=== PATIENT | female | born 1950 | race Caucasian/White ===

== ENCOUNTER 2016-03-18 17:49 | Emergency (ER) | payer OTHER ==
[~2016-03-18] VITALS: Ht 157.5 cm; Wt 67.5 kg
[~2016-03-18 17:49] MED LIST: BACL10TA PO; FERR1TAB23 PO; PRD20 PO; PRED-301 PO
[2016-03-18 17:59] VITALS: TEMP 37; Ht 157.5 cm; Wt 67.5 kg
[2016-03-18] MEDS ORDERED: OXYMETAZOLINE HCL 0.05% NA SPR 15 ML BTL ONE ×2 (18:46→19:00)
--- NOTE | 2016-03-18 19:27 | EMERGENCY ROOM VISIT NOTE ---
History First contact with patient: 18:19 Chief Complaint: NOSE BLEED (MINOR) Stated Complaint: NOSE BLEED History of Present Illness The patient is a 66 year old female who presents to the Emergency Room with complaints of nosebleed. She was at home doing laundry when her nose suddenly started bleeding. She denies any trauma to the nose. The blood was continuous and soaks through multiple paper towels so patient and they decided to come to the ED. She does not have history of any nosebleeds. She does not have any bleeding disorders. She has not had a blood in the stools or urine. She denies rash. She is on home O2 for the past 2 months after an episode of PNA where she was hospitalized at [facility]. She takes 2 L at rest by nasal cannula, 4L when talking and 6 L when up and about. She mostly does work around the house and is trying to remain independent. notes she seems to have been more short of breath for the past 2 days. She has an intermittent productive cough. She has not had wheezing. She notes a momentary sharp chest pain, no associated with exertion or rest but no exertional chest tightness. She has not had fevers. Her appetite and intake have been good. She has been having normal BMs and has been urinating well. Review of Systems A 10 point review of systems was negative unless stated above. Past Medical/Surgical History Medical Problems: (1) Chronic Obstructive Pulmonary Disease, Unspecified (2) Hx of supraventricular tachycardia (3) Hyperlipidemia (4) Hypertension (5) Iron deficiency anemia (6) Malignant neoplasm of lower lobe of right lung (7) Metabolic syndrome (8) Myalgia and myositis (9) Osteoporosis (10) Peripheral neuropathy due to chemotherapy (11) Pneumonia (12) Rheumatoid Arthritis (13) Rheumatoid arthritis (14) Tobacco Use Disorder Surgical Problems: (1) History of cholecystectomy (2) History of hysterectomy (3) History of salpingo-oophorectomy (4) S/p A-port insertion (5) S/P bronchoscopy (6) S/P lobectomy of lung Family History Cancer Diabetes mellitus Gallbladder disease Heart disease MOTHER ([place] in 70s) Hypertension Kidney disease Kidney stones Lung disease Seizures Social History Smoking Status: Former Smoker Alcohol Use: none Drug Use: none Marital Status: Housing Status: lives with significant other Occupation Status: unemployed Current/Historical Medications Scheduled Abatacept (Orencia), 125 MG INJ MONTHLY Aspirin (Aspirin 81), 81 MG PO QAM Atorvastatin (Atorvastatin Calcium), 10 MG PO HS Calcium Carbonate-Vitamin D (Calcium + D), 2 TABS PO DAILY Cholecalciferol (Vitamin D3), 5,000 UNITS PO DAILY Ferrous Sulfate (Iron), 325 MG PO DAILY Furosemide (Lasix), 40 MG PO DAILY Metoprolol Succinate (Toprol Xl), 50 MG PO QAM Prednisone (Prednisone Tab), 40 MG PO DAILY Zolpidem Tartrate (Ambien), 5 MG PO HS Scheduled PRN Hydrocodone/Acetaminophen 5MG/325MG ([place] 5MG/325MG), 1 TABLET PO TID PRN for Pain Ipratropium-Albuterol (Combivent Respimat), 2 PUFFS INH QID PRN for SOB/Wheezing Allergies Coded Allergies: Azithromycin (Verified Allergy, Mild, RASH, 01/21/16) Iodine (Verified Allergy, Mild, IVP DYE N/V HIVES, 01/21/16) Tramadol (Verified Allergy, Mild, RASH, 01/21/16) Codeine (Unverified Adverse Reaction, Unknown, Hallucinations, 01/21/16) Simvastatin (Unverified Adverse Reaction, Unknown, rash, 01/21/16) Physical Exam Vital Signs Date Time Temp Pulse Resp B/P Pulse Ox O2 Delivery O2 Flow Rate FiO2 03/18/16 20:24 98 20 134/92 97 Non-Rebreather 03/18/16 19:34 104 18 125/91 95 Non-Rebreather 4.0 03/18/16 17:59 37.0 113 22 133/91 96 Mask 2.0 Pain Rating (0-10): 0 Physical Exam Constitutional: Vital signs as above were reviewed. Eyes: Pupils equal, round, and reactive to light. Extraocular muscles are intact. No proptosis. No photophobia. ENT: Mucous membranes are moist. No sinus tenderness. TMs are clear bilaterally. Nasal mucosa: left nare clear right nare obstructed by blood. Could not visualize source for bleeding Fresh blood running down pharynx Cardiovascular: Heart with a regular rate and rhythm. Pulses are palpable and symmetric in all 4 extremities. No pedal edema appreciated. Respiratory: Non-rebreather mask. No wheezes, appreciated. No accessory muscle use. No retractions. No increased work of breathing. Crackles at left base GI: Abdomen soft, nontender, nondistended. Normal active bowel sounds. No abdominal hernias appreciated. No rebound. No guarding. : No CVA tenderness appreciated. Musculoskeletal: No midline cervical or vertebral tenderness. No gross deformities. No bony tenderness. No calf swelling or tenderness. Integumentary: Warm, dry, no rashes appreciated. No petechiae Neurological: Patient awake, alert, and oriented x 3. Cranial nerves two through 12 grossly intact. Motor 5 out of 5 strength bilateral upper and lower extremities. Lymph: No cervical lymphadenopathy appreciated. Medical Decision & Procedures ER Provider Diagnostic Interpretation: [~ rep ct add3]] CHEST ONE VIEW PORTABLE CLINICAL HISTORY: Shortness of breath. History of right lung surgery. COMPARISON STUDY: 01/21/2016 FINDINGS: The cardiac and mediastinal contours remain stable. There is mild soft tissue prominence the right paratracheal region unchanged the prior study. There is a right-sided A-Port catheter present. There are diffuse bilateral interstitial pulmonary opacities left greater than right, similar to the preceding study.[ IMPRESSION: Extensive bilateral interstitial pulmonary opacities, similar to the preceding examination. Diagnostic considerations include interstitial edema, interstitial lung disease, or an interstitial pneumonitis. Electronically signed by: Gage Farley M.D. 03/18/2016 7:26 PM Dictated Date/Time: 03/18/2016 7:23 PM Laboratory Results 03/18/16 19:30 Red Blood Count 4.16, Mean Corpuscular Volume 86.5, Mean Corpuscular Hemoglobin 27.9, Mean Corpuscular Hemoglobin Concent 32.2, Mean Platelet Volume 10.1 03/18/16 19:30 Test 03/18/16 19:30 White Blood Count 17.82 K/uL (4.8-10.8) Red Blood Count 4.16 M/uL (4.2-5.4) Hemoglobin 11.6 g/dL (12.0-16.0) Hematocrit 36.0 % (37-47) Mean Corpuscular Volume 86.5 fL (80-100) Mean Corpuscular Hemoglobin 27.9 pg (25-34) Mean Corpuscular Hemoglobin Concent 32.2 g/dl (32-36) Platelet Count 278 K/uL (130-400) Mean Platelet Volume 10.1 fL (7.4-10.4) RDW Standard Deviation 51.3 fL (36.4-46.3) RDW Coefficient of Variation 16.1 % (11.5-14.5) Prothrombin Time 9.7 SECONDS (9.0-12.0) Prothromb Time International Ratio 0.9 (0.9-1.1) Activated Partial Thromboplast Time 27.6 SECONDS (21.0-31.0) Partial Thromboplastin Ratio 1.1 Anion Gap 8.0 mmol/L (3-11) Est Creatinine Clear Calc Drug Dose 63.2 ml/min Estimated GFR () 89.7 Estimated GFR (Non- 77.4 BUN/Creatinine Ratio 32.1 (10-20) Calcium Level 8.4 mg/dl (8.5-10.1) Total Bilirubin 0.2 mg/dl (0.2-1) Aspartate Amino Transf (AST/SGOT) 20 U/L (15-37) Alanine Aminotransferase (ALT/SGPT) 28 U/L (12-78) Alkaline Phosphatase 71 U/L (45-117) Total Protein 6.4 gm/dl (6.4-8.2) Albumin 2.9 gm/dl (3.4-5.0) Globulin 3.5 gm/dl (2.5-4.0) Albumin/Globulin Ratio 0.8 (0.9-2) ED Course 18:20 - Patient seen in room 18:55 - Precepted case with Dr. Patterson Orders: CBC, CMP, PTINR, PTT, CXR 17:45 - CBC reviewed; noted to have WBC 17 CXR reviewed; no acute change 20:30 - CMP reviewed; no evidence of electrolyte, renal or hepatic dysfunction 20:40 - Results of work-up discussed with patient Recommend discharge home. Can take Afrin up to 48 hours Will give mask at discharge to prevent nasal irritation from nasal cannula 21:00 - Patient discharged home in stable condition. Medical Decision A thorough history was obtained, physical examination performed and the EMR was reviewed. The case was reviewed multiple times over with Dr. Ankur Patterson during the patient's ED visit. Patient presents with nosebleed. No other evidence of acute pathological bleeding. Her nosebleed improved with Afrin. I have recommended she can take this for 48 hours, then should stop for rebound. Labs were reviewed. Platelets were normal. Hb normal. No evidence of renal dysfunction causing platelet dysfunction. Coagulation panel was normal. WBCs was noted to be 17. However, she is on chronic steroids and this finding may be due to reactive leukocytosis and not infection. I auscultated the lungs and heard crackles at the left base, prompting CXR evaluation. Fortunately, CXR did not show any acute process. Furthermore, patient reports marked improvement of respiratory status after cessation her nosebleed. My suspicion is that, given her history of chronic rheumatoid arthritis and lung ca, the auscultated crackles are consistent with fibrotic change and not an evolving infective process. As such, I did not feel the need to discharge her on antibiotics. Patient remained hemodynamically stable throughout her ED stay. She was agreeable and close follow-up with her PCP. She was given nosebleed instruction handout and discharged in stable condition. Impression Primary Impression: Nosebleed Additional Impression: Pulmonary fibrosis Departure Information Dispostion Home / Self-Care Condition GOOD Referrals Vera Pickard M.D. (PCP) Patient Instructions My [facility] Additional Instructions You came to the hospital for shortness of breath. We treated you with a nose spray called Afrin. This makes the vessels in the nose close down. This seemed to have improved your symptoms. You can continue to take this for the next 2 days but then stop, because if used for longer it can have rebound effects. Your breathing seemed to improve after your nose bleed stopped. We did a chest x-ray to rule out infection but this was normal. We did check labwork to make sure you did not have an infection but it was fortunately normal. Your white blood cell count is high but this is most likely because you are on steroids We will send you home with facemask to use with your oxygen for the next day. Please use it with a humidifier. As you go home, you can return to your usual activities. If your nosebleed suddenly returns and is not controlled, please seek medical attention immediately by either calling your primary care provider or going to your nearest emergency department. Otherwise, please see your primary care provider in 3-5 days to ensure that your symptoms continue to improve. It was a pleasure to be involved in your care and we wish you all the best. Problem Qualifiers
[2016-03-18 19:41] LABS: MEAN CELL VOLUME 86.5 fL (80-100); MEAN CORPUSCULAR HEMOGLOBIN 27.9 pg (25-34); MEAN CORPUSCULAR HGB CONC 32.2 g/dl (32-36); MEAN PLATELET VOLUME 10.1 fL (7.4-10.4); PLATELET COUNT 278 K/uL (130-400); RED BLOOD COUNT 4.16 M/uL (4.2-5.4); WHITE BLOOD COUNT 17.82 K/uL (4.8-10.8)
[2016-03-18 19:52] LABS: INR 0.9 (0.9-1.1); PARTIAL THROMBOPLASTIN RATIO 1.1; PROTHROMBIN TIME (PATIENT) 9.7 SECONDS (9.0-12.0)
[2016-03-18 20:16] LABS: BUN/CREATININE RATIO 32.1 (10-20); CALCIUM 8.4 mg/dl (8.5-10.1); CREATININE 0.8 mg/dl (0.60-1.20); POTASSIUM 3.9 mmol/L (3.5-5.1)
[2016-03-18 20:19] LABS: ALB/GLOB RATIO 0.8 (0.9-2)
[2016-03-18] MEDS ORDERED: PRED20TA2 PO (20:21)
[2016-03-18] MEDS ORDERED: ZOLP5TAB PO (20:24)
--- NOTE | 2016-03-18 20:26 | EMERGENCY ROOM VISIT NOTE ---
ED Visit Note First contact with patient: 18:19 Resident Physician Supervision Note: I was present with Dr. Steel during the history and exam. I discussed the case with the resident and agree with the findings and plan as documented in the note. Documented By: Raza Patterson
[2016-03-18] MEDS ORDERED: ORNI125 INJ (20:28)
[2016-03-18 20:58] VITALS: BP 132/90; PULSE 84; O2SAT 97
[2016-03-18 21:58] LABS: BASO % 0.3 %; BASO ABS # 0.06 K/uL (0-0.2); COMPLETE YES; EOS % 0.1 %; IG% 5.3 %; LYMPH % 10.1 %; MONO % 7.1 %; NEUT % 77.1 %
[2016-09-14] MEDS ORDERED: HYDR-5688 PO (10:19)
[2016-09-14] MEDS ORDERED: CHOL1000 PO (11:14)
[2016-09-14] MEDS ORDERED: IPRA1AER2 INH (11:14)
[2016-09-14] MEDS ORDERED: CALC600T9 PO (11:14)
[2016-09-14] MEDS ORDERED: METO-217 PO (12:35)
[2016-09-14] MEDS ORDERED: ASPI-435 PO (12:35)
[2016-09-14] MEDS ORDERED: LPT10 PO (13:55)
[2016-10-05] MEDS ORDERED: DXY100 PO (13:36)
[2016-10-05] MEDS ORDERED: PRED10TA PO (13:36)
[2016-10-05] MEDS ORDERED: IPRA1AER2 INH (13:36)
== END 2016-03-18 21:04 | disposition home or self-care (01) ==
LOC: EDBD 17:49 → C.EDA 17:50
DX: R04.0 Epistaxis (principal); J84.10 Pulmonary fibrosis, unspecified; C34.31 Malignant neoplasm of lower lobe, right bronchus or lung; M06.9 Rheumatoid arthritis, unspecified; Z79.82 Long term (current) use of aspirin; J44.9 Chronic obstructive pulmonary disease, unspecified; E78.5 Hyperlipidemia, unspecified; M81.0 Age-related osteoporosis without current pathological fracture; I10 Essential (primary) hypertension; Z87.891 Personal history of nicotine dependence

== ENCOUNTER 2016-09-14 18:01 | Emergency (ER) | payer OTHER ==
[~2016-09-14] VITALS: Ht 157.5 cm; Wt 74.8 kg
[~2016-09-14 18:01] MED LIST changes: +ASPI-435 PO; -BACL10TA PO; +CALC600T9 PO; +CHOL1000 PO; +HYDR-5688 PO; +IPRA1AER2 INH; +LPT10 PO; +METO-217 PO; +ORNI125 INJ; -PRD20 PO; -PRED-301 PO; +PRED20TA2 PO; +ZOLP5TAB PO
[2016-09-14 18:06] VITALS: Ht 157.5 cm; Wt 74.8 kg
[2016-09-14] MEDS ORDERED: FSMD/70 PO (18:26)
[2016-09-14] MEDS ORDERED: PRED10TA PO (18:26)
[2016-09-14] MEDS ORDERED: AMOX875T PO (18:26)
[2016-09-14] MEDS ORDERED: ABAT250I INJ (18:26)
[2016-09-14] MEDS ORDERED: PROAIR INH (18:26)
--- NOTE | 2016-09-14 18:30 | DIAGNOSTIC IMAGING REPORT ---
CT SCAN OF THE BRAIN WITHOUT IV CONTRAST CLINICAL HISTORY: Fall with head injury. COMPARISON STUDY: No priors. TECHNIQUE: Unenhanced axial CT scan of the brain is performed from the vertex to the skull base. Automated dose control exposure was utilized. A dose lowering technique was utilized adhering to the principles of ALARA. CT DOSE: 537.48 mGy.cm FINDINGS: Brain parenchyma: There is minimal periventricular microangiopathic change. The brain parenchyma is otherwise normal in appearance. There is no hemorrhage, mass effect, or evidence of acute territorial ischemia by CT criteria. Angulo-white matter is preserved. No extra-axial fluid collection is seen. Ventricles, sulci, cisterns: Normal in configuration. Intracranial vasculature: There is atherosclerotic calcification of the cavernous carotid arteries. Calvarium: There is no depressed calvarial fracture. Soft tissues: There is a left occipital scalp contusion. Sinuses and mastoids: The visualized paranasal sinuses are clear. The mastoid air cells are well pneumatized. Orbits: The bony orbits are grossly intact. There are bilateral ocular lens implants. IMPRESSION: No acute intracranial abnormality. Electronically signed by: Luis Corley M.D. 09/14/2016 6:29 PM Dictated Date/Time: 09/14/2016 6:26 PM
[2016-09-14] MEDS ORDERED: ACETAMINOPHEN 500 MG TAB PO ONE (18:33)
--- NOTE | 2016-09-14 19:13 | DIAGNOSTIC IMAGING REPORT ---
SINGLE VIEW CHEST CLINICAL HISTORY: Fall. Left-sided chest wall pain. FINDINGS: An AP, portable, upright chest radiograph is compared to study dated 03/18/2016 and correlated with chest CT dated 01/22/2016. The examination is degraded by portable technique and patient rotation. A right internal jugular central venous infusion port is unchanged in position. The heart is mildly enlarged and there is atherosclerotic calcification of the thoracic aorta. The pulmonary vasculature is noncongested. There is emphysema, as well as postoperative changes from right-sided pulmonary resection. Pleural fluid is noted at the right lung base and is similar to previous. There is no airspace consolidation or large left-sided pleural effusion. No pneumothorax is seen. The skeletal structures are osteopenic. Postoperative change is suggested in the right sided ribs. IMPRESSION: 1. Cardiomegaly emphysema with no acute cardiopulmonary maladies. 2. Postoperative change and chronic parenchymal change is similar to previous. Electronically signed by: Luis Corley M.D. 09/14/2016 7:11 PM Dictated Date/Time: 09/14/2016 7:09 PM
[2016-09-14] MEDS ORDERED: HYDROCODONE/ACETAMOPHEN 5/325MG TAB PO STA (19:24)
--- NOTE | 2016-09-14 19:57 | EMERGENCY ROOM VISIT NOTE ---
History Report prepared by Adelita: Fito Gastelum Under the Supervision of: Dr. Khoa Singh M.D. First contact with patient: 18:04 Chief Complaint: FALL Stated Complaint: FALL History of Present Illness The patient is a 66 year old female who presents to the Emergency Room by EMS with complaints of constant posterior head pain s/p fall occurring just prior to arrival. She states that she slipped in the shower and fell onto the toilet. She states that she hit her head on the toilet. The patient also complains of resolved dizziness. She denies any other pain or injuries. She did not lose consciousness. The patient states that she felt normal prior to her fall. She notes that she began having some shortness of breath and coughing some blood this morning. Source of History: patient Onset: Just prior to arrival Position: head (posterior) Timing: constant Associated Symptoms: + cough (blood this morning), + SOB (this morning), No LOC, No neck pain, No chest pain, No abdominal pain, No back pain Review of Systems See HPI for pertinent positives & negatives. A total of 10 systems reviewed and were otherwise negative. Past Medical & Surgical Medical Problems: (1) Chronic Obstructive Pulmonary Disease, Unspecified (2) Hx of supraventricular tachycardia (3) Hyperlipidemia (4) Hypertension (5) Iron deficiency anemia (6) Malignant neoplasm of lower lobe of right lung (7) Metabolic syndrome (8) Myalgia and myositis (9) Osteoporosis (10) Peripheral neuropathy due to chemotherapy (11) Pneumonia (12) Rheumatoid Arthritis (13) Rheumatoid arthritis (14) Tobacco Use Disorder Surgical Problems: (1) History of cholecystectomy (2) History of hysterectomy (3) History of salpingo-oophorectomy (4) S/p A-port insertion (5) S/P bronchoscopy (6) S/P lobectomy of lung Family History Cancer Diabetes mellitus Gallbladder disease Heart disease MOTHER ([place] in 70s) Hypertension Kidney disease Kidney stones Lung disease Seizures Social History Smoking Status: Former Smoker Alcohol Use: none Drug Use: none Marital Status: Housing Status: lives with significant other Occupation Status: unemployed Current/Historical Medications Scheduled Abatacept (Orencia), 750 MG INJ Q4WK Alendronate/Cholecalciferol (Fosamax+D 70MG/2800 Iu), 1 TABLET PO WK Amoxicillin & Pot Clavulanate (Augmentin 875-125 mg), 1 TAB PO BID Aspirin (Aspirin 81), 81 MG PO QAM Atorvastatin (Atorvastatin Calcium), 10 MG PO HS Calcium Carbonate-Vitamin D (Calcium + D), 2 TABS PO DAILY Cholecalciferol (Vitamin D3), 5,000 UNITS PO DAILY Ferrous Sulfate (Iron), 325 MG PO qp Furosemide (Lasix), 40 MG PO DAILY Metoprolol Succinate (Toprol Xl), 50 MG PO QAM Prednisone (Prednisone), 40 MG PO DAILY UD Scheduled PRN Hydrocodone/Acetaminophen 5MG/325MG ([place] 5MG/325MG), 1 TABLET PO TID PRN for Pain [Proair], 2 PUFF INH Q4 PRN for SOB/Wheezing Allergies Coded Allergies: Azithromycin (Verified Allergy, Mild, RASH, 01/21/16) Iodine (Verified Allergy, Mild, IVP DYE N/V HIVES, 01/21/16) Tramadol (Verified Allergy, Mild, RASH, 01/21/16) Codeine (Unverified Adverse Reaction, Unknown, Hallucinations, 01/21/16) Simvastatin (Unverified Adverse Reaction, Unknown, rash, 01/21/16) Physical Exam Vital Signs Date Time Temp Pulse Resp B/P (MAP) Pulse Ox O2 Delivery O2 Flow Rate FiO2 09/14/16 20:17 36.7 72 18 140/78 99 09/14/16 20:03 72 18 140/78 99 Room Air 09/14/16 18:06 36.7 80 22 140/78 99 Nasal Cannula 6.0 Physical Exam GENERAL: Patient is uncomfortable appearing and in mild distress. HEENT: Normocephalic, mucous membranes moist, no nasal congestion, no scleral icterus. Moderate hematoma to the left posterior scalp. NECK: No stridor, no adenopathy, no meningismus, trachea is midline. LUNGS: No dyspnea. Faint wheezing bilateral lower lungs. HEART: Regular rate and rhythm. No murmurs, rubs, gallops appreciated. ABDOMEN: Soft, nontender, bowel sounds positive, no masses appreciated, no peritonitis. BACK: No midline tenderness, no CVA tenderness EXTREMITIES: Normal motion all extremities, no cyanosis, no edema. NEUROLOGIC: Alert and oriented, no acute motor or sensory deficits, no focal weakness, cranial nerves grossly intact. GCS 15. SKIN: No rash, no jaundice, no diaphoresis. Medical Decision & Procedures ER Provider Diagnostic Interpretation: Radiology results and stated below per my review and radiologist interpretation: CT SCAN OF THE BRAIN WITHOUT IV CONTRAST FINDINGS: Brain parenchyma: There is minimal periventricular microangiopathic change. The brain parenchyma is otherwise normal in appearance. There is no hemorrhage, mass effect, or evidence of acute territorial ischemia by CT criteria. Angulo-white matter is preserved. No extra-axial fluid collection is seen. Ventricles, sulci, cisterns: Normal in configuration. Intracranial vasculature: There is atherosclerotic calcification of the cavernous carotid arteries. Calvarium: There is no depressed calvarial fracture. Soft tissues: There is a left occipital scalp contusion. Sinuses and mastoids: The visualized paranasal sinuses are clear. The mastoid air cells are well pneumatized. Orbits: The bony orbits are grossly intact. There are bilateral ocular lens implants. IMPRESSION: No acute intracranial abnormality. Electronically signed by: Luis Corley M.D. SINGLE VIEW CHEST FINDINGS: An AP, portable, upright chest radiograph is compared to study dated 03/18/2016 and correlated with chest CT dated 01/22/2016. The examination is degraded by portable technique and patient rotation. A right internal jugular central venous infusion port is unchanged in position. The heart is mildly enlarged and there is atherosclerotic calcification of the thoracic aorta. The pulmonary vasculature is noncongested. There is emphysema, as well as postoperative changes from right-sided pulmonary resection. Pleural fluid is noted at the right lung base and is similar to previous. There is no airspace consolidation or large left-sided pleural effusion. No pneumothorax is seen. The skeletal structures are osteopenic. Postoperative change is suggested in the right sided ribs. IMPRESSION: 1. Cardiomegaly emphysema with no acute cardiopulmonary maladies. 2. Postoperative change and chronic parenchymal change is similar to previous. Electronically signed by: Luis Corley M.D. Medications Administered Medications (Trade) Dose Ordered Sig/Silvia Route Start Time Stop Time Status Last Admin Dose Admin Acetaminophen (Tylenol Tab) 1,000 mg STK-MED ONCE PO 09/14/16 18:33 09/14/16 18:34 DC 09/14/16 18:33 1,000 MG Acetaminophen/ Hydrocodone Bitart ([place] 5/325 Tab) 1 tab NOW STAT PO 7/31/17 19:24 09/14/16 19:25 DC 09/14/16 19:24 1 TAB ED Course 1804: The patient was evaluated in room B12B. A complete history and physical exam was performed. 1832: Ordered Tylenol Tab 1000 mg PO. 1921: I reassessed the patient. She would like something for the pain, and would like to go home. 1923: Ordered [place] 5/325 Tab PO. 2024: Reevaluated the patient. Discussed results and discharge instructions: she verbalized understanding and agreement. The patient is ready for discharge. Medical Decision 66 yr old female with fall striking posterior left head. Notes cough over last few days for which she was recently started on abx. CXR without any acute findings. CT head without acute ICH, etc. Tylenol mild improvement, given her [place] early here. She is GCS 15 with completely neuro intact. She makes it very clear this was a mechanical fall. She feels comfortable going home. Stable and breathing well on her normal [place] O2. Reviewed symptoms requiring RTED. Head Trauma GCS Score: 15 Medication Reconcilliation Current Medication List: was personally reviewed by me Blood Pressure Screening Patient's blood pressure: Elevated blood pressure Blood pressure disposition: Elevated BP felt to be situational Impression Primary Impression: Fall Additional Impressions: Head contusion Cough Emphysema of lung Scribe Attestation The scribe's documentation has been prepared under my direction and personally reviewed by me in its entirety. I confirm that the note above accurately reflects all work, treatment, procedures, and medical decision making performed by me. Departure Information Dispostion Home / Self-Care Referrals Vera Pickard M.D. (PCP) Patient Instructions ED Head Injury Closed, My [facility] Health Problem Qualifiers
[2016-09-14 20:17] VITALS: BP 140/78; PULSE 72; TEMP 36.7; O2SAT 99
[2016-09-14] MEDS ORDERED: FRS/40 PO (20:20)
[2016-10-05] MEDS ORDERED: PRED10TA PO (13:36)
[2016-10-05] MEDS ORDERED: DXY100 PO (13:36)
[2016-10-05] MEDS ORDERED: IPRA1AER2 INH (13:36)
== END 2016-09-14 20:19 | disposition home or self-care (01) ==
LOC: EDBD 18:01 → C.EDA 18:02
DX: S00.03XA Contusion of scalp, initial encounter (principal); W01.198A Fall on same level from slipping, tripping and stumbling with subsequent striking against other object, initial encounter; Y92.002 Bathroom of unspecified non-institutional (private) residence as the place of occurrence of the external cause; R05 Cough; J43.9 Emphysema, unspecified; J44.9 Chronic obstructive pulmonary disease, unspecified; E78.5 Hyperlipidemia, unspecified; I10 Essential (primary) hypertension; D50.9 Iron deficiency anemia, unspecified; E88.81 Metabolic syndrome and other insulin resistance; M79.1 Myalgia; G62.0 Drug-induced polyneuropathy; T45.1X5A Adverse effect of antineoplastic and immunosuppressive drugs, initial encounter; M06.9 Rheumatoid arthritis, unspecified; Z85.118 Personal history of other malignant neoplasm of bronchus and lung; Z87.891 Personal history of nicotine dependence; Z90.710 Acquired absence of both cervix and uterus; Z90.722 Acquired absence of ovaries, bilateral; Z90.2 Acquired absence of lung [part of]; Z79.82 Long term (current) use of aspirin; Z83.3 Family history of diabetes mellitus; Z82.49 Family history of ischemic heart disease and other diseases of the circulatory system; Z84.1 Family history of disorders of kidney and ureter; Z82.0 Family history of epilepsy and other diseases of the nervous system

== ENCOUNTER 2016-10-02 16:23 | Inpatient (IN) | payer OTHER ==
[~2016-10-02] VITALS: Ht 157.5 cm; Wt 74.6 kg
[~2016-10-02 16:23] MED LIST changes: +ABAT250I INJ; +AMOX875T PO; +FRS/40 PO; +FSMD/70 PO; -IPRA1AER2 INH; -ORNI125 INJ; +PRED10TA PO; -PRED20TA2 PO; +PROAIR INH; -ZOLP5TAB PO
[2016-10-02] MEDS ORDERED: SODIUM CHLORIDE 0.9% 1000ML 1,000 ML IV STA (16:50)
[2016-10-02] MEDS ORDERED: LEVAQUIN 750MG / 150ML D5W IV STA (16:50)
[2016-10-02] MEDS ORDERED: ALBUTEROL 0.083% NEBU SOLN 3 ML VIAL INH STA (16:51)
[2016-10-02] MEDS ORDERED: METHYLPREDNISOLONE 125 MG VIAL IV STA (16:52)
[2016-10-02] MEDS ORDERED: OPTIRAY 320 IV PRN (17:30)
[2016-10-02] MEDS ORDERED: MoRPHine SULFATE 4 MG/ML 1 ML CARP\\VIAL IV STA (17:38)
[2016-10-02 17:42] LABS: BASO % 0.2 %; BASO ABS # 0.02 K/uL (0-0.2); COMPLETE YES; EOS % 1.1 %; HEMATOCRIT 35.5 % (37-47); IG% 1.8 %; LYMPH % 20.8 %; LYMPH ABS # 1.92 K/uL (1.2-3.4); MEAN CELL VOLUME 87.4 fL (80-100); MEAN CORPUSCULAR HEMOGLOBIN 27.6 pg (25-34); MEAN CORPUSCULAR HGB CONC 31.5 g/dl (32-36); MEAN PLATELET VOLUME 9.7 fL (7.4-10.4); MONO % 8.9 %; NEUT % 67.2 %; PLATELET COUNT 207 K/uL (130-400); RED BLOOD COUNT 4.06 M/uL (4.2-5.4); WHITE BLOOD COUNT 9.24 K/uL (4.8-10.8)
--- NOTE | 2016-10-02 18:13 | DIAGNOSTIC IMAGING REPORT ---
CHEST ONE VIEW PORTABLE CLINICAL HISTORY: 66 years-old Female presenting with sob . TECHNIQUE: Portable upright AP view of the chest was obtained. COMPARISON: 09/14/2016. FINDINGS: Right internal jugular Mediport terminates in the superior vena cava. Surgical clips noted in the region of the right hilum. Persistent prominence of the cardiac silhouette. Diffuse reticular lung opacities most prominent on the left. No new focal infiltrate. Persistent right hemidiaphragm elevation. Right pleural thickening unchanged. No pneumothorax. Multiple right lateral rib deformities from prior fractures. Upper abdomen normal. IMPRESSION: 1. Cardiomegaly. 2. Chronic lung disease. No new focal infiltrate. Electronically signed by: Manny Lambert M.D. 10/02/2016 6:11 PM Dictated Date/Time: 10/02/2016 6:10 PM
[2016-10-02 18:14] LABS: ALT/SGPT 20 U/L (12-78); BLOOD UREA NITROGEN 15 mg/dl (7-18); BUN/CREATININE RATIO 23.9 (10-20); CALCIUM 8.2 mg/dl (8.5-10.1); CARBON DIOXIDE 32 mmol/L (21-32); CHLORIDE 98 mmol/L (98-107); CREATININE 0.62 mg/dl (0.60-1.20); GLUCOSE 89 mg/dl (70-99); POTASSIUM 3.6 mmol/L (3.5-5.1); SODIUM 135 mmol/L (136-145)
[2016-10-02] MEDS ORDERED: ONDANSETRON INJ 2 MG/ML 2 ML VIAL IV STA (18:16)
[2016-10-02 18:19] LABS: ALB/GLOB RATIO 0.8 (0.9-2); ALKALINE PHOSPHATASE 54 U/L (45-117); AST/SGOT 17 U/L (15-37)
[2016-10-02] MEDS ORDERED: PRED10TA PO (18:22)
--- NOTE | 2016-10-02 19:06 | DIAGNOSTIC IMAGING REPORT ---
(CHEST FOR PE) ANGIO WITH CLINICAL HISTORY: 66 years-old Female presenting with shortness of breath. TECHNIQUE: Multidetector CT angiography of the chest was performed after administration of intravenous contrast. 3-D volumetric and maximum intensity projection (MIP) images were subsequently reconstructed for review. IV contrast: 78 ml of Optiray 320. A dose lowering technique was used consistent with the principles of ALARA (as low as reasonably achievable). COMPARISON: 01/22/2016. CT DOSE (mGy.cm): The estimated cumulative dose is 327.41 mGy.cm. FINDINGS: Personal Protection Specialist topogram: Right internal jugular Mediport terminates in the right atrium. Surgical clips project over the right hilum. Pulmonary vasculature: The study is adequate for assessment of the pulmonary vascular tree. Postsurgical changes of the right lower lobe pulmonary artery, which has been ligated. Otherwise no evidence of pulmonary embolus in the remaining pulmonary arteries. Main pulmonary artery not enlarged. No flattening of the interventricular septum. No intracardiac filling defect. Remaining chest: On soft tissue windows, 6 mm hypodense nodule in the right thyroid lobe. Scattered subcentimeter prominent lymph nodes in the mediastinum in the prevascular and precarinal regions measuring up to 10 mm in short axis, unchanged from prior exam. Atherosclerosis of the aortic arch. Left atrial enlargement. Aortic valve and coronary artery calcification. No pericardial or pleural effusion. Distal esophageal wall thickening, slightly more prominent on the current exam. Increased central biliary ductal dilatation. The common duct measures 1.7 cm at the liver hilum, previously 1.0 cm. Although not included on the current exam, the prior exam demonstrates and ill-defined soft tissue density inferior to the gallbladder fossa, which is partly visualized and indeterminate. On lung windows, paraseptal and centrilobular emphysema. Additionally, a honeycombing pattern is observed at the left lung base. Interval evolution of prior groundglass opacity throughout the left lung, which has largely cleared although diffuse centrilobular groundglass nodularity remains. Interval evolution of prior groundglass opacity in the right lung, which now demonstrates more solid central lobular consolidation. Postsurgical changes of right lower lobectomy. Focal nodular thickening along the left major fissure persists, now measuring 6 mm in thickness, previously 6 mm (series 4 image 121). Airways patent. On bone windows, degenerative changes of the spine. Old fracture deformities of several right lateral ribs, possibly postsurgical. IMPRESSION: 1. No evidence of pulmonary embolus. 2. Interval evolution of prior diffuse groundglass opacities. More subtle centrilobular nodularity is noted throughout the left lung and more prominently in the right lung. This likely represents expected partial interval clearance of airspace consolidation. 3. Paraseptal and centrilobular emphysema with superimposed honeycombing pattern at the left lung base most suggestive of a usual interstitial pneumonia pattern. 4. Persistently enlarged mediastinal lymph nodes, possibly reactive. 5. Worsening biliary ductal dilatation. Suggestion of abnormal soft tissue density inferior to the gallbladder probably fossa on prior CT, which is not included on the current exam. The combination of these findings is worrisome and necessitates further evaluation to exclude neoplasm as a source of biliary obstruction. Contrast enhanced CT or MR of the abdomen is recommended. 6. Distal esophageal wall thickening slightly more prominent on the current exam. Correlate for possible esophagitis. The report will be called/faxed according to standard departmental protocol. Electronically signed by: Manny Lambert M.D. 10/02/2016 7:05 PM Dictated Date/Time: 10/02/2016 6:50 PM
[2016-10-02] MEDS ORDERED: GI COCKTAIL PO STA (19:15)
[2016-10-02] MEDS ORDERED: LIDOCAINE HCL 2% VISC SOLN 20 ML UDC ONE (19:30)
[2016-10-02] MEDS ORDERED: ALUMINUM/MAGNESIUM SUSP 30 ML UDC ONE (19:30)
[2016-10-02 20:45] LABS: MAGNESIUM 2.3 mg/dl (1.8-2.4)
[2016-10-02 20:46] LABS: ARTERIAL BLD GAS O2 SATURATION 96.7 % (90-95); ARTERIAL BLOOD GAS HCO3 28 mmol/L (19-24); ARTERIAL BLOOD GAS PO2 90 mm/Hg (80-95); ARTERIAL BLOOD GAS pH 7.39 (7.35-7.45)
[2016-10-02 20:47] LABS: ALLEN TEST POS (POS); O2 ADMINISTRATION 4 L
[2016-10-02] MEDS ORDERED: DOXYCYCLINE HYCLATE 100 MG CAP PO ONE (22:14)
[2016-10-02] MEDS ORDERED: POTASSIUM CHLORIDE 10 MEQ TABCR PO STA (22:14)
[2016-10-02] MEDS ORDERED: ALBUT/IPRATROP 3MG/0.5MG NEB 3 ML VIAL INH PRN (22:15)
[2016-10-02] MEDS ORDERED: ACETAMINOPHEN 325 MG TAB PO PRN (22:15)
[2016-10-02] MEDS ORDERED: ONDANSETRON INJ 2 MG/ML 2 ML VIAL IV PRN (22:15)
[2016-10-02] MEDS ORDERED: LORAZEPAM 2 MG/ML 1 ML VIAL IV PRN (22:15)
--- NOTE | 2016-10-02 23:28 | EMERGENCY ROOM VISIT NOTE ---
History Report prepared by Adelita: Kodak Vasquez Under the Supervision of: Dr. Masoud Del Rio D.O. First contact with patient: 16:38 Chief Complaint: RESPIRATORY PROBLEMS Stated Complaint: CHILLS - FEVER - SINUS PRESSURE History of Present Illness The patient is a 66 year old female who presents to the Emergency Room with complaints of respiratory problems that began 3 days ago. At that time, her symptoms began with a non-productive cough. It worsened to a productive cough, sinus infection, sore throat, and shortness of breath. Pt denies headache, change in vision, fevers, chest pain, nausea, vomiting, diarrhea, pain with urination, and melena. She has a past medical history of small cell lung cancer and a partial lung resection. She usually wears 2L of oxygen at rest and 6L while moving, but she has been wearing 6L recently secondary to her symptoms. She has not received recent antibiotics or chemotherapy. She denies any history of blood clots. She currently takes an Aspirin daily. Source of History: patient Onset: 3 days ago Position: other (Respiratory System) Symptom Intensity: moderate Quality: other (Shortness of breath) Timing: constant Associated Symptoms: + sorethroat, + cough, No fevers, No chest pain, No nausea, No vomiting, No melena, No diarrhea, No urinary symptoms Review of Systems See HPI for pertinent positives & negatives. A total of 10 systems reviewed and were otherwise negative. Past Medical & Surgical Medical Problems: (1) Chronic Obstructive Pulmonary Disease, Unspecified (2) Hx of supraventricular tachycardia (3) Hyperlipidemia (4) Hypertension (5) Iron deficiency anemia (6) Malignant neoplasm of lower lobe of right lung (7) Metabolic syndrome (8) Myalgia and myositis (9) Osteoporosis (10) Peripheral neuropathy due to chemotherapy (11) Pneumonia (12) Respiratory failure, [id number] (13) Rheumatoid Arthritis (14) Rheumatoid arthritis (15) Tobacco Use Disorder Surgical Problems: (1) History of cholecystectomy (2) History of hysterectomy (3) History of salpingo-oophorectomy (4) S/p A-port insertion (5) S/P bronchoscopy (6) S/P lobectomy of lung Family History Cancer Diabetes mellitus Gallbladder disease Heart disease MOTHER ([place] in 70s) Hypertension Kidney disease Kidney stones Lung disease Seizures Social History Smoking Status: Former Smoker Alcohol Use: none Drug Use: none Marital Status: Housing Status: lives with significant other Occupation Status: unemployed Current/Historical Medications Scheduled Abatacept (Orencia), 750 MG INJ Q4WK Alendronate/Cholecalciferol (Fosamax+D 70MG/2800 Iu), 1 TABLET PO WK Aspirin (Aspirin 81), 81 MG PO QAM Atorvastatin (Atorvastatin Calcium), 10 MG PO HS Calcium Carbonate-Vitamin D (Calcium + D), 2 TABS PO DAILY Cholecalciferol (Vitamin D3), 5,000 UNITS PO DAILY Furosemide (Lasix), 40 MG PO DAILY Metoprolol Succinate (Toprol Xl), 50 MG PO QAM Prednisone (Prednisone), 10 MG PO DAILY Scheduled PRN Hydrocodone/Acetaminophen 5MG/325MG ([place] 5MG/325MG), 1 TABLET PO TID PRN for Pain [Proair], 2 PUFF INH Q4 PRN for SOB/Wheezing Allergies Coded Allergies: Azithromycin (Verified Allergy, Mild, RASH, 10/02/16) Iodine (Verified Allergy, Mild, IVP DYE N/V HIVES, 10/02/16) Tramadol (Verified Allergy, Mild, RASH, 10/02/16) Codeine (Unverified Adverse Reaction, Unknown, Hallucinations, 10/02/16) Simvastatin (Unverified Adverse Reaction, Unknown, rash, 10/02/16) Physical Exam Vital Signs Date Time Temp Pulse Resp B/P (MAP) Pulse Ox O2 Delivery O2 Flow Rate FiO2 10/02/16 23:22 82 18 105/88 98 10/02/16 22:25 78 18 108/60 98 Nasal Cannula 4.0 10/02/16 20:25 86 18 100/50 95 Nasal Cannula 4.0 10/02/16 19:23 90 18 109/61 100 Nasal Cannula 4.0 10/02/16 18:34 85 16 129/84 100 Nasal Cannula 5.0 10/02/16 17:53 Nasal Cannula 10/02/16 17:52 87 23 125/74 100 Room Air 10/02/16 17:11 Nasal Cannula 5.0 10/02/16 17:10 Nasal Cannula 10/02/16 16:57 85 10/02/16 16:33 37.1 90 24 108/76 98 Nasal Cannula 5.0 Physical Exam GENERAL: alert, disheveled appearing, sitting up in bed, on nasal canula, dyspneic with conversation. EYE EXAM: normal conjunctiva OROPHARYNX: no exudate, no erythema, lips, buccal mucosa, and tongue normal and mucous membranes are dry NECK: supple, no nuchal rigidity, no adenopathy, non-tender, no JVD LUNGS: Rhonchi at bilateral bases. Normal chest wall mechanics CHEST: Old scar to the right flank. HEART: no murmurs, S1 normal and S2 normal ABDOMEN: abdomen soft, non-tender, normo-active bowel sounds, no masses, no rebound or guarding. BACK: Back is symmetrical on inspection and there is no deformity, no midline tenderness, no CVA tenderness. SKIN: no rashes and no bruising UPPER EXTREMITIES: upper extremities are grossly normal. LOWER EXTREMITIES: No pitting edema. Calves equal bilaterally. NEURO EXAM: Normal sensorium, cranial nerves II-XII grossly intact, normal speech, no gross weakness of arms, no gross weakness of legs. Medical Decision & Procedures ER Provider Diagnostic Interpretation: Radiology results as stated below per my review and the radiologist's interpretation: (CHEST FOR PE) ANGIO WITH CLINICAL HISTORY: 66 years-old Female presenting with shortness of breath. TECHNIQUE: Multidetector CT angiography of the chest was performed after administration of intravenous contrast. 3-D volumetric and maximum intensity projection (MIP) images were subsequently reconstructed for review. IV contrast: 78 ml of Optiray 320. A dose lowering technique was used consistent with the principles of ALARA (as low as reasonably achievable). COMPARISON: 01/22/2016. CT DOSE (mGy.cm): The estimated cumulative dose is 327.41 mGy.cm. FINDINGS: Crate Opener topogram: Right internal jugular Mediport terminates in the right atrium. Surgical clips project over the right hilum. Pulmonary vasculature: The study is adequate for assessment of the pulmonary vascular tree. Postsurgical changes of the right lower lobe pulmonary artery, which has been ligated. Otherwise no evidence of pulmonary embolus in the remaining pulmonary arteries. Main pulmonary artery not enlarged. No flattening of the interventricular septum. No intracardiac filling defect. Remaining chest: On soft tissue windows, 6 mm hypodense nodule in the right thyroid lobe. Scattered subcentimeter prominent lymph nodes in the mediastinum in the prevascular and precarinal regions measuring up to 10 mm in short axis, unchanged from prior exam. Atherosclerosis of the aortic arch. Left atrial enlargement. Aortic valve and coronary artery calcification. No pericardial or pleural effusion. Distal esophageal wall thickening, slightly more prominent on the current exam. Increased central biliary ductal dilatation. The common duct measures 1.7 cm at the liver hilum, previously 1.0 cm. Although not included on the current exam, the prior exam demonstrates and ill-defined soft tissue density inferior to the gallbladder fossa, which is partly visualized and indeterminate. On lung windows, paraseptal and centrilobular emphysema. Additionally, a honeycombing pattern is observed at the left lung base. Interval evolution of prior groundglass opacity throughout the left lung, which has largely cleared although diffuse centrilobular groundglass nodularity remains. Interval evolution of prior groundglass opacity in the right lung, which now demonstrates more solid central lobular consolidation. Postsurgical changes of right lower lobectomy. Focal nodular thickening along the left major fissure persists, now measuring 6 mm in thickness, previously 6 mm (series 4 image 121). Airways patent. On bone windows, degenerative changes of the spine. Old fracture deformities of several right lateral ribs, possibly postsurgical. IMPRESSION: 1. No evidence of pulmonary embolus. 2. Interval evolution of prior diffuse groundglass opacities. More subtle centrilobular nodularity is noted throughout the left lung and more prominently in the right lung. This likely represents expected partial interval clearance of airspace consolidation. 3. Paraseptal and centrilobular emphysema with superimposed honeycombing pattern at the left lung base most suggestive of a usual interstitial pneumonia pattern. 4. Persistently enlarged mediastinal lymph nodes, possibly reactive. 5. Worsening biliary ductal dilatation. Suggestion of abnormal soft tissue density inferior to the gallbladder probably fossa on prior CT, which is not included on the current exam. The combination of these findings is worrisome and necessitates further evaluation to exclude neoplasm as a source of biliary obstruction. Contrast enhanced CT or MR of the abdomen is recommended. 6. Distal esophageal wall thickening slightly more prominent on the current exam. Correlate for possible esophagitis. The report will be called/faxed according to standard departmental protocol. Electronically signed by: Manny Lambert M.D. 10/02/2016 7:05 PM Dictated Date/Time: 10/02/2016 6:50 PM CHEST ONE VIEW PORTABLE CLINICAL HISTORY: 66 years-old Female presenting with sob . TECHNIQUE: Portable upright AP view of the chest was obtained. COMPARISON: 09/14/2016. FINDINGS: Right internal jugular Mediport terminates in the superior vena cava. Surgical clips noted in the region of the right hilum. Persistent prominence of the cardiac silhouette. Diffuse reticular lung opacities most prominent on the left. No new focal infiltrate. Persistent right hemidiaphragm elevation. Right pleural thickening unchanged. No pneumothorax. Multiple right lateral rib deformities from prior fractures. Upper abdomen normal. IMPRESSION: 1. Cardiomegaly. 2. Chronic lung disease. No new focal infiltrate. Electronically signed by: Manny Lambert M.D. 10/02/2016 6:11 PM Dictated Date/Time: 10/02/2016 6:10 PM Laboratory Results 10/02/16 17:30 Red Blood Count 4.06, Mean Corpuscular Volume 87.4, Mean Corpuscular Hemoglobin 27.6, Mean Corpuscular Hemoglobin Concent 31.5, Mean Platelet Volume 9.7, Neutrophils (%) (Auto) 67.2, Lymphocytes (%) (Auto) 20.8, Monocytes (%) (Auto) 8.9, Eosinophils (%) (Auto) 1.1, Basophils (%) (Auto) 0.2, Neutrophils # (Auto) 6.21, Lymphocytes # (Auto) 1.92, Monocytes # (Auto) 0.82, Eosinophils # (Auto) 0.10, Basophils # (Auto) 0.02 10/02/16 17:30 Test 10/02/16 17:30 10/02/16 20:34 White Blood Count 9.24 K/uL (4.8-10.8) Red Blood Count 4.06 M/uL (4.2-5.4) Hemoglobin 11.2 g/dL (12.0-16.0) Hematocrit 35.5 % (37-47) Mean Corpuscular Volume 87.4 fL (80-100) Mean Corpuscular Hemoglobin 27.6 pg (25-34) Mean Corpuscular Hemoglobin Concent 31.5 g/dl (32-36) Platelet Count 207 K/uL (130-400) Mean Platelet Volume 9.7 fL (7.4-10.4) Neutrophils (%) (Auto) 67.2 % Lymphocytes (%) (Auto) 20.8 % Monocytes (%) (Auto) 8.9 % Eosinophils (%) (Auto) 1.1 % Basophils (%) (Auto) 0.2 % Neutrophils # (Auto) 6.21 K/uL (1.4-6.5) Lymphocytes # (Auto) 1.92 K/uL (1.2-3.4) Monocytes # (Auto) 0.82 K/uL (0.11-0.59) Eosinophils # (Auto) 0.10 K/uL (0-0.5) Basophils # (Auto) 0.02 K/uL (0-0.2) RDW Standard Deviation 51.0 fL (36.4-46.3) RDW Coefficient of Variation 16.0 % (11.5-14.5) Immature Granulocyte % (Auto) 1.8 % Immature Granulocyte # (Auto) 0.17 K/uL (0.00-0.02) D-Dimer 1400 ug/L FEU (0-500) Anion Gap 5.0 mmol/L (3-11) Est Creatinine Clear Calc Drug Dose 86.1 ml/min Estimated GFR () 109.7 Estimated GFR (Non- 94.6 BUN/Creatinine Ratio 23.9 (10-20) Calcium Level 8.2 mg/dl (8.5-10.1) Magnesium Level 2.3 mg/dl (1.8-2.4) Total Bilirubin 0.4 mg/dl (0.2-1) Aspartate Amino Transf (AST/SGOT) 17 U/L (15-37) Alanine Aminotransferase (ALT/SGPT) 20 U/L (12-78) Alkaline Phosphatase 54 U/L (45-117) Troponin I < 0.015 ng/ml (0-0.045) Total Protein 6.8 gm/dl (6.4-8.2) Albumin 3.1 gm/dl (3.4-5.0) Globulin 3.7 gm/dl (2.5-4.0) Albumin/Globulin Ratio 0.8 (0.9-2) Lipase 93 U/L (73-393) Arterial Blood pH 7.39 (7.35-7.45) Arterial Blood Partial Pressure CO2 48 mmHg (35-46) Arterial Blood Partial Pressure O2 90 mm/Hg (80-95) Arterial Blood HCO3 28 mmol/L (19-24) Arterial Blood Oxygen Saturation 96.7 % (90-95) Arterial Blood Base Excess 3.0 mEq/L (-9-1.8) Arterial Blood Gas Delivery 4 L Vicente Test POS (POS) Laboratory results per my review. Medications Administered Medications (Trade) Dose Ordered Sig/Silvia Route Start Time Stop Time Status Last Admin Dose Admin Sodium Chloride 1,000 ml @ 999 mls/hr Q1H1M STAT IV 10/02/16 16:50 10/02/16 17:50 DC 10/02/16 17:45 999 MLS/HR Levofloxacin (Levaquin / D5W) 750 mg NOW STAT IV 10/02/16 16:50 10/02/16 16:51 DC 10/02/16 17:45 750 MG Albuterol Sulfate (Ventolin 0.083% 2.5MG/3ML Neb) 2.5 mg NOW STAT INH 10/02/16 16:51 10/02/16 16:52 DC 10/02/16 17:01 2.5 MG Methylprednisolone Sodium Succinate (Solu-Medrol IV) 125 mg NOW STAT IV 10/02/16 16:52 10/02/16 16:54 DC 10/02/16 17:45 125 MG Morphine Sulfate (MoRPHine SULFATE INJ) 4 mg NOW STAT IV 10/02/16 17:38 10/02/16 17:39 DC 10/02/16 17:50 4 MG Ondansetron HCl (Zofran Inj) 4 mg NOW STAT IV 10/02/16 18:16 10/02/16 18:17 DC 10/02/16 18:34 4 MG Al Hydroxide/Mg Hydroxide (Maalox Susp) 30 ml STK-MED ONCE .ROUTE 10/02/16 19:30 10/02/16 19:31 DC 10/02/16 19:33 30 ML Lidocaine HCl (Viscous Lidocaine 2% Soln) 20 ml STK-MED ONCE .ROUTE 10/02/16 19:30 10/02/16 19:31 DC 10/02/16 19:33 20 ML Doxycycline Hyclate (Vibramycin Cap) 100 mg 2214 ONCE PO 10/02/16 22:14 10/02/16 22:39 DC 10/02/16 23:17 100 MG Potassium Chloride (Klor-Con M10) 40 meq NOW STAT PO 10/02/16 22:14 10/02/16 22:39 DC 10/02/16 23:17 40 MEQ ECG Indication: SOB/dyspnea Rate (beats per minute): 86 Rhythm: sinus rhythm Findings: nonspecific-ST abn (Inferior), ST depression (slight in high lateral) , T-wave inversion (Septal and anterior), other (t-wave flattening in lateral leads) Comparison ECG Date: 21 Jan 2016 Change: T inversion anterior is new, t-flattening in lateral is new, and st-depression in high lateral new. No change with repeat ECG. ED Course ED COURSE: Vital signs were reviewed and showed normal vitals. The patients medical record was reviewed The above diagnostic studies were performed and reviewed. ED treatments and interventions as stated above. 1638: The patient was evaluated in room B7. A complete history and physical examination was performed. 1655: The patient informed me that she has had a contrast allergy since she was young. However, she received IV contrast with a CT scan last month with no issues. 1700: I attempted to call the patient's PCP at this time and was unsuccessful. 1738: The patient is now experiencing some low back pain from sitting in her bed. 1826: The patient is slightly better and is going to CT. 1925: Upon reevaluation, the patient is resting. I discussed my findings with the patient and she understands and agrees with the treatment plan. Based on the patients age, coexisting illnesses, exam and lab findings the decision to treat as an inpatient was made. The patient remained stable while under my care. The patient will be evaluated by Dr. Lisa Perry Hospitalist, for further management. Medical Decision Differential diagnoses includes but is not limited to pneumonia, bronchitis, COPD/Asthma exacerbation, pneumothorax, pulmonary embolism, congestive heart failure, acute coronary syndrome Patient is a 66-year-old female with a past mental history of lung cancer who presents the ER for coughing and shortness of breath. She normally wears 2-6L via nasal cannula. 2 L when at rest. 6 L with exertion. She is currently wearing 6 L all the time now as she associated breath. She missed her green productive cough. Afebrile. She also admits to sore throat and runny nose. CBC along with BMP, LFTs, bilirubin was unremarkable. D-dimer was elevated. CT PE was performed shows pneumonia. Patient was given Levaquin and fluids. She was admitted to internal medicine with hypoxia secondary to pneumonia. Medication Reconcilliation Current Medication List: was personally reviewed by me Blood Pressure Screening Patient's blood pressure: Normal blood pressure Blood pressure disposition: Did not require urgent referral Consults Time Called: 1919 Consulting Physician: Dr. Lisa Perry Hospitalist Returned Call: 1924 I reviewed the patient's case with him. He will evaluate the patient for further management. Impression Primary Impression: PNA (pneumonia) Additional Impression: Acute electrocardiogram changes Scribe Attestation The scribe's documentation has been prepared under my direction and personally reviewed by me in its entirety. I confirm that the note above accurately reflects all work, treatment, procedures, and medical decision making performed by me. Departure Information Dispostion Being Evaluated By Hospitalist Referrals Vera Pickard M.D. (PCP) Patient Instructions My [facility] Problem Qualifiers Primary Impression: PNA (pneumonia) Pneumonia type: due to unspecified organism Laterality: left Lung location : lower lobe of lung Qualified Codes: J18.1 - Lobar pneumonia, unspecified organism
[2016-10-02] MEDS ORDERED: LORAZEPAM INJ 0.5 MG in SYRINGE 0.75 ML IV PRN (23:45)
[2016-10-03] VITALS (9 sets, daily range): BP systolic 109–121; BP diastolic 71–77; PULSE 66–86; TEMP 36.6–37; O2SAT 93–98; Ht 157.5 cm; Wt 74.6 kg
[2016-10-03] MEDS ORDERED: NSS + 20MEQ KCL 1000ML 1,000 ML IV ONE (00:15)
[2016-10-03] MEDS: IPRATROPIUM BROMIDE NEB SOLN 0.02% 2.5 ML VIAL INH SCH ×4 (01:30→18:54)
[2016-10-03] MEDS: LEVALBUTEROL 1.25MG/0.5ML NEB INH SCH ×4 (01:30→18:54)
[2016-10-03] MEDS ORDERED: LEVALBUTEROL/IPRATROPIUM NEB INH SCH (03:00)
[2016-10-03] MEDS ORDERED: PNEUMOCOCCAL POLYSACCHARIDES 25 MCG/0.5 ML VIAL/SYR IM. ONE (05:00)
[2016-10-03] MEDS ORDERED: PNEUMOCOCCAL ADMINISTRATION CHARGE ONE (05:00)
[2016-10-03 05:58] LABS: HEMATOCRIT 31.4 % (37-47); MEAN CELL VOLUME 87.7 fL (80-100); MEAN CORPUSCULAR HEMOGLOBIN 27.4 pg (25-34); MEAN CORPUSCULAR HGB CONC 31.2 g/dl (32-36); MEAN PLATELET VOLUME 9.3 fL (7.4-10.4); PLATELET COUNT 186 K/uL (130-400); RED BLOOD COUNT 3.58 M/uL (4.2-5.4); WHITE BLOOD COUNT 4.75 K/uL (4.8-10.8)
[2016-10-03 06:09] LABS: PROTHROMBIN TIME (PATIENT) 10.7 SECONDS (9.0-12.0)
[2016-10-03 06:24] LABS: COMPLETE YES; IG% 1.5 %; LYMPH % 11.2 %; LYMPH ABS # 0.53 K/uL (1.2-3.4); MONO % 5.7 %; NEUT % 81.6 %
[2016-10-03 06:32] LABS: BUN/CREATININE RATIO 26.2 (10-20); CALCIUM 8.6 mg/dl (8.5-10.1); CREATININE 0.52 mg/dl (0.60-1.20); POTASSIUM 4.8 mmol/L (3.5-5.1)
[2016-10-03] MEDS: DOXYCYCLINE HYCLATE 100 MG CAP PO SCH ×2 (10:21→20:50)
[2016-10-03] MEDS: ENOXAPARIN 40 MG/0.4 ML SYR SQ SCH (10:22)
[2016-10-03] MEDS ORDERED: OPTIRAY 320 IV PRN (10:30)
[2016-10-03] MEDS: ASPIRIN 81 MG ECTAB PO SCH (10:34)
[2016-10-03] MEDS: METOPROLOL SUCC 50MG EXT REL TAB PO SCH (10:35)
[2016-10-03] MEDS ORDERED: METHYLPREDNISOLONE 60 MG in SYRINGE 0 ML IV SCH ×2 (11:30→17:30)
--- NOTE | 2016-10-03 12:04 | HISTORY & PHYSICAL EXAMINATION ---
DATE OF ADMISSION: 10/02/2016 PRIMARY CARE DOCTOR: Dr. Doan. CHIEF COMPLAINT: Cough, shortness of breath. HISTORY OF PRESENT ILLNESS: History obtained from patient records. Medical history significant for chronic respiratory failure secondary to COPD/ RA-ILD on chronic steroid Rx and home O2, past tobacco abuse, hypertension, hyperlipidemia, history squamous cell carcinoma of the lung, stage 2b status post right middle and right lower bilateral lobectomy and node dissection April 2015, status post chemotherapy, chronic anemia (baseline hemoglobin 10-11), history of PSVT. Recent confinement last January 2016 for respiratory failure (multifocal pneumonia versus Taxol toxicity). Patient transferred to [facility]. Respiratory failure attributed to progression or flare up of rheumatoid lung disease with possible superimposed chemotherapy induced lung injury. Bronchoscopy was considered, but was not pursued due to uncertain benefit as per discharge note. Three weeks ago the patient treated with Augmentin for bronchitis sx. Breathing improved. She also had gastroenteritis symptoms attributed to food poisoning. A few days ago, the patient developed sinus congestion, later cough productive of green sputum. Denies aspiration. Low grade fever at home. Some epigastric discomfort, nausea. Denies reflux symptoms Seen at PCP's office. Noted to be in respiratory distress. Sent to the Emergency Room, given Levaquin and Solu-Medrol for COPD exacerbation. Currently feeling better. . Patient used to see local [facility] engineer second assistant (Dr. Lopez) who has left practice. Currently seeing [facility] engineer second assistant at [facility] Thoracic medicine via video conference encounters. Patient interested in seeing a new [facility] pulmonology provider. MEDICAL HISTORY: As above. SURGERIES: She has had lung surgery, mediastinoscopy, lymph node biopsy, cholecystectomy, total abdominal hysterectomy, left salpingo-oophorectomy, A-port surgery. HOME MEDICATIONS: Include aspirin, Fosamax, atorvastatin, calcium plus D, Lasix, Vicodin, metoprolol, ProAir, prednisone 10 mg daily. ALLERGIES: CODEINE, IODINE, SIMVASTATIN, AZITHROMYCIN, AND TRAMADOL. FAMILY HISTORY: Heart disease, diabetes, seizures. PERSONAL AND SOCIAL HISTORY: Past tobacco abuse, no intake of alcoholic beverages. 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 REVIEW OF SYSTEMS: As per HPI, all other ROS negative. PHYSICAL EXAMINATION: VITAL SIGNS: Blood pressure was noted to be 108/76, pulse rate 90, RR 26, sats 98 on 2 liters. GENERAL: minimal respiratory distress. Slightly anxious SKIN: Pallor. HEAD, EYES, EARS, NOSE, AND THROAT: Pale palpebral conjunctivae. Dry mucosa. Nasal cannula in place. NECK: Short neck. LUNGS: Decreased breath sounds. Expiratory wheezes. HEART: Regular rate and rhythm. ABDOMEN: Soft. no epigastric tenderness. EXTREMITIES: No edema. No tenderness NEUROLOGIC: No gross focality. LABORATORY DATA: Hemoglobin 11.2, hematocrit 35.5, white cell count 9, platelets 207. Sodium noted to be 140, K 3.5 chloride 98, CO2 32, BUN 15, creatinine 0.6. Glucose was noted to be 89. ABG pH showed 7.39, pCO2 48, pO2 90, O2 sats [address] of the chest showed no PE, interval evolution of prior diffuse ground glass opacities, more subtle centrilobular nodularity noted to the left lung and more prominent right lung, likely representing expectorate partial interval clearance of airspace consolidation, paracentral centrilobular emphysema with superimposed honeycombing pattern at the left lung base, most suggestive of UIP, persistently enlarged mediastinal lymph nodes, possibly reactive, worsening ductal dilatation, suggestion of abnormal soft tissue density inferior to gallbladder. Further evaluation to exclude biliary neoplasm as source of biliary obstruction. Contrast CT or MR abdomen recommended. Distal esophageal wall thickening, slightly more prominent. ASSESSMENT AND PLAN: 1. Acute on chronic hypoxemic respiratory failure secondary to chronic obstructive pulmonary disease/RA-ILD exacerbation secondary to complicated bronchitis. Steroid dependent chronic lung disease No sepsis. 2. History of lung cancer status post surgery status post chemotherapy. 3. Hypertension, stable. 4. Past tobacco abuse. 5. Chronic anemia, Hg at baseline. 6. Incidental finding of biliary tract obstruction on CT chest rule out intraabdominal tumor. PLAN: GMF supplemental O2. Doxycycline, nebs, steroids for complicated bronchitis Pulmonary consult RE complicated bronchitis. CT abdomen and pelvis contrast study tomorrow after IV dye clearance. RE poss biliary tract obstruction Further management pending workup results. DVT prophylaxis Lovenox subQ. FULL CODE. MTDD
--- NOTE | 2016-10-03 14:58 | Pulmonary Consultation ---
History General Date of Service: Oct 03, 2016. Stated Complaint: Respiratory Failure, Acute On Chronic HPI The patient is a 66 year old female who presents to [facility] with complaints of Respiratory M 66-year-old female with past medical history of squamous carcinoma (stage IIB [id number] squamous cell carcinoma), rheumatoid arthritis, pulmonary fibrosis who presents on 10/02/2016 with 3 day history of shortness of breath associated with fevers, chills, shortness of breath, productive cough of green sputum, sore throat, nasal congestion, rhinorrhea associated with generalized malaise and fatigue. She usually wears 4 L nasal cannula at rest and 6 L nasal cannula with exercise however has increased oxygen requirement and wearing 6 L nasal cannula at rest. She denies any chest pain, night sweats, hemoptysis or weight loss. She denies any abdominal pain, nausea/vomiting diarrhea or constipation. She denies any genitourinary symptoms. Denies any recent travel. She states that her grandson was recently visiting and had a "cold." She is on chronic steroid of 10 mg by mouth daily and ProAir 2 puffs inhalation every 4 when necessary for shortness of breath. She follows up with Pulmonary at [facility]. On admission her vital signs were temperature 37.1, pulse 90, respiratory rate 24 , blood pressure 108/76, pulse oximetry on 5 L nasal cannula was 98%. Laboratory data was significant for white blood cell count of 9.24, hemoglobin of 11.2 platelet count of 207. Chemistry significant for sodium 135, potassium 3.6, chloride 98, carbon dioxide 32, BUN of 15 and creatinine of 0.62. Calcium level was 8.2 and mag of 2.3, albumin was 2.1 total protein 6.8, liver enzymes were all within normal limits. Troponin was less than 0.015. Coags showed a PT of 10.7, PTT 25.9, INR of 1 and a d-dimer of 1400. ABG was 7.39/48/90/28/ 96.7% on 4 L nasal cannula. EKG showed normal sinus rhythm at 86 bpm with T- wave abnormality in anterior leads. Chest x-ray was done and showed diffuse reticular lung capacity is most prominent on the left. No new focal infiltrate. Persistent right hemidiaphragm elevation with right pleural thickening which is unchanged. A CT chest was done to rule out pulmonary embolism which was negative for PE however , showed interval evolution of the LS opacities, more subtle centrilobular nodularity throughout left lung and more prominently on the right. It also showed paraseptal and centrilobular emphysema with superimposed honeycombing on the left lung base suggestive of usual interstitial pneumonia pattern. There are also enlarged mediastinal lymph nodes possibly reactive. There was also noted to be worsening biliary ductal dilatation with abnormal soft tissue density inferior to the gallbladder. Distal esophageal wall thickening slightly more prominent. In the ER she received Solu-Medrol 125 mg IV 1 dose, albuterol nebulizer, Levaquin 750 mg IV 1 dose, morphine 4 mg 1 dose a dentist on 4 mg 1 dose GI cocktail when necessary, viscous lidocaine, Maalox, potassium chloride 40 mEq by mouth and doxycycline 100 mg by mouth. She was admitted for acute on chronic hypoxic respiratory failure secondary to pneumonia. She has extensive pulmonary past medical history. she is status post right middle lobe and right lower lobe resection for stage IIB squamous cell carcinoma. She was treated with cisplatin and gemcitabine. She was unable to tolerate gemcitabine due to peripheral nephropathy and refused any further treatment. She did receive Taxol and carboplatin. 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 Of note, she was last seen by pulmonary in January of she was admitted for worsening shortness of breath And hypoxic respiratory failure. At that time she had a CT scan done that showed extensive interstitial changes and emphysematous changes, subpleural reticulation as well as honeycombing. There was no traction bronchiectasis.however there was extensive bilateral patchy groundglass opacification seen throughout both lung martinez, with sparing of the right upper lobe. She was transferred to [facility] in [place] for bronchoscopy. Sputum cultures from 01/21/2016 showed normal kelli. Historian: patient Onset: last week Severity: moderate Complaint Status: improved, persistent Modifying Factors: rest Review of Systems Constitutional: reports: as stated in HPI, fever, malaise, weakness Eyes: reports: as stated in HPI ENT: reports: as stated in HPI Cardiovascular: reports: as stated in HPI Respiratory: reports: as stated in HPI Gastrointestinal: reports: as stated in HPI Genitourinary - Female: reports: as stated in HPI Musculoskeletal: reports: as stated in HPI Integumentary: reports: as stated in HPI Neurologic: reports: as stated in HPI Psychiatric: reports: as stated in HPI Endocrine: as stated in HPI Hematologic / Lymphatic: as stated in HPI Allergic / Immunologic: as stated in HPI All Other Symptoms All Other Systems: Reviewed and Negative Past Medical History Past Medical History: Squamous cell carcinoma stage IIB (status post chemotherapy) of right lower lobe Pulmonary fibrosis secondary to rheumatoid arthritis Hypoxemic respiratory failure on long-term oxygen therapy Pneumonia Rheumatoid arthritis Hyperlipidemia Hypertension Iron deficiency anemia Myalgia and myositis Osteoporosis Past Surgical History: Her past surgical history is significant for right middle and right lower lobe resection, a bronchoscopy, Port-A-Cath insertion, cholecystectomy total abdominal hysterectomy and salpingo-oophorectomy. Family History Cancer Diabetes mellitus Gallbladder disease Heart disease MOTHER (MT in 70s) Hypertension Kidney disease Kidney stones Lung disease Seizures Family history: Cancer, diabetes, gallbladder disease, hypertension, kidney disease, lung disease, seizure disorder. Mother had myocardial infarction in 70s. 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 Previous history of smoking tobacco. Denies alcohol or illicit drug use. Hx Tobacco Use In Past Year?: Yes (QUIT 2015) Smoking Status: Former Smoker Marital status: Housing status: lives with significant other Occupational Status: unemployed Allergies Coded Allergies: Azithromycin (Verified Allergy, Mild, RASH, 10/02/16) Iodine (Verified Allergy, Mild, IVP DYE N/V HIVES, 10/02/16) Tramadol (Verified Allergy, Mild, RASH, 10/02/16) Codeine (Unverified Adverse Reaction, Unknown, Hallucinations, 10/02/16) Simvastatin (Unverified Adverse Reaction, Unknown, rash, 10/02/16) Current Medications Reported Home Medications Medications Dose Route/Sig Max Daily Dose Days Date Category Dose Instructions Prednisone 10 Mg Tab 10 Mg PO DAILY 10/02/16 Reported Fosamax+D 70MG/2800 Iu (Alendronate Sodium/Vitamin D3) 70 Mg Tab 1 Tablet PO WK 09/14/16 Reported Orencia (Abatacept) 250 Mg Inj 750 Mg INJ Q4WK 09/14/16 Reported [Proair] 2 Puff INH Q4 PRN 09/14/16 Reported Lasix (Furosemide) 40 Mg Tab 40 Mg PO DAILY 03/18/16 Reported Vitamin D3 (Cholecalciferol) 1,000 Unit Tab 5,000 Units PO DAILY 30 01/21/16 Reported Calcium + D (Calcium Carbonate-Vitamin D) 1 Tab Tab 2 Tabs PO DAILY 01/21/16 Reported [place] 5MG/325MG (Acetaminophen/Hydrocodone Bitart) Tab 1 Tablet PO TID PRN 01/21/16 Reported PRN PAIN Atorvastatin Calcium (Atorvastatin) 10 Mg Tab 10 Mg PO HS 06/20/15 Reported Aspirin 81 (Aspirin) 81 Mg Tab 81 Mg PO QAM 11/06/13 Reported Toprol Xl (Metoprolol Succinate) 50 Mg Tabcr 50 Mg PO QAM 11/06/13 Reported Physical Physical Exam Vital Signs: Date Time Temp Pulse Resp B/P (MAP) Pulse Ox O2 Delivery O2 Flow Rate FiO2 10/03/16 07:37 37.0 80 18 111/71 (84) 96 4.0 10/03/16 07:03 86 16 98 Nasal Cannula 4.0 10/03/16 01:31 84 16 93 Nasal Cannula 4.0 10/03/16 00:23 36.6 84 20 119/72 93 Nasal Cannula 4.0 10/02/16 23:22 82 18 105/88 98 10/02/16 22:25 78 18 108/60 98 Nasal Cannula 4.0 10/02/16 20:25 86 18 100/50 95 Nasal Cannula 4.0 10/02/16 19:23 90 18 109/61 100 Nasal Cannula 4.0 10/02/16 18:34 85 16 129/84 100 Nasal Cannula 5.0 10/02/16 17:53 Nasal Cannula 10/02/16 17:52 87 23 125/74 100 Room Air 10/02/16 17:11 Nasal Cannula 5.0 10/02/16 17:10 Nasal Cannula 10/02/16 16:57 85 10/02/16 16:33 37.1 90 24 108/76 98 Nasal Cannula 5.0 General Appearance: WD/WN, NO APPARENT DISTRESS, other (Chronically ill female) Head: NORMOCEPHALIC, ATRAUMATIC Eyes: PERRLA, NO DISCHARGE, EOMI, SCLERAE NORMAL, CONJUNCTIVAE NORMAL ENT: NORMAL NASAL EXAM, NORMAL MOUTH EXAM, sinus tenderness Neck: NORMAL RANGE OF MOTION, NO TENDERNESS, TRACHEA MIDLINE, NO STRIDOR, SUPPLE Respiratory: NO RESPIRATORY DISTRESS, NO TENDERNESS, wheezing, other (Velcro crackles b/l. Sporadic expiratory wheezing.) Cardiovasular: REGULAR RATE/RHYTHM, NORMAL S1S2 Abdomen: NON TENDER, NORMAL BOWEL SOUNDS, NO REBOUND Genitourinary - Female: EXTERNAL GENITALIA NORMAL Back: NORMAL INSPECTION, NO MIDLINE TENDERNESS, NO CVA TENDERNESS Upper Extremities: NO EDEMA Lower Extremities: NO EDEMA Pulses: dorsalis pedis (R) (2+), dorsalis pedis (L) (2+) Neuro: ALERT, ORIENTED x 3, NORMAL MOTOR EXAM, NORMAL SENSATION, NORMAL SPEECH Psychiatric: NORMAL AFFECT, NO SUICIDAL IDEATION, CONTRACTS FOR SAFETY Diagnostics Labs Results Past 24 Hours Test 10/02/16 17:30 10/02/16 20:34 10/03/16 05:37 Range/Units White Blood Count 9.24 4.75 4.8-10.8 K/uL Red Blood Count 4.06 3.58 4.2-5.4 M/uL Hemoglobin 11.2 9.8 12.0-16.0 g/dL Hematocrit 35.5 31.4 37-47 % Mean Corpuscular Volume 87.4 87.7 80-100 fL Mean Corpuscular Hemoglobin 27.6 27.4 25-34 pg Mean Corpuscular Hemoglobin Concent 31.5 31.2 32-36 g/dl Platelet Count 207 186 130-400 K/uL Mean Platelet Volume 9.7 9.3 7.4-10.4 fL Neutrophils (%) (Auto) 67.2 81.6 % Lymphocytes (%) (Auto) 20.8 11.2 % Monocytes (%) (Auto) 8.9 5.7 % Eosinophils (%) (Auto) 1.1 0.0 % Basophils (%) (Auto) 0.2 0.0 % Neutrophils # (Auto) 6.21 3.88 1.4-6.5 K/uL Lymphocytes # (Auto) 1.92 0.53 1.2-3.4 K/uL Monocytes # (Auto) 0.82 0.27 0.11-0.59 K/uL Eosinophils # (Auto) 0.10 0.00 0-0.5 K/uL Basophils # (Auto) 0.02 0.00 0-0.2 K/uL RDW Standard Deviation 51.0 50.4 36.4-46.3 fL RDW Coefficient of Variation 16.0 15.6 11.5-14.5 % Immature Granulocyte % (Auto) 1.8 1.5 % Immature Granulocyte # (Auto) 0.17 0.07 0.00-0.02 K/uL D-Dimer 1400 0-500 ug/L FEU Sodium Level 135 139 136-145 mmol/L Potassium Level 3.6 4.8 3.5-5.1 mmol/L Chloride Level 98 105 98-107 mmol/L Carbon Dioxide Level 32 31 21-32 mmol/L Anion Gap 5.0 3.0 3-11 mmol/L Blood Urea Nitrogen 15 14 7-18 mg/dl Creatinine 0.62 0.52 0.60-1.20 mg/dl Est Creatinine Clear Calc Drug Dose 86.1 102.0 ml/min Estimated GFR () 109.7 116.2 Estimated GFR (Non- 94.6 100.3 BUN/Creatinine Ratio 23.9 26.2 10-20 Random Glucose 89 155 70-99 mg/dl Calcium Level 8.2 8.6 8.5-10.1 mg/dl Magnesium Level 2.3 1.8-2.4 mg/dl Total Bilirubin 0.4 0.2-1 mg/dl Aspartate Amino Transf (AST/SGOT) 17 15-37 U/L Alanine Aminotransferase (ALT/SGPT) 20 12-78 U/L Alkaline Phosphatase 54 45-117 U/L Troponin I < 0.015 0-0.045 ng/ml Total Protein 6.8 6.4-8.2 gm/dl Albumin 3.1 3.4-5.0 gm/dl Globulin 3.7 2.5-4.0 gm/dl Albumin/Globulin Ratio 0.8 0.9-2 Lipase 93 73-393 U/L Arterial Blood pH 7.39 7.35-7.45 Arterial Blood Partial Pressure CO2 48 35-46 mmHg Arterial Blood Partial Pressure O2 90 80-95 mm/Hg Arterial Blood HCO3 28 19-24 mmol/L Arterial Blood Oxygen Saturation 96.7 90-95 % Arterial Blood Base Excess 3.0 -9-1.8 mEq/L Arterial Blood Gas Delivery 4 L Vicente Test POS POS Prothrombin Time 10.7 9.0-12.0 SECONDS Prothromb Time International Ratio 1.0 0.9-1.1 Activated Partial Thromboplast Time 25.9 21.0-31.0 SECONDS Partial Thromboplastin Ratio 1.[address] chest 10/02/2016 IMPRESSION: 1. No evidence of pulmonary embolus. 2. Interval evolution of prior diffuse groundglass opacities. More subtle centrilobular nodularity is noted throughout the left lung and more prominently in the right lung. This likely represents expected partial interval clearance of airspace consolidation. 3. Paraseptal and centrilobular emphysema with superimposed honeycombing pattern at the left lung base most suggestive of a usual interstitial pneumonia pattern. 4. Persistently enlarged mediastinal lymph nodes, possibly reactive. 5. Worsening biliary ductal dilatation. Suggestion of abnormal soft tissue density inferior to the gallbladder probably fossa on prior CT, which is not included on the current exam. The combination of these findings is worrisome and necessitates further evaluation to exclude neoplasm as a source of biliary obstruction. Contrast enhanced CT or MR of the abdomen is recommended. 6. Distal esophageal wall thickening slightly more prominent on the current exam. Correlate for possible esophagitis Chest x-ray 10/02/2016 FINDINGS: Right internal jugular Mediport terminates in the superior vena cava. Surgical clips noted in the region of the right hilum. Persistent prominence of the cardiac silhouette. Diffuse reticular lung opacities most prominent on the left. No new focal infiltrate. Persistent right hemidiaphragm elevation. Right pleural thickening unchanged. No pneumothorax. Multiple right lateral rib deformities from prior fractures. Upper abdomen normal. IMPRESSION: 1. Cardiomegaly. 2. Chronic lung disease. No new focal infiltrate. CT chest 01/22/2016 IMPRESSION: 1. There is no evidence of pulmonary embolus in the main, lobar, or segmental pulmonary arteries. 2. There is evidence of emphysema and superimposed interstitial lung disease, as well as postoperative change from right lower lobe resection. These findings are similar in appearance to the 09/03/2015 examination. 3. There is diffuse bilateral groundglass consolidation, with relative sparing in the right upper lobe. The appearance is nonspecific and this could represent a component of interstitial edema, multifocal pneumonia, pulmonary hemorrhage, and/or ARDS. Clinical correlation will be required and radiographic follow-up to resolution is recommended. 4. Cardiomegaly with evidence of pulmonary artery hypertension. 5. There is been a slight decrease in size of the 0.6 x 1.4 cm nodular density along the left major fissure as compared to 09/03/2015. 6. Mildly enlarged mediastinal and hilar lymph nodes are nonspecific and may be reactive or related to chronic lung disease. 7. Additional changes as above. CT of chest 09/03/2015 IMPRESSION: 1. Basilar and peripheral predominant subpleural lucencies and ground glass opacities with reticulation, In part, these findings represent paraseptal emphysema although there is suspected superimposed interstitial lung disease such as UIP or fibrotic NSIP pattern. 2. Status post right lower lobectomy. A right pleural effusion is likely post surgical but a short-term follow-up CT is recommended to ensure complete resolution. 3. Indeterminate 1.7 x 0.7 cm perifissural nodule along the left major fissure. This is likely benign but should be assessed on subsequent chest CTs to ensure stability. Impression Assessment and Plan Pneumonia Acute on chronic hypoxic respiratory failure Pulmonary fibrosis History of Stage 2b Squamous cell carcinoma of RLL Biliary duct dilatation Patient extensive pulmonary history. I reviewed her imaging and EMR in detail. It appears that she has underlying lung disease for some time. She does have components of ground glass opacifications that were seen previously on imaging that are not a prominent on most recent images. However, there is significant fibrotic changes with honeycoming present at bases and peripherally. This could represent an mixed emphysematous and fibrotic lung disease consistent with emphyema. Fibrotic changes are consistent with NSIP/ UIP pattern, most likely secondary to Rheumatoid arthritis. She states that she is seen by pulmonary physicians at [facility]. She states that there has been some discussion of lung biopsy for diagnosis of fibrotic lung disease, but was felt to be to frail. She currently has mucous production associated with subjective fever and chills as well as a known sick contact making an infection, such pneumonia most likely. The differential also includes pulmonary embolism which could present with increasing oxygen requirements, but this has been ruled out. BNP should be sent to rule evaluate for CHF as well as TTE I will also request pulmonary records from [facility]. In the meantime, I would continue with current management. Continue with supplemental oxygen to maintain SaO2 > 92%. Continue with Solumedrol IV [id number] Continue with empiric broad spectrum Abx Follow up sputum cultures Obtain BNP and TTE Flutter valve For all other medical problems, continue with current management per the primary team. I appreciate the consult and will continue to follow with you.
--- NOTE | 2016-10-03 18:58 | DIAGNOSTIC IMAGING REPORT ---
CT OF THE ABDOMEN AND PELVIS WITH CONTRAST CLINICAL HISTORY: Biliary ductal dilatation on chest CT. COMPARISON STUDY: Chest CT October 02, 2016 and PET/CT April 03, 2015. TECHNIQUE: The patient was premedicated for an IV dye allergy. Following IV administration of 93 mL of Optiray-320, axial images of the abdomen and pelvis were obtained from the lung bases to the proximal femurs. Images were reviewed in the axial, sagittal, and coronal planes. IV contrast was administered without complication. A dose lowering technique was utilized adhering to the principles of ALARA. CT DOSE: 976.01 mGycm FINDINGS: Visualized portions of the lower chest demonstrate small right and trace left pleural effusions. There are postoperative findings consistent with a right lower lobectomy which are partially imaged on this exam. Subpleural honeycombing is noted. No pneumatosis, free air or portal venous gas is present. Moderate biliary ductal dilatation is noted. This is likely related to prior cholecystectomy. This has not significantly changed since previous exams. The common bile duct measures 1.3 cm in caliber. There is no pancreatic ductal dilatation. A 1.5 cm right renal cyst is present. A few subcentimeter renal lesions are too small to characterize. There is no evidence for a bowel obstruction. There is no lymphadenopathy. There is sigmoid diverticulosis without evidence for acute diverticulitis. There are no suspicious osseous lesions. There is extensive atherosclerotic plaque of the abdominal aorta which is normal in caliber. IMPRESSION: 1. Moderate biliary ductal dilatation likely related to prior cholecystectomy. No pancreatic ductal dilatation. No soft tissue mass identified. In the absence of elevated liver function tests, this biliary ductal dilatation is of doubtful clinical significance. 2. Postoperative findings consistent with a right lower lobectomy. Small right pleural effusion which is nonspecific. This may be postsurgical but should be assessed on subsequent studies to ensure resolution. 3. Findings consistent with a UIP pattern of pulmonary fibrosis within visualized portions of the lungs. Electronically signed by: Nicolas Garcia M.D. 10/03/2016 6:57 PM Dictated Date/Time: 10/03/2016 6:41 PM
--- NOTE | 2016-10-03 19:19 | Progress Note ---
Internal Med Progress Note Date of Service: Oct 03, 2016. Provider Documentation: SUBJECTIVE: resting comfortably sob and cough is better no chest pain no nausea afebrile denies any other complaints OBJECTIVE: Vital Signs-as noted below Exam: General-alert and awake. Not in distress. ENT-normal hearing Neck-no neck masses Lungs-cta b/l no wheezing or crackles Heart-s1 and s2 heard regular rhythm no murmurs Abdomen-soft bowel sounds present non tender no distension Extremities- no erythema no edema Neuro-alert and awake moves extremities Lab data as noted below. ASSESSMENT & PLAN: 1. Acute on chronic hypoxemic respiratory failure secondary to chronic obstructive pulmonary disease/RA-ILD exacerbation secondary to complicated bronchitis. Steroid dependent chronic lung disease No sepsis. on iv steroids and nebs and doxy improving appreciate pulmonary inputs 2. History of lung cancer status post surgery status post chemotherapy. 3. Hypertension, stable. on Lopressor. 4. Past tobacco abuse. 5. Chronic anemia, Hg at baseline. 6. Incidental finding of biliary tract obstruction on CT chest ct abd/pelvis unremarkable. DVT PROPHYLAXIS Lovenox DISPOSITION to be determined Vital Signs: Date Time Temp Pulse Resp B/P (MAP) Pulse Ox O2 Delivery O2 Flow Rate FiO2 10/03/16 18:56 68 16 98 Nasal Cannula 4.0 10/03/16 17:02 Nasal Cannula 4.0 10/03/16 14:53 36.8 66 18 121/77 (92) 94 4.0 10/03/16 14:29 76 16 95 Nasal Cannula 4.0 10/03/16 10:36 80 109/72 (84) 10/03/16 09:00 96 Nasal Cannula 4.0 10/03/16 07:37 37.0 80 18 111/71 (84) 96 4.0 10/03/16 07:03 86 16 98 Nasal Cannula 4.0 10/03/16 01:31 84 16 93 Nasal Cannula 4.0 10/03/16 00:23 36.6 84 20 119/72 93 Nasal Cannula 4.0 10/02/16 23:22 82 18 105/88 98 10/02/16 22:25 78 18 108/60 98 Nasal Cannula 4.0 10/02/16 20:25 86 18 100/50 95 Nasal Cannula 4.0 10/02/16 19:23 90 18 109/61 100 Nasal Cannula 4.0 Lab Results: Results Past 24 Hours Test 10/02/16 20:34 10/03/16 05:37 10/03/16 16:02 Range/Units Arterial Blood pH 7.39 7.35-7.45 Arterial Blood Partial Pressure CO2 48 35-46 mmHg Arterial Blood Partial Pressure O2 90 80-95 mm/Hg Arterial Blood HCO3 28 19-24 mmol/L Arterial Blood Oxygen Saturation 96.7 90-95 % Arterial Blood Base Excess 3.0 -9-1.8 mEq/L Arterial Blood Gas Delivery 4 L Vicente Test POS POS White Blood Count 4.75 4.8-10.8 K/uL Red Blood Count 3.58 4.2-5.4 M/uL Hemoglobin 9.8 12.0-16.0 g/dL Hematocrit 31.4 37-47 % Mean Corpuscular Volume 87.7 80-100 fL Mean Corpuscular Hemoglobin 27.4 25-34 pg Mean Corpuscular Hemoglobin Concent 31.2 32-36 g/dl Platelet Count 186 130-400 K/uL Mean Platelet Volume 9.3 7.4-10.4 fL Neutrophils (%) (Auto) 81.6 % Lymphocytes (%) (Auto) 11.2 % Monocytes (%) (Auto) 5.7 % Eosinophils (%) (Auto) 0.0 % Basophils (%) (Auto) 0.0 % Neutrophils # (Auto) 3.88 1.4-6.5 K/uL Lymphocytes # (Auto) 0.53 1.2-3.4 K/uL Monocytes # (Auto) 0.27 0.11-0.59 K/uL Eosinophils # (Auto) 0.00 0-0.5 K/uL Basophils # (Auto) 0.00 0-0.2 K/uL RDW Standard Deviation 50.4 36.4-46.3 fL RDW Coefficient of Variation 15.6 11.5-14.5 % Immature Granulocyte % (Auto) 1.5 % Immature Granulocyte # (Auto) 0.07 0.00-0.02 K/uL Prothrombin Time 10.7 9.0-12.0 SECONDS Prothromb Time International Ratio 1.0 0.9-1.1 Activated Partial Thromboplast Time 25.9 21.0-31.0 SECONDS Partial Thromboplastin Ratio 1.0 Sodium Level 139 136-145 mmol/L Potassium Level 4.8 3.5-5.1 mmol/L Chloride Level 105 98-107 mmol/L Carbon Dioxide Level 31 21-32 mmol/L Anion Gap 3.0 3-11 mmol/L Blood Urea Nitrogen 14 7-18 mg/dl Creatinine 0.52 0.60-1.20 mg/dl Est Creatinine Clear Calc Drug Dose 102.0 ml/min Estimated GFR () 116.2 Estimated GFR (Non- 100.3 BUN/Creatinine Ratio 26.2 10-20 Random Glucose 155 70-99 mg/dl Calcium Level 8.6 8.5-10.1 mg/dl Pro-B-Type Natriuretic Peptide 772 0-900 pg/ml
[2016-10-03] MEDS: ATORVASTATIN 10 MG TAB PO SCH ×2 (20:52→20:53)
[2016-10-03] MEDS: METHYLPREDNISOLONE IV 60 MG in SYRINGE 0 ML IV SCH (20:57)
[2016-10-03] MEDS: HYDROCODONE/ACETAMOPHEN 5/325MG TAB PO PRN (20:57)
[2016-10-04] VITALS (7 sets, daily range): BP systolic 109–131; BP diastolic 69–80; PULSE 63–80; TEMP 36.6–36.8; O2SAT 96–99
[2016-10-04] MEDS: IPRATROPIUM BROMIDE NEB SOLN 0.02% 2.5 ML VIAL INH SCH ×4 (02:11→18:48)
[2016-10-04] MEDS: LEVALBUTEROL 1.25MG/0.5ML NEB INH SCH ×4 (02:11→18:48)
[2016-10-04] MEDS: METHYLPREDNISOLONE IV 60 MG in SYRINGE 0 ML IV SCH ×2 (06:03→14:06)
[2016-10-04] MEDS: ASPIRIN 81 MG ECTAB PO SCH (08:35)
[2016-10-04] MEDS: DOXYCYCLINE HYCLATE 100 MG CAP PO SCH ×2 (08:36→21:28)
[2016-10-04] MEDS: METOPROLOL SUCC 50MG EXT REL TAB PO SCH (08:36)
[2016-10-04] MEDS: ENOXAPARIN 40 MG/0.4 ML SYR SQ SCH (08:37)
--- NOTE | 2016-10-04 11:26 | Pulmonology Progress Note ---
Pulmonary Progress Note Date of Service Oct 04, 2016. Attending Dr. Loving Subjective Patient seen and examined She states that she feels back her baseline. Improved from admission. She still has chronic dyspnea on exertion, but able to ambulate around the halls x2 this morning. She still has some productive cough with yellowish greenish sputum. Objective O/E: VS: Tm 36.7, P 109/72, P 63-76, RR 16-20, 96-99 on 4L. Gen: AAOx3, dyspnea as patient just came back from walking. Labored speech that improved through examination. CVS: S1, S2, tachycardic Lungs: Velcro crackles b/l. Portacath in place on right chest wall with dressing in place Abd: soft, NT/ND/BS+ Ext: no edema bilaterally, no clubbing, no cyanosis. Labs, Imaging and Medications reviewed. BNP 770, Sputum cultures pending. CT abdomen 10/03/2016 IMPRESSION: 1. Moderate biliary ductal dilatation likely related to prior cholecystectomy. No pancreatic ductal dilatation. No soft tissue mass identified. In the absence of elevated liver function tests, this biliary ductal dilatation is of doubtful clinical significance. 2. Postoperative findings consistent with a right lower lobectomy. Small right pleural effusion which is nonspecific. This may be postsurgical but should be assessed on subsequent studies to ensure resolution. 3. Findings consistent with a UIP pattern of pulmonary fibrosis within visualized portions of the lungs. 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 Back at her baseline respiratory status. She would to switch over [place] [facility] pulmonary records from [facility]. In the meantime, I would continue with current management. Continue with supplemental oxygen to maintain SaO2 > 92%. Continue with prednisone 40 mg, taper slowly over 2 weeks. Continue with empiric broad spectrum Abx Follow up sputum cultures Dr. Finn will be on service tomorrow and continue to follow. Flutter valve For all other medical problems, continue with current management per the primary team. I appreciate the consult and will continue to follow with you. Data Medications: Current Inpatient Medications Medications (Trade) Dose Ordered Sig/Silvia Route Start Time Stop Time Status Last Admin Dose Admin Ioversol (Optiray 320) 111 ml UD PRN IV 10/02/16 17:30 10/06/16 17:29 Enoxaparin Sodium (Lovenox Inj) 40 mg Q24H SQ 10/03/16 09:00 11/02/16 08:59 10/04/16 08:37 40 MG Acetaminophen (Tylenol Tab) 650 mg Q4H PRN PO 10/02/16 22:15 11/01/16 22:14 Doxycycline Hyclate (Vibramycin Cap) 100 mg BID PO 10/03/16 09:00 10/10/16 08:59 10/04/16 08:36 100 MG Prednisone (PredniSONE TAB) 40 mg DAILY PO 10/03/16 09:00 10/08/16 08:59 10/04/16 08:35 40 MG Albuterol/ Ipratropium (Duoneb) 3 ml Q2H PRN INH 10/02/16 22:15 11/01/16 22:14 Ondansetron HCl (Zofran Inj) 4 mg Q6H PRN IV 10/02/16 22:15 11/01/16 22:14 Aspirin (Ecotrin Tab) 81 mg QAM PO 10/03/16 09:00 11/02/16 08:59 10/04/16 08:35 81 MG Atorvastatin Calcium (Lipitor Tab) 10 mg HS PO 10/03/16 21:00 11/02/16 20:59 10/03/16 20:53 10 MG Acetaminophen/ Hydrocodone Bitart ([place] 5/325 Tab) 1 tab TID PRN PO 10/02/16 22:15 10/16/16 22:14 10/03/16 20:57 1 TAB Metoprolol Succinate (Toprol Xl Tab) 50 mg QAM PO 10/03/16 09:00 11/02/16 08:59 10/04/16 08:36 50 MG Ipratropium [place] (Atrovent 0.02% 0.5MG/2.5ML Neb) 0.5 mg Q6R INH 10/03/16 03:00 11/02/16 02:59 10/04/16 07:34 0.5 MG Levalbuterol (Xopenex 1.25MG/ 0.5ML Neb) 1.25 mg Q6R INH 10/03/16 03:00 11/02/16 02:59 10/04/16 07:34 1.25 MG Lorazepam 0.5 mg/ Syringe 1 ml @ 1 mls/min Q4H PRN IV 10/02/16 23:45 11/01/16 23:44 Heparin Sodium (Porcine) (Heparin 100 Unit/ml 5ml Flush) 5 ml PRN PRN IV 10/03/16 02:00 11/02/16 01:59 10/04/16 10:45 5 ML Ioversol (Optiray 320) 125 ml UD PRN IV 10/03/16 10:30 10/07/16 10:29 Methylprednisolone Sodium Succinate 60 mg/Syringe 0.96 ml @ 1.5 mls/min Q8 IV 10/03/16 22:00 11/02/16 21:59 10/04/16 06:03 1.5 MLS/MIN Vital Signs: Date Time Temp Pulse Resp B/P (MAP) Pulse Ox O2 Delivery O2 Flow Rate FiO2 10/04/16 08:00 Nasal Cannula 4.0 10/04/16 07:39 36.7 73 20 109/72 (84) 99 10/04/16 07:35 76 16 96 Nasal Cannula 4.0 10/04/16 02:11 67 16 99 Nasal Cannula 4.0 10/04/16 00:00 98 Nasal Cannula 4.0 10/04/16 00:00 36.8 63 20 121/69 (86) 96 4.0 10/03/16 18:56 68 16 98 Nasal Cannula 4.0 10/03/16 17:02 Nasal Cannula 4.0 10/03/16 14:53 36.8 66 18 121/77 (92) 94 4.0 10/03/16 14:29 76 16 95 Nasal Cannula 4.0 Laboratory Results: Last 24 Hours Test 10/03/16 16:02 Pro-B-Type Natriuretic Peptide 772 pg/ml
--- NOTE | 2016-10-04 18:44 | Progress Note ---
Internal Med Progress Note Date of Service: Oct 04, 2016. Provider Documentation: SUBJECTIVE: resting comfortably sob improved resp status a baseline ambulating ok cough improved OBJECTIVE: Vital Signs-as noted below Exam: General-alert and awake. Not in distress. ENT-normal hearing Neck-no neck masses Lungs-cta b/l no wheezing or crackles Heart-s1 and s2 heard regular rhythm no murmurs Abdomen-soft bowel sounds present non tender no distension Extremities- no erythema no edema Neuro-alert and awake moves extremities Lab data as noted below. ASSESSMENT & PLAN: 1. Acute on chronic hypoxemic respiratory failure secondary to chronic obstructive pulmonary disease/RA-ILD exacerbation secondary to complicated bronchitis. Steroid dependent chronic lung disease No sepsis. on iv steroids and nebs and doxy improving tapering to po steroids appreciate pulmonary inputs 2. History of lung cancer status post surgery status post chemotherapy. f/u with heme/onco 3. Hypertension, stable. on Lopressor. 4. Past tobacco abuse. 5. Chronic anemia, Hg at baseline. 6. Incidental finding of biliary tract obstruction on CT chest ct abd/pelvis unremarkable. DVT PROPHYLAXIS Lovenox DISPOSITION pt/ot possible d/c in am if stable Vital Signs: Date Time Temp Pulse Resp B/P (MAP) Pulse Ox O2 Delivery O2 Flow Rate FiO2 10/04/16 16:00 Nasal Cannula 4.0 10/04/16 15:10 36.6 80 20 131/80 (97) 97 10/04/16 14:14 71 16 99 Nasal Cannula 5.0 10/04/16 08:00 Nasal Cannula 4.0 10/04/16 07:39 36.7 73 20 109/72 (84) 99 10/04/16 07:35 76 16 96 Nasal Cannula 4.0 10/04/16 02:11 67 16 99 Nasal Cannula 4.0 10/04/16 00:00 98 Nasal Cannula 4.0 10/04/16 00:00 36.8 63 20 121/69 (86) 96 4.0 10/03/16 18:56 68 16 98 Nasal Cannula 4.0 Lab Results: Microbiology Results 10/03/16 Gram Stain - Final, Complete 10/03/16 Sputum Culture - Final, Complete
[2016-10-04] MEDS: ATORVASTATIN 10 MG TAB PO SCH (21:28)
[2016-10-04] MEDS: HYDROCODONE/ACETAMOPHEN 5/325MG TAB PO PRN (21:30)
[2016-10-05] VITALS: BP 126/79; PULSE 57; TEMP 36.8; O2SAT 97; O2SAT 98
[2016-10-05 02:07] VITALS: PULSE 70; O2SAT 99
[2016-10-05] MEDS: LEVALBUTEROL 1.25MG/0.5ML NEB INH SCH ×3 (02:07→14:13)
[2016-10-05] MEDS: IPRATROPIUM BROMIDE NEB SOLN 0.02% 2.5 ML VIAL INH SCH ×3 (02:07→14:13)
[2016-10-05 05:44] LABS: HEMATOCRIT 29.4 % (37-47); MEAN CELL VOLUME 86.7 fL (80-100); MEAN CORPUSCULAR HEMOGLOBIN 27.7 pg (25-34); MEAN PLATELET VOLUME 9.6 fL (7.4-10.4); PLATELET COUNT 204 K/uL (130-400); RED BLOOD COUNT 3.39 M/uL (4.2-5.4); WHITE BLOOD COUNT 9.12 K/uL (4.8-10.8)
[2016-10-05 06:15] LABS: CREATININE 0.65 mg/dl (0.60-1.20)
[2016-10-05 07:07] VITALS: PULSE 72; O2SAT 96
[2016-10-05 07:35] VITALS: BP 114/77; PULSE 75; TEMP 36.8; O2SAT 96
[2016-10-05] MEDS: ASPIRIN 81 MG ECTAB PO SCH (08:08)
[2016-10-05] MEDS: METOPROLOL SUCC 50MG EXT REL TAB PO SCH (08:09)
[2016-10-05] MEDS: DOXYCYCLINE HYCLATE 100 MG CAP PO SCH (08:09)
[2016-10-05] MEDS: ENOXAPARIN 40 MG/0.4 ML SYR SQ SCH (08:10)
--- NOTE | 2016-10-05 09:33 | Pulmonology Progress Note ---
Pulmonary Progress Note Date of Service Oct 05, 2016. Attending Dr. Finn Subjective Feeling 50% improved from admission. Using flutter Q1-hour with some success. No significant improvement with bronchodilators. Ambulating throughout the halls with relative comfort. Cough persisted throughout the night - now less productive. No hemoptysis. Denies CP. Appetite in-tact. Objective 65-yo female with h/o RA (chronic prednisone: 10mg since 01/2016 & home O2: 4LPMr/6LPMa), pulmonary fibrosis, and squamous cell carcinoma (IIB, s/p RML&RLL excision 04/2015 and chemotherapy) admitted through [facility] ER 10/02/16 with hypoxia , productive cough, pharyngitis and dyspnea. She reported h/o sick contact. Recent h/o notable for admission and transfer to [place], [place] for hypoxic respiratory failure. ABG 10/02/16: 7.39/48/90-4LPM/28. CTA 10/02/16: emphysema with peripheral honeycombing and fibrotic changes - no PE She was treated for CAP responding well to doxycycline, steroids, pulmonary toilet and bronchodilators. Today: - SaO2: 96-99% 3-4LPM - WBC: 9.12/9.4/29.4/204 - Afebrile, HD stable - Transitioned to prednisone: 40mg Physical Exam: Constitutional: WDWN elderly female resting in hospital bed. Responds easily. No acute distress Head: + facial symmetry, O2 via NC Eyes: Pale conjunctiva. PERRLA. Mouth: Moist mucous membranes. Dentures in place. Petechia just posterior to upper plate. No exudate or visible post nasal gtt Chest: Right port - dressed and clean Respiratory: non-labored respirations. Intermittent dry cough. Diffuse moderate crackles bilaterally Left >> Right. NO wheeze CV: RRR, no MRG. Warm and perfused peripherally. No clubbing or cyanosis. +2 DP MSK/Extremities: moving and developed symmetrically. No peripheral edema. Neurologic: A&O. Good data recall. Appropriate affect. Assessment & Plan Community Acquired Pneumonia - Responding well to doxycycline: complete 10-day course - Continue scheduled bronchodilators and taper steroid on discharge back to 10mg KILN REMOVER dose - Anticipate readiness for discharge today or tomorrow Pulmonary fibrosis in setting of RA and h/o SCC s/p excision - Wean steroid to 10mg baseline as above - Records request from OP pulmonary F/U with outpatient pulm 1-2 weeks post discharge Patient is reviewed and agree with plan. Data Medications: Current Inpatient Medications Medications (Trade) Dose Ordered Sig/Silvia Route Start Time Stop Time Status Last Admin Dose Admin Ioversol (Optiray 320) 111 ml UD PRN IV 10/02/16 17:30 10/06/16 17:29 Enoxaparin Sodium (Lovenox Inj) 40 mg Q24H SQ 10/03/16 09:00 11/02/16 08:59 10/05/16 08:10 40 MG Acetaminophen (Tylenol Tab) 650 mg Q4H PRN PO 10/02/16 22:15 11/01/16 22:14 Doxycycline Hyclate (Vibramycin Cap) 100 mg BID PO 10/03/16 09:00 10/10/16 08:59 10/05/16 08:09 100 MG Albuterol/ Ipratropium (Duoneb) 3 ml Q2H PRN INH 10/02/16 22:15 11/01/16 22:14 Ondansetron HCl (Zofran Inj) 4 mg Q6H PRN IV 10/02/16 22:15 11/01/16 22:14 Aspirin (Ecotrin Tab) 81 mg QAM PO 10/03/16 09:00 11/02/16 08:59 10/05/16 08:08 81 MG Atorvastatin Calcium (Lipitor Tab) 10 mg HS PO 10/03/16 21:00 11/02/16 20:59 10/04/16 21:28 10 MG Acetaminophen/ Hydrocodone Bitart ([place] 5/325 Tab) 1 tab TID PRN PO 10/02/16 22:15 10/16/16 22:14 10/04/16 21:30 1 TAB Metoprolol Succinate (Toprol Xl Tab) 50 mg QAM PO 10/03/16 09:00 11/02/16 08:59 10/05/16 08:09 50 MG Ipratropium [place] (Atrovent 0.02% 0.5MG/2.5ML Neb) 0.5 mg Q6R INH 10/03/16 03:00 11/02/16 02:59 10/05/16 07:04 0.5 MG Levalbuterol (Xopenex 1.25MG/ 0.5ML Neb) 1.25 mg Q6R INH 10/03/16 03:00 11/02/16 02:59 10/05/16 07:04 1.25 MG Lorazepam 0.5 mg/ Syringe 1 ml @ 1 mls/min Q4H PRN IV 10/02/16 23:45 11/01/16 23:44 Heparin Sodium (Porcine) (Heparin 100 Unit/ml 5ml Flush) 5 ml PRN PRN IV 10/03/16 02:00 11/02/16 01:59 10/05/16 05:26 5 ML Ioversol (Optiray 320) 125 ml UD PRN IV 10/03/16 10:30 10/07/16 10:29 Prednisone (PredniSONE TAB) 40 mg DAILY PO 10/05/16 09:00 11/04/16 08:59 10/05/16 08:08 40 MG Vital Signs: Date Time Temp Pulse Resp B/P (MAP) Pulse Ox O2 Delivery O2 Flow Rate FiO2 10/05/16 07:35 36.8 75 18 114/77 (89) 96 3.0 10/05/16 07:07 72 16 96 Nasal Cannula 3.0 10/05/16 02:07 70 16 99 Nasal Cannula 4.0 10/05/16 00:00 36.8 57 20 126/79 (95) 98 4.0 10/05/16 00:00 97 Nasal Cannula 4.0 10/04/16 18:48 74 16 97 Nasal Cannula 3.0 10/04/16 16:00 Nasal Cannula 4.0 10/04/16 15:10 36.6 80 20 131/80 (97) 97 10/04/16 14:14 71 16 99 Nasal Cannula 5.0 Laboratory Results: Last 24 Hours Test 10/05/16 05:25 White Blood Count 9.12 K/uL Red Blood Count 3.39 M/uL Hemoglobin 9.4 g/dL Hematocrit 29.4 % Mean Corpuscular Volume 86.7 fL Mean Corpuscular Hemoglobin 27.7 pg Mean Corpuscular Hemoglobin Concent 32.0 g/dl RDW Standard Deviation 50.1 fL RDW Coefficient of Variation 15.5 % Platelet Count 204 K/uL Mean Platelet Volume 9.6 fL Creatinine 0.65 mg/dl Est Creatinine Clear Calc Drug Dose 81.6 ml/min Estimated GFR () 108.0 Estimated GFR (Non- 93.2
[2016-10-05] MEDS ORDERED: FUROSEMIDE INJ 20 MG in SYRINGE 0 ML IV ONE (11:15)
[2016-10-05] MEDS ORDERED: PRED10TA PO (13:36)
[2016-10-05] MEDS ORDERED: IPRA1AER2 INH (13:36)
[2016-10-05] MEDS ORDERED: DXY100 PO (13:36)
--- NOTE | 2016-10-05 13:38 | Discharge Instructions ---
Discharge Instructions Date of Service Oct 05, 2016. Admission Reason for Admission: Respiratory Failure, Acute On Chronic Discharge Discharge Diagnosis / Problem: copd /ild flare, acute on chronic resp failure Discharge Goals Goal(s): Improve function Activity Recommendations Activity Limitations: resume your previous activity . Instructions / Follow-Up Instructions / Follow-Up FOLLOWUP WITH FAMILY DOCTOR ON September AT 2:45PM FOLLOWUP WITH PULMONARY SCHEDULED. Current Hospital Diet Patient's current hospital diet: AHA Diet (Heart Healthy) Discharge Diet Recommended Diet: AHA Diet (Heart Healthy) Pending Studies Studies pending at discharge: no Medical Emergencies . Who to Call and When: Medical Emergencies: If at any time you feel your situation is an emergency, please call 911 immediately. . Non-Emergent Contact Non-Emergency issues call your: Primary Care Provider . . "Provider Documentation" section prepared by Shaq Engel. . VTE Core Measure Inpt VTE Proph given/why not?: Enoxaparin (Lovenox)SQ
[2016-10-05 13:56] VITALS: BP 114/77; PULSE 75; TEMP 36.8; O2SAT 96
[2016-10-05 14:16] VITALS: PULSE 75; O2SAT 98
--- NOTE | 2016-10-05 14:53 | Progress Note ---
Internal Med Progress Note Date of Service: Oct 05, 2016. Provider Documentation: SUBJECTIVE: resting comfortably sob improving resp status at baseline afebrile ok for discharge OBJECTIVE: Vital Signs-as noted below Exam: General-alert and awake. Not in distress. ENT-normal hearing Neck-no neck masses Lungs-cta b/l no wheezing or crackles Heart-s1 and s2 heard regular rhythm no murmurs Abdomen-soft bowel sounds present non tender no distension Extremities- no erythema no edema Neuro-alert and awake moves extremities Lab data as noted below. ASSESSMENT & PLAN: 1. Acute on chronic hypoxemic respiratory failure secondary to chronic obstructive pulmonary disease/RA-ILD exacerbation secondary to complicated bronchitis. Steroid dependent chronic lung disease No sepsis. on iv steroids and nebs and doxy improving tapering to po steroids appreciate pulmonary inputs- pulmonary to followup as out patient discharged on po odxy o complete 10day course, tapering steroids to home dose 10mg daily, Combivent qid and albuterol prn f/u with pcp and pulmonary 2. History of lung cancer status post surgery status post chemotherapy. f/u with heme/onco 3. Hypertension, stable. on Lopressor. 4. Past tobacco abuse. 5. Chronic anemia, Hg at baseline. 6. Incidental finding of biliary tract obstruction on CT chest ct abd/pelvis unremarkable. Discharged home with home health Vital Signs: Date Time Temp Pulse Resp B/P (MAP) Pulse Ox O2 Delivery O2 Flow Rate FiO2 10/05/16 14:16 75 16 98 Nasal Cannula 3.0 10/05/16 13:56 36.8 75 18 96 Nasal Cannula 10/05/16 08:00 Nasal Cannula 4.0 10/05/16 07:35 36.8 75 18 114/77 (89) 96 3.0 10/05/16 07:07 72 16 96 Nasal Cannula 3.0 10/05/16 02:07 70 16 99 Nasal Cannula 4.0 10/05/16 00:00 36.8 57 20 126/79 (95) 98 4.0 10/05/16 00:00 97 Nasal Cannula 4.0 10/04/16 18:48 74 16 97 Nasal Cannula 3.0 10/04/16 16:00 Nasal Cannula 4.0 10/04/16 15:10 36.6 80 20 131/80 (97) 97 Lab Results: Results Past 24 Hours Test 10/05/16 05:25 Range/Units White Blood Count 9.12 4.8-10.8 K/uL Red Blood Count 3.39 4.2-5.4 M/uL Hemoglobin 9.4 12.0-16.0 g/dL Hematocrit 29.4 37-47 % Mean Corpuscular Volume 86.7 80-100 fL Mean Corpuscular Hemoglobin 27.7 25-34 pg Mean Corpuscular Hemoglobin Concent 32.0 32-36 g/dl RDW Standard Deviation 50.1 36.4-46.3 fL RDW Coefficient of Variation 15.5 11.5-14.5 % Platelet Count 204 130-400 K/uL Mean Platelet Volume 9.6 7.4-10.4 fL Creatinine 0.65 0.60-1.20 mg/dl Est Creatinine Clear Calc Drug Dose 81.6 ml/min Estimated GFR () 108.0 Estimated GFR (Non- 93.2
--- NOTE | 2016-10-05 15:11 | Discharge Summary ---
Discharge Summary Date of Service Oct 05, 2016. Discharge Summary Admission Date: Oct 02, 2016 at 21:48 Discharge Date: Oct 05, 2016 Discharge Disposition: Home with services Principal Diagnosis: ACUTE ON CHRONIC RESP FAILURE COPD/ILD FLARE Secondary Diagnoses/Problems: chronic respiratory failure secondary to COPD/RA-ILD on chronic steroid Rx and home O2, past tobacco abuse, hypertension, hyperlipidemia, history squamous cell carcinoma of the lung, stage 2b status post right middle and right lower bilateral lobectomy and node dissection April 2015, status post chemotherapy, chronic anemia (baseline hemoglobin 10-11), history of PSVT. Procedures: CTA CHEST: 1. No evidence of pulmonary embolus. 2. Interval evolution of prior diffuse groundglass opacities. More subtle centrilobular nodularity is noted throughout the left lung and more prominently in the right lung. This likely represents expected partial interval clearance of airspace consolidation. 3. Paraseptal and centrilobular emphysema with superimposed honeycombing pattern at the left lung base most suggestive of a usual interstitial pneumonia pattern. 4. Persistently enlarged mediastinal lymph nodes, possibly reactive. 5. Worsening biliary ductal dilatation. Suggestion of abnormal soft tissue density inferior to the gallbladder probably fossa on prior CT, which is not included on the current exam. The combination of these findings is worrisome and necessitates further evaluation to exclude neoplasm as a source of biliary obstruction. Contrast enhanced CT or MR of the abdomen is recommended. 6. Distal esophageal wall thickening slightly more prominent on the current exam. Correlate for possible esophagitis. CT ABD/PLEVIS: 1. Moderate biliary ductal dilatation likely related to prior cholecystectomy. No pancreatic ductal dilatation. No soft tissue mass identified. In the absence of elevated liver function tests, this biliary ductal dilatation is of doubtful clinical significance. 2. Postoperative findings consistent with a right lower lobectomy. Small right pleural effusion which is nonspecific. This may be postsurgical but should be assessed on subsequent studies to ensure resolution. 3. Findings consistent with a UIP pattern of pulmonary fibrosis within visualized portions of the lungs. Consultations: PULMONARY Medication Reconciliation New Medications: Ipratropium-Albuterol (Combivent Respimat) 1 Aer Aer 1 PUFFS INH QID, #1 INH 2 Refills Prednisone Tab (Prednisone) 10 Mg Tab 40 MG PO UD, #30 TAB 1 Refill PREDNISONE 40MG PO DAILY 3 DAYS THEN PREDNISONE 30MG PO DAILY 3 DAYS THEN PREDNISONE 20MG PO DAILY 3 DAYS THEN PREDNISONE 10MG PO DAILY CONTINUE BEFORE Doxycycline Hyclate (Doxycycline Hyclate) 100 Mg Cap 100 MG PO BID for 8 Days, #16 CAP Continued Medications: Abatacept (Orencia) 250 Mg Inj 750 MG INJ Q4WK Alendronate/Cholecalciferol (Fosamax+D 70MG/2800 Iu) 70 Mg Tab 1 TABLET PO WK, TAB Aspirin (Aspirin 81) 81 Mg Tab 81 MG PO QAM Atorvastatin (Atorvastatin Calcium) 10 Mg Tab 10 MG PO HS Calcium Carbonate-Vitamin D (Calcium + D) 1 Tab Tab 2 TABS PO DAILY Cholecalciferol (Vitamin D3) 1,000 Unit Tab 5000 UNITS PO DAILY for 30 Days, TAB 5 Refills Furosemide (Lasix) 40 Mg Tab 40 MG PO DAILY, TAB Hydrocodone/Acetaminophen 5MG/325MG (Kingfisher 5MG/325MG) Tab 1 TABLET PO TID PRN for Pain, TAB PRN PAIN Metoprolol Succinate (Toprol Xl) 50 Mg Tabcr 50 MG PO QAM, #30 TAB Prednisone (Prednisone) 10 Mg Tab 10 MG PO DAILY, TAB [Proair] () 2 PUFF INH Q4 PRN for SOB/Wheezing Admission Information HPI (per Admitting provider): History obtained from patient records. Medical history significant for chronic respiratory failure secondary to COPD/ RA-ILD on chronic steroid Rx and home O2, past tobacco abuse, hypertension, hyperlipidemia, history squamous cell carcinoma of the lung, stage 2b status post right middle and right lower bilateral lobectomy and node dissection April 2015, status post chemotherapy, chronic anemia (baseline hemoglobin 10-11), history of PSVT. Recent confinement last January 2016 for respiratory failure (multifocal pneumonia versus Taxol toxicity). Patient transferred to [facility]. Respiratory failure attributed to progression or flare up of rheumatoid lung disease with possible superimposed chemotherapy induced lung injury. Bronchoscopy was considered, but was not pursued due to uncertain benefit as per discharge note. Three weeks ago the patient treated with Augmentin for bronchitis sx. Breathing improved. She also had gastroenteritis symptoms attributed to food poisoning. A few days ago, the patient developed sinus congestion, later cough productive of green sputum. Denies aspiration. Low grade fever at home. Some epigastric discomfort, nausea. Denies reflux symptoms Seen at PCP's office. Noted to be in respiratory distress. Sent to the Emergency Room, given Levaquin and Solu-Medrol for COPD exacerbation. Currently feeling better. . Patient used to see local [facility] rn digestive (Dr. Lopez) who has left practice. Currently seeing [facility] rn digestive at [facility] Thoracic medicine via video conference encounters. Patient interested in seeing a new [facility] pulmonology provider. Physical Exam (per Admitting): VITAL SIGNS: Blood pressure was noted to be 108/76, pulse rate 90, RR 26, sats 98 on 2 liters. GENERAL: minimal respiratory distress. Slightly anxious SKIN: Pallor. HEAD, EYES, EARS, NOSE, AND THROAT: Pale palpebral conjunctivae. Dry mucosa. Nasal cannula in place. NECK: Short neck. LUNGS: Decreased breath sounds. Expiratory wheezes. HEART: Regular rate and rhythm. ABDOMEN: Soft. no epigastric tenderness. EXTREMITIES: No edema. No tenderness NEUROLOGIC: No gross focality. Hospital Course 1. Acute on chronic hypoxemic respiratory failure secondary to chronic obstructive pulmonary disease/RA-ILD exacerbation secondary to complicated bronchitis. Steroid dependent chronic lung disease No sepsis. on iv steroids and nebs and doxy improving tapering to po steroids appreciate pulmonary inputs- pulmonary to followup as out patient discharged on po odxy o complete 10day course, tapering steroids to home dose 10mg daily, Combivent qid and albuterol prn f/u with pcp and pulmonary 2. History of lung cancer status post surgery status post chemotherapy. f/u with heme/onco 3. Hypertension, stable. on Lopressor. 4. Past tobacco abuse. 5. Chronic anemia, Hg at baseline. 6. Incidental finding of biliary tract obstruction on CT chest ct abd/pelvis unremarkable. Discharged home with home health Total time spent on discharge = 35MINUTES This includes examination of the patient, discharge planning, medication reconciliation, and communication with other providers. Discharge Instructions Discharge Instructions Date of Service Oct 05, 2016. Admission Reason for Admission: Respiratory Failure, Acute On Chronic Discharge Discharge Diagnosis / Problem: copd /ild flare, acute on chronic resp failure Discharge Goals Goal(s): Improve function Activity Recommendations Activity Limitations: resume your previous activity . Instructions / Follow-Up Instructions / Follow-Up FOLLOWUP WITH FAMILY DOCTOR ON September AT 2:45PM FOLLOWUP WITH PULMONARY SCHEDULED. Current Hospital Diet Patient's current hospital diet: AHA Diet (Heart Healthy) Discharge Diet Recommended Diet: AHA Diet (Heart Healthy) Pending Studies Studies pending at discharge: no Medical Emergencies . Who to Call and When: Medical Emergencies: If at any time you feel your situation is an emergency, please call 911 immediately. . Non-Emergent Contact Non-Emergency issues call your: Primary Care Provider . . "Provider Documentation" section prepared by Shaq Engel. . VTE Core Measure Inpt VTE Proph given/why not?: Enoxaparin (Lovenox)SQ
[2016-10-06] MEDS ORDERED: FUROSEMIDE 40 MG TAB PO SCH (09:00)
== END 2016-10-05 15:00 | disposition home or self-care (01) | DRG 189 ==
LOC: C.EDB 16:23 → C.MS2W 21:48 → ENRESERV 22:37 → UNDOADMIN 22:38 → C.MS2W 22:38
PROVIDERS: ADMIT Internal Medicine; ATTEND Internal Medicine
DX: J96.20 Acute and chronic respiratory failure, unspecified whether with hypoxia or hypercapnia (principal); J18.9 Pneumonia, unspecified organism; J44.1 Chronic obstructive pulmonary disease with (acute) exacerbation; C34.90 Malignant neoplasm of unspecified part of unspecified bronchus or lung; F17.200 Nicotine dependence, unspecified, uncomplicated; M06.9 Rheumatoid arthritis, unspecified; E78.5 Hyperlipidemia, unspecified; I10 Essential (primary) hypertension; M81.0 Age-related osteoporosis without current pathological fracture; Z90.49 Acquired absence of other specified parts of digestive tract; Z80.9 Family history of malignant neoplasm, unspecified; Z83.3 Family history of diabetes mellitus; Z82.0 Family history of epilepsy and other diseases of the nervous system; Z79.82 Long term (current) use of aspirin; Z99.81 Dependence on supplemental oxygen

== ENCOUNTER 2017-02-09 11:47 | Inpatient (IN) | payer OTHER ==
[~2017-02-09] VITALS: Ht 157.5 cm; Wt 76.3 kg
[~2017-02-09 11:47] MED LIST changes: -AMOX875T PO; -ASPI-435 PO; -CHOL1000 PO; +DXY100 PO; -FERR1TAB23 PO; -FRS/40 PO; -HYDR-5688 PO; +IPRA1AER2 INH; -LPT10 PO; -METO-217 PO
[2017-02-09] MEDS ORDERED: ALBUT/IPRATROP 3MG/0.5MG NEB 3 ML VIAL INH STA ×2 (13:39→15:33)
--- NOTE | 2017-02-09 13:40 | EMERGENCY ROOM VISIT NOTE ---
History Report prepared by Adelita: Gail Gardner Under the Supervision of: Hailee PottsO. First contact with patient: 13:15 Chief Complaint: SHORTNESS OF BREATH Stated Complaint: HARD TO BREATHE; ON OXYGEN History of Present Illness The patient is a 66 year old female who presents to the Emergency Room with complaints of constant shortness of breath beginning three days ago. The patient notes a sinus congestion, chest pain, central back and shoulder pain, chills, sweats and a worsening cough. The patient wears 6 liters of oxygen at home. The patient has a history of pneumonia and COPD. She last has pneumonia about a month ago. She was on Levaquin and prednisone last time she had pneumonia. Per , the patient is having all the symptoms she was having when she has pneumonia. The patient had a chest X-ray this morning and was told by her PCP she didn't have pneumonia. The patient has a history of lung cancer and had 2/3 of right lung removed. The patient takes steroids daily. She uses an albuterol inhaler and last used a nebulizer this morning. Pt denies headache , change in vision, fevers, nausea, vomiting, diarrhea, pain with urination, and melena. Source of History: patient Onset: three days ago Position: other (generalized) Quality: other (h) Timing: constant Associated Symptoms: + chills, + cough, + chest pain, + SOB, + back pain, No fevers, No nausea, No vomiting, No diarrhea Review of Systems See HPI for pertinent positives & negatives. A total of 10 systems reviewed and were otherwise negative. 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 (9) Rheumatoid Arthritis (10) Rheumatoid arthritis (11) Tobacco Use Disorder Surgical Problems: (1) History of cholecystectomy (2) History of hysterectomy (3) History of salpingo-oophorectomy (4) S/p A-port insertion (5) S/P bronchoscopy (6) S/P lobectomy of lung Social History Problems: (1) Metabolic syndrome (2) Respiratory failure, kxjim-so-gocknec Family History Cancer Diabetes mellitus Gallbladder disease Heart disease MOTHER (DE in 70s) Hypertension Kidney disease Kidney stones Lung disease Seizures Social History Smoking Status: Former Smoker Alcohol Use: none Drug Use: none Marital Status: Housing Status: lives with significant other Occupation Status: unemployed Current/Historical Medications Scheduled Alendronate/Cholecalciferol (Fosamax+D 70MG/2800 Iu), 1 TABLET PO WK Aspirin (Aspirin 81), 81 MG PO QAM Atorvastatin (Atorvastatin Calcium), 10 MG PO HS Calcium Carbonate-Vitamin D (Calcium + D), 2 TABS PO DAILY Cholecalciferol (Vitamin D3), 5,000 UNITS PO DAILY Folic Acid (Folvite), 1 MG PO DAILY Furosemide (Lasix), 40 MG PO DAILY Methotrexate Sodium (Methotrexate), 10 MG PO WK Metoprolol Succinate (Toprol Xl), 50 MG PO QAM Prednisone (Prednisone), 10 MG PO DAILY Scheduled PRN Albuterol Hfa (Ventolin Hfa), 2 PUFFS INH Q4 PRN for SOB/Wheezing Albuterol Sulfate (Proair Respiclick), 2 PUFFS INH Q4 PRN for SOB/Wheezing Benzonatate (Tessalon Perles), 1 CAP PO TID PRN for Cough Hydrocodone/Acetaminophen 5MG/325MG (Balaton 5MG/325MG), 1 TABLET PO TID PRN for Pain Ipratropium Deville (Ipratropium Deville), 0.5 MG INH Q6R PRN for Wheezing Levalbuterol (Levalbuterol), 1.25 MG INH Q6R PRN for Wheezing Allergies Coded Allergies: Azithromycin (Verified Allergy, Intermediate, RASH, 02/10/17) Iodinated Diagnostic Agents (Verified Allergy, Intermediate, Chills/Hives/ Vomiting, 02/10/17) Tramadol (Verified Allergy, Intermediate, RASH, 02/10/17) Codeine (Verified Adverse Reaction, Intermediate, Hallucinations, 02/10/17 ) Simvastatin (Verified Adverse Reaction, Intermediate, rash, 02/10/17) Physical Exam Vital Signs Date Time Temp Pulse Resp B/P (MAP) Pulse Ox O2 Delivery O2 Flow Rate FiO2 02/09/17 18:13 90 18 138/78 99 Nasal Cannula 6.0 02/09/17 16:02 86 24 134/79 100 Nasal Cannula 6.0 02/09/17 14:08 100 Room Air 6.0 Nasal Cannula 02/09/17 13:54 72 24 149/103 99 Room Air 02/09/17 13:54 73 02/09/17 11:51 36.5 79 24 124/79 100 Nasal Cannula 6.0 Physical Exam GENERAL: uncomfortable with frequent coughing, alert, well appearing, well nourished, no distress, non-toxic EYE EXAM: normal conjunctiva, PERRL and EOM's grossly intact OROPHARYNX: no exudate, no erythema, lips, buccal mucosa, and tongue normal and mucous membranes are moist NECK: supple, no nuchal rigidity, no adenopathy, non-tender LUNGS: diminished breath sounds on right, left side has coarse sounds at base, no wheezing, no rhonchi increased work of breathing. HEART: no murmurs, S1 normal and S2 normal ABDOMEN: abdomen soft, non-tender, normo-active bowel sounds, no masses, no rebound or guarding. BACK: Back is symmetrical on inspection and there is no deformity, no midline tenderness, no CVA tenderness. SKIN: no rashes and no bruising UPPER EXTREMITIES: upper extremities are grossly normal. LOWER EXTREMITIES: No pitting edema. NEURO EXAM: Normal sensorium, cranial nerves II-XII grossly intact, normal speech, no gross weakness of arms, no gross weakness of legs. Medical Decision & Procedures ER Provider Diagnostic Interpretation: Radiology results have been interpreted by the radiologist and reviewed by me. CHEST 2 VIEWS ROUTINE FINDINGS: Findings of diffuse chronic parenchymal fibrotic change. Postoperative changes overlying the right hilum as well as lateral right hemithorax. Mild chronic pleural thickening right lateral hemithoracic region. Mild chronic elevation right hemidiaphragm. No acute or interval infiltrate. IMPRESSION: Chronic and postoperative change. Diffuse chronic interstitial fibrotic change. No acute or interval process. The above report was generated using voice recognition software. It may contain grammatical, syntax or spelling errors. Electronically signed by: Anton Glynn M.D. CT ANGIOGRAPHY OF THE CHEST, PULMONARY EMBOLUS PROTOCOL FINDINGS: No pulmonary emboli are identified. The heart is moderately enlarged. There is no pericardial effusion. A small hiatal hernia is noted. There is no pneumothorax. A trace right pleural effusion is unchanged. Upper lobe predominant emphysema as well as basilar and peripheral prominent honeycombing is noted. There is diffuse increased attenuation of the lungs with centrilobular nodules throughout the lungs, most evident within the left upper lobe. There is suspected left apical scarring. There are stable postoperative findings consistent with a right lower lobectomy. A few mildly enlarged mediastinal and right hilar lymph nodes are unchanged since CTs dating back to January 22, 2016. Mild multifocal right lung airspace opacities have slightly increased since exam of October 02, 2009. There is no lobar consolidation. Central airways are patent. Biliary ductal dilatation is unchanged from earlier studies and likely related to cholecystectomy. IMPRESSION: 1. No pulmonary emboli identified. 2. Status post right lower lobectomy. Stable trace right pleural effusion. No change in mildly enlarged mediastinal and right hilar lymph nodes since CT of January 22, 2016. These nodes remain indeterminate but stability favors a benign etiology. 3. Emphysema and superimposed pulmonary fibrosis with a UIP pattern. 4. Mild multifocal right lung airspace opacities which have increased since exam of October 02, 2016. The appearance favors an infectious etiology although persistence is atypical for an infection. Post radiation change could have this appearance. Recurrent neoplasm is considered less likely but cannot be excluded and a follow-up chest CT in 3 months is recommended. 5. Diffuse groundglass opacities throughout the lungs which could reflect an infectious etiology, pulmonary edema or active alveolitis. Electronically signed by: Nicolas Garcia M.D. Laboratory Results Test 02/09/17 13:55 02/09/17 14:03 Influenza Type A Antigen Neg for Influ A (NEG) Influenza Type B Antigen Neg for Influ B (NEG) Immature Granulocyte % (Auto) 0.9 % White Blood Count 6.87 K/uL (4.8-10.8) Red Blood Count 4.20 M/uL (4.2-5.4) Hemoglobin 11.2 g/dL (12.0-16.0) Hematocrit 36.0 % (37-47) Mean Corpuscular Volume 85.7 fL (80-100) Mean Corpuscular Hemoglobin 26.7 pg (25-34) Mean Corpuscular Hemoglobin Concent 31.1 g/dl (32-36) Platelet Count 257 K/uL (130-400) Mean Platelet Volume 9.9 fL (7.4-10.4) Neutrophils (%) (Auto) 73.8 % Lymphocytes (%) (Auto) 15.6 % Monocytes (%) (Auto) 9.0 % Eosinophils (%) (Auto) 0.7 % Basophils (%) (Auto) 0.0 % Neutrophils # (Auto) 5.07 K/uL (1.4-6.5) Lymphocytes # (Auto) 1.07 K/uL (1.2-3.4) Monocytes # (Auto) 0.62 K/uL (0.11-0.59) Eosinophils # (Auto) 0.05 K/uL (0-0.5) Basophils # (Auto) 0.00 K/uL (0-0.2) Immature Granulocyte # (Auto) 0.06 K/uL (0.00-0.02) Prothrombin Time 10.0 SECONDS (9.0-12.0) Prothromb Time International Ratio 1.0 (0.9-1.1) D-Dimer 680 ug/L FEU (0-500) Total Bilirubin 0.2 mg/dl (0.2-1) Aspartate Amino Transf (AST/SGOT) 25 U/L (15-37) Alanine Aminotransferase (ALT/SGPT) 26 U/L (12-78) Alkaline Phosphatase 51 U/L (45-117) Troponin I < 0.015 ng/ml (0-0.045) Pro-B-Type Natriuretic Peptide 122 pg/ml (0-900) Total Protein 7.5 gm/dl (6.4-8.2) Albumin 3.4 gm/dl (3.4-5.0) Globulin 4.1 gm/dl (2.5-4.0) Albumin/Globulin Ratio 0.8 (0.9-2) Laboratory results per my review. Medications Administered Medications (Trade) Dose Ordered Sig/Silvia Route Start Time Stop Time Status Last Admin Dose Admin Albuterol/ Ipratropium (Duoneb) 3 ml NOW STAT INH 02/09/17 13:39 02/09/17 13:42 DC 02/09/17 14:12 3 ML Methylprednisolone Sodium Succinate (Solu-Medrol IV) 125 mg NOW STAT IV 02/09/17 15:11 02/09/17 15:12 DC 02/09/17 15:59 125 MG Albuterol/ Ipratropium (Duoneb) 3 ml NOW STAT INH 02/09/17 15:33 02/09/17 15:34 DC 02/09/17 15:59 3 ML Diphenhydramine HCl (Benadryl Inj) 25 mg NOW STAT IV 02/09/17 16:11 02/09/17 16:14 DC 02/09/17 16:56 25 MG Ondansetron HCl (Zofran Inj) 4 mg NOW STAT IV 02/09/17 16:11 02/09/17 16:14 DC 02/09/17 16:56 4 MG Sodium Chloride 1,000 ml @ 125 mls/hr Q8H STAT IV 02/09/17 16:13 02/09/17 20:08 DC 02/09/17 16:59 125 MLS/HR Levofloxacin (Levaquin / D5W) 750 mg NOW STAT IV 02/09/17 18:04 02/09/17 18:07 DC 02/09/17 19:05 750 MG ECG Indication: SOB/dyspnea Rate (beats per minute): 73 Rhythm: sinus rhythm Findings: T-wave inversion (v2 v3 and lead three), other (normal axis, normal intervals) Comparison ECG Date: 10/02/16 Change: no significant change ED Course 1326: The patient was evaluated in room C10. A complete history and physical exam was performed. 1339: Ordered Duoneb 3 ml INH. 1508: Ordered Magnesium Sulfate 1 gm IV. 1511: Ordered Solu-Medrol IV 125 mg IV. 1533: Ordered Duoneb 3 ml INH. 1556: On reassessment, the patient is still uncomfortable appearing. She is agreeable to treatment plan. 1611: Ordered Zofran Inj 4 mg IV, Benadryl Inj 25 mg IV. 1613: Ordered Sodium Chloride 1000 ml @ 125 mls/hr IV. 1759: The patient is resting more comfortably and is agreeable to come into the hospital. 1804: Ordered Levofloxacin 750 mg IV. 1811: I reviewed the patient's case with Mireya Perry. She will evaluate the patient for further management. Medical Decision Differential diagnosis: Etiologies such as infections, reactive airway disease, pneumonia, pneumothorax , COPD, CHF, cardiac ischemia, pulmonary embolism, musculoskeletal, gastrointestinal, as well as others were entertained. Pt initially with increased WOB and distress. Hx of lung cancer and partial lobectomy, COPD. Pt with risk factors for cardiac etiology also. No evidence of PE, new mess or lymphadenopathy, vascular etiology, tamponade, effusion on CTA chest. Pt treated as likely COPD exacerbation. Pt on 24/7 oxygen and holding sats in mid 90's on her usual 6 lpm. Pt more SOB with any exertion compared to normal per pt. DIscussed with medicine for evaluation, pt aware of all results and agreeable with plan. Medication Reconcilliation Current Medication List: was personally reviewed by me Blood Pressure Screening Patient's blood pressure: Elevated blood pressure Blood pressure disposition: Referred to PCP Consults Time Called: 1810 Consulting Physician: Mireya Perry Returned Call: 1810 I reviewed the patient's case with Mireya Perry. She will evaluate the patient for further management. Impression Primary Impression: COPD exacerbation Scribe Attestation The scribe's documentation has been prepared under my direction and personally reviewed by me in its entirety. I confirm that the note above accurately reflects all work, treatment, procedures, and medical decision making performed by me. Departure Information Dispostion Being Evaluated By Hospitalist Prescriptions Levalbuterol (Levalbuterol) 1.25 Mg/0.5 Ml Nebu 1.25 MG INH Q6R Y for Wheezing for 30 Days, #120 PKT 4 Refills Prov: Megan Gonzalez M.D. 02/10/17 Ipratropium Deville (Ipratropium Deville) 0.5 Mg/2.5 Ml Nebu 0.5 MG INH Q6R Y for Wheezing for 30 Days, #120 PKT 4 Refills Prov: Megan Gonzalez M.D. 02/10/17 Albuterol Hfa (VENTOLIN HFA) 200 Puffs/40745 Mcg Aers 2 PUFFS INH Q4 Y for SOB/Wheezing for 30 Days, #1 EA 3 Refills Prov: Megan Gonzalez M.D. 02/10/17 Referrals Sharonda Sheikh D.O. (PCP) Patient Instructions My [facility]
[2017-02-09 14:28] LABS: EOS % 0.7 %; EOS ABS # 0.05 K/uL (0-0.5); HEMOGLOBIN 11.2 g/dL (12.0-16.0); IG# 0.06 K/uL (0.00-0.02); LYMPH % 15.6 %; LYMPH ABS # 1.07 K/uL (1.2-3.4); MEAN CELL VOLUME 85.7 fL (80-100); MEAN CORPUSCULAR HEMOGLOBIN 26.7 pg (25-34); MEAN CORPUSCULAR HGB CONC 31.1 g/dl (32-36); MEAN PLATELET VOLUME 9.9 fL (7.4-10.4); MONO ABS # 0.62 K/uL (0.11-0.59); NEUT % 73.8 %; NEUT ABS # 5.07 K/uL (1.4-6.5); PLATELET COUNT 257 K/uL (130-400); RED CELL DISTRIBUTION WIDTH CV 14.6 % (11.5-14.5); RED CELL DISTRIBUTION WIDTH SD 45.7 fL (36.4-46.3); WHITE BLOOD COUNT 6.87 K/uL (4.8-10.8)
[2017-02-09 14:38] LABS: INFLUENZA B ANTIGEN Neg for Influ B (NEG)
[2017-02-09 14:46] LABS: ALBUMIN 3.4 gm/dl (3.4-5.0); ALT/SGPT 26 U/L (12-78); AST/SGOT 25 U/L (15-37); BLOOD UREA NITROGEN 13 mg/dl (7-18); CALCIUM 8.8 mg/dl (8.5-10.1); CARBON DIOXIDE 32 mmol/L (21-32); CREATININE 0.68 mg/dl (0.60-1.20); GLUCOSE 108 mg/dl (70-99); POTASSIUM 3.3 mmol/L (3.5-5.1); SODIUM 136 mmol/L (136-145)
[2017-02-09 14:51] LABS: ALKALINE PHOSPHATASE 51 U/L (45-117); TOTAL PROTEIN 7.5 gm/dl (6.4-8.2)
[2017-02-09] MEDS ORDERED: MAGNESIUM SULFATE 1GM / D5W 1 GM BAG IV STA (15:08)
[2017-02-09] MEDS ORDERED: METHYLPREDNISOLONE 125 MG VIAL IV STA (15:11)
[2017-02-09] MEDS ORDERED: ALBU18002 INH (15:24)
[2017-02-09] MEDS ORDERED: METH2.5T PO (15:24)
--- NOTE | 2017-02-09 15:48 | DIAGNOSTIC IMAGING REPORT ---
CHEST 2 VIEWS ROUTINE CLINICAL HISTORY: sob, cough dyspnea COMPARISON STUDY: 10/02/2016 FINDINGS: Findings of diffuse chronic parenchymal fibrotic change. Postoperative changes overlying the right hilum as well as lateral right hemithorax. Mild chronic pleural thickening right lateral hemithoracic region. Mild chronic elevation right hemidiaphragm. No acute or interval infiltrate. IMPRESSION: Chronic and postoperative change. Diffuse chronic interstitial fibrotic change. No acute or interval process. The above report was generated using voice recognition software. It may contain grammatical, syntax or spelling errors. Electronically signed by: Anton Glynn M.D. 02/09/2017 3:46 PM Dictated Date/Time: 02/09/2017 3:44 PM
[2017-02-09] MEDS ORDERED: ONDANSETRON INJ 2 MG/ML 2 ML VIAL IV STA (16:11)
[2017-02-09] MEDS ORDERED: DiphenhydrAMINE HCL 50 MG/ML VIAL IV STA (16:11)
[2017-02-09] MEDS ORDERED: SODIUM CHLORIDE 0.9% 1000ML 1,000 ML IV STA (16:13)
[2017-02-09] MEDS ORDERED: OPTIRAY 320 IV PRN (17:15)
--- NOTE | 2017-02-09 17:34 | DIAGNOSTIC IMAGING REPORT ---
CT ANGIOGRAPHY OF THE CHEST, PULMONARY EMBOLUS PROTOCOL CLINICAL HISTORY: Shortness of breath and elevated d-dimer. History of lung cancer status post resection. COMPARISON STUDY: Chest CT October 02, 2016 and chest radiograph performed earlier today. TECHNIQUE: Following IV administration of 101 mL of Optiray-320, helical axial images of the chest were obtained utilizing the pulmonary embolus protocol. Maximal intensity projections and sagittal and coronal reformats were viewed on an independent 3D workstation. IV contrast was administered without complication. A dose lowering technique was utilized adhering to the principles of ALARA. CT DOSE: 335.78 mGy.cm FINDINGS: No pulmonary emboli are identified. The heart is moderately enlarged. There is no pericardial effusion. A small hiatal hernia is noted. There is no pneumothorax. A trace right pleural effusion is unchanged. Upper lobe predominant emphysema as well as basilar and peripheral prominent honeycombing is noted. There is diffuse increased attenuation of the lungs with centrilobular nodules throughout the lungs, most evident within the left upper lobe. There is suspected left apical scarring. There are stable postoperative findings consistent with a right lower lobectomy. A few mildly enlarged mediastinal and right hilar lymph nodes are unchanged since CTs dating back to January 22, 2016. Mild multifocal right lung airspace opacities have slightly increased since exam of October 02, 2009. There is no lobar consolidation. Central airways are patent. Biliary ductal dilatation is unchanged from earlier studies and likely related to cholecystectomy. IMPRESSION: 1. No pulmonary emboli identified. 2. Status post right lower lobectomy. Stable trace right pleural effusion. No change in mildly enlarged mediastinal and right hilar lymph nodes since CT of January 22, 2016. These nodes remain indeterminate but stability favors a benign etiology. 3. Emphysema and superimposed pulmonary fibrosis with a UIP pattern. 4. Mild multifocal right lung airspace opacities which have increased since exam of October 02, 2016. The appearance favors an infectious etiology although persistence is atypical for an infection. Post radiation change could have this appearance. Recurrent neoplasm is considered less likely but cannot be excluded and a follow-up chest CT in 3 months is recommended. 5. Diffuse groundglass opacities throughout the lungs which could reflect an infectious etiology, pulmonary edema or active alveolitis. Electronically signed by: Nicolas Garcia M.D. 02/09/2017 5:32 PM Dictated Date/Time: 02/09/2017 5:14 PM
[2017-02-09] MEDS ORDERED: LEVAQUIN 750MG / 150ML D5W IV STA (18:04)
[2017-02-09] MEDS ORDERED: ONDANSETRON INJ 2 MG/ML 2 ML VIAL IV PRN (19:30)
[2017-02-09] MEDS ORDERED: ACETAMINOPHEN 325 MG TAB PO PRN (19:30)
[2017-02-09] MEDS ORDERED: ALBUTEROL HFA INHALER 18 GM INH PRN (19:45)
[2017-02-09 19:50] VITALS: BP 121/77; PULSE 98; TEMP 36.6; O2SAT 98; Ht 157.5 cm; Wt 76.3 kg
--- NOTE | 2017-02-09 19:50 | NUR ---
A: ARRIVED FROM ED TO ROOM 263 AT THIS TIME. AMBULATED TO BED W/ SUPERVISION. VERY SOB. PLACED ON HOME AMOUNT OF 02 6LPM 02 NC. LS COURSE/WHEEZY. REPORTS COUGHING UP WHITE SPUTUM (NOT OBSERVED). VSS. ORIENTED TO ROOM/CALL SILVA. SIGNED CODE WORD AND FALL AGREEMENT FORMS. CALL SILVA IN REACH. SEE EMR FOR COMPLETE ADM ASSESSMENT. PRIMARY RN TO CONTINUE PT CARE.
--- NOTE | 2017-02-09 20:00 | History and Physical ---
History & Physical Date & Time of Service: Feb 09, 2017 at 19:42 Chief Complaint: Hard To Breathe; On Oxygen Primary Care Physician: Sharonda Sheikh D.O. History of Present Illness Source: patient, family (daughter and at bedside) This is a 66yo F with a PMH of COPD, h/o lung cancer s/p RLL resection with chronic hypoxic respiratory failure (on 6L home O2, chronic steroids), RA, osteoporosis and other problems listed below who presents with worsening SOB x 3 days. Patient was seen by PCP at the end of December and was diagnosed with PNA. Was started on a course of PO levaquin for 10 days as well as a steroid taper. Patient felt that symptoms had improved until 3 days ago, when she started to experience SOB at rest. Also endorses a productive cough with white/ yellow sputum and chills. Went to see PCP today and due to complicated lung history, as well as a failed course of out-pt treatment, felt that patient needed to come to ED for further evaluation. Currently endorses chills, SOB and productive cough. Denies fever, headache, lightheadedness, chest pain, abdominal pain, nausea, vomiting, LE swelling. O2 saturation is 95% on home 6L NC O2. Patient has been taking all home medications. 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 [place], [facility] [place] Status: Chronic Social History Problems: (1) Metabolic syndrome Status: Chronic Family History Cancer Diabetes mellitus Gallbladder disease Heart disease MOTHER ([place] in 70s) Hypertension Kidney disease Kidney stones Lung disease Seizures Social History Smoking Status: Former Smoker Alcohol Use: none Drug Use: none Marital Status: Housing status: lives with significant other Occupational Status: unemployed Allergies Coded Allergies: Azithromycin (Verified Allergy, Mild, RASH, 02/09/17) Iodine (Verified Allergy, Mild, IVP DYE N/V HIVES, 02/09/17) Tramadol (Verified Allergy, Mild, RASH, 02/09/17) Codeine (Unverified Adverse Reaction, Unknown, Hallucinations, 02/09/17) Simvastatin (Unverified Adverse Reaction, Unknown, rash, 02/09/17) Home Medications Scheduled Alendronate/Cholecalciferol (Fosamax+D 70MG/2800 Iu), 1 TABLET PO WK Aspirin (Aspirin 81), 81 MG PO QAM Atorvastatin (Atorvastatin Calcium), 10 MG PO HS Calcium Carbonate-Vitamin D (Calcium + D), 2 TABS PO DAILY Cholecalciferol (Vitamin D3), 5,000 UNITS PO DAILY Folic Acid (Folvite), 1 MG PO DAILY Furosemide (Lasix), 40 MG PO DAILY Methotrexate Sodium (Methotrexate), 10 MG PO WK Metoprolol Succinate (Toprol Xl), 50 MG PO QAM Prednisone (Prednisone), 10 MG PO DAILY Scheduled PRN Albuterol Sulfate (Proair Respiclick), 2 PUFFS INH Q4 PRN for SOB/Wheezing Benzonatate (Tessalon Perles), 1 CAP PO TID PRN for Cough Hydrocodone/Acetaminophen 5MG/325MG ([place] 5MG/325MG), 1 TABLET PO TID PRN for Pain Review of Systems Ten systems reviewed and negative except as noted in the HPI. Physical Exam Vital Signs Date Time Temp Pulse Resp B/P (MAP) Pulse Ox O2 Delivery O2 Flow Rate FiO2 02/09/17 19:05 89 22 138/78 100 Nasal Cannula 6.0 02/09/17 19:05 87 02/09/17 18:13 90 18 138/78 99 Nasal Cannula 6.0 02/09/17 16:02 86 24 134/79 100 Nasal Cannula 6.0 02/09/17 14:08 100 Room Air 6.0 Nasal Cannula 02/09/17 13:54 72 24 149/103 99 Room Air 02/09/17 13:54 73 02/09/17 11:51 36.5 79 24 124/79 100 Nasal Cannula 6.0 General Appearance: WD/WN, no apparent distress (breathing comfortably on NC O2 ) Head: normocephalic, atraumatic Eyes: normal inspection, PERRL, sclerae normal ENT: normal ENT inspection, hearing grossly normal, pharynx normal (moist mucous membranes ) Neck: supple, no adenopathy, no JVD, trachea midline Respiratory/Chest: chest non-tender, no respiratory distress, no accessory muscle use, + rhonchi (throughout lung martinez ), + wheezing (expiratory wheezing ) Cardiovascular: regular rate, rhythm, no murmur, normal peripheral pulses Abdomen/GI: non tender, soft, no organomegaly Back: normal inspection Extremities/Musculoskelatal: normal inspection, no calf tenderness, no pedal edema Neurologic/Psych: no motor/sensory deficits, alert, normal mood/affect, oriented x 3 Skin: normal color, warm/dry, no rash Diagnostics Laboratory Results Results Past 24 Hours Test 02/09/17 13:55 02/09/17 14:03 Range/Units Influenza Type A Antigen Neg for Influ A NEG Influenza Type B Antigen Neg for Influ B NEG White Blood Count 6.87 4.8-10.8 K/uL Red Blood Count 4.20 4.2-5.4 M/uL Hemoglobin 11.2 12.0-16.0 g/dL Hematocrit 36.0 37-47 % Mean Corpuscular Volume 85.7 80-100 fL Mean Corpuscular Hemoglobin 26.7 25-34 pg Mean Corpuscular Hemoglobin Concent 31.1 32-36 g/dl Platelet Count 257 130-400 K/uL Mean Platelet Volume 9.9 7.4-10.4 fL Neutrophils (%) (Auto) 73.8 % Lymphocytes (%) (Auto) 15.6 % Monocytes (%) (Auto) 9.0 % Eosinophils (%) (Auto) 0.7 % Basophils (%) (Auto) 0.0 % Neutrophils # (Auto) 5.07 1.4-6.5 K/uL Lymphocytes # (Auto) 1.07 1.2-3.4 K/uL Monocytes # (Auto) 0.62 0.11-0.59 K/uL Eosinophils # (Auto) 0.05 0-0.5 K/uL Basophils # (Auto) 0.00 0-0.2 K/uL RDW Standard Deviation 45.7 36.4-46.3 fL RDW Coefficient of Variation 14.6 11.5-14.5 % Immature Granulocyte % (Auto) 0.9 % Immature Granulocyte # (Auto) 0.06 0.00-0.02 K/uL Prothrombin Time 10.0 9.0-12.0 SECONDS Prothromb Time International Ratio 1.0 0.9-1.1 D-Dimer 680 0-500 ug/L FEU Sodium Level 136 136-145 mmol/L Potassium Level 3.3 3.5-5.1 mmol/L Chloride Level 99 98-107 mmol/L Carbon Dioxide Level 32 21-32 mmol/L Anion Gap 5.0 3-11 mmol/L Blood Urea Nitrogen 13 7-18 mg/dl Creatinine 0.68 0.60-1.20 mg/dl Est Creatinine Clear Calc Drug Dose 79.0 ml/min Estimated GFR () 106.4 Estimated GFR (Non- 91.8 BUN/Creatinine Ratio 19.7 10-20 Random Glucose 108 70-99 mg/dl Calcium Level 8.8 8.5-10.1 mg/dl Total Bilirubin 0.2 0.2-1 mg/dl Aspartate Amino Transf (AST/SGOT) 25 15-37 U/L Alanine Aminotransferase (ALT/SGPT) 26 12-78 U/L Alkaline Phosphatase 51 45-117 U/L Troponin I < 0.015 0-0.045 ng/ml Pro-B-Type Natriuretic Peptide 122 0-900 pg/ml Total Protein 7.5 6.4-8.2 gm/dl Albumin 3.4 3.4-5.0 gm/dl Globulin 4.1 2.5-4.0 gm/dl Albumin/Globulin Ratio 0.8 0.9-2 Diagnostic Radiology CXR: IMPRESSION: Chronic and postoperative change. Diffuse chronic interstitial fibrotic change. No acute or interval process. Chest/thorax CTA: IMPRESSION: 1. No pulmonary emboli identified. 2. Status post right lower lobectomy. Stable trace right pleural effusion. No change in mildly enlarged mediastinal and right hilar lymph nodes since CT of January 22, 2016. These nodes remain indeterminate but stability favors a benign etiology. 3. Emphysema and superimposed pulmonary fibrosis with a UIP pattern. 4. Mild multifocal right lung airspace opacities which have increased since exam of October 02, 2016. The appearance favors an infectious etiology although persistence is atypical for an infection. Post radiation change could have this appearance. Recurrent neoplasm is considered less likely but cannot be excluded and a follow-up chest CT in 3 months is recommended. 5. Diffuse groundglass opacities throughout the lungs which could reflect an infectious etiology, pulmonary edema or active alveolitis. EKG Normal sinus rhythm Non-specific ST interval and T wave abnormalities No significant changes from previous EKGs No change from prior EKG Impression Assessment and Plan This is a 66yo F with a PMH of COPD, h/o lung cancer s/p RLL resection with chronic hypoxic respiratory failure (on 6L home O2, chronic steroids), RA, osteoporosis and other problems listed below who presents with worsening SOB x 3 days. Chronic respiratory failure: -S/p ILD, COPD, h/o lung cancer s/p resection of RLL in April 2015 -Home O2 is 6L NC -Currently O2 saturation in high 90s on home regimen -Continue O2 supplementation -Continuous pulse ox COPD exacerbation: -2/2 Recent PNA -Currently afebrile, no leukocytosis -Flu PCR pending -Failed out-pt course of PO Levaquin -Continue with Solu-medrol 40mg Q8, IV abx with Zosyn , Xopenex nebs -Pulm consult RA: -Stable -On Solu-medrol (hold home dose prednisone) -Cont home dose methotrexate, norco PRN Osteoporosis: -Continue home dose Vit D, calcium HLD: -Cont statin DVT Ppx: Lovenox SQ Code status: FULL PCP: Kori Dispo: Admitted to [facility]. Plan to return home once medically stable. Patient seen in collaboration with Dr. Palm. Please see addendum. Attending Addendum: The patient was sen and examined Admitted with increased SOB for the last day or two Failed OP treatment for an exacerbation O/E Moderate SOB at rest Hemodynamically stable Chest-decreased breath sound at the bases,left >right Occasional crackles Heart-regular Abdomen-benign Labs and Imaging studies were reviewed Agree with the assessment and plan. Dr Bhavya Palm Level of Care Med/Surg Resuscitation Status FULL RESUSCITATION VTE Prophylaxis VTE Risk Assessment Done? Y/N: Yes Risk Level: Moderate Given or contraindicated: Enoxaparin (Lovenox)SQ Social Service Consult None Apply
[2017-02-09] MEDS ORDERED: LEVALBUTEROL/IPRATROPIUM NEB INH SCH (21:00)
[2017-02-09] MEDS ORDERED: PIPERACILL/TAZOBAC IV 4.5 GM in DEXTROSE 5% 100ML 100 ML IV SCH (21:00)
[2017-02-09] MEDS: METHYLPREDNISOLONE IV 40 MG in SYRINGE 0 ML IV SCH (21:05)
[2017-02-09] MEDS: ATORVASTATIN 10 MG TAB PO SCH (21:06)
[2017-02-09] MEDS: ENOXAPARIN 40 MG/0.4 ML SYR SC SCH (21:15)
[2017-02-09] MEDS ORDERED: PIPERACILL/TAZOBAC CONSULT ACTIVE PRN (21:15)
[2017-02-09] MEDS ORDERED: PNEUMOCOCCAL ADMINISTRATION CHARGE ONE (21:30)
[2017-02-09] MEDS ORDERED: INFLUENZA ADMINISTRATION CHARGE ONE ×2 (21:30→21:45)
[2017-02-09] MEDS ORDERED: PIPERACILL/TAZOBAC IV 3.375 GM in DEXTROSE 5% 100ML IV ONE (21:30)
[2017-02-09] MEDS ORDERED: INFLUENZA VACCINE HIGH DOSE 65+ 0.5 ML SYR IM. ONE (21:30)
[2017-02-09] MEDS ORDERED: PNEUMOCOCCAL POLYSACCHARIDES 25 MCG/0.5 ML VIAL/SYR IM. ONE (21:30)
[2017-02-09] MEDS ORDERED: INFLUENZA VIRUS QUAD VACCINE 0.5 ML SYR IM. ONE (21:45)
[2017-02-09] MEDS: IPRATROPIUM BROMIDE NEB SOLN 0.02% 2.5 ML VIAL INH SCH (21:50)
[2017-02-09] MEDS: LEVALBUTEROL 1.25MG/0.5ML NEB INH SCH (21:50)
[2017-02-09] MEDS: HYDROCODONE/ACETAMIN 5/325MG TAB PO PRN (22:24)
[2017-02-09 23:26] VITALS: BP 101/54; PULSE 80; TEMP 36.7; O2SAT 99
[2017-02-10 01:44] VITALS: PULSE 80; O2SAT 99
[2017-02-10] MEDS: LEVALBUTEROL 1.25MG/0.5ML NEB INH SCH ×4 (01:44→19:39)
[2017-02-10] MEDS: IPRATROPIUM BROMIDE NEB SOLN 0.02% 2.5 ML VIAL INH SCH ×4 (01:44→19:39)
[2017-02-10] MEDS: PIPERACILL/TAZOBAC IV 3.375 GM in DEXTROSE 5% 100ML IV SCH ×3 (01:45→18:15)
[2017-02-10] MEDS: BENZONATATE 100MG CAP PO PRN (05:06)
[2017-02-10] MEDS: METHYLPREDNISOLONE IV 40 MG in SYRINGE 0 ML IV SCH ×2 (06:07→15:22)
[2017-02-10 07:02] LABS: HEMATOCRIT 31.6 % (37-47); HEMOGLOBIN 9.9 g/dL (12.0-16.0); MEAN CELL VOLUME 86.1 fL (80-100); MEAN CORPUSCULAR HGB CONC 31.3 g/dl (32-36); MEAN PLATELET VOLUME 9.7 fL (7.4-10.4); PLATELET COUNT 221 K/uL (130-400); RED CELL DISTRIBUTION WIDTH CV 14.7 % (11.5-14.5); RED CELL DISTRIBUTION WIDTH SD 46.1 fL (36.4-46.3); WHITE BLOOD COUNT 7.99 K/uL (4.8-10.8)
[2017-02-10 07:09] VITALS: PULSE 82; O2SAT 99
[2017-02-10 07:34] VITALS: BP 122/78; PULSE 88; TEMP 36.6; O2SAT 98
[2017-02-10 07:37] LABS: CALCIUM 8.3 mg/dl (8.5-10.1); CREATININE 0.79 mg/dl (0.60-1.20); POTASSIUM 3.4 mmol/L (3.5-5.1)
[2017-02-10] MEDS: CHOLECALCIFEROL 1000 INTER.UNIT TAB PO SCH (08:40)
[2017-02-10] MEDS: ASPIRIN 81 MG ECTAB PO SCH (08:41)
[2017-02-10] MEDS: CALCIUM 600MG + VIT D 400 IU TAB PO SCH (08:42)
[2017-02-10] MEDS: FUROSEMIDE 40 MG TAB PO SCH (08:42)
[2017-02-10] MEDS: METOPROLOL SUCC 50MG EXT REL TAB PO SCH (08:43)
--- NOTE | 2017-02-10 12:15 | PULMONARY CONSULTATION ---
DATE OF CONSULTATION: 02/10/2017 TIME: 11:10 a.m. REPORT OF CONSULTATION: The patient was seen in room 263, bed 2. She is a 66-year-old female who has a chief complaint of shortness of breath. She has had chronic shortness of breath, but it became worse approximately on February 06. This became progressive. She was trying to avoid coming to the hospital with the holiday season. She has a very complex pulmonary history. She was generally healthy until near the end of 2014 when she began to have some hemoptysis. 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 In April of 2015, she had a right middle lobectomy and right lower lobectomy done at [facility]. 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 She was treated with chemotherapy in the form of cisplatin and gemcitabine. She had significant side effects including neuropathy. Subsequently, she had Taxol and carboplatin. She has not had any radiation therapy. As far as the patient knows, she has not had any recurrence of a lung tumor. She follows regularly with her [facility] doctors. She does, however, have pulmonary fibrosis. It is not clear if it is idiopathic, although it was suspected to be. She does have a history of rheumatoid arthritis and the possibility of RA associated fibrosis, apparently has been considered. She has had some intermittent courses of steroids when she would have exacerbations of one type or another. The patient has some chronic nasal congestion. For the past 2 or 3 days, she did have some chills and sweats, but no fever or elevation. She had a cough, which was increased from normal. Her mucous is sometimes white, but sometimes has some green, especially early in the day. She has had some chest pains with coughing. Today, she feels moderately better. She is less short of breath. She is not active however at present. The patient chronically wears oxygen at 6-liter nasal cannula. PAST SURGICAL HISTORY: 1. Cholecystectomy. 2. Hysterectomy and salpingo-oophorectomy. 3. Right middle and right lower lobectomy as noted. PAST MEDICAL HISTORY: 1. SVT 2. Hypertension. 3. Hyperlipidemia. 4. Osteoporosis. 5. Rheumatoid arthritis. 6. Neuropathy. 7. 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 SOCIAL HISTORY: Tobacco, 2 packs per day for 42 years or so. She has not smoked for 2 years. ETOH -- none. 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 ALLERGIES: 1. AZITHROMYCIN, WHICH CAUSED A RASH. 2. IODINE DYE, WHICH GIVES SEVERE CHILLS AND VOMITING. 3. TRAMADOL GIVES A RASH. 4. CODEINE CAUSED HALLUCINATION 5. SIMVASTATIN. FAMILY HISTORY: Mother from an [place] and had alcohol abuse. She does not know the medical history of her father. MEDICATIONS: At home: 1. ProAir inhaler. 2. Alendronate D. 3. Aspirin 81 mg. 4. Atorvastatin 10 mg. 5. Benzonatate 100 mg t.i.d. p.r.n. cough. 6. Vitamin D3. 7. Folic acid 1 mg daily. 8. Furosemide 40 mg daily. 9. Methotrexate 10 mg weekly. 10. Metoprolol 50 mg daily. REVIEW OF SYSTEMS: Negative except for the above-mentioned complaints. Ten systems were reviewed. PHYSICAL EXAMINATION: GENERAL: The patient is a pleasant 66-year-old female who was cooperative, alert and oriented. She was in no distress at rest. She was just slightly short of breath while talking. HEENT: Eye exam showed evidence of what appeared to be prior cataract surgery bilaterally. Nares were congested with mucous. The membranes were dry. Mouth exam showed dentures, but otherwise showed no erythema or exudate. NECK: Palpation of the neck reveals no lymph nodes. CHEST: Inspection of the chest reveals a scar on the right lateral and posterior chest. There were somewhat diminished excursions. VITAL SIGNS: Temperature is 36.6. Heart rate was 88 per minute. The rhythm is regular. Blood pressure 122/78. LUNGS: The respiratory rate was 20 breaths per minute. Auscultation revealed prominent dry rales throughout the left lung. There were rales, but lesser amounts on the right chest. Oxygen saturation was 98% on 6 liters. ABDOMEN: Inspection of the abdomen reveals a scar in the right upper quadrant. Bowel sounds were present. There was no tenderness to palpation or masses. EXTREMITIES: Showed no cyanosis, clubbing or edema. LABORATORY DATA: The patient's chest x-ray showed diffuse chronic interstitial fibrotic changes with evidence of a prior surgery. CAT scan of the chest showed no pulmonary emboli seen. She is status post right middle and lower lobectomy. There is a trace right pleural effusion. There is mildly enlarged mediastinal and right hilar lymph nodes, which are unchanged compared with 01/22/2016. Emphysema was seen. Diffuse pulmonary fibrosis was noted. In the right mid lung field, there is an increased interstitial and alveolar process, which has increased since 10/02/2016, raising the possibility of an infection. White count is 7.99. Hemoglobin 9.9. Platelets 221,000. INR was 1. Electrolytes show sodium 137, potassium 3.4, chloride 100, bicarbonate 32. BUN 15 with a creatinine of 0.79. Blood sugar was 151. Calcium was 8.3. ProBNP was 122, which would be normal. Liver functions were normal. Flu test was negative. Sputum reported light normal kelli. EKG showed a normal sinus rhythm with a rate of 84 per minute. There are nonspecific ST and T-wave changes seen, most prominently in leads V1, V2 and V3 as well as III and aVF. IMPRESSION: 1. Right lung pneumonia. 2. Lung carcinoma -- status post right middle lobectomy and right lower lobectomy. 3. Diffuse pulmonary fibrosis. 4. Chronic obstructive pulmonary disease. COMMENTS AND RECOMMENDATIONS: The patient feels somewhat better. She is currently on Zosyn. She is also on methylprednisolone 40 mg IV q. 8 hours. I agree with these. She is receiving levalbuterol and ipratropium. These are every 6 hours. I agree with that. She believes the nebulizer treatments are helping. Perhaps getting a nebulizer for home treatment might be of value to her. She has been on 6 liters of oxygen with a high oxygen saturation of 98%. I believe it would be reasonable to try and keep her saturations perhaps between 90% and 95%, such that she might be able to have a slightly lower dose of oxygen. The patient made it clear that she wishes to be a complete DNR. She is currently listed as full resuscitation. We would suggest that our hospitalist discuss this with her and write the order as per her request. Thank you for asking me to assist in her care.
--- NOTE | 2017-02-10 14:20 | NUR ---
Case Management: Met with pt for discharge planning. Pt lives with her spouse and is independent with her care. Pt uses 6L of oxygen at home thru [facility]. Pt did request a nebulizer so I have sent a [facility] message to Dr Gonzalez. Pt also wanted to have Living Will done and I spoke with Mis Manuel who was already aware and gave pt an admission packet so she could review the Advanced Directives information.
[2017-02-10 14:27] VITALS: PULSE 84; O2SAT 97
[2017-02-10 16:11] VITALS: BP 101/62; PULSE 88; TEMP 36.6; O2SAT 100
--- NOTE | 2017-02-10 17:05 | Progress Note ---
Internal Med Progress Note Date of Service: Feb 10, 2017. Provider Documentation: SUBJECTIVE: mentions still have productive cough but SOB better since admission on 6 L via nasal canula -baseline no fever or chills feels weak and tired OBJECTIVE: Vital Signs-as noted below Exam: General-no apparent distress Eyes-sclera non icteric , PERRLA/EOMI ENT-NAD Neck-trachea midline, no thyromegaly Lungs-+ crackles in all lung martinez , no wheeze noted Heart-regular S1/S2 , no JVD , no lower ext edema Abdomen-soft, non tender Extremities-no rash or deformity Neuro-AAO x3, no focal neurological deficit Lab data as noted below. ASSESSMENT & PLAN: This is a 66yo F with a PMH of COPD, h/o lung cancer s/p RLL resection with chronic hypoxic respiratory failure (on 6L home O2, chronic steroids), RA, osteoporosis presented with worsening SOB x 3 days. ACUTE ON Chronic respiratory failure: -HX OF advanced interstitial lung disease , COPD, h/o lung cancer s/p resection of RLL in April 2015 -on chronic Home O2 is 6L NC worsening of hypoxia , respiratory failure due to COPD exacerbation , bronchitis failed out pt course with PO Levaquin empiric abx with Zosyn added Solu-medrol 40mg Q8, IV abx with Zosyn , Xopenex nebs -Pulmonology consult RA: -Stable -On Solu-medrol (hold home dose prednisone) -hold home dose methotrexate for acute illness Osteoporosis: -Continue home dose Vit D, calcium HLD: -Cont statin DVT Ppx: Lovenox SQ Code status: FULL PCP: Kori Dispo: Admitted to [facility]. Plan to return home once medically stable. Vital Signs: Date Time Temp Pulse Resp B/P (MAP) Pulse Ox O2 Delivery O2 Flow Rate FiO2 02/11/17 19:14 72 20 96 Nasal Cannula 5.0 02/11/17 18:53 36.7 95 18 93 Nasal Cannula 02/11/17 16:40 Nasal Cannula 4.0 02/11/17 15:20 36.7 95 18 112/64 (80) 93 Nasal Cannula 4.0 02/11/17 14:21 86 20 99 Nasal Cannula 4.0 02/11/17 07:55 36.5 77 18 126/80 (95) 99 Nasal Cannula 6.0 02/11/17 07:20 Nebulizer 02/11/17 07:15 79 20 93 Nasal Cannula 6.0 02/11/17 02:09 79 16 99 Nasal Cannula 6.0 02/11/17 00:05 36.6 75 18 126/75 (92) 99 Nasal Cannula 6.0 02/11/17 00:00 Nasal Cannula 6.0 Lab Results:
[2017-02-10] MEDS ORDERED: ATRINS INH (17:55)
[2017-02-10] MEDS ORDERED: XPNINS1255 INH (17:55)
[2017-02-10] MEDS ORDERED: VNTHFA/IN INH (17:55)
[2017-02-10] MEDS ORDERED: LEVOFLOXACIN / D5W 750 MG in PREMIXED IN D5W 150 ML IV SCH (18:00)
[2017-02-10 19:48] VITALS: PULSE 73; O2SAT 95
[2017-02-10] MEDS ORDERED: METHYLPREDNISOLONE IV 40 MG in SYRINGE 0 ML IV SCH (20:00)
[2017-02-10] MEDS: DOXYCYCLINE HYCLATE 100 MG CAP PO SCH (21:04)
[2017-02-10] MEDS: ATORVASTATIN 10 MG TAB PO SCH (21:04)
[2017-02-10] MEDS: ENOXAPARIN 40 MG/0.4 ML SYR SC SCH (21:05)
[2017-02-10] MEDS: HYDROCODONE/ACETAMIN 5/325MG TAB PO PRN (21:42)
[2017-02-11] VITALS (8 sets, daily range): BP systolic 112–126; BP diastolic 64–80; PULSE 72–95; TEMP 36.5–36.7; O2SAT 93–99
--- NOTE | 2017-02-11 | NUR ---
ID: Pt admitted with COPD exacerbation. AAO x 4, VSS. Pt is on 6L chronically, WELLS. Denies pain. Independent in the room. Pt is from home, anticipate to return home when medically stable. See EMR for full assessment. Will monitor.
[2017-02-11] MEDS: LEVALBUTEROL 1.25MG/0.5ML NEB INH SCH ×4 (02:09→19:14)
[2017-02-11] MEDS: IPRATROPIUM BROMIDE NEB SOLN 0.02% 2.5 ML VIAL INH SCH ×4 (02:09→19:14)
[2017-02-11] MEDS: METHYLPREDNISOLONE IV 40 MG in SYRINGE 0 ML IV SCH ×2 (04:58→17:08)
[2017-02-11] MEDS: DOXYCYCLINE HYCLATE 100 MG CAP PO SCH ×2 (08:45→19:07)
[2017-02-11] MEDS: FUROSEMIDE 40 MG TAB PO SCH (08:45)
[2017-02-11] MEDS: METOPROLOL SUCC 50MG EXT REL TAB PO SCH (08:45)
[2017-02-11] MEDS: CALCIUM 600MG + VIT D 400 IU TAB PO SCH (08:45)
[2017-02-11] MEDS: ASPIRIN 81 MG ECTAB PO SCH (08:45)
[2017-02-11] MEDS: CHOLECALCIFEROL 1000 INTER.UNIT TAB PO SCH (08:46)
--- NOTE | 2017-02-11 10:10 | Pulmonology Progress Note ---
Pulmonary Progress Note Date of Service Feb 11, 2017. Attending Dr. Guillen Subjective Patient states that she is feeling improved this morning. She is having no real problems with her breathing compared to her baseline this morning. She continues to have some mild cough on an off. She did not have any repeat lab work completed today. CTA of the chest/thorax was viewed by me today. It is noted that the patient emphysema with superimposed pulmonary fibrosis, mild multifocal right lung airspace opacity, diffuse ground-glass opacities throughout the lungs, and status post right lower lobectomy. Vital signs were reviewed. The patient has been afebrile. Heart rate this morning was 77, respiratory rate 18, blood pressure 126/75. She has been saturating well into the upper 90s on 6 liters. Baseline at home is 6 liters via nasal cannula. Objective General: Patient is awake, alert, cooperative, and in no acute distress. Obese. Head: Normocephalic, Atraumatic. ENT: PERRLA, No discharge, EOMI, Sclera normal Neck: Normal ROM. Trachea midline. No stridor Respiratory: Coarse crackles at the left lung base, mild crackles right lung base. Very slight end expiratory wheeze throughout. Currently on 6L via nasal cannula. No respiratory distress. No accessory muscle use. Cardiovascular: Regular rate and rhythm. Abdomen: Normal bowel sounds hear throughout. Extremities: Normal ROM Neuro: Alert, Oriented x 3. CN II-XII grossly intact. Sensation and motor function grossly intact. Psych: Mood and affect are normal. Assessment & Plan Right lung pneumonia Squamous Cell CA of the lung- s/p RML and RLL lobectomy Diffuse Pulmonary fibrosis COPD Patient is feeling much improved today. She is typically on 6 L via nasal cannula of O2 at home. She is currently on 6L and saturating well. Continue O2 supplementation. May be able to try a lower setting of O2 to maintain her O2 between 90-95%. If she desaturates at a lower dose, continue current setting. IV SoluMedrol currently at 40 mg BID. Consider transition to PO prednisone taper tomorrow morning. She likely will need a slow tapering course. Recommend completing 7 days of antibiotic therapy. Discontinued from IV Zosyn and transitioned to PO Doxycycline. This is a good choice for CAP. If there is any concern for anaerobic infection, consider Augmentin instead- may be more appropriate. Continues PO Lasix 40 mg daily. Continues Nebulizer treatments- she is feeling better with the nebulizer. Recommend sending this patient home with nebulizer treatments as well as they do improve her SOB. Patient requesting change to DNR status. Paper work was filled out his morning. Overall she has improved. She does have a follow up scheduled with her Neuro Urologist on February 19. This is appropriate. No other changes from a Pulmonary standpoint today. Feel that if she continues to improve, she likely will be ready for discharge soon. Data Medications: Current Inpatient Medications Medications (Trade) Dose Ordered Sig/Silvia Route Start Time Stop Time Status Last Admin Dose Admin Enoxaparin Sodium (Lovenox Inj) 40 mg Q24H SC 02/09/17 22:00 03/11/17 21:59 02/10/17 21:05 40 MG Acetaminophen (Tylenol Tab) 650 mg Q4H PRN PO 02/09/17 19:30 03/11/17 19:29 Ondansetron HCl (Zofran Inj) 4 mg Q6H PRN IV 02/09/17 19:30 03/11/17 19:29 Aspirin (Ecotrin Tab) 81 mg QAM PO 02/10/17 09:00 03/12/17 08:59 02/11/17 08:45 81 MG Atorvastatin Calcium (Lipitor Tab) 10 mg HS PO 02/09/17 21:00 03/11/17 20:59 02/10/17 21:04 10 MG Benzonatate (Tessalon Perles Cap) 100 mg TID PRN PO 02/09/17 19:45 03/11/17 19:44 02/10/17 05:06 100 MG Cholecalciferol (Vitamin D Tab) 5,000 inter.unit DAILY PO 02/10/17 09:00 03/12/17 08:59 02/11/17 08:46 5,000 INTER.UNIT Folic Acid (Folvite Tab) 1 mg DAILY PO 02/10/17 09:00 03/12/17 08:59 02/11/17 08:45 1 MG Furosemide (Lasix Tab) 40 mg DAILY PO 02/10/17 09:00 03/12/17 08:59 02/11/17 08:45 40 MG Acetaminophen/ Hydrocodone Bitart ([place] 5/325 Tab) 1 tab TID PRN PO 02/09/17 19:45 02/23/17 19:44 02/10/17 21:42 1 TAB Metoprolol Succinate (Toprol Xl Tab) 50 mg QAM PO 02/10/17 09:00 03/12/17 08:59 02/11/17 08:45 50 MG Albuterol (Ventolin Hfa) 2 puffs Q4 PRN INH 02/09/17 19:45 03/11/17 19:44 Calcium/Vitamin D (Caltrate Plus Tab) 2 tab DAILY PO 02/10/17 09:00 03/12/17 08:59 02/11/17 08:45 2 TAB Ipratropium Bomoseen (Atrovent 0.02% 0.5MG/2.5ML Neb) 0.5 mg Q6R INH 02/09/17 21:00 03/11/17 20:59 02/11/17 07:14 0.5 MG Levalbuterol (Xopenex 1.25MG/ 0.5ML Neb) 1.25 mg Q6R INH 02/09/17 21:00 03/11/17 20:59 02/11/17 07:14 1.25 MG Doxycycline Hyclate (Vibramycin Cap) 100 mg BID PO 02/10/17 21:00 02/17/17 20:59 02/11/17 08:45 100 MG Methylprednisolone Sodium Succinate 40 mg/Syringe 0.64 ml @ 1.5 mls/min Q12H IV 02/11/17 04:00 03/13/17 03:59 02/11/17 04:58 1.5 MLS/MIN Vital Signs: Date Time Temp Pulse Resp B/P (MAP) Pulse Ox O2 Delivery O2 Flow Rate FiO2 02/11/17 07:55 36.5 77 18 126/80 (95) 99 Nasal Cannula 6.0 02/11/17 07:20 Nebulizer 02/11/17 07:15 79 20 93 Nasal Cannula 6.0 02/11/17 02:09 79 16 99 Nasal Cannula 6.0 02/11/17 00:05 36.6 75 18 126/75 (92) 99 Nasal Cannula 6.0 02/11/17 00:00 Nasal Cannula 6.0 02/10/17 19:48 73 16 95 Nasal Cannula 6.0 02/10/17 16:11 36.6 88 18 101/62 (75) 100 Nasal Cannula 6.0 02/10/17 15:20 Nasal Cannula 6.0 02/10/17 14:27 84 16 97 Nasal Cannula 6.0
--- NOTE | 2017-02-11 11:20 | NUR ---
Advance Directive note: Advance Directive for Healthcare completed by patient and copy placed on her chart. Patient's Healthcare Agent is her , Ankur Muniz. Her Alternative Health Care Agents are her son, Noam Childs and her daughter, Marika Hill. In the event patient has an end-stage medical condition or is permanently unconscious and there is no realistic hope of significant recovery, the patient does not wish aggressive medical care nor tube feedings. She chose to have her agents follow the instructions placed on her paperwork. She does consent to organ donation-no limitations noted. Copies of paperwork given to patient. No further questions or follow up needed at this time.
[2017-02-11] MEDS: BENZONATATE 100MG CAP PO PRN (13:23)
--- NOTE | 2017-02-11 13:36 | NUR ---
Case Management- Updated patient that I received her prescription for home nebulizer machine. Let her know that prescription was faxed to [facility]. [facility] will be coordinating with her to either deliver to home or to the hospital. CM following
[2017-02-11] MEDS ORDERED: PRED20TA2 PO (18:26)
--- NOTE | 2017-02-11 18:28 | Discharge Summary ---
Discharge Summary Date of Service Feb 11, 2017. Discharge Summary Admission Date: Feb 09, 2017 at 18:56 Discharge Date: Feb 11, 2017 Discharge Disposition: Home Principal Diagnosis: COPD EXACERBATION /CHRONIC RESPIRATORY FAILURE /ILD Consultations: PULMONOLOGY Medication Reconciliation New Medications: Prednisone (Prednisone) 20 Mg Tab 20 MG PO UD for 28 Days, #54 TABS prednisone 60 mg daily x 7days 40 mg dailyx7 days 30 mg daily x7 days 20 mg daily x7 days Albuterol Hfa (Ventolin Hfa) 200 Puffs/54417 Mcg Aers 2 PUFFS INH Q4 PRN for SOB/Wheezing for 30 Days, #1 EA 3 Refills Doxycycline Hyclate (Doxycycline Hyclate) 100 Mg Cap 100 MG PO BID for 5 Days, #10 CAP Ipratropium Reading (Ipratropium Reading) 0.5 Mg/2.5 Ml Nebu 0.5 MG INH Q6R PRN for Wheezing for 30 Days, #120 PKT 4 Refills Levalbuterol (Levalbuterol) 1.25 Mg/0.5 Ml Nebu 1.25 MG INH Q6R PRN for Wheezing for 30 Days, #120 PKT 4 Refills Continued Medications: Alendronate/Cholecalciferol (Fosamax+D 70MG/2800 Iu) 70 Mg Tab 1 TABLET PO WK WEDNESDAY Aspirin (Aspirin 81) 81 Mg Tab 81 MG PO QAM Atorvastatin (Atorvastatin Calcium) 10 Mg Tab 10 MG PO HS Benzonatate (Tessalon Perles) 100 Mg Cap 1 CAP PO TID PRN for Cough, CAP Calcium Carbonate-Vitamin D (Calcium + D) 1 Tab Tab 2 TABS PO DAILY Cholecalciferol (Vitamin D3) 1,000 Unit Tab 5000 UNITS PO DAILY for 30 Days, TAB 5 Refills Folic Acid (Folvite) 1 Mg Tab 1 MG PO DAILY Furosemide (Lasix) 40 Mg Tab 40 MG PO DAILY, TAB Hydrocodone/Acetaminophen 5MG/325MG ([place] 5MG/325MG) Tab 1 TABLET PO TID PRN for Pain, TAB PRN PAIN Methotrexate Sodium (Methotrexate) 2.5 Mg Tab 10 MG PO WK SUNDAYS Metoprolol Succinate (Toprol Xl) 50 Mg Tabcr 50 MG PO QAM, #30 TAB Prednisone (Prednisone) 10 Mg Tab 10 MG PO DAILY, TAB Discontinued Medications: Albuterol Sulfate (Proair Respiclick) 108 Mcg/Act Aer 2 PUFFS INH Q4 PRN for SOB/Wheezing Admission Information HPI (per Admitting provider): This is a 66yo F with a PMH of COPD, h/o lung cancer s/p RLL resection with chronic hypoxic respiratory failure (on 6L home O2, chronic steroids), RA, osteoporosis and other problems listed below who presents with worsening SOB x 3 days. Patient was seen by PCP at the end of December and was diagnosed with PNA. Was started on a course of PO levaquin for 10 days as well as a steroid taper. Patient felt that symptoms had improved until 3 days ago, when she started to experience SOB at rest. Also endorses a productive cough with white/ yellow sputum and chills. Went to see PCP today and due to complicated lung history, as well as a failed course of out-pt treatment, felt that patient needed to come to ED for further evaluation. Currently endorses chills, SOB and productive cough. Denies fever, headache, lightheadedness, chest pain, abdominal pain, nausea, vomiting, LE swelling. O2 saturation is 95% on home 6L NC O2. Patient has been taking all home medications. Physical Exam (per Admitting): General Appearance: WD/WN, no apparent distress (breathing comfortably on NC O2) Head: normocephalic, atraumatic Eyes: normal inspection, PERRL, sclerae normal ENT: normal ENT inspection, hearing grossly normal, pharynx normal (moist mucous membranes ) Neck: supple, no adenopathy, no JVD, trachea midline Respiratory/Chest: chest non-tender, no respiratory distress, no accessory muscle use, + rhonchi (throughout lung martinez ), + wheezing (expiratory wheezing ) Cardiovascular: regular rate, rhythm, no murmur, normal peripheral pulses Abdomen/GI: non tender, soft, no organomegaly Back: normal inspection Extremities/Musculoskelatal: normal inspection, no calf tenderness, no pedal edema Neurologic/Psych: no motor/sensory deficits, alert, normal mood/affect, oriented x 3 Skin: normal color, warm/dry, no rash Hospital Course feels much better , minimum cough on 6 L 02 -her baseline , has chronic SOB /WELLS wants to go home today -as thinks she will do better at home , her symptoms are chronic and at baseline no fever or chills Exam: General-no apparent distress Eyes-sclera non icteric , PERRLA/EOMI ENT-NAD Neck-trachea midline, no thyromegaly Lungs-+ crackles in all lung martinez , no wheeze noted Heart-regular S1/S2 , no JVD , no lower ext edema Abdomen-soft, non tender Extremities-no rash or deformity Neuro-AAO x3, no focal neurological deficit Date Time Temp Pulse Resp B/P (MAP) Pulse Ox O2 Delivery O2 Flow Rate FiO2 02/11/17 19:14 72 20 96 Nasal Cannula 5.0 02/11/17 18:53 36.7 95 18 93 Nasal Cannula ACUTE ON Chronic HYPOXEMIC respiratory failure: -HX OF advanced interstitial lung disease , COPD, h/o lung cancer s/p resection of RLL in April 2015 -on chronic Home O2 is 6L NC presented with worsening of hypoxia , respiratory failure due to COPD exacerbation , bronchitis failed out pt course with PO Levaquin tx with empiric abx with Zosyn changed to PO Doxycycline no wheeze , steroid change to Oral Prednisone Xopenex nebs PRN -script given for home Nebulizer machine -Pulmonology consulted , appreciate input recommend slow Prednisone taper pt follows with Pulmonology in [place] have appointment scheduled for next week RA: -Stable -discharged with 4 weeks of Prednisone taper then will continue with chronic Prednisone 10 mg daily follows with Rheumatology Dr Mohan -resumed methotrexate Osteoporosis: -Continue home dose Vit D, calcium HLD: -Cont statin DVT Ppx: Lovenox SQ Code status: DNR DISPOSITION : Medically stable to be discharged home . Total time spent on discharge = 40 MINS This includes examination of the patient, discharge planning, medication reconciliation, and communication with other providers. Discharge Instructions Discharge Instructions Date of Service Feb 11, 2017. Admission Reason for Admission: Chronic Respiratory Failure With Hypoxia,Copd Discharge Discharge Diagnosis / Problem: COPD EXACERBATION /CHRONIC RESPIRATORY FAILURE / ILD Discharge Goals Goal(s): Improve function, Increase independence, Improve disease control, Diagnostic testing, Therapeutic intervention Activity Recommendations Activity Limitations: as noted below ( TOLERATED ) . Instructions / Follow-Up Instructions / Follow-Up HOSPITAL FOLLOW UP : 02/25/2017 12:45 PM Yissel Swan MD Internal Medicine [facility] PULMONOLOGY FOLLOW UP : 02/18/2017 12:00 PM Shaun Cuenca MD Pulmonary Medicine, [place] RHEUMATOLOGY FOLLOW UP : 02/19/2017 8:00 AM Justice Snyder MD Rheumatology [facility] PULMONOLOGY FOLLOW UP 02/23/2017 10:30 AM SEAN Carpenter Pulmonary Medicine, [facility] CARDIOLOGY FOLLOW UP 03/16/2017 10:45 AM Anton Waters PA-C Cardiology [facility] Current Hospital Diet Patient's current hospital diet: Regular Diet Discharge Diet Recommended Diet: Regular Diet Pending Studies Studies pending at discharge: no Medical Emergencies . Who to Call and When: Medical Emergencies: If at any time you feel your situation is an emergency, please call 911 immediately. . Non-Emergent Contact Non-Emergency issues call your: Primary Care Provider . . "Provider Documentation" section prepared by Megan Gonzalez. . VTE Core Measure Inpt VTE Proph given/why not?: Enoxaparin (Lovenox)SQ Additional Copies To Sharonda Sheikh D.O. Lavery, Doriann M.D.
[2017-02-11] MEDS ORDERED: PRD20 PO (18:45)
[2017-02-11] MEDS ORDERED: DXY100 PO (18:57)
[2017-03-14] MEDS ORDERED: PRD20 PO (10:17)
[2017-04-08] MEDS ORDERED: TMF75 PO (10:24)
[2017-04-08] MEDS ORDERED: PRED10TA PO (10:24)
[2017-04-08] MEDS ORDERED: LEVO-18 PO (10:24)
[2017-04-27] MEDS ORDERED: VNTHFA/IN INH (06:42)
[2017-04-27] MEDS ORDERED: FLUT0.15 NAE (06:47)
[2017-04-27] MEDS ORDERED: HYDR200T5 PO (06:54)
[2017-04-27] MEDS ORDERED: LEVA1.258 NEB (06:57)
[2017-04-27] MEDS ORDERED: HYDR-5688 PO (10:19)
[2017-04-27] MEDS ORDERED: CHOL1000 PO (11:14)
[2017-04-27] MEDS ORDERED: ASPI-435 PO (12:35)
[2017-04-27] MEDS ORDERED: METO-217 PO (12:35)
[2017-04-27] MEDS ORDERED: LPT10 PO (13:55)
[2017-04-27] MEDS ORDERED: FOLI1TAB8 PO (15:24)
[2017-05-03] MEDS ORDERED: PRED-301 PO ×2 (12:49→13:05)
== END 2017-02-11 19:15 | disposition home or self-care (01) | DRG 189 ==
LOC: C.EDB 11:49 → C.MS2W 18:56 → ENRESERV 19:11
PROVIDERS: ADMIT Internal Medicine; ATTEND Hospitalist
DX: J96.21 Acute and chronic respiratory failure with hypoxia (principal); J44.1 Chronic obstructive pulmonary disease with (acute) exacerbation; J40 Bronchitis, not specified as acute or chronic; J84.112 Idiopathic pulmonary fibrosis; M06.9 Rheumatoid arthritis, unspecified; M81.0 Age-related osteoporosis without current pathological fracture; E78.5 Hyperlipidemia, unspecified; Z66 Do not resuscitate; Z99.81 Dependence on supplemental oxygen; Z87.01 Personal history of pneumonia (recurrent); Z85.118 Personal history of other malignant neoplasm of bronchus and lung; Z90.2 Acquired absence of lung [part of]; Z87.891 Personal history of nicotine dependence; Z79.52 Long term (current) use of systemic steroids; Z79.82 Long term (current) use of aspirin; Z79.83 Long term (current) use of bisphosphonates; Z79.899 Other long term (current) drug therapy; Z92.21 Personal history of antineoplastic chemotherapy; Z91.041 Radiographic dye allergy status; Z88.1 Allergy status to other antibiotic agents; Z83.6 Family history of other diseases of the respiratory system; Z82.49 Family history of ischemic heart disease and other diseases of the circulatory system; Z83.3 Family history of diabetes mellitus; Z84.1 Family history of disorders of kidney and ureter; Z83.79 Family history of other diseases of the digestive system; Z82.0 Family history of epilepsy and other diseases of the nervous system; Z81.1 Family history of alcohol abuse and dependence

== ENCOUNTER 2017-03-11 12:24 | Inpatient (IN) | payer OTHER ==
[~2017-03-11] VITALS: Ht 157.5 cm; Wt 76.0 kg
[~2017-03-11 12:24] MED LIST changes: -ABAT250I INJ; +ASPI-435 PO; +ATRINS INH; +BENZ100C84 PO; +CHOL1000 PO; +FOLI1TAB8 PO; +FRS/40 PO; +HYDR-5688 PO; -IPRA1AER2 INH; +LPT10 PO; +METH2.5T PO; +METO-217 PO; +PRD20 PO; -PROAIR INH; +VNTHFA/IN INH; +XPNINS1255 INH
[2017-03-11] MEDS ORDERED: METHYLPREDNISOLONE 125 MG VIAL IV STA (13:01)
[2017-03-11] MEDS ORDERED: ALBUT/IPRATROP 3MG/0.5MG NEB 3 ML VIAL INH STA ×2 (13:01→14:28)
--- NOTE | 2017-03-11 13:05 | EMERGENCY ROOM VISIT NOTE ---
History Report prepared by Adelita: Gail Gardner Under the Supervision of: Dr. Raza Patterson D.O. First contact with patient: 12:58 Chief Complaint: SHORTNESS OF BREATH Stated Complaint: SOB, SENT BY History of Present Illness The patient is a 67 year old female who presents to the Emergency Room with complaints of constant shortness of breath beginning four days ago. The patient' s symptoms worsen with exertion and laying flat. She notes a productive cough and chills but denies any fever or abdominal pain. The patient saw her PCP today who referred her to the ED for further work up. At her PCPs officer, her oxygen saturation was 84 percent. She last saw her proposal review analyst a month ago. The patient wears 4 liters of oxygen at baseline. She states she had to increase her oxygen to to 6 liters over the past four days. The patient has a history of intrastitial lung disease and COPD. She has 2/3 of right lung removed from cancer. The patient is on a prednisone taper which she was put on about a month ago. Source of History: patient Onset: four days ago Position: other (generalized) Quality: other (shortness of breath) Timing: constant Associated Symptoms: + chills, + cough, + SOB, No fevers, No abdominal pain Review of Systems See HPI for pertinent positives & negatives. A total of 10 systems reviewed and were otherwise negative. 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 (9) Rheumatoid Arthritis (10) Rheumatoid arthritis (11) SOB (shortness of breath) (12) Tobacco Use Disorder Surgical Problems: (1) History of cholecystectomy (2) History of hysterectomy (3) History of salpingo-oophorectomy (4) S/p A-port insertion (5) S/P bronchoscopy (6) S/P lobectomy of lung Social History Problems: (1) Metabolic syndrome (2) Respiratory failure, [id number] Family History Cancer Diabetes mellitus Gallbladder disease Heart disease MOTHER ([place] in 70s) Hypertension Kidney disease Kidney stones Lung disease Seizures Social History Smoking Status: Former Smoker Alcohol Use: none Drug Use: none Marital Status: Housing Status: lives with significant other Occupation Status: unemployed Current/Historical Medications Scheduled Alendronate/Cholecalciferol (Fosamax+D 70MG/2800 Iu), 1 TABLET PO WK Aspirin (Aspirin 81), 81 MG PO QAM Atorvastatin (Lipitor), 10 MG PO HS Calcium Carbonate-Vitamin D (Calcium + D), 2 TABS PO DAILY Cholecalciferol (Vitamin D3), 5,000 UNITS PO DAILY Doxycycline Hyclate (Doxycycline Hyclate), 100 MG PO BID Folic Acid (Folvite), 1 MG PO DAILY Furosemide (Lasix), 40 MG PO DAILY Methotrexate Sodium (Methotrexate), 10 MG PO WK Metoprolol Succinate (Toprol Xl), 50 MG PO QAM Prednisone (Prednisone), 10 MG PO DAILY Prednisone (Prednisone), 20 MG PO UD Scheduled PRN Albuterol Hfa (Ventolin Hfa), 2 PUFFS INH Q4 PRN for SOB/Wheezing Benzonatate (Tessalon Perles), 1 CAP PO TID PRN for Cough Hydrocodone/Acetaminophen 5MG/325MG ([place] 5MG/325MG), 1 TABLET PO TID PRN for Pain Ipratropium [place] (Ipratropium [place]), 0.5 MG INH Q6R PRN for Wheezing Levalbuterol (Levalbuterol), 1.25 MG INH Q6R PRN for Wheezing Allergies Coded Allergies: Azithromycin (Verified Allergy, Intermediate, RASH, 02/10/17) Iodinated Diagnostic Agents (Verified Allergy, Intermediate, Chills/Hives/ Vomiting, 02/10/17) Tramadol (Verified Allergy, Intermediate, RASH, 02/10/17) Codeine (Verified Adverse Reaction, Intermediate, Hallucinations, 02/10/17 ) Simvastatin (Verified Adverse Reaction, Intermediate, rash, 02/10/17) Physical Exam Vital Signs Date Time Temp Pulse Resp B/P (MAP) Pulse Ox O2 Delivery O2 Flow Rate FiO2 03/11/17 14:34 88 28 114/69 96 Nasal Cannula 6.0 03/11/17 14:29 88 Nasal Cannula 6.0 03/11/17 13:13 94 Nasal Cannula 6.0 03/11/17 13:12 94 Nasal Cannula 6.0 03/11/17 12:50 97 Nasal Cannula 03/11/17 12:48 89 03/11/17 12:36 93 Nasal Cannula 6.0 03/11/17 12:29 36.4 96 36 107/74 91 Nasal Cannula 5.0 Physical Exam GENERAL: Patient is awake, alert, and in no acute distress. Patient is anxious appearing. EYES: The conjunctivae are clear. The pupils are round and reactive. EARS, NOSE, MOUTH AND THROAT: The nose is without any evidence of any deformity. Mucous membranes are moist tongue is midline NECK: The neck is nontender and supple. RESPIRATORY: Diminished breath sounds bilaterally, right great than left, rales in entire left lung field, tachypnea and conversational dyspnea noted. CARDIOVASCULAR: Regular rate and rhythm noted there no murmurs rubs or gallops normal S1 normal S2 GASTROINTESTINAL: The abdomen is soft. Bowel sounds are present in all quadrants. Abdomen is nontender MUSCULOSKELETAL/EXTREMITIES: There is no evidence of gross deformity full range of motion is noted in the hips and shoulders SKIN: There is no obvious evidence of any rash. There are no petechiae, pallor or cyanosis noted. NEUROLOGIC: Patient is awake alert and oriented x3 Medical Decision & Procedures ER Provider Diagnostic Interpretation: Radiology results as stated below per my review and radiologist interpretation: SINGLE VIEW CHEST FINDINGS: An AP, portable, upright chest radiograph is compared to chest x-ray and chest CT dated 02/09/2017. The examination is degraded by portable technique and patient rotation. The heart is mildly enlarged and there is atherosclerotic calcification of the thoracic aorta. Mild pulmonary vascular congestion is suggested. Changes of emphysema and chronic interstitial lung disease are similar to previous. There are postoperative changes from right-sided pulmonary resection. Pleural fluid is noted at the right lung base and similar to previous. Coarsening of the interstitium suggests superimposed pulmonary edema. No pneumothorax is seen. The skeletal structures are osteopenic. Postoperative change is suggested in the right sided ribs. IMPRESSION: 1. Cardiomegaly. Findings suggest congestive failure. 2. There is coarsening of the interstitium with mild airspace opacities suggesting superimposed pulmonary edema. Correlate clinically for evidence of pneumonia. 3. Emphysema, chronic interstitial lung disease, and postoperative change are similar to previous. Electronically signed by: Luis Corley M.D. (CHEST FOR PE) ANGIO WITH COMPARISON STUDY: 02/09/2017 FINDINGS: No evidence for filling defect within the pulmonary arterial structures. Mild atherosclerotic change thoracic aorta. Calcification of the coronary arterial vasculature. Diffuse emphysematous and interstitial change bilaterally, the bulk of which is chronic. Subtle progressive interstitial changes involving the right mid and upper lung region suggestive of superimposed inflammatory process. Blebs and emphysematous change throughout both hemithoraces considered stable. IMPRESSION: 1. No evidence for pulmonary embolus. 2. Diffuse emphysematous and chronic fibrotic change bilaterally. 3. Superimposed interstitial infiltrate right mid and upper lung. The above report was generated using voice recognition software. It may contain grammatical, syntax or spelling errors. Electronically signed by: Anton Glynn M.D. Laboratory Results 03/11/17 12:45 Red Blood Count 4.06, Mean Corpuscular Volume 85.2, Mean Corpuscular Hemoglobin 27.3, Mean Corpuscular Hemoglobin Concent 32.1, Mean Platelet Volume 10.4, Neutrophils (%) (Auto) 76.3, Lymphocytes (%) (Auto) 12.1, Monocytes (%) (Auto) 7.6, Eosinophils (%) (Auto) 0.4, Basophils (%) (Auto) 0.2, Neutrophils # (Auto) 10.58, Lymphocytes # (Auto) 1.68, Monocytes # (Auto) 1.05, Eosinophils # (Auto) 0.06, Basophils # (Auto) 0.03 03/11/17 12:45 Test 03/11/17 12:45 03/11/17 13:15 03/11/17 13:46 White Blood Count 13.87 K/uL (4.8-10.8) Red Blood Count 4.06 M/uL (4.2-5.4) Hemoglobin 11.1 g/dL (12.0-16.0) Hematocrit 34.6 % (37-47) Mean Corpuscular Volume 85.2 fL (80-100) Mean Corpuscular Hemoglobin 27.3 pg (25-34) Mean Corpuscular Hemoglobin Concent 32.1 g/dl (32-36) Platelet Count 335 K/uL (130-400) Mean Platelet Volume 10.4 fL (7.4-10.4) Neutrophils (%) (Auto) 76.3 % Lymphocytes (%) (Auto) 12.1 % Monocytes (%) (Auto) 7.6 % Eosinophils (%) (Auto) 0.4 % Basophils (%) (Auto) 0.2 % Neutrophils # (Auto) 10.58 K/uL (1.4-6.5) Lymphocytes # (Auto) 1.68 K/uL (1.2-3.4) Monocytes # (Auto) 1.05 K/uL (0.11-0.59) Eosinophils # (Auto) 0.06 K/uL (0-0.5) Basophils # (Auto) 0.03 K/uL (0-0.2) RDW Standard Deviation 47.8 fL (36.4-46.3) RDW Coefficient of Variation 15.5 % (11.5-14.5) Immature Granulocyte % (Auto) 3.4 % Immature Granulocyte # (Auto) 0.47 K/uL (0.00-0.02) Prothrombin Time 10.2 SECONDS (9.0-12.0) Prothromb Time International Ratio 1.0 (0.9-1.1) Activated Partial Thromboplast Time 25.6 SECONDS (21.0-31.0) Partial Thromboplastin Ratio 1.0 D-Dimer 990 ug/L FEU (0-500) Anion Gap 5.0 mmol/L (3-11) Est Creatinine Clear Calc Drug Dose 71.6 ml/min Estimated GFR () 97.8 Estimated GFR (Non- 84.4 BUN/Creatinine Ratio 12.7 (10-20) Calcium Level 9.2 mg/dl (8.5-10.1) Magnesium Level 2.3 mg/dl (1.8-2.4) Total Bilirubin 0.5 mg/dl (0.2-1) Aspartate Amino Transf (AST/SGOT) 15 U/L (15-37) Alanine Aminotransferase (ALT/SGPT) 17 U/L (12-78) Alkaline Phosphatase 65 U/L (45-117) Troponin I < 0.015 ng/ml (0-0.045) Pro-B-Type Natriuretic Peptide 223 pg/ml (0-900) Total Protein 8.1 gm/dl (6.4-8.2) Albumin 3.1 gm/dl (3.4-5.0) Globulin 5.0 gm/dl (2.5-4.0) Albumin/Globulin Ratio 0.6 (0.9-2) Influenza Type A Antigen Neg for Influ A (NEG) Influenza Type B Antigen Neg for Influ B (NEG) Venous Blood pH 7.44 (7.36-7.41) Venous Blood Partial Pressure CO2 52 mmHg (38.0-50.0) Venous Blood Partial Pressure O2 29 mmHg Venous Blood HCO3 35 mmol/L Venous Blood Oxygen Saturation < 60.0 % Venous Blood Base Excess 9.0 mEq/L Laboratory results per my review. Medications Administered Medications (Trade) Dose Ordered Sig/Silvia Route Start Time Stop Time Status Last Admin Dose Admin Methylprednisolone Sodium Succinate (Solu-Medrol IV) 125 mg NOW STAT IV 03/11/17 13:01 03/11/17 13:02 DC 03/11/17 13:10 125 MG Albuterol/ Ipratropium (Duoneb) 3 ml NOW STAT INH 03/11/17 13:01 03/11/17 13:02 DC 03/11/17 13:10 3 ML Levofloxacin (Levaquin / D5W) 750 mg NOW STAT IV 03/11/17 14:28 03/11/17 14:29 DC 03/11/17 15:18 750 MG Albuterol/ Ipratropium (Duoneb) 3 ml NOW STAT INH 03/11/17 14:28 03/11/17 14:29 DC 03/11/17 14:50 3 ML Diphenhydramine HCl (Benadryl Inj) 25 mg NOW STAT IV 03/11/17 14:37 03/11/17 14:38 DC 03/11/17 14:51 25 MG ECG Indication: SOB/dyspnea Rate (beats per minute): 93 Rhythm: normal sinus Findings: no ectopy, other (ST segment abnormality inferior and laterally.) Comparison ECG Date: Change: no significant change Change: EKG interpreted by me. ED Course 1259: The patient was evaluated in room C7. A complete history and physical examination were performed. 1301: Ordered Duoneb 3 ml INH, Solu-Medrol IV 125 mg IV. 1420: The patient walked to bathroom on 6 liters and desaturated to 88 percent. 1428: Ordered Duoneb 3 ml INH, Levofloxacin 750 mg IV. 1435: I discussed the patient's case with Dr. Lunsford. The patient will be evaluated for further management. She recommend ordering a CT of the chest on the patient. 1437: Ordered Benadryl Inj 25 m IV. Medical Decision Differential diagnosis: Etiologies such as infections, reactive airway disease, pneumonia, pneumothorax , COPD, CHF, cardiac ischemia, pulmonary embolism, musculoskeletal, gastrointestinal, as well as others were entertained. Nursing notes reviewed. The patient is a 67-year-old female who has a history of chronic interstitial lung disease who presented to the emergency department for evaluation of shortness of breath. The patient was seen by her primary care physician and was found have hypoxia. The patient was sent to the emergency department for further evaluation. She admits to having a cough as well as significant dyspnea on exertion. She's been increasing her supple and oxygen with only minimal relief. I discussed patient's laboratory and radiographic studies with her. She appears to have some signs of pneumonia. She was treated with bronchodilator therapy IV steroids and IV antibiotic. I discussed the patient's laboratory and radiographic studies with the on-call Shikha hospitalist. They recommended a CT the chest and the agreed to see the patient in the emergency department for further management and disposition. Medication Reconcilliation Current Medication List: was personally reviewed by me Blood Pressure Screening Patient's blood pressure: Normal blood pressure Consults Time Called: 1430 Consulting Physician: Dr. Lunsford Returned Call: [phone] I discussed the patient's case with Dr. Lunsford. The patient will be evaluated for further management. She recommend ordering a CT of the chest on the patient. Impression Primary Impression: Pneumonia Additional Impressions: Respiratory distress Hypoxia Scribe Attestation The scribe's documentation has been prepared under my direction and personally reviewed by me in its entirety. I confirm that the note above accurately reflects all work, treatment, procedures, and medical decision making performed by me. Departure Information Referrals Sharonda Sheikh D.O. (PCP) Patient Instructions My [facility] Problem Qualifiers Primary Impression: Pneumonia Pneumonia type: due to unspecified organism Laterality: unspecified laterality Lung location: unspecified part of lung Qualified Codes: J18.9 - Pneumonia, unspecified organism
[2017-03-11 13:31] LABS: BASO % 0.2 %; BASO ABS # 0.03 K/uL (0-0.2); EOS % 0.4 %; EOS ABS # 0.06 K/uL (0-0.5); HEMATOCRIT 34.6 % (37-47); HEMOGLOBIN 11.1 g/dL (12.0-16.0); IG# 0.47 K/uL (0.00-0.02); LYMPH % 12.1 %; LYMPH ABS # 1.68 K/uL (1.2-3.4); MEAN CELL VOLUME 85.2 fL (80-100); MEAN CORPUSCULAR HEMOGLOBIN 27.3 pg (25-34); MEAN CORPUSCULAR HGB CONC 32.1 g/dl (32-36); MEAN PLATELET VOLUME 10.4 fL (7.4-10.4); MONO % 7.6 %; MONO ABS # 1.05 K/uL (0.11-0.59); NEUT % 76.3 %; NEUT ABS # 10.58 K/uL (1.4-6.5); PLATELET COUNT 335 K/uL (130-400); RED CELL DISTRIBUTION WIDTH CV 15.5 % (11.5-14.5); RED CELL DISTRIBUTION WIDTH SD 47.8 fL (36.4-46.3); WHITE BLOOD COUNT 13.87 K/uL (4.8-10.8)
--- NOTE | 2017-03-11 13:32 | DIAGNOSTIC IMAGING REPORT ---
SINGLE VIEW CHEST CLINICAL HISTORY: Dyspnea. FINDINGS: An AP, portable, upright chest radiograph is compared to chest x-ray and chest CT dated 02/09/2017. The examination is degraded by portable technique and patient rotation. The heart is mildly enlarged and there is atherosclerotic calcification of the thoracic aorta. Mild pulmonary vascular congestion is suggested. Changes of emphysema and chronic interstitial lung disease are similar to previous. There are postoperative changes from right-sided pulmonary resection. Pleural fluid is noted at the right lung base and similar to previous. Coarsening of the interstitium suggests superimposed pulmonary edema. No pneumothorax is seen. The skeletal structures are osteopenic. Postoperative change is suggested in the right sided ribs. IMPRESSION: 1. Cardiomegaly. Findings suggest congestive failure. 2. There is coarsening of the interstitium with mild airspace opacities suggesting superimposed pulmonary edema. Correlate clinically for evidence of pneumonia. 3. Emphysema, chronic interstitial lung disease, and postoperative change are similar to previous. Electronically signed by: Luis Corley M.D. 03/11/2017 1:31 PM Dictated Date/Time: 03/11/2017 1:28 PM
[2017-03-11 13:39] LABS: PTT PATIENT 25.6 SECONDS (21.0-31.0)
[2017-03-11 13:51] LABS: ALBUMIN 3.1 gm/dl (3.4-5.0); ALT/SGPT 17 U/L (12-78); AST/SGOT 15 U/L (15-37); BLOOD UREA NITROGEN 9 mg/dl (7-18); CALCIUM 9.2 mg/dl (8.5-10.1); CARBON DIOXIDE 34 mmol/L (21-32); CREATININE 0.74 mg/dl (0.60-1.20); GLUCOSE 129 mg/dl (70-99); POTASSIUM 3.1 mmol/L (3.5-5.1); SODIUM 131 mmol/L (136-145)
[2017-03-11 13:56] LABS: ALKALINE PHOSPHATASE 65 U/L (45-117); TOTAL PROTEIN 8.1 gm/dl (6.4-8.2)
[2017-03-11] MEDS ORDERED: LEVAQUIN 750MG / 150ML D5W IV STA (14:28)
[2017-03-11] MEDS ORDERED: DiphenhydrAMINE HCL 50 MG/ML VIAL IV STA (14:37)
[2017-03-11 14:43] LABS: INFLUENZA B ANTIGEN Neg for Influ B (NEG)
[2017-03-11] MEDS ORDERED: ALUMINUM/MAGNESIUM/SIMETH (MAALOX MAX) 30 ML UDC PO PRN (15:00)
[2017-03-11] MEDS ORDERED: ONDANSETRON INJ 2 MG/ML 2 ML VIAL IV PRN (15:00)
[2017-03-11] MEDS ORDERED: ACETAMINOPHEN 325 MG TAB PO PRN (15:00)
[2017-03-11] MEDS ORDERED: OPTIRAY 320 IV PRN ×2 (15:00)
[2017-03-11] MEDS ORDERED: LEVALBUTEROL/IPRATROPIUM NEB INH SCH (15:00)
[2017-03-11] MEDS ORDERED: POLYETHYLENE (MIRALAX) 17 GM PACK PO PRN (15:00)
[2017-03-11] MEDS ORDERED: NITROGLYCERIN 0.4 MG SL PER TAB CHARGE SL PRN (15:00)
[2017-03-11] MEDS ORDERED: MAGNESIUM HYDROXIDE SUSP 30 ML UDC PO PRN (15:00)
[2017-03-11] MEDS ORDERED: PIPERACILL/TAZOBAC CONSULT ACTIVE PRN (15:00)
--- NOTE | 2017-03-11 15:46 | DIAGNOSTIC IMAGING REPORT ---
(CHEST FOR PE) ANGIO WITH CT DOSE: 525.84 mGycm HISTORY: Chest pain dyspnea TECHNIQUE: Multiaxial CT images of the chest were performed following the intravenous administration of contrast to evaluate the pulmonary arteries. Maximal intensity projection images were also obtained. A dose lowering technique was utilized adhering to the principles of ALARA. COMPARISON STUDY: 02/09/2017 FINDINGS: No evidence for filling defect within the pulmonary arterial structures. Mild atherosclerotic change thoracic aorta. Calcification of the coronary arterial vasculature. Diffuse emphysematous and interstitial change bilaterally, the bulk of which is chronic. Subtle progressive interstitial changes involving the right mid and upper lung region suggestive of superimposed inflammatory process. Blebs and emphysematous change throughout both hemithoraces considered stable. IMPRESSION: 1. No evidence for pulmonary embolus. 2. Diffuse emphysematous and chronic fibrotic change bilaterally. 3. Superimposed interstitial infiltrate right mid and upper lung. The above report was generated using voice recognition software. It may contain grammatical, syntax or spelling errors. Electronically signed by: Anton Glynn M.D. 03/11/2017 3:45 PM Dictated Date/Time: 03/11/2017 3:41 PM
[2017-03-11] MEDS ORDERED: PIPERACILL/TAZOBAC IV 3.375 GM in DEXTROSE 5% 100ML IV ONE (16:15)
[2017-03-11] MEDS ORDERED: IPRATROPIUM BROMIDE NEB SOLN 0.02% 2.5 ML VIAL INH PRN (16:15)
[2017-03-11 16:23] VITALS: BP 104/70; PULSE 99; TEMP 36.2; O2SAT 94; Ht 157.5 cm; Wt 76.0 kg
[2017-03-11] MEDS ORDERED: ALBUTEROL HFA 8 GM INHALER INH PRN (16:30)
[2017-03-11] MEDS ORDERED: LEVALBUTEROL 1.25MG/0.5ML NEB INH PRN (16:30)
[2017-03-11] MEDS ORDERED: BENZONATATE 100MG CAP PO PRN (16:30)
--- NOTE | 2017-03-11 16:38 | History and Physical ---
History & Physical Date & Time of Service: Mar 11, 2017 at 15:00 Chief Complaint: Chronic Respiratory Failure With Hypoxia, Sob Primary Care Physician: Sharonda Sheikh D.O. History of Present Illness Source: patient, spouse, clinic records, hospital records This is a 67yoF with a PMH of COPD, h/o lung cancer (s/p RLL resection) with chronic hypoxic respiratory failure (on 3-6L NC o2, chronic steroids), RA, osteoporosis and other problems listed below who presents with worsening SOB x 4 days. Was hospitalized recently at [facility] from Feb 09- for right lobe PNA after failing out-patient treatment with PO Levaquin. Was treated with zosyn, IV steroids and nebulizer treatments while in-patient and was discharged home on a steroid taper and doxycycline. Follows with a manager exchange in [place] who , per chart review, feels that deconditioning from lung resection and scarring are the main contributors to patient's current SOB. Tapered PO steroid, reduced daily nebs to BID and encouraged the patient to be seen for a sleep evaluation as well as work on conditioning. Patient states that she currently cannot walk more than 10 ft before feeling SOB and has been requiring 6L NC O2 at rest over the past 4 days when she usually only requires 3L. Also endorses a productive cough and chills. Denies fever, lightheadedness, palpitations, CP, abd pain, nausea, vomiting, dysuria, constipation, diarrhea, LE swelling. 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 [facility] [place] Status: Chronic Social History Problems: (1) Metabolic syndrome Status: Chronic Family History Cancer Diabetes mellitus Gallbladder disease Heart disease MOTHER ([place] in 70s) Hypertension Kidney disease Kidney stones Lung disease Seizures Social History Smoking Status: Former Smoker Drug Use: none Marital Status: Housing status: lives with significant other Occupational Status: unemployed Allergies Coded Allergies: Azithromycin (Verified Allergy, Intermediate, RASH, 02/10/17) Iodinated Diagnostic Agents (Verified Allergy, Intermediate, Chills/Hives/ Vomiting, 02/10/17) Tramadol (Verified Allergy, Intermediate, RASH, 02/10/17) Codeine (Verified Adverse Reaction, Intermediate, Hallucinations, 02/10/17 ) Simvastatin (Verified Adverse Reaction, Intermediate, rash, 02/10/17) Home Medications Scheduled Alendronate/Cholecalciferol (Fosamax+D 70MG/2800 Iu), 1 TABLET PO WK Aspirin (Aspirin 81), 81 MG PO QAM Atorvastatin (Lipitor), 10 MG PO HS Calcium Carbonate-Vitamin D (Calcium + D), 2 TABS PO DAILY Cholecalciferol (Vitamin D3), 5,000 UNITS PO DAILY Doxycycline Hyclate (Doxycycline Hyclate), 100 MG PO BID Folic Acid (Folvite), 1 MG PO DAILY Furosemide (Lasix), 40 MG PO DAILY Methotrexate Sodium (Methotrexate), 10 MG PO WK Metoprolol Succinate (Toprol Xl), 50 MG PO QAM Prednisone (Prednisone), 10 MG PO DAILY Prednisone (Prednisone), 20 MG PO UD Scheduled PRN Albuterol Hfa (Ventolin Hfa), 2 PUFFS INH Q4 PRN for SOB/Wheezing Benzonatate (Tessalon Perles), 1 CAP PO TID PRN for Cough Hydrocodone/Acetaminophen 5MG/325MG ([place] 5MG/325MG), 1 TABLET PO TID PRN for Pain Ipratropium [place] (Ipratropium [place]), 0.5 MG INH Q6R PRN for Wheezing Levalbuterol (Levalbuterol), 1.25 MG INH Q6R PRN for Wheezing Review of Systems Ten systems reviewed and negative except as noted in the HPI. Physical Exam Vital Signs Date Time Temp Pulse Resp B/P (MAP) Pulse Ox O2 Delivery O2 Flow Rate FiO2 03/11/17 15:23 88 28 114/69 96 03/11/17 14:34 88 28 114/69 96 Nasal Cannula 6.0 03/11/17 14:29 88 Nasal Cannula 6.0 03/11/17 13:13 94 Nasal Cannula 6.0 03/11/17 13:12 94 Nasal Cannula 6.0 03/11/17 12:50 97 Nasal Cannula 03/11/17 12:48 89 03/11/17 12:36 93 Nasal Cannula 6.0 03/11/17 12:29 36.4 96 36 107/74 91 Nasal Cannula 5.0 General Appearance: + mild distress, + pertinent finding (Anxious appearing, tachypneic ) Head: normocephalic, atraumatic Eyes: normal inspection, PERRL, sclerae normal ENT: normal ENT inspection, hearing grossly normal, pharynx normal (dry mucous membranes ) Neck: supple, thyroid normal, trachea midline Respiratory/Chest: chest non-tender, no accessory muscle use, + respiratory distress, + crackles (observed diffusely in R lung ) Cardiovascular: regular rate, rhythm, no murmur, normal peripheral pulses Abdomen/GI: non tender, soft, no organomegaly Back: normal inspection Extremities/Musculoskelatal: normal inspection, no calf tenderness, no pedal edema Neurologic/Psych: alert, normal mood/affect, oriented x 3 Skin: normal color, warm/dry, no rash Diagnostics Laboratory Results Results Past 24 Hours Test 03/11/17 12:45 03/11/17 13:15 03/11/17 13:46 Range/Units White Blood Count 13.87 4.8-10.8 K/uL Red Blood Count 4.06 4.2-5.4 M/uL Hemoglobin 11.1 12.0-16.0 g/dL Hematocrit 34.6 37-47 % Mean Corpuscular Volume 85.2 80-100 fL Mean Corpuscular Hemoglobin 27.3 25-34 pg Mean Corpuscular Hemoglobin Concent 32.1 32-36 g/dl Platelet Count 335 130-400 K/uL Mean Platelet Volume 10.4 7.4-10.4 fL Neutrophils (%) (Auto) 76.3 % Lymphocytes (%) (Auto) 12.1 % Monocytes (%) (Auto) 7.6 % Eosinophils (%) (Auto) 0.4 % Basophils (%) (Auto) 0.2 % Neutrophils # (Auto) 10.58 1.4-6.5 K/uL Lymphocytes # (Auto) 1.68 1.2-3.4 K/uL Monocytes # (Auto) 1.05 0.11-0.59 K/uL Eosinophils # (Auto) 0.06 0-0.5 K/uL Basophils # (Auto) 0.03 0-0.2 K/uL RDW Standard Deviation 47.8 36.4-46.3 fL RDW Coefficient of Variation 15.5 11.5-14.5 % Immature Granulocyte % (Auto) 3.4 % Immature Granulocyte # (Auto) 0.47 0.00-0.02 K/uL Prothrombin Time 10.2 9.0-12.0 SECONDS Prothromb Time International Ratio 1.0 0.9-1.1 Activated Partial Thromboplast Time 25.6 21.0-31.0 SECONDS Partial Thromboplastin Ratio 1.0 D-Dimer 990 0-500 ug/L FEU Sodium Level 131 136-145 mmol/L Potassium Level 3.1 3.5-5.1 mmol/L Chloride Level 92 98-107 mmol/L Carbon Dioxide Level 34 21-32 mmol/L Anion Gap 5.0 3-11 mmol/L Blood Urea Nitrogen 9 7-18 mg/dl Creatinine 0.74 0.60-1.20 mg/dl Est Creatinine Clear Calc Drug Dose 71.6 ml/min Estimated GFR () 97.8 Estimated GFR (Non- 84.4 BUN/Creatinine Ratio 12.7 10-20 Random Glucose 129 70-99 mg/dl Calcium Level 9.2 8.5-10.1 mg/dl Magnesium Level 2.3 1.8-2.4 mg/dl Total Bilirubin 0.5 0.2-1 mg/dl Aspartate Amino Transf (AST/SGOT) 15 15-37 U/L Alanine Aminotransferase (ALT/SGPT) 17 12-78 U/L Alkaline Phosphatase 65 45-117 U/L Troponin I < 0.015 0-0.045 ng/ml Pro-B-Type Natriuretic Peptide 223 0-900 pg/ml Total Protein 8.1 6.4-8.2 gm/dl Albumin 3.1 3.4-5.0 gm/dl Globulin 5.0 2.5-4.0 gm/dl Albumin/Globulin Ratio 0.6 0.9-2 Influenza Type A Antigen Neg for Influ A NEG Influenza Type B Antigen Neg for Influ B NEG Venous Blood pH 7.44 7.36-7.41 Venous Blood Partial Pressure CO2 52 38.0-50.0 mmHg Venous Blood Partial Pressure O2 29 mmHg Venous Blood HCO3 35 mmol/L Venous Blood Oxygen Saturation < 60.0 % Venous Blood Base Excess 9.0 mEq/L Microbiology Results 03/11/17 Blood Culture, Received Pending 03/11/17 Blood Culture, Received Pending Diagnostic Radiology CTA chest/thorax: IMPRESSION: 1. No evidence for pulmonary embolus. 2. Diffuse emphysematous and chronic fibrotic change bilaterally. 3. Superimposed interstitial infiltrate right mid and upper lung. CXR: IMPRESSION: 1. Cardiomegaly. Findings suggest congestive failure. 2. There is coarsening of the interstitium with mild airspace opacities suggesting superimposed pulmonary edema. Correlate clinically for evidence of pneumonia. 3. Emphysema, chronic interstitial lung disease, and postoperative change are similar to previous. EKG NSR. Non-specific ST and T-wave abnormalities. No change from prior EKG Impression Assessment and Plan This is a 67yoF with a PMH of COPD, h/o lung cancer (s/p RLL resection) with chronic hypoxic respiratory failure (on 3-6L NC o2, chronic steroids), RA, osteoporosis and other problems listed below who presents with worsening SOB x 4 days. Acute on chronic hypoxic respiratory failure: -In setting of ILD, COPD, h/o lung cancer s/p resection of RLL in April 2015 -Decompensation likely 2/2 PNA -Requires 3L home NC O2 at rest but has recently been requiring 6L -O2 saturation of 96% on 6L NC -Continue supplemental O2 and monitoring R lobar PNA: -Recurrent R lobar PNA over the past few months -CT chest/thorax with evidence of superimposed interstitial infiltrate of R mid and upper lung -No evidence of PE. Negative flu Ag. -Zosyn initiated for empiric coverage -Blood and sputum cultures pending -IV steroids, neb treatments, cont home inhalers -Pulm consult Tachypnea: -No evidence of respiratory acidosis. -No PE on CTA chest thorax. -Currently O2 saturation is at 96% on 6L -Admits to feeling anxious and unable to "get air in" -Average respiratory rate ~ 28 -Continue to monitor with treatment -Consider anxiolytic Deconditioning: -As a result of chronic lung disease, recent bouts of PNA -PT/OT for evaluation and conditioning Electrolyte abnormalities: -2/2 poor PO intake -Replaced, gentle IVF resuscitation -Repeat lab work in AM RA: -Stable -Hold home dose prednisone while on IV steroids -Cont home dose methotrexate, norco PRN Osteoporosis: -Cont weekly Vit D, calcium HLD: -Cont statin DVT Ppx: SQ Heparin Code status: DNR PCP: Kori Dispo: Admitted to telemetry. Discharge planning ordered. Patient seen in collaboration with Dr. Gonzalez. Please see addendum. ATTENDING ADDENDUM : pt seen and examined, care co ordinated with Mireya Andrade PA-C labs and images reviewed briefly 67yo F with past medical hx of Lung Ca s/p resection of RLL in April 2015 , chronic respiratory failure on 3-6 L of O2 via nasal canula , presents with worsening SOB , tachypnea , Images shows possible Rt lower lobe infiltrate P/E: Gen ; in mild distress due to SOB , feels better than this morning , still getting very tachypneic /tachycardic with minimum activity HEENT ; sclera non icteric, PERRLA/EOMI Ht; tachycardic , no lower ext edema , no JVD Lungs: + fine crackles at base ( chronic ) , no audible wheeze, very poor air entry abdomen : soft , non tender Ext , no rash or deformity Last 8 Hrs Date Time Temp Pulse Resp B/P (MAP) Pulse Ox O2 Delivery O2 Flow Rate FiO2 03/11/17 16:23 36.2 99 20 104/70 94 Nasal Cannula 6.0 03/11/17 15:23 88 28 114/69 96 03/11/17 14:34 88 28 114/69 96 Nasal Cannula 6.0 03/11/17 14:29 88 Nasal Cannula 6.0 03/11/17 13:13 94 Nasal Cannula 6.0 03/11/17 13:12 94 Nasal Cannula 6.0 03/11/17 12:50 97 Nasal Cannula 03/11/17 12:48 89 03/11/17 12:36 93 Nasal Cannula 6.0 03/11/17 12:29 36.4 96 36 107/74 91 Nasal Cannula 5.0 A/P : Acute on chronic Hypoxemic Respiratory Failure : possible due to RLL pneumonia baseline very compromised respiratory status , low lung vol on rt due to resection /fibrosis , on home 02 Ct chest -no evidence of PE ; Superimposed interstitial infiltrate right mid and upper lung. empiric Abx with Zosyn Iv Solu Medrol , Scheduled Neb tx Pulmonology eval , Low Na/lowK -possibly due to poor PO intake for acute illness replaced , follow PRP DNR/DNI please refer to documentation of Mireya Andrade PA-C for further discussion of other issues Megan Gonzalez MD Level of Care Telemetry Resuscitation Status DO NOT RESUSCITATE VTE Prophylaxis VTE Risk Assessment Done? Y/N: Yes Risk Level: High Given or contraindicated: Unfractionated heparin SQ Additional Copies To Sharonda Sheikh D.O.
[2017-03-11] MEDS ORDERED: POTASSIUM CHLORIDE INJ 40 MEQ in SODIUM CHLORIDE 0.9% 1000ML 1,000 ML IV SCH (17:30)
[2017-03-11] MEDS ORDERED: PIPERACILL/TAZOBAC IV 3.375 GM in DEXTROSE 5% 100ML 100 ML IV SCH (18:00)
[2017-03-11 19:19] VITALS: PULSE 88; O2SAT 98
[2017-03-11] MEDS: IPRATROPIUM BROMIDE NEB SOLN 0.02% 2.5 ML VIAL INH SCH (19:19)
[2017-03-11] MEDS: LEVALBUTEROL 1.25MG/0.5ML NEB INH SCH (19:19)
[2017-03-11 19:54] VITALS: BP 118/80; PULSE 93; TEMP 36.4; O2SAT 96
[2017-03-11 20:00] VITALS: O2SAT 96
[2017-03-11] MEDS: METHYLPREDNISOLONE IV 40 MG in SYRINGE 0 ML IV SCH (20:37)
[2017-03-11] MEDS: ATORVASTATIN 10 MG TAB PO SCH (20:37)
[2017-03-11] MEDS: HEPARIN SOD 5000 UNIT/0.5 ML CARP SQ SCH (20:42)
[2017-03-11] MEDS: PIPERACILL/TAZOBAC IV 3.375 GM in DEXTROSE 5% 100ML IV SCH (20:44)
[2017-03-11 23:37] VITALS: BP 109/73; PULSE 85; TEMP 36.4; O2SAT 98
[2017-03-11] MEDS: HYDROCODONE/ACETAMOPHEN 5/325MG TAB PO PRN (23:44)
[2017-03-12] VITALS (12 sets, daily range): BP systolic 111–118; BP diastolic 72–79; PULSE 79–98; TEMP 36.4–36.6; O2SAT 93–99
[2017-03-12] MEDS: LEVALBUTEROL 1.25MG/0.5ML NEB INH SCH ×3 (02:06→14:42)
[2017-03-12] MEDS: IPRATROPIUM BROMIDE NEB SOLN 0.02% 2.5 ML VIAL INH SCH ×4 (02:06→19:21)
[2017-03-12] MEDS: METHYLPREDNISOLONE IV 40 MG in SYRINGE 0 ML IV SCH ×3 (05:24→21:50)
[2017-03-12] MEDS: HEPARIN SOD 5000 UNIT/0.5 ML CARP SQ SCH ×3 (05:26→21:51)
[2017-03-12] MEDS: PIPERACILL/TAZOBAC IV 3.375 GM in DEXTROSE 5% 100ML IV SCH ×3 (05:26→21:50)
[2017-03-12 06:01] LABS: HEMATOCRIT 32.7 % (37-47); HEMOGLOBIN 10.3 g/dL (12.0-16.0); MEAN CELL VOLUME 85.6 fL (80-100); MEAN CORPUSCULAR HGB CONC 31.5 g/dl (32-36); MEAN PLATELET VOLUME 9.9 fL (7.4-10.4); PLATELET COUNT 338 K/uL (130-400); RED CELL DISTRIBUTION WIDTH CV 15.4 % (11.5-14.5); RED CELL DISTRIBUTION WIDTH SD 48.2 fL (36.4-46.3); WHITE BLOOD COUNT 12.01 K/uL (4.8-10.8)
[2017-03-12 06:40] LABS: CALCIUM 9.3 mg/dl (8.5-10.1); CREATININE 0.95 mg/dl (0.60-1.20); POTASSIUM 3.2 mmol/L (3.5-5.1)
[2017-03-12] MEDS: ASPIRIN 81 MG ECTAB PO SCH (08:10)
[2017-03-12] MEDS: CALCIUM 600MG + VIT D 400 IU TAB PO SCH (08:10)
[2017-03-12] MEDS: CHOLECALCIFEROL 1000 INTER.UNIT TAB PO SCH (08:10)
[2017-03-12] MEDS: FUROSEMIDE 40 MG TAB PO SCH (08:10)
[2017-03-12] MEDS: METOPROLOL SUCC 50MG EXT REL TAB PO SCH (08:10)
[2017-03-12] MEDS: POTASSIUM CHLORIDE 20 MEQ TABCR PO SCH ×2 (09:41→17:24)
--- NOTE | 2017-03-12 17:42 | Progress Note ---
Medicine Progress Note Date & Time of Visit: Mar 12, 2017 at 12:05. Subjective +conversational dyspnea feels SOB is improved tolerating PO denies pain Objective Last 8 Hrs Date Time Temp Pulse Resp B/P (MAP) Pulse Ox O2 Delivery O2 Flow Rate FiO2 03/12/17 11:25 36.4 90 20 111/78 (89) 95 Nasal Cannula 6.0 03/12/17 08:00 Nasal Cannula 4.0 03/12/17 07:33 36.6 91 18 118/79 (92) 94 Nasal Cannula 5.0 03/12/17 07:04 96 20 98 Nasal Cannula 5.0 Physical Exam: GEN: WNWD, mild distress, +conversational dyspnea, alert and appropriate HEENT: NC/AT, normal sclerae, MMM CARDIO: reg rate, S1/2 heard without m/g/r LUNGS: minimal coarse rhonchi heard throughout R lung. Good air movement. ABD: soft, non-tender, non-distended, no rebound or guarding, +BS EXTREMITY: RP and DP palpable 2+ bilat, no LE swelling or edema, extremities are warm and well-perfused NEURO: CN 2-12 grossly intact MUSC: can move independently, moves all extremities easily. SKIN: warm and dry Laboratory Results: 03/12/17 05:19 03/12/17 05:19 Test 03/11/17 12:45 03/11/17 13:15 03/11/17 13:46 03/11/17 19:45 Immature Granulocyte % (Auto) 3.4 % White Blood Count 13.87 K/uL (4.8-10.8) Red Blood Count 4.06 M/uL (4.2-5.4) Hemoglobin 11.1 g/dL (12.0-16.0) Hematocrit 34.6 % (37-47) Mean Corpuscular Volume 85.2 fL (80-100) Mean Corpuscular Hemoglobin 27.3 pg (25-34) Mean Corpuscular Hemoglobin Concent 32.1 g/dl (32-36) Platelet Count 335 K/uL (130-400) Mean Platelet Volume 10.4 fL (7.4-10.4) Neutrophils (%) (Auto) 76.3 % Lymphocytes (%) (Auto) 12.1 % Monocytes (%) (Auto) 7.6 % Eosinophils (%) (Auto) 0.4 % Basophils (%) (Auto) 0.2 % Neutrophils # (Auto) 10.58 K/uL (1.4-6.5) Lymphocytes # (Auto) 1.68 K/uL (1.2-3.4) Monocytes # (Auto) 1.05 K/uL (0.11-0.59) Eosinophils # (Auto) 0.06 K/uL (0-0.5) Basophils # (Auto) 0.03 K/uL (0-0.2) Immature Granulocyte # (Auto) 0.47 K/uL (0.00-0.02) Prothrombin Time 10.2 SECONDS (9.0-12.0) Prothromb Time International Ratio 1.0 (0.9-1.1) Activated Partial Thromboplast Time 25.6 SECONDS (21.0-31.0) Partial Thromboplastin Ratio 1.0 D-Dimer 990 ug/L FEU (0-500) Magnesium Level 2.3 mg/dl (1.8-2.4) Total Bilirubin 0.5 mg/dl (0.2-1) Aspartate Amino Transf (AST/SGOT) 15 U/L (15-37) Alanine Aminotransferase (ALT/SGPT) 17 U/L (12-78) Alkaline Phosphatase 65 U/L (45-117) Troponin I < 0.015 ng/ml (0-0.045) Pro-B-Type Natriuretic Peptide 223 pg/ml (0-900) Total Protein 8.1 gm/dl (6.4-8.2) Albumin 3.1 gm/dl (3.4-5.0) Globulin 5.0 gm/dl (2.5-4.0) Albumin/Globulin Ratio 0.6 (0.9-2) Influenza Type A Antigen Neg for Influ A (NEG) Influenza Type B Antigen Neg for Influ B (NEG) Venous Blood pH 7.44 (7.36-7.41) Venous Blood Partial Pressure CO2 52 mmHg (38.0-50.0) Venous Blood Partial Pressure O2 29 mmHg Venous Blood HCO3 35 mmol/L Venous Blood Oxygen Saturation < 60.0 % Venous Blood Base Excess 9.0 mEq/L Urine Color YELLOW Urine Appearance CLEAR (CLEAR) Urine pH 6.5 (4.5-7.5) Urine Specific [place] 1.022 (1.000-1.030) Urine Protein NEG (NEG) Urine Glucose (UA) NEG (NEG) Urine Ketones NEG (NEG) Urine Occult Blood TRACE (NEG) Urine Nitrite NEG (NEG) Urine Bilirubin NEG (NEG) Urine Urobilinogen NEG (NEG) Urine Leukocyte Esterase NEG (NEG) Urine WBC (Auto) 1-5 /hpf (0-5) Urine RBC (Auto) 0-4 /hpf (0-4) Urine Hyaline Casts (Auto) 0 /lpf (0-5) Urine Epithelial Cells (Auto) 10-20 /lpf (0-5) Urine Bacteria (Auto) NEG (NEG) Test 03/12/17 05:19 Red Blood Count 3.82 M/uL (4.2-5.4) Mean Corpuscular Volume 85.6 fL (80-100) Mean Corpuscular Hemoglobin 27.0 pg (25-34) Mean Corpuscular Hemoglobin Concent 31.5 g/dl (32-36) RDW Standard Deviation 48.2 fL (36.4-46.3) RDW Coefficient of Variation 15.4 % (11.5-14.5) Mean Platelet Volume 9.9 fL (7.4-10.4) Anion Gap 8.0 mmol/L (3-11) Est Creatinine Clear Calc Drug Dose 55.4 ml/min Estimated GFR () 72.3 Estimated GFR (Non- 62.4 BUN/Creatinine Ratio 14.0 (10-20) Calcium Level 9.3 mg/dl (8.5-10.1) Date/Time Source Procedure Growth Status 03/11/17 14:53 Blood Blood Culture Pending Received Last 24 Hours Test 03/11/17 12:45 03/11/17 13:15 03/11/17 13:46 03/11/17 19:45 White Blood Count 13.87 K/uL Red Blood Count 4.06 M/uL Hemoglobin 11.1 g/dL Hematocrit 34.6 % Mean Corpuscular Volume 85.2 fL Mean Corpuscular Hemoglobin 27.3 pg Mean Corpuscular Hemoglobin Concent 32.1 g/dl Platelet Count 335 K/uL Mean Platelet Volume 10.4 fL Neutrophils (%) (Auto) 76.3 % Lymphocytes (%) (Auto) 12.1 % Monocytes (%) (Auto) 7.6 % Eosinophils (%) (Auto) 0.4 % Basophils (%) (Auto) 0.2 % Neutrophils # (Auto) 10.58 K/uL Lymphocytes # (Auto) 1.68 K/uL Monocytes # (Auto) 1.05 K/uL Eosinophils # (Auto) 0.06 K/uL Basophils # (Auto) 0.03 K/uL RDW Standard Deviation 47.8 fL RDW Coefficient of Variation 15.5 % Immature Granulocyte % (Auto) 3.4 % Immature Granulocyte # (Auto) 0.47 K/uL Prothrombin Time 10.2 SECONDS Prothromb Time International Ratio 1.0 Activated Partial Thromboplast Time 25.6 SECONDS Partial Thromboplastin Ratio 1.0 D-Dimer 990 ug/L FEU Sodium Level 131 mmol/L Potassium Level 3.1 mmol/L Chloride Level 92 mmol/L Carbon Dioxide Level 34 mmol/L Anion Gap 5.0 mmol/L Blood Urea Nitrogen 9 mg/dl Creatinine 0.74 mg/dl Est Creatinine Clear Calc Drug Dose 71.6 ml/min Estimated GFR () 97.8 Estimated GFR (Non- 84.4 BUN/Creatinine Ratio 12.7 Random Glucose 129 mg/dl Calcium Level 9.2 mg/dl Magnesium Level 2.3 mg/dl Total Bilirubin 0.5 mg/dl Aspartate Amino Transf (AST/SGOT) 15 U/L Alanine Aminotransferase (ALT/SGPT) 17 U/L Alkaline Phosphatase 65 U/L Troponin I < 0.015 ng/ml Pro-B-Type Natriuretic Peptide 223 pg/ml Total Protein 8.1 gm/dl Albumin 3.1 gm/dl Globulin 5.0 gm/dl Albumin/Globulin Ratio 0.6 Influenza Type A Antigen Neg for Influ A Influenza Type B Antigen Neg for Influ B Venous Blood pH 7.44 Venous Blood Partial Pressure CO2 52 mmHg Venous Blood Partial Pressure O2 29 mmHg Venous Blood HCO3 35 mmol/L Venous Blood Oxygen Saturation < 60.0 % Venous Blood Base Excess 9.0 mEq/L Urine Color YELLOW Urine Appearance CLEAR Urine pH 6.5 Urine Specific [place] 1.022 Urine Protein NEG Urine Glucose (UA) NEG Urine Ketones NEG Urine Occult Blood TRACE Urine Nitrite NEG Urine Bilirubin NEG Urine Urobilinogen NEG Urine Leukocyte Esterase NEG Urine WBC (Auto) 1-5 /hpf Urine RBC (Auto) 0-4 /hpf Urine Hyaline Casts (Auto) 0 /lpf Urine Epithelial Cells (Auto) 10-20 /lpf Urine Bacteria (Auto) NEG Test 03/12/17 05:19 White Blood Count 12.01 K/uL Red Blood Count 3.82 M/uL Hemoglobin 10.3 g/dL Hematocrit 32.7 % Mean Corpuscular Volume 85.6 fL Mean Corpuscular Hemoglobin 27.0 pg Mean Corpuscular Hemoglobin Concent 31.5 g/dl RDW Standard Deviation 48.2 fL RDW Coefficient of Variation 15.4 % Platelet Count 338 K/uL Mean Platelet Volume 9.9 fL Sodium Level 136 mmol/L Potassium Level 3.2 mmol/L Chloride Level 98 mmol/L Carbon Dioxide Level 30 mmol/L Anion Gap 8.0 mmol/L Blood Urea Nitrogen 13 mg/dl Creatinine 0.95 mg/dl Est Creatinine Clear Calc Drug Dose 55.4 ml/min Estimated GFR () 72.3 Estimated GFR (Non- 62.4 BUN/Creatinine Ratio 14.0 Random Glucose 165 mg/dl Calcium Level 9.3 mg/dl Date/Time Source Procedure Growth Status 03/11/17 14:53 Blood Blood Culture Pending Received 03/11/17 14:51 Blood Blood Culture Pending Received Assessment & Plan This is a 67yoF with a PMH of COPD, h/o lung cancer (s/p RLL resection) with chronic hypoxic respiratory failure (on 3-6L NC o2, chronic steroids), RA, osteoporosis and other problems listed below who presents with worsening SOB x 4 days. 1. Acute on chronic hypoxic respiratory failure-chronic hypoxia 2/2 ILD, COPD and h/o lung cancer sp resection of RLL in April 2015. Pt states that she has been requiring more oxygen than her baseline at home over the last few days. She has clear conversational dyspnea. CT chest revealed evidence of a R lung pneumonia. She was started on Zosyn for empiric coverage with some improvement per her report today. She was admitted to the hospital just one month ago for a COPD exacerbation 2/2 bronchitis so her risk of MRSA is elevated. However, she appears somewhat improved today. Sputum culture is pending. If decompensates or is not improving will consider adding Vancomycin. Cont Zosyn for now. Although Flu Ag negative, will check flu PCR. Pulm consulted, Appreciate recs. Of note, although she appears to have an infectious process, MTX-induced lung toxicity is also another possibility in her. Holding MTX. Cont bronchodilators and IV steroids. 2. Hypokalemia-pt on diuretics and ill. Will replace and recheck in am. 3. Rheumatoid arthritis-pt is on MTX for immunosuppression, however, with pulmonary toxicity as a listed side effect, this may not be the best choice for her. Will hold this medication now and have her follow-up with her Food Safety Technician as outpatient to discuss further. She is also on chronic steroids. 4. Osteoporosis-Fosamax weekly, Cont Ca/D supplementation. DVT Ppx: SQ Heparin Code status: DNR PCP: Kori Dispo: Admitted to telemetry. Discharge planning ordered. Paulette Centeno DO [facility] Hospitalist Consultants: [facility] Current Inpatient Medications: Current Inpatient Medications Medications (Trade) Dose Ordered Sig/Silvia Route Start Time Stop Time Status Last Admin Dose Admin Ioversol (Optiray 320) 100 ml UD PRN IV 03/11/17 15:00 03/15/17 14:59 Heparin Sodium (Porcine) (Heparin Sq 5000 Unit/0.5ml) 5,000 unit Q8 SQ 03/11/17 22:00 04/10/17 21:59 03/12/17 05:26 5,000 UNIT Acetaminophen (Tylenol Tab) 650 mg Q4H PRN PO 03/11/17 15:00 04/10/17 14:59 Al Hydrox/Mg Hydrox/Simethicone (Maalox Max Susp) 15 ml Q4H PRN PO 03/11/17 15:00 04/10/17 14:59 Magnesium Hydroxide (Milk Of Magnesia Susp) 30 ml Q12H PRN PO 03/11/17 15:00 04/10/17 14:59 Ondansetron HCl (Zofran Inj) 4 mg Q6H PRN IV 03/11/17 15:00 04/10/17 14:59 Nitroglycerin (Nitrostat Tab) 0.4 mg UD PRN SL 03/11/17 15:00 04/10/17 14:59 Polyethylene (Miralax Powder Packet) 17 gm DAILY PRN PO 03/11/17 15:00 04/10/17 14:59 Miscellaneous Information (Consult) 1 ea UD PRN N/A 03/11/17 15:00 04/10/17 14:59 Methylprednisolone Sodium Succinate 40 mg/Syringe 0.64 ml @ 1.5 mls/min Q8 IV 03/11/17 22:00 04/10/17 21:59 03/12/17 05:24 1.5 MLS/MIN Piperacillin Sod/ Tazobactam Sod 3.375 gm/Dextrose 115 ml @ 28.75 mls/ hr Q8H IV 03/11/17 22:00 03/18/17 21:59 03/12/17 05:26 28.75 MLS/HR Ipratropium [place] (Atrovent 0.02% 0.5MG/2.5ML Neb) 0.5 mg Q6R INH 03/11/17 21:00 04/10/17 20:59 03/12/17 07:03 0.5 MG Levalbuterol (Xopenex 1.25MG/ 0.5ML Neb) 1.25 mg Q6R INH 03/11/17 21:00 04/10/17 20:59 03/12/17 07:03 1.25 MG Ipratropium [place] (Atrovent 0.02% 0.5MG/2.5ML Neb) 0.5 mg Q2H PRN INH 03/11/17 16:15 04/10/17 16:14 Levalbuterol (Xopenex 1.25MG/ 0.5ML Neb) 1.25 mg Q2H PRN INH 03/11/17 16:30 04/10/17 16:29 Albuterol (Ventolin Hfa Inhaler) 2 puffs Q4 PRN INH 03/11/17 16:30 04/10/17 16:29 Aspirin (Ecotrin Tab) 81 mg QAM PO 03/12/17 09:00 04/11/17 08:59 03/12/17 08:10 81 MG Atorvastatin Calcium (Lipitor Tab) 10 mg HS PO 03/11/17 21:00 04/10/17 20:59 03/11/17 20:37 10 MG Benzonatate (Tessalon Perles Cap) 100 mg TID PRN PO 03/11/17 16:30 04/10/17 16:29 03/12/17 08:12 100 MG Cholecalciferol (Vitamin D Tab) 5,000 inter.unit DAILY PO 03/12/17 09:00 04/11/17 08:59 03/12/17 08:10 5,000 INTER.UNIT Folic Acid (Folvite Tab) 1 mg DAILY PO 03/12/17 09:00 04/11/17 08:59 03/12/17 08:10 1 MG Furosemide (Lasix Tab) 40 mg DAILY PO 03/12/17 09:00 04/11/17 08:59 03/12/17 08:10 40 MG Acetaminophen/ Hydrocodone Bitart (Singer 5/325 Tab) 1 tab TID PRN PO 03/11/17 16:30 03/25/17 16:29 03/11/17 23:44 1 TAB Metoprolol Succinate (Toprol Xl Tab) 50 mg QAM PO 03/12/17 09:00 04/11/17 08:59 03/12/17 08:10 50 MG Calcium/Vitamin D (Caltrate Plus Tab) 2 tab DAILY PO 03/12/17 09:00 04/11/17 08:59 03/12/17 08:10 2 TAB Potassium Chloride (Klor-Con Tab) 40 meq Q6H PO 03/12/17 09:30 03/12/17 15:31 03/12/17 09:41 40 MEQ
--- NOTE | 2017-03-12 18:31 | Pulmonary Consultation ---
History General Date of Service: Mar 12, 2017. Stated Complaint: Chronic Respiratory Failure With Hypoxia, Sob HPI The patient is a 67 year old female who presents to [facility] with complaints of Chronic Respiratory Failure With Hypoxia, Sob. The patient's primary care provider is Sharonda Sheikh D.O.. Historian: patient Onset: other (her symptoms persist for years.) Severity: moderate Complaint Status: persistent Review of Systems Constitutional: denies: no symptoms, as stated in HPI, chills, diaphoresis, fever, malaise, weakness, weight gain, weight loss, other Eyes: denies: no symptoms, as stated in HPI, eye pain, tearing, itching, redness, discharge, double vision, visual changes, blurred vision, photophobia, other ENT: denies: no symptoms, as stated in HPI, ear pain, ear discharge, loss of hearing, tinnitus, nasal pain, nasal congestion, rhinorrhea, epistaxis, sore throat, stridor, throat swelling, mouth pain, mouth swelling, dental pain, gum swelling, other Cardiovascular: reports: no symptoms Respiratory: reports: cough, shortness of breath Gastrointestinal: denies: no symptoms, as stated in HPI, abdominal pain, constipation, diarrhea, nausea, vomiting, hematemesis, hematochezia, hemorrhoids , anorexia, appetite changes, stool changes, flatulence, belching, food intolerance, jaundice, other Neurologic: denies: no symptoms, as stated in HPI, headache, dizziness, general weakness, focal weakness, numbness, tingling, paresthesia, pre-existing deficit, tremors, tics, vertigo, seizure, lethargy, memory loss, other Endocrine: denies: no symptoms, as stated in HPI, cold intolerance, heat intolerance, hair changes, goiter, polydipsia, polyuria, skin changes, other Hematologic / Lymphatic: denies: no symptoms, as stated in HPI, abnormal clotting, adenopathy, anemia, easy bleeding, easy bruising, gums bleeding, petechiae, other Past Medical History Past Medical History: COPD, goal level III. UIP. 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 Non-small cell lung CA status post right lower lobe and right middle lobe lobectomy. Pulmonary hypertension. Rheumatoid arthritis treated with methotrexate. No evidence of rheumatoid lung. Past Surgical History: Right lower lobe and right middle lobe lobectomy for non-small cell lung CA. Family History Cancer Diabetes mellitus Gallbladder disease Heart disease MOTHER ([place] in 70s) Hypertension Kidney disease Kidney stones Lung disease Seizures Social History Smoking Status: Former Smoker Marital status: Housing status: lives with significant other Occupational Status: unemployed Allergies Coded Allergies: Azithromycin (Verified Allergy, Intermediate, RASH, 02/10/17) Iodinated Diagnostic Agents (Verified Allergy, Intermediate, Chills/Hives/ Vomiting, 02/10/17) Tramadol (Verified Allergy, Intermediate, RASH, 02/10/17) Codeine (Verified Adverse Reaction, Intermediate, Hallucinations, 02/10/17 ) Simvastatin (Verified Adverse Reaction, Intermediate, rash, 02/10/17) Current Medications Reported Home Medications Medications Dose Route/Sig Max Daily Dose Days Date Category Dose Instructions Doxycycline Hyclate 100 Mg Cap 100 Mg PO BID 5 02/11/17 Rx Prednisone 20 Mg Tab 20 Mg PO UD 28 02/11/17 Rx prednisone 60 mg daily x 7days 40 mg dailyx7 days 30 mg daily x7 days 20 mg daily x7 days Levalbuterol 1.25 Mg/0.5 Ml Nebu 1.25 Mg INH Q6R PRN 30 02/10/17 Rx Ipratropium [place] 0.5 Mg/2.5 Ml Nebu 0.5 Mg INH Q6R PRN 30 02/10/17 Rx Ventolin Hfa (Albuterol) 200 Puffs/19103 Mcg Aers 2 Puffs INH Q4 PRN 30 02/10/17 Rx Tessalon Perles (Benzonatate) 100 Mg Cap 1 Cap PO TID PRN 02/09/17 Reported Methotrexate (Methotrexate Sodium) 2.5 Mg Tab 10 Mg PO WK 02/09/17 Reported SUNDAYS Folvite (Folic Acid) 1 Mg Tab 1 Mg PO DAILY 02/09/17 Reported Prednisone 10 Mg Tab 10 Mg PO DAILY 10/02/16 Reported Fosamax+D 70MG/2800 Iu (Alendronate Sodium/Vitamin D3) 70 Mg Tab 1 Tablet PO WK 09/14/16 Reported WEDNESDAY Lasix (Furosemide) 40 Mg Tab 40 Mg PO DAILY 03/18/16 Reported Vitamin D3 (Cholecalciferol) 1,000 Unit Tab 5,000 Units PO DAILY 30 01/21/16 Reported Calcium + D (Calcium Carbonate-Vitamin D) 1 Tab Tab 2 Tabs PO DAILY 01/21/16 Reported Nitro 5MG/325MG (Acetaminophen/Hydrocodone Bitart) Tab 1 Tablet PO TID PRN 01/21/16 Reported PRN PAIN Lipitor (Atorvastatin Calcium) 10 Mg Tab 10 Mg PO HS 06/20/15 Reported Aspirin 81 (Aspirin) 81 Mg Tab 81 Mg PO QAM 11/06/13 Reported Toprol Xl (Metoprolol Succinate) 50 Mg Tabcr 50 Mg PO QAM 11/06/13 Reported Physical Physical Exam Vital Signs: Date Time Temp Pulse Resp B/P (MAP) Pulse Ox O2 Delivery O2 Flow Rate FiO2 03/12/17 16:10 Nasal Cannula 4.0 03/12/17 15:04 36.5 97 24 112/72 (85) 97 Nasal Cannula 6.0 03/12/17 14:42 89 20 97 Nasal Cannula 5.0 03/12/17 12:00 Nasal Cannula 4.0 03/12/17 11:25 36.4 90 20 111/78 (89) 95 Nasal Cannula 6.0 03/12/17 08:00 Nasal Cannula 4.0 03/12/17 07:33 36.6 91 18 118/79 (92) 94 Nasal Cannula 5.0 03/12/17 07:04 96 20 98 Nasal Cannula 5.0 03/12/17 04:00 Nasal Cannula 5.0 03/12/17 03:39 96 Nasal Cannula 5.0 03/12/17 03:21 36.6 98 22 114/77 (89) 93 Nasal Cannula 6.0 03/12/17 03:20 36.6 98 22 114/77 (89) 93 6.0 03/12/17 02:06 94 20 98 Nasal Cannula 6.0 03/11/17 23:59 Nasal Cannula 6.0 03/11/17 23:37 36.4 85 18 109/73 (85) 98 6.0 03/11/17 20:00 96 Nasal Cannula 6.0 03/11/17 19:54 36.4 93 22 118/80 (93) 96 Nasal Cannula 6.0 03/11/17 19:19 88 16 98 Nasal Cannula 6.0 General Appearance: WELL-APPEARING, mild distress Eyes: PERRLA, EOMI ENT: NORMAL MOUTH EXAM Neck: NORMAL RANGE OF MOTION, TRACHEA MIDLINE Respiratory: other (Velcro-type crackles bilaterally. Diffuse. No wheezing.) Cardiovasular: REGULAR RATE/RHYTHM, NORMAL S1S2, NO M/G/R, NO MURMUR, NO GALLOP Abdomen: NON TENDER, NO REBOUND, NO MASSES Lower Extremities: NO EDEMA Neuro: ALERT, ORIENTED x 3, NORMAL MOTOR EXAM, NORMAL SENSATION Psychiatric: NORMAL AFFECT Diagnostics Labs Results Past 24 Hours Test 03/11/17 19:45 03/12/17 05:19 Range/Units Urine Color YELLOW Urine Appearance CLEAR CLEAR Urine pH 6.5 4.5-7.5 Urine Specific [place] 1.022 1.000-1.030 Urine Protein NEG NEG Urine Glucose (UA) NEG NEG Urine Ketones NEG NEG Urine Occult Blood TRACE NEG Urine Nitrite NEG NEG Urine Bilirubin NEG NEG Urine Urobilinogen NEG NEG Urine Leukocyte Esterase NEG NEG Urine WBC (Auto) 1-5 0-5 /hpf Urine RBC (Auto) 0-4 0-4 /hpf Urine Hyaline Casts (Auto) 0 0-5 /lpf Urine Epithelial Cells (Auto) 10-20 0-5 /lpf Urine Bacteria (Auto) NEG NEG White Blood Count 12.01 4.8-10.8 K/uL Red Blood Count 3.82 4.2-5.4 M/uL Hemoglobin 10.3 12.0-16.0 g/dL Hematocrit 32.7 37-47 % Mean Corpuscular Volume 85.6 80-100 fL Mean Corpuscular Hemoglobin 27.0 25-34 pg Mean Corpuscular Hemoglobin Concent 31.5 32-36 g/dl RDW Standard Deviation 48.2 36.4-46.3 fL RDW Coefficient of Variation 15.4 11.5-14.5 % Platelet Count 338 130-400 K/uL Mean Platelet Volume 9.9 7.4-10.4 fL Sodium Level 136 136-145 mmol/L Potassium Level 3.2 3.5-5.1 mmol/L Chloride Level 98 98-107 mmol/L Carbon Dioxide Level 30 21-32 mmol/L Anion Gap 8.0 3-11 mmol/L Blood Urea Nitrogen 13 7-18 mg/dl Creatinine 0.95 0.60-1.20 mg/dl Est Creatinine Clear Calc Drug Dose 55.4 ml/min Estimated GFR () 72.3 Estimated GFR (Non- 62.4 BUN/Creatinine Ratio 14.0 10-20 Random Glucose 165 70-99 mg/dl Calcium Level 9.3 8.5-10.1 mg/dl Radiology Interpretation: other (CAT scan of the chest reviewed personally which showed honeycombing mainly in the lower lobes in addition to volume loss on the right side. Significant emphysematous changes as well. No infiltrates.) Impression Assessment and Plan #1 UIP. This is likely conversion of COPD. Although the patient has been treated with methotrexate, the patient is not showing any evidence of rheumatoid lung ( usually nodularity supersede ), methotrexate toxicity itself present variety of interstitial and airspace disease and can be comparable to UIP presentation. #2 COPD gold level III, on home O2. #3 cor pulmonale. #4 non-small cell lung CA status post right lower lobe and right middle lobe resection. #5 history of rheumatoid arthritis without rheumatoid lung. #6 history of treatment with methotrexate off and on for the past 15 years. The patient used to take Enbrel. Plan: #1 agree with your current treatment. #2 decrease oxygen to keep her O2 sat above than 88%. #3 increase oxygen to 6 L with ambulation. And sleep. #4 the patient will benefit from Oxymizer which will reduce her oxygen consumption via her condenser. #5 alternative therapy such as kinases inhibitors should be tried on this patient. #6 agree with stopping methotrexate, although it may not be the caveat for her interstitial lung disease, it can definitely worsen her symptoms. #7 she will need alternative treatment for rheumatoid arthritis. #8 the patient needs follow-up with pulmonary, she has been followed in [place] , recommended to her to ask about eligibility for OFEV as alternative therapy. Thank you for your kind referral, will follow
[2017-03-12 20:54] LABS: INFLUENZA A PCR Neg for Influ A (NEG); INFLUENZA B PCR Neg for Influ B (NEG)
[2017-03-12] MEDS: ATORVASTATIN 10 MG TAB PO SCH (21:50)
[2017-03-12] MEDS: HYDROCODONE/ACETAMOPHEN 5/325MG TAB PO PRN (23:21)
[2017-03-13] VITALS (11 sets, daily range): BP systolic 96–144; BP diastolic 61–78; PULSE 72–106; TEMP 36.3–36.8; O2SAT 92–99
[2017-03-13] MEDS: IPRATROPIUM BROMIDE NEB SOLN 0.02% 2.5 ML VIAL INH SCH ×4 (01:54→19:04)
[2017-03-13] MEDS: LEVALBUTEROL 1.25MG/0.5ML NEB INH SCH ×4 (01:54→19:04)
[2017-03-13] MEDS: METHYLPREDNISOLONE IV 40 MG in SYRINGE 0 ML IV SCH ×2 (05:49→14:21)
[2017-03-13] MEDS: PIPERACILL/TAZOBAC IV 3.375 GM in DEXTROSE 5% 100ML IV SCH ×2 (05:49→14:24)
[2017-03-13] MEDS: HEPARIN SOD 5000 UNIT/0.5 ML CARP SQ SCH ×3 (05:50→21:49)
[2017-03-13 06:25] LABS: CALCIUM 9.4 mg/dl (8.5-10.1); CREATININE 0.92 mg/dl (0.60-1.20); POTASSIUM 4.5 mmol/L (3.5-5.1)
[2017-03-13] MEDS: ASPIRIN 81 MG ECTAB PO SCH (08:36)
[2017-03-13] MEDS: METOPROLOL SUCC 50MG EXT REL TAB PO SCH (08:36)
[2017-03-13] MEDS: CALCIUM 600MG + VIT D 400 IU TAB PO SCH (08:36)
[2017-03-13] MEDS: CHOLECALCIFEROL 1000 INTER.UNIT TAB PO SCH (08:37)
[2017-03-13] MEDS: FUROSEMIDE 40 MG TAB PO SCH (08:37)
[2017-03-13] MEDS ORDERED: LORAZEPAM 0.5 MG TAB PO PRN (09:15)
--- NOTE | 2017-03-13 13:17 | Pulmonology Progress Note ---
Pulmonary Progress Note Date of Service Mar 13, 2017. Attending Dr. Royal Subjective The patient denies any events overnight, she continued to improve clinically. She feels her hospital status is slightly better. Her oxygen requirement is down to 4 L. O2 saturation remains at 94%. No events overnight. Objective 03/13/2017, physical exam revealed stable vital signs, her O2 saturation 94% on 4 L, bilateral Velcro type crackles, S1-S2 regular rate and rhythm, no edema. She has clubbing in the periphery. Assessment & Plan #1 UIP, felt to be related to exposure to alutiiq-based chemotherapy versus conversion of COPD 2 pulmonary fibrosis. #2 right lower lobe right middle lobe lobectomy secondary to non-small cell lung CA 2 years ago. #3 rheumatoid arthritis without rheumatoid lung. #4 patient has been on methotrexate off and on for the past 17 years. Possible adding on to interstitial lung disease development. #5 pulmonary hypertension. Plan: #1 continue Solu-Medrol and decreased to every 12 hours. #2 continue with bronchodilators. #3 avoid methotrexate. #4 ambulate the patient as tolerated. #5 follow-up as an outpatient with her internet sales consultant from [place]. #6 suggested to the patient to discuss with her internet sales consultant the role for kinase inhibitors. #7 continue treatment for GERD. Thank you, will follow. Data Medications: Current Inpatient Medications Medications (Trade) Dose Ordered Sig/Silvia Route Start Time Stop Time Status Last Admin Dose Admin Ioversol (Optiray 320) 100 ml UD PRN IV 03/11/17 15:00 03/15/17 14:59 Heparin Sodium (Porcine) (Heparin Sq 5000 Unit/0.5ml) 5,000 unit Q8 SQ 03/11/17 22:00 04/10/17 21:59 03/13/17 05:50 5,000 UNIT Acetaminophen (Tylenol Tab) 650 mg Q4H PRN PO 03/11/17 15:00 04/10/17 14:59 Al Hydrox/Mg Hydrox/Simethicone (Maalox Max Susp) 15 ml Q4H PRN PO 03/11/17 15:00 04/10/17 14:59 Magnesium Hydroxide (Milk Of Magnesia Susp) 30 ml Q12H PRN PO 03/11/17 15:00 04/10/17 14:59 Ondansetron HCl (Zofran Inj) 4 mg Q6H PRN IV 03/11/17 15:00 04/10/17 14:59 Nitroglycerin (Nitrostat Tab) 0.4 mg UD PRN SL 03/11/17 15:00 04/10/17 14:59 Polyethylene (Miralax Powder Packet) 17 gm DAILY PRN PO 03/11/17 15:00 04/10/17 14:59 Miscellaneous Information (Consult) 1 ea UD PRN N/A 03/11/17 15:00 04/10/17 14:59 Methylprednisolone Sodium Succinate 40 mg/Syringe 0.64 ml @ 1.5 mls/min Q8 IV 03/11/17 22:00 04/10/17 21:59 03/13/17 05:49 1.5 MLS/MIN Piperacillin Sod/ Tazobactam Sod 3.375 gm/Dextrose 115 ml @ 28.75 mls/ hr Q8H IV 03/11/17 22:00 03/18/17 21:59 03/13/17 05:49 28.75 MLS/HR Ipratropium [place] (Atrovent 0.02% 0.5MG/2.5ML Neb) 0.5 mg Q6R INH 03/11/17 21:00 04/10/17 20:59 03/13/17 06:56 0.5 MG Levalbuterol (Xopenex 1.25MG/ 0.5ML Neb) 1.25 mg Q6R INH 03/11/17 21:00 04/10/17 20:59 03/13/17 06:56 1.25 MG Ipratropium [place] (Atrovent 0.02% 0.5MG/2.5ML Neb) 0.5 mg Q2H PRN INH 03/11/17 16:15 04/10/17 16:14 Levalbuterol (Xopenex 1.25MG/ 0.5ML Neb) 1.25 mg Q2H PRN INH 03/11/17 16:30 04/10/17 16:29 Albuterol (Ventolin Hfa Inhaler) 2 puffs Q4 PRN INH 03/11/17 16:30 04/10/17 16:29 Aspirin (Ecotrin Tab) 81 mg QAM PO 03/12/17 09:00 04/11/17 08:59 03/13/17 08:36 81 MG Atorvastatin Calcium (Lipitor Tab) 10 mg HS PO 03/11/17 21:00 04/10/17 20:59 03/12/17 21:50 10 MG Benzonatate (Tessalon Perles Cap) 100 mg TID PRN PO 03/11/17 16:30 04/10/17 16:29 03/12/17 08:12 100 MG Cholecalciferol (Vitamin D Tab) 5,000 inter.unit DAILY PO 03/12/17 09:00 04/11/17 08:59 03/13/17 08:37 5,000 INTER.UNIT Folic Acid (Folvite Tab) 1 mg DAILY PO 03/12/17 09:00 04/11/17 08:59 03/13/17 08:37 1 MG Furosemide (Lasix Tab) 40 mg DAILY PO 03/12/17 09:00 04/11/17 08:59 03/13/17 08:37 40 MG Acetaminophen/ Hydrocodone Bitart ([place] 5/325 Tab) 1 tab TID PRN PO 03/11/17 16:30 03/25/17 16:29 03/12/17 23:21 1 TAB Metoprolol Succinate (Toprol Xl Tab) 50 mg QAM PO 03/12/17 09:00 04/11/17 08:59 03/13/17 08:36 50 MG Calcium/Vitamin D (Caltrate Plus Tab) 2 tab DAILY PO 03/12/17 09:00 04/11/17 08:59 03/13/17 08:36 2 TAB Alendronate Sodium (Fosamax Tab) 70 mg Mo@08 PO 03/15/17 08:00 04/14/17 07:59 Lorazepam (Ativan Tab) 0.5 mg TID PRN PO 03/13/17 09:15 04/12/17 09:14 03/13/17 09:44 0.5 MG Vital Signs: Date Time Temp Pulse Resp B/P (MAP) Pulse Ox O2 Delivery O2 Flow Rate FiO2 03/13/17 12:00 Nasal Cannula 3.0 03/13/17 11:38 36.8 93 19 110/76 (87) 94 Nasal Cannula 3.0 03/13/17 08:00 Nasal Cannula 6.0 03/13/17 07:52 36.7 106 22 123/78 (93) 96 Nasal Cannula 6.0 03/13/17 06:56 72 20 99 Nasal Cannula 6.0 03/13/17 04:00 Nasal Cannula 4.0 03/13/17 03:57 36.3 91 21 96/61 (73) 98 Nasal Cannula 6.0 03/13/17 02:00 77 18 95 Nasal Cannula 6.0 03/13/17 00:01 Nasal Cannula 4.0 03/12/17 23:30 36.6 83 19 118/76 (90) 95 Nasal Cannula 6.0 03/12/17 20:00 Nasal Cannula 4.0 03/12/17 19:39 36.5 95 24 112/73 (86) 98 Nasal Cannula 4.0 03/12/17 19:21 79 20 99 Nasal Cannula 6.0 03/12/17 16:10 Nasal Cannula 4.0 03/12/17 15:04 36.5 97 24 112/72 (85) 97 Nasal Cannula 4.0 03/12/17 14:42 89 20 97 Nasal Cannula 5.0 Laboratory Results: Last 24 Hours Test 03/12/17 19:30 03/13/17 05:36 Influenza Type A (RT-PCR) Neg for Influ A Influenza Type B (RT-PCR) Neg for Influ B Sodium Level 138 mmol/L Potassium Level 4.5 mmol/L Chloride Level 102 mmol/L Carbon Dioxide Level 33 mmol/L Anion Gap 3.0 mmol/L Blood Urea Nitrogen 23 mg/dl Creatinine 0.92 mg/dl Est Creatinine Clear Calc Drug Dose 57.4 ml/min Estimated GFR () 75.2 Estimated GFR (Non- 64.9 BUN/Creatinine Ratio 25.3 Random Glucose 186 mg/dl Calcium Level 9.4 mg/dl Magnesium Level 2.3 mg/dl
--- NOTE | 2017-03-13 17:31 | Progress Note ---
Medicine Progress Note Date & Time of Visit: Mar 13, 2017 at 16:41. Subjective -feels improved -at baseline oxygen status but is still very fatigued tolerating PO Ambulating no fevers or chills. Objective Last 8 Hrs Date Time Temp Pulse Resp B/P (MAP) Pulse Ox O2 Delivery O2 Flow Rate FiO2 03/13/17 15:30 36.7 86 19 102/70 (81) 93 Nasal Cannula 3.0 03/13/17 14:11 77 20 95 Nasal Cannula 6.0 03/13/17 12:00 Nasal Cannula 3.0 03/13/17 11:38 36.8 93 19 110/76 (87) 94 Nasal Cannula 3.0 Physical Exam: GEN: WNWD, NAD, alert and appropriate HEENT: NC/AT, normal sclerae, MMM CARDIO: reg rate, S1/2 heard without m/g/r LUNGS: minimal coarse rhonchi heard throughout. No wheezing. Velcro crackles heard in anterior field on the L side. Good air movement. ABD: soft, non-tender, non-distended, no rebound or guarding EXTREMITY: RP and DP palpable 2+ bilat, no LE swelling or edema, extremities are warm and well-perfused NEURO: CN 2-12 grossly intact MUSC: can move independently, moves all extremities easily. SKIN: warm and dry Laboratory Results: 03/12/17 05:19 03/13/17 05:36 Test 03/11/17 12:45 03/11/17 13:15 03/11/17 13:46 03/11/17 19:45 Immature Granulocyte % (Auto) 3.4 % White Blood Count 13.87 K/uL (4.8-10.8) Red Blood Count 4.06 M/uL (4.2-5.4) Hemoglobin 11.1 g/dL (12.0-16.0) Hematocrit 34.6 % (37-47) Mean Corpuscular Volume 85.2 fL (80-100) Mean Corpuscular Hemoglobin 27.3 pg (25-34) Mean Corpuscular Hemoglobin Concent 32.1 g/dl (32-36) Platelet Count 335 K/uL (130-400) Mean Platelet Volume 10.4 fL (7.4-10.4) Neutrophils (%) (Auto) 76.3 % Lymphocytes (%) (Auto) 12.1 % Monocytes (%) (Auto) 7.6 % Eosinophils (%) (Auto) 0.4 % Basophils (%) (Auto) 0.2 % Neutrophils # (Auto) 10.58 K/uL (1.4-6.5) Lymphocytes # (Auto) 1.68 K/uL (1.2-3.4) Monocytes # (Auto) 1.05 K/uL (0.11-0.59) Eosinophils # (Auto) 0.06 K/uL (0-0.5) Basophils # (Auto) 0.03 K/uL (0-0.2) Immature Granulocyte # (Auto) 0.47 K/uL (0.00-0.02) Prothrombin Time 10.2 SECONDS (9.0-12.0) Prothromb Time International Ratio 1.0 (0.9-1.1) Activated Partial Thromboplast Time 25.6 SECONDS (21.0-31.0) Partial Thromboplastin Ratio 1.0 D-Dimer 990 ug/L FEU (0-500) Total Bilirubin 0.5 mg/dl (0.2-1) Aspartate Amino Transf (AST/SGOT) 15 U/L (15-37) Alanine Aminotransferase (ALT/SGPT) 17 U/L (12-78) Alkaline Phosphatase 65 U/L (45-117) Troponin I < 0.015 ng/ml (0-0.045) Pro-B-Type Natriuretic Peptide 223 pg/ml (0-900) Total Protein 8.1 gm/dl (6.4-8.2) Albumin 3.1 gm/dl (3.4-5.0) Globulin 5.0 gm/dl (2.5-4.0) Albumin/Globulin Ratio 0.6 (0.9-2) Influenza Type A Antigen Neg for Influ A (NEG) Influenza Type B Antigen Neg for Influ B (NEG) Venous Blood pH 7.44 (7.36-7.41) Venous Blood Partial Pressure CO2 52 mmHg (38.0-50.0) Venous Blood Partial Pressure O2 29 mmHg Venous Blood HCO3 35 mmol/L Venous Blood Oxygen Saturation < 60.0 % Venous Blood Base Excess 9.0 mEq/L Urine Color YELLOW Urine Appearance CLEAR (CLEAR) Urine pH 6.5 (4.5-7.5) Urine Specific [place] 1.022 (1.000-1.030) Urine Protein NEG (NEG) Urine Glucose (UA) NEG (NEG) Urine Ketones NEG (NEG) Urine Occult Blood TRACE (NEG) Urine Nitrite NEG (NEG) Urine Bilirubin NEG (NEG) Urine Urobilinogen NEG (NEG) Urine Leukocyte Esterase NEG (NEG) Urine WBC (Auto) 1-5 /hpf (0-5) Urine RBC (Auto) 0-4 /hpf (0-4) Urine Hyaline Casts (Auto) 0 /lpf (0-5) Urine Epithelial Cells (Auto) 10-20 /lpf (0-5) Urine Bacteria (Auto) NEG (NEG) Test 03/12/17 05:19 03/12/17 19:30 03/13/17 05:36 Red Blood Count 3.82 M/uL (4.2-5.4) Mean Corpuscular Volume 85.6 fL (80-100) Mean Corpuscular Hemoglobin 27.0 pg (25-34) Mean Corpuscular Hemoglobin Concent 31.5 g/dl (32-36) RDW Standard Deviation 48.2 fL (36.4-46.3) RDW Coefficient of Variation 15.4 % (11.5-14.5) Mean Platelet Volume 9.9 fL (7.4-10.4) Influenza Type A (RT-PCR) Neg for Influ A (NEG) Influenza Type B (RT-PCR) Neg for Influ B (NEG) Anion Gap 3.0 mmol/L (3-11) Est Creatinine Clear Calc Drug Dose 57.4 ml/min Estimated GFR () 75.2 Estimated GFR (Non- 64.9 BUN/Creatinine Ratio 25.3 (10-20) Calcium Level 9.4 mg/dl (8.5-10.1) Magnesium Level 2.3 mg/dl (1.8-2.4) Date/Time Source Procedure Growth Status 03/11/17 14:53 Blood Blood Culture - Preliminary NO GROWTH TO DATE. Resulted 03/13/17 11:10 Sputum Expectorated Sputum Gram Stain Pending Received 03/13/17 11:10 Sputum Expectorated Sputum Sputum Culture Pending Received Last 24 Hours Test 03/12/17 19:30 03/13/17 05:36 Influenza Type A (RT-PCR) Neg for Influ A Influenza Type B (RT-PCR) Neg for Influ B Sodium Level 138 mmol/L Potassium Level 4.5 mmol/L Chloride Level 102 mmol/L Carbon Dioxide Level 33 mmol/L Anion Gap 3.0 mmol/L Blood Urea Nitrogen 23 mg/dl Creatinine 0.92 mg/dl Est Creatinine Clear Calc Drug Dose 57.4 ml/min Estimated GFR () 75.2 Estimated GFR (Non- 64.9 BUN/Creatinine Ratio 25.3 Random Glucose 186 mg/dl Calcium Level 9.4 mg/dl Magnesium Level 2.3 mg/dl Date/Time Source Procedure Growth Status 03/13/17 11:10 Sputum Expectorated Sputum Gram Stain Pending Received 03/13/17 11:10 Sputum Expectorated Sputum Sputum Culture Pending Received Assessment & Plan This is a 67yoF with a PMH of COPD, h/o lung cancer (s/p RLL resection) with chronic hypoxic respiratory failure (on 3-6L NC o2, chronic steroids), RA on long-term methotrexate, and osteoporosis who presents with worsening SOB x 4 days. 1. Acute on chronic hypoxic respiratory failure-chronic hypoxia 2/2 ILD, COPD and h/o lung cancer sp resection of RLL in April 2015. She has usual interstitial pneumonia either related to chemotherapy in the past versus COPD with conversion to ILD. Her breathing is at baseline but she remains very tired today. Flu PCR was negative. Apprec pulm recs who want to scale down on solumedrol to q12 and cont bronchodilators. Will stop abx at this time. DC MTX -this was discussed with the patient and an [employer] staff message was sent to her Financial Controller, Dr. Justice Mohan regarding the need for replacement therapy for her RA. 2. Hypokalemia-resolved. 3. Rheumatoid arthritis-pt is on MTX for immunosuppression, however, with pulmonary toxicity as a listed side effect, this may not be the best choice for her. DC'd as above. She is also on chronic steroids. 4. Osteoporosis-Fosamax weekly, Cont Ca/D supplementation. 5. Anemia-likely related to chronic disease (RA, etc.). No indication for blood transfusion at this time. DVT Ppx: SQ Heparin Code status: DNR PCP: Kori Dispo: transfer to med surg, suspect dc to home in next 1-2 days. Paulette Centeno DO [facility] Hospitalist Consultants: [facility] Current Inpatient Medications: Current Inpatient Medications Medications (Trade) Dose Ordered Sig/Silvia Route Start Time Stop Time Status Last Admin Dose Admin Ioversol (Optiray 320) 100 ml UD PRN IV 03/11/17 15:00 03/15/17 14:59 Heparin Sodium (Porcine) (Heparin Sq 5000 Unit/0.5ml) 5,000 unit Q8 SQ 03/11/17 22:00 04/10/17 21:59 03/13/17 14:29 5,000 UNIT Acetaminophen (Tylenol Tab) 650 mg Q4H PRN PO 03/11/17 15:00 04/10/17 14:59 Al Hydrox/Mg Hydrox/Simethicone (Maalox Max Susp) 15 ml Q4H PRN PO 03/11/17 15:00 04/10/17 14:59 Magnesium Hydroxide (Milk Of Magnesia Susp) 30 ml Q12H PRN PO 03/11/17 15:00 04/10/17 14:59 Ondansetron HCl (Zofran Inj) 4 mg Q6H PRN IV 03/11/17 15:00 04/10/17 14:59 Nitroglycerin (Nitrostat Tab) 0.4 mg UD PRN SL 03/11/17 15:00 04/10/17 14:59 Polyethylene (Miralax Powder Packet) 17 gm DAILY PRN PO 03/11/17 15:00 04/10/17 14:59 Miscellaneous Information (Consult) 1 ea UD PRN N/A 03/11/17 15:00 04/10/17 14:59 Methylprednisolone Sodium Succinate 40 mg/Syringe 0.64 ml @ 1.5 mls/min Q8 IV 03/11/17 22:00 04/10/17 21:59 03/13/17 14:21 1.5 MLS/MIN Piperacillin Sod/ Tazobactam Sod 3.375 gm/Dextrose 115 ml @ 28.75 mls/ hr Q8H IV 03/11/17 22:00 03/18/17 21:59 03/13/17 14:24 28.75 MLS/HR Ipratropium [place] (Atrovent 0.02% 0.5MG/2.5ML Neb) 0.5 mg Q6R INH 03/11/17 21:00 04/10/17 20:59 03/13/17 14:11 0.5 MG Levalbuterol (Xopenex 1.25MG/ 0.5ML Neb) 1.25 mg Q6R INH 03/11/17 21:00 04/10/17 20:59 03/13/17 14:10 1.25 MG Ipratropium [place] (Atrovent 0.02% 0.5MG/2.5ML Neb) 0.5 mg Q2H PRN INH 03/11/17 16:15 04/10/17 16:14 Levalbuterol (Xopenex 1.25MG/ 0.5ML Neb) 1.25 mg Q2H PRN INH 03/11/17 16:30 04/10/17 16:29 Albuterol (Ventolin Hfa Inhaler) 2 puffs Q4 PRN INH 03/11/17 16:30 04/10/17 16:29 Aspirin (Ecotrin Tab) 81 mg QAM PO 03/12/17 09:00 04/11/17 08:59 03/13/17 08:36 81 MG Atorvastatin Calcium (Lipitor Tab) 10 mg HS PO 03/11/17 21:00 04/10/17 20:59 03/12/17 21:50 10 MG Benzonatate (Tessalon Perles Cap) 100 mg TID PRN PO 03/11/17 16:30 04/10/17 16:29 03/12/17 08:12 100 MG Cholecalciferol (Vitamin D Tab) 5,000 inter.unit DAILY PO 03/12/17 09:00 04/11/17 08:59 03/13/17 08:37 5,000 INTER.UNIT Folic Acid (Folvite Tab) 1 mg DAILY PO 03/12/17 09:00 04/11/17 08:59 03/13/17 08:37 1 MG Furosemide (Lasix Tab) 40 mg DAILY PO 03/12/17 09:00 04/11/17 08:59 03/13/17 08:37 40 MG Acetaminophen/ Hydrocodone Bitart (Bardolph 5/325 Tab) 1 tab TID PRN PO 03/11/17 16:30 03/25/17 16:29 03/12/17 23:21 1 TAB Metoprolol Succinate (Toprol Xl Tab) 50 mg QAM PO 03/12/17 09:00 04/11/17 08:59 03/13/17 08:36 50 MG Calcium/Vitamin D (Caltrate Plus Tab) 2 tab DAILY PO 03/12/17 09:00 04/11/17 08:59 03/13/17 08:36 2 TAB Alendronate Sodium (Fosamax Tab) 70 mg Mo@08 PO 03/15/17 08:00 04/14/17 07:59 Lorazepam (Ativan Tab) 0.5 mg TID PRN PO 03/13/17 09:15 04/12/17 09:14 03/13/17 09:44 0.5 MG
[2017-03-13] MEDS: ATORVASTATIN 10 MG TAB PO SCH (21:48)
[2017-03-14] MEDS ORDERED: METHYLPREDNISOLONE IV 40 MG in SYRINGE 0 ML IV SCH (02:00)
[2017-03-14 02:01] VITALS: PULSE 70; O2SAT 94
[2017-03-14] MEDS: LEVALBUTEROL 1.25MG/0.5ML NEB INH SCH ×2 (02:01→07:57)
[2017-03-14] MEDS: IPRATROPIUM BROMIDE NEB SOLN 0.02% 2.5 ML VIAL INH SCH ×2 (02:01→07:57)
[2017-03-14] MEDS: HEPARIN SOD 5000 UNIT/0.5 ML CARP SQ SCH (05:47)
[2017-03-14 06:55] VITALS: BP 120/76; PULSE 78; TEMP 36.6; O2SAT 99
[2017-03-14 07:57] VITALS: PULSE 80; O2SAT 97
[2017-03-14 08:00] VITALS: O2SAT 99
[2017-03-14] MEDS: ASPIRIN 81 MG ECTAB PO SCH (08:08)
[2017-03-14] MEDS: CALCIUM 600MG + VIT D 400 IU TAB PO SCH (08:08)
[2017-03-14] MEDS: METOPROLOL SUCC 50MG EXT REL TAB PO SCH (08:09)
[2017-03-14] MEDS: FUROSEMIDE 40 MG TAB PO SCH (08:09)
[2017-03-14] MEDS: CHOLECALCIFEROL 1000 INTER.UNIT TAB PO SCH (08:09)
--- NOTE | 2017-03-14 09:43 | Discharge Instructions ---
Discharge Instructions Date of Service Mar 14, 2017. Admission Reason for Admission: Chronic Respiratory Failure With Hypoxia, Sob Discharge Discharge Diagnosis / Problem: Acute on chronic respiratory failure, UIP Discharge Goals Goal(s): Prevent Disease Progression Activity Recommendations Activity Limitations: per Instructions/Follow-up section . Instructions / Follow-Up Instructions / Follow-Up Please take all medications as instructed. Please follow the prednisone taper as instructed here: prednisone 60 mg daily x 2 days 40 mg daily x 2 days 30 mg daily x 2 days 20 mg daily x 2 days 10mg continuously until you see your Artificial Inseminator. You will need a follow-up with your PCP within one week of discharge. Someone will contact you on Wednesday to set that up. It is also recommended that you follow-up with your Casino Floor Walker within 2-4 weeks and discuss other options for treatments; also follow-up with Rheumatology will be important within two weeks to discuss treatment alternatives to the methotrexate which has been discontinued. It was a pleasure taking care of you! Call if you have any questions or problems. You can reach a [facility] hospitalist on duty at [facility] 24 hours a day by calling [phone]. Take care of yourself. Paulette Centeno DO [facility] Hospitalist Current Hospital Diet Patient's current hospital diet: AHA Diet (Heart Healthy) Discharge Diet Recommended Diet: AHA Diet (Heart Healthy) Procedures Procedures Performed: None. Pending Studies Studies pending at discharge: yes List of pending studies: preliminary blood cultures are negative with final cultures pending at discharge. Medical Emergencies . Who to Call and When: Medical Emergencies: If at any time you feel your situation is an emergency, please call 911 immediately. . Non-Emergent Contact Non-Emergency issues call your: Primary Care Provider . . "Provider Documentation" section prepared by Paulette Centeno. . VTE Core Measure Inpt VTE Proph given/why not?: Unfractionated heparin SQ
[2017-03-14] MEDS ORDERED: PRD20 PO (10:17)
[2017-03-14 10:28] VITALS: BP 120/76; PULSE 80; TEMP 36.6; O2SAT 99
[2017-03-15] MEDS ORDERED: ALENDRONATE SODIUM 70 MG TAB PO SCH (08:00)
== END 2017-03-14 12:02 | disposition home health service (06) | DRG 193 ==
LOC: C.EDB 12:25 → C.2T 14:41 → ENRESERV 15:00 → EDBEDREQ 03-13 18:17 → ENRESERV 03-13 18:21 → C.MS4W 03-13 19:22
PROVIDERS: ADMIT Hospitalist; ATTEND Hospitalist
DX: J18.9 Pneumonia, unspecified organism (principal); J96.21 Acute and chronic respiratory failure with hypoxia; Z82.49 Family history of ischemic heart disease and other diseases of the circulatory system; Z83.3 Family history of diabetes mellitus; Z82.0 Family history of epilepsy and other diseases of the nervous system; Z87.891 Personal history of nicotine dependence; Z85.118 Personal history of other malignant neoplasm of bronchus and lung; M06.9 Rheumatoid arthritis, unspecified; M81.0 Age-related osteoporosis without current pathological fracture; Z66 Do not resuscitate; D64.9 Anemia, unspecified

== ENCOUNTER 2017-04-04 05:53 | Inpatient (IN) | payer OTHER ==
[~2017-04-04] VITALS: Ht 157.5 cm; Wt 76.8 kg
[2017-04-04] VITALS (10 sets, daily range): BP systolic 96–115; BP diastolic 62–74; PULSE 84–99; TEMP 36.6–37.2; O2SAT 94–98; Ht 157.5 cm; Wt 76.8 kg
[~2017-04-04 05:53] MED LIST changes: -DXY100 PO; -METH2.5T PO; -PRED10TA PO
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
[2017-04-04 06:29] LABS: HEMATOCRIT 34.7 % (37-47); HEMOGLOBIN 10.9 g/dL (12.0-16.0); MEAN CELL VOLUME 87.2 fL (80-100); MEAN CORPUSCULAR HEMOGLOBIN 27.4 pg (25-34); MEAN CORPUSCULAR HGB CONC 31.4 g/dl (32-36); MEAN PLATELET VOLUME 9.7 fL (7.4-10.4); PLATELET COUNT 234 K/uL (130-400); RED CELL DISTRIBUTION WIDTH CV 16.5 % (11.5-14.5); RED CELL DISTRIBUTION WIDTH SD 52.5 fL (36.4-46.3); WHITE BLOOD COUNT 14.81 K/uL (4.8-10.8)
[2017-04-04 06:41] LABS: INR 0.9 (0.9-1.1); PTT PATIENT 22.2 SECONDS (21.0-31.0)
[2017-04-04] MEDS ORDERED: VNTHFA/IN INH (06:42)
[2017-04-04] MEDS ORDERED: FLUT0.15 NAE (06:47)
[2017-04-04 06:50] LABS: CALCIUM 9.6 mg/dl (8.5-10.1); CREATININE 0.74 mg/dl (0.60-1.20); POTASSIUM 3.2 mmol/L (3.5-5.1)
--- NOTE | 2017-04-04 06:53 | DIAGNOSTIC IMAGING REPORT ---
CHEST ONE VIEW PORTABLE CLINICAL HISTORY: Stroke COMPARISON STUDY: Chest radiograph and chest CT March 11, 2017. FINDINGS: Postoperative findings within the right hemithorax are noted. There are right-sided rib deformities. Diffuse interstitial thickening suggests interstitial lung disease. Right upper lung airspace opacity has developed. No consolidation within the left lung is noted. There is no pneumothorax or pleural effusion. Cardiomediastinal silhouette is stable. IMPRESSION: Mild right upper lung airspace opacity which may reflect pneumonia or asymmetric edema superimposed upon interstitial lung disease. Electronically signed by: Nicolas Garcia M.D. 04/04/2017 6:52 AM Dictated Date/Time: 04/04/2017 6:49 AM
[2017-04-04] MEDS ORDERED: HYDR200T5 PO (06:54)
[2017-04-04 06:55] LABS: CKMB 0.8 ng/ml (0.5-3.6)
[2017-04-04] MEDS ORDERED: LEVA1.258 INH (06:57)
[2017-04-04] MEDS ORDERED: HYDROmorphone INJ 1 MG/ML SYR IV STA (06:59)
[2017-04-04] MEDS ORDERED: ATRINS INH (07:02)
[2017-04-04] MEDS ORDERED: LEVAQUIN 750MG / 150ML D5W IV STA (07:06)
[2017-04-04] MEDS ORDERED: METHYLPREDNISOLONE 125 MG VIAL IV STA (07:07)
[2017-04-04] MEDS: SODIUM CHLORIDE 0.9% 1000ML 1,000 ML IV SCH ×2 (07:10→11:19)
[2017-04-04] MEDS ORDERED: POTASSIUM CHLORIDE 20 MEQ TABCR PO STA (07:31)
--- NOTE | 2017-04-04 08:18 | DIAGNOSTIC IMAGING REPORT ---
CT OF THE HEAD WITHOUT CONTRAST CLINICAL HISTORY: severe headache/ facial droop COMPARISON STUDY: Head CT September 14, 2016. CT DOSE: 537.48 mGy.cm TECHNIQUE: Helical axial images of the head were obtained without IV contrast. Automated exposure control was utilized for the study. A dose lowering technique was utilized adhering to the principles of ALARA. FINDINGS: No acute intracranial hemorrhage, midline shift or mass effect is present. Ventricular system is normal. Basilar cisterns are patent. There are no extra-axial collections. Angulo-white differentiation is maintained. There are no findings to suggest acute dural sinus thrombosis or acute territorial infarct. There is a suspected left maxillary sinus mucous retention cyst. There are no significant calvarial abnormalities. IMPRESSION: No acute intracranial findings. Electronically signed by: Nicolas Garcia M.D. 04/04/2017 8:17 AM Dictated Date/Time: 04/04/2017 8:15 AM
[2017-04-04] MEDS ORDERED: LEVALBUTEROL/IPRATROPIUM NEB INH SCH (09:00)
[2017-04-04] MEDS ORDERED: MAGNESIUM SULFATE 1GM / D5W 1 GM in PREMIXED IN D5W 100 ML IV STA (09:07)
[2017-04-04] MEDS ORDERED: ONDANSETRON INJ 2 MG/ML 2 ML VIAL IV PRN (09:15)
[2017-04-04] MEDS ORDERED: MoRPHine SULFATE 2 MG/ML CARP IV PRN (09:15)
[2017-04-04] MEDS ORDERED: ACETAMINOPHEN 325 MG TAB PO PRN (09:15)
[2017-04-04] MEDS ORDERED: VANCOMYCIN CONSULT ACTIVE PRN (09:15)
[2017-04-04] MEDS ORDERED: IPRATROPIUM BROMIDE NEB SOLN 0.02% 2.5 ML VIAL INH PRN (09:15)
[2017-04-04] MEDS ORDERED: VANCOMYCIN INJ 0 MG in SODIUM CHLORIDE 0.9% 500ML 500 ML IV SCH (09:15)
[2017-04-04] MEDS ORDERED: BENZONATATE 100MG CAP PO PRN (09:15)
[2017-04-04] MEDS ORDERED: LEVALBUTEROL 1.25MG/3ML NEB INH PRN (09:15)
[2017-04-04] MEDS ORDERED: IPRA1AER2 INH (09:19)
[2017-04-04] MEDS ORDERED: MAGNESIUM SULFATE 1GM / D5W 1 GM BAG ONE (09:28)
[2017-04-04] MEDS ORDERED: OXYCODONE/ACETAMINOPHEN 5-325 TAB ONE (09:32)
--- NOTE | 2017-04-04 09:53 | History and Physical ---
History & Physical Date & Time of Service: Apr 04, 2017 at 09:20 Chief Complaint: Respiratory Difficulty Primary Care Physician: Sharonda Sheikh D.O. History of Present Illness Source: patient, family, clinic records, hospital records This is a 67 year old female with an extensive pulmonary history which includes severe COPD/emphysema, interstitial lung disease/pulmonary fibrosis, hx. 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 She was recently discharged from [facility] on March 14, 2017; also with a pneumonia and worsening COPD. She was doing better at home, was seen by primary care physician at post-hospital discharge appointment and did well. Tapered prednisone back down to her usual 10mg daily dose. 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 Yesterday, she felt worse and her son tells me that she seemed worse for about 2 days prior to arrival. She became significantly short of breath and had to come to the ED. In the ED, a CXR was performed and it showed what looked like a superimposed pneumonia on the R side. She was placed on an oxymask with some improvement of her O2 saturations. She was given antibiotics and solu-medrol in the ED. As per ED staff, they noted a possible L sided facial droop. During exam, they noted possibly R sided weakness in the lower extremities. Head CT was then performed but was negative. During my exam, most of her strength had returned equally on all extremities. 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 Costello, [facility] Status: Chronic Social History Problems: (1) Metabolic syndrome Status: Chronic Family History Cancer Diabetes mellitus Gallbladder disease Heart disease MOTHER (NE in 70s) Hypertension Kidney disease Kidney stones Lung disease Seizures Social History Smoking Status: Former Smoker Drug Use: none Marital Status: Housing status: lives with significant other Occupational Status: unemployed Allergies Coded Allergies: Azithromycin (Verified Allergy, Intermediate, RASH, 02/10/17) Iodinated Diagnostic Agents (Verified Allergy, Intermediate, Chills/Hives/ Vomiting, 02/10/17) Tramadol (Verified Allergy, Intermediate, RASH, 02/10/17) Codeine (Verified Adverse Reaction, Intermediate, Hallucinations, 02/10/17 ) Simvastatin (Verified Adverse Reaction, Intermediate, rash, 02/10/17) Home Medications Scheduled Alendronate/Cholecalciferol (Fosamax+D 70MG/2800 Iu), 1 TABLET PO WK Aspirin (Aspirin 81), 81 MG PO QAM Atorvastatin (Lipitor), 10 MG PO HS Calcium Carbonate-Vitamin D (Calcium + D), 2 TABS PO DAILY Cholecalciferol (Vitamin D3), 5,000 UNITS PO DAILY Fluticasone Propionate (Nasal) (Flonase Allergy Relief), 2 SPRAYS KELVIN DAILY Folic Acid (Folvite), 1 MG PO DAILY Furosemide (Lasix), 40 MG PO DAILY Hydroxychloroquine Sulfate (Plaquenil), 200 MG PO HS Ipratropium-Albuterol (Combivent Respimat), 1 PUFFS INH DAILY Metoprolol Succinate (Toprol Xl), 50 MG PO QAM Prednisone (Prednisone), 20 MG PO UD Scheduled PRN Albuterol Hfa (Ventolin Hfa), 2 PUFFS INH Q4H PRN for SOB/Wheezing Benzonatate (Tessalon Perles), 100 MG PO TID PRN for Cough Hydrocodone/Acetaminophen 5MG/325MG ([place] 5MG/325MG), 1 TABLET PO TID PRN for Pain Ipratropium [place] (Ipratropium [place]), 0.5 MG INH QID PRN for Wheezing Levalbuterol Hcl (Levalbuterol Hcl), 1.25 MG INH Q6H PRN for Wheezing Review of Systems Constitutional: + fever, + chills, + sweats, + weakness, + fatigue, No weight loss Eyes: No worsening of vision ENT: + problem reported (c/o headache), No hearing loss Respiratory: + cough, + sputum, + wheezing, + shortness of breath, + dyspnea on exertion, + dyspnea at rest, No hemoptysis Cardiovascular: + palpitations, No chest pain, No orthopnea, No edema Abdomen: No pain, No nausea, No vomiting, No diarrhea, No constipation, No GI bleeding Musculoskeletal: No joint pain, No muscle pain, No swelling, No calf pain Genitourinary - Female: No dysuria, No urinary frequency, No urinary urgency, No urinary incontinence, No urinary retention, No hematuria Neurologic: + weakness, No numbness/tingling, No vertigo, No balance problems Psychiatric: No depression symptoms, No anxiety, No insomnia Endocrine: + fatigue, + excessive thirst, No excessive urination Hematologic / Lymphatic: No abnormal bleeding/bruising Integumentary: No rash Allergic / Immunologic: No environmental allergies, No seasonal allergies Physical Exam Vital Signs Date Time Temp Pulse Resp B/P (MAP) Pulse Ox O2 Delivery O2 Flow Rate FiO2 04/04/17 08:33 107 30 97/61 95 Oxymask 5.0 04/04/17 07:38 112 30 123/69 92 Oxymask 5.0 04/04/17 06:56 116 32 142/99 98 Oxymask 6.0 04/04/17 06:53 100 Oxymask 6.0 04/04/17 06:05 115 04/04/17 05:57 93 Nasal Cannula 4.0 04/04/17 05:57 37.2 111 30 160/88 92 Nasal Cannula 4.0 04/04/17 05:57 92 Nasal Cannula 4.0 04/04/17 05:56 86 Nasal Cannula 4.0 General Appearance: + moderate distress, + severe distress (in moderate to severe distress secondary to breathing), + pertinent finding (cannot complete full sentences without getting short of breath, cannot lay flat, turns to find comfortable respiratory position) Head: normocephalic, atraumatic Eyes: normal inspection ENT: hearing grossly normal Neck: supple Respiratory/Chest: no respiratory distress, no accessory muscle use, + decreased breath sounds, + pertinent finding (no wheezing, rhonchi, rales appreciated) Cardiovascular: no edema, no murmur, normal peripheral pulses, + tachycardia Abdomen/GI: normal bowel sounds, non tender, soft Extremities/Musculoskelatal: normal inspection, no calf tenderness, normal capillary refill, no pedal edema, normal range of motion Neurologic/Psych: rectification printer II-XII nml as tested, no motor/sensory deficits, alert, normal mood/affect, oriented x 3 Skin: normal color Lymphatic: no adenopathy Diagnostics Laboratory Results Results Past 24 Hours Test 04/04/17 06:10 04/04/17 06:31 04/04/17 07:04 04/04/17 07:41 Range/Units White Blood Count 14.81 4.8-10.8 K/uL Red Blood Count 3.98 4.2-5.4 M/uL Hemoglobin 10.9 12.0-16.0 g/dL Hematocrit 34.7 37-47 % Mean Corpuscular Volume 87.2 80-100 fL Mean Corpuscular Hemoglobin 27.4 25-34 pg Mean Corpuscular Hemoglobin Concent 31.4 32-36 g/dl Platelet Count 234 130-400 K/uL Mean Platelet Volume 9.7 7.4-10.4 fL RDW Standard Deviation 52.5 36.4-46.3 fL RDW Coefficient of Variation 16.5 11.5-14.5 % Neutrophils % (Manual) 79.8 % Lymphocytes % (Manual) 9.6 % Monocytes % (Manual) 5.3 % Eosinophils % (Manual) 4.4 % Basophils % (Manual) 0.9 % Neutrophils # (Manual) 11.82 1.4-6.5 K/uL Total Absolute Neutrophils 11.82 1.4-6.5 K/uL Lymphocytes # (Manual) 1.42 1.2-3.4 K/uL Total Absolute Lymphocytes 1.42 1.2-3.4 K/uL Monocytes # (Manual) 0.78 0.11-0.59 K/uL Eosinophils # (Manual) 0.65 0-0.5 K/uL Basophils # (Manual) 0.13 0-0.2 K/uL Stomatocytes 1+ Prothrombin Time 9.8 9.0-12.0 SECONDS Prothromb Time International Ratio 0.9 0.9-1.1 Activated Partial Thromboplast Time 22.2 21.0-31.0 SECONDS Partial Thromboplastin Ratio 0.9 Sodium Level 139 136-145 mmol/L Potassium Level 3.2 3.5-5.1 mmol/L Chloride Level 98 98-107 mmol/L Carbon Dioxide Level 34 21-32 mmol/L Anion Gap 7.0 3-11 mmol/L Blood Urea Nitrogen 8 7-18 mg/dl Creatinine 0.74 0.60-1.20 mg/dl Est Creatinine Clear Calc Drug Dose 72.9 ml/min Estimated GFR () 97.8 Estimated GFR (Non- 84.4 BUN/Creatinine Ratio 11.1 10-20 Random Glucose 113 70-99 mg/dl Calcium Level 9.6 8.5-10.1 mg/dl Magnesium Level 1.9 1.8-2.4 mg/dl Total Creatine Kinase 42 26-192 U/L Creatine Kinase MB 0.8 0.5-3.6 ng/ml Creatine Kinase MB Ratio 1.9 0-3.0 Troponin I 0.040 0-0.045 ng/ml Bedside Glucose 103 70-90 mg/dl Bedside Lactic Acid Venous 1.72 0.90-1.70 mmol/L Test 04/04/17 09:07 Range/Units Microbiology Results 04/04/17 Blood Culture, Received Pending 04/04/17 Blood Culture, Received Pending Diagnostic Radiology CT OF THE HEAD WITHOUT CONTRAST CLINICAL HISTORY: severe headache/ facial droop COMPARISON STUDY: Head CT September 14, 2016. CT DOSE: 537.48 mGy.cm TECHNIQUE: Helical axial images of the head were obtained without IV contrast. Automated exposure control was utilized for the study. A dose lowering technique was utilized adhering to the principles of ALARA. FINDINGS: No acute intracranial hemorrhage, midline shift or mass effect is present. Ventricular system is normal. Basilar cisterns are patent. There are no extra-axial collections. Angulo-white differentiation is maintained. There are no findings to suggest acute dural sinus thrombosis or acute territorial infarct. There is a suspected left maxillary sinus mucous retention cyst. There are no significant calvarial abnormalities. IMPRESSION: No acute intracranial findings. CHEST ONE VIEW PORTABLE CLINICAL HISTORY: Stroke COMPARISON STUDY: Chest radiograph and chest CT March 11, 2017. FINDINGS: Postoperative findings within the right hemithorax are noted. There are right-sided rib deformities. Diffuse interstitial thickening suggests interstitial lung disease. Right upper lung airspace opacity has developed. No consolidation within the left lung is noted. There is no pneumothorax or pleural effusion. Cardiomediastinal silhouette is stable. IMPRESSION: Mild right upper lung airspace opacity which may reflect pneumonia or asymmetric edema superimposed upon interstitial lung disease. EKG Sinus tachycardia Possible Left atrial enlargement Nonspecific ST and T wave abnormality Impression Assessment and Plan This is a 67 year old female with an extensive pulmonary history which includes severe COPD/emphysema, interstitial lung disease/pulmonary fibrosis, hx. 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 of chemo, hx. of lung cancer patient was just discharged in late February 2017 with a pneumonia, presents back with R sided pneumonia denies any choking episodes or difficulty swallowing will need broad spectrum antibiotics due to multiple recent admission will start Cefepime + Vancomycin for now blood cultures pending meets sepsis criteria - tachycardia, elevated respiratory rate, leukocytosis Combined COPD and Interstitial Lung Disease due to significant dyspnea, will start IV Solu-medrol 60mg q8 adding Protonix for GI prophylaxis she can get nebulizers (Xopenex-Ipratropium) as needed consulted pulmonology for further input to note: she states she uses Combivent, but only uses one puff in the AM; would benefit from QID dosing Rheumatoid Arthritis methotrexate stopped last month would continue prednisone 10mg daily (once tapered as above) and Plaquenil 200mg HS outpatient rheumatology follow-up HTN blood pressure is labile, due to infection monitor and adjust meds accordingly DVT ppx Lovenox DNR ADDENDUM: Patient's rapid flu came back positive for Influenza B started on Tamiflu spoke with pulmonology - changed Cefepime to Levaquin can d/c Vanco if MRSA swab negative VTE Prophylaxis VTE Risk Assessment Done? Y/N: Yes Risk Level: High
[2017-04-04] MEDS ORDERED: KETOROLAC TROMETHAMINE 15 MG/ML VIAL IV. STA (11:26)
[2017-04-04 11:57] LABS: INFLUENZA B ANTIGEN POS for Influ B (NEG)
--- NOTE | 2017-04-04 12:23 | Pharmacy Progress Note ---
Pharmacy Antibiotic Consult Date of Service: Apr 04, 2017. Pharmacy Dosing Scope Pharmacy is consulted to initiate vancomycin IV dosing therapy, order appropriate labs and adjust drug dose/frequency. Subjective The patient is a 67 year old female admitted on Apr 04, 2017 at 09:18. Objective Height (Feet): 5 Height (Inches): 2.00 Weight (Kilograms): 79.300 Lab Results (24hrs): Test 04/04/17 06:10 04/04/17 06:31 04/04/17 07:41 04/04/17 10:56 White Blood Count 14.81 K/uL (4.8-10.8) Red Blood Count 3.98 M/uL (4.2-5.4) Hemoglobin 10.9 g/dL (12.0-16.0) Hematocrit 34.7 % (37-47) Mean Corpuscular Volume 87.2 fL (80-100) Mean Corpuscular Hemoglobin 27.4 pg (25-34) Mean Corpuscular Hemoglobin Concent 31.4 g/dl (32-36) Platelet Count 234 K/uL (130-400) Mean Platelet Volume 9.7 fL (7.4-10.4) RDW Standard Deviation 52.5 fL (36.4-46.3) RDW Coefficient of Variation 16.5 % (11.5-14.5) Neutrophils % (Manual) 79.8 % Lymphocytes % (Manual) 9.6 % Monocytes % (Manual) 5.3 % Eosinophils % (Manual) 4.4 % Basophils % (Manual) 0.9 % Neutrophils # (Manual) 11.82 K/uL (1.4-6.5) Total Absolute Neutrophils 11.82 K/uL (1.4-6.5) Lymphocytes # (Manual) 1.42 K/uL (1.2-3.4) Total Absolute Lymphocytes 1.42 K/uL (1.2-3.4) Monocytes # (Manual) 0.78 K/uL (0.11-0.59) Eosinophils # (Manual) 0.65 K/uL (0-0.5) Basophils # (Manual) 0.13 K/uL (0-0.2) Stomatocytes 1+ Prothrombin Time 9.8 SECONDS (9.0-12.0) Prothromb Time International Ratio 0.9 (0.9-1.1) Activated Partial Thromboplast Time 22.2 SECONDS (21.0-31.0) Partial Thromboplastin Ratio 0.9 Sodium Level 139 mmol/L (136-145) Potassium Level 3.2 mmol/L (3.5-5.1) Chloride Level 98 mmol/L (98-107) Carbon Dioxide Level 34 mmol/L (21-32) Anion Gap 7.0 mmol/L (3-11) Blood Urea Nitrogen 8 mg/dl (7-18) Creatinine 0.74 mg/dl (0.60-1.20) Est Creatinine Clear Calc Drug Dose 72.9 ml/min Estimated GFR () 97.8 Estimated GFR (Non- 84.4 BUN/Creatinine Ratio 11.1 (10-20) Random Glucose 113 mg/dl (70-99) Calcium Level 9.6 mg/dl (8.5-10.1) Magnesium Level 1.9 mg/dl (1.8-2.4) Total Creatine Kinase 42 U/L (26-192) Creatine Kinase MB 0.8 ng/ml (0.5-3.6) Creatine Kinase MB Ratio 1.9 (0-3.0) Troponin I 0.040 ng/ml (0-0.045) Procalcitonin 0.06 ng/ml (0-0.5) Bedside Glucose 103 mg/dl (70-90) Bedside Lactic Acid Venous 1.72 mmol/L (0.90-1.70) Influenza Type A Antigen Neg for Influ A (NEG) Influenza Type B Antigen POS for Influ B (NEG) Assessment & Plan Patient with evidence of pneumonia started empirically on vancomycin and cefepime. The patient was last here in late January for a COPD exacerbation and received broad spectrum antibiotics. Loading dose: 1750 mg IV X 1 dose then: 1000 mg IV every 14 hours. Goal trough level estimate: between 15 - 20 mcg/mL. Peak and trough or random level has been ordered for: @0630. Pharmacy will continue to follow and will adjust dose/frequency as necessary. Thank you
[2017-04-04] MEDS ORDERED: VANCOMYCIN INJ 1,750 MG in SODIUM CHLORIDE 0.9% 500ML 500 ML IV ONE (12:30)
[2017-04-04] MEDS ORDERED: OSELTAMIVIR PHOSPHATE 75 MG CAP PO STA (12:32)
[2017-04-04] MEDS ORDERED: IPRATROPIUM BROMIDE NEB SOLN 0.02% 2.5 ML VIAL INH ONE (12:45)
[2017-04-04] MEDS ORDERED: LEVALBUTEROL 0.63MG/3 ML NEB INH ONE (12:45)
[2017-04-04] MEDS ORDERED: CEFEPIME IV 2,000 MG in SYRINGE 7.5 ML IV SCH (14:00)
[2017-04-04] MEDS: IPRATROPIUM BROMIDE NEB SOLN 0.02% 2.5 ML VIAL INH SCH ×2 (14:34→18:59)
[2017-04-04] MEDS: LEVALBUTEROL 0.63MG/3 ML NEB INH SCH ×2 (14:35→18:59)
--- NOTE | 2017-04-04 14:55 | Pulmonary Consultation ---
History General Date of Service: Apr 04, 2017. Stated Complaint: Chronic Respiratory Failure W/Hypoxia,Copd,Hcap HPI The patient is a 67 year old female who presents to [facility] with complaints of Chronic Respiratory Failure W/Hypoxia,Copd,Hcap. The patient's primary care provider is Sharonda Sheikh D.O.. 67-year-old female admitted with acute on chronic respiratory insufficiency with a positive influenza B antigen study. 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 Patient was discharged from the [facility] after exacerbation of her underlying interstitial lung disease with associated pneumonia and was treated from 03/11/2017 through 03/14/2017 and sent home on a steroid taper. She noted she was doing very well at that time was back to her baseline but subsequently over the last 2-3 days has experienced myalgias, [place] some chills as well as associated increasing dyspnea on exertion. In the emergency room her saturations were notably 86% on her baseline 4-5 L nasal cannula. Current workup Influenza B antigen positive Lactic acid venous: Elevated 1.72 WBC: 15K Pro calcitonin: 0.06 EKG: Sinus tachycardia, rate 112 Chest x-ray: Chronic bilateral interstitial changes with increased infiltrate in the right upper lobe MRSA nasal swab: Pending Blood culture 2: Pending Previous workup ABG (10/02/16) 7.39/48/90/28 VBG: (03/11/17) 7.44/52 corrected to 7.48/43 Current medications 1.Flonase nasal spray 2.Vancomycin 3.Cefepime 2 g every 8 hours 4.Pantoprazole 40 mg 5.Tamiflu 6.Enoxaparin 40 mg 7.Solu-Medrol 60 mg every 8 hours 8.Xopenex/Atrovent nebulizer Active Problems 1. ILD (10mg of prednisone daily) 2. Moderately differentiated squamous cell carcinoma of the lung (T2b,N1,M0) Status post resection Chemotherapy: Cisplatin and gemcitabine 3. Latent tuberculosis: At secondary hepatitis with INH treatment 4. Rheumatoid Arthritis--treated with methotrexate (previously on Enbrel), recently started on Plaquenil 5. Rhinitis 6. COPD 7. Pulmonary hypertension/Cor [place] 8. 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 Osteoporosis 10. Hyperlipidemia 11. Iron deficiency anemia Past surgical history 1. RLL & RML resection 04/19/2015 2. 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 Aspirin EC 81 MG Oral Tablet Delayed Release; TAKE 1 TABLET DAILY; 2. Atorvastatin Calcium 10 MG Oral Tablet; TAKE 1 TABLET DAILY; 3. Baclofen 10 MG Oral Tablet; TAKE 1 TABLET Twice daily PRN; 4. Calcium 600-200 MG-UNIT Oral Tablet; TAKE 2 TABLET Daily; 5. Dexamethasone 4 MG Oral Tablet; Take 5 tablets on the night prior to each 6. Hydrocodone-Acetaminophen 5-325 MG Oral Tablet; TAKE 1 TABLET 7. Iron TABS; 8. Pantoprazole Sodium 40 MG Oral Tablet Delayed Release; Take 1 tablet 9. PredniSONE 5 MG Oral Tablet; TAKE 8 TABLETS DAILY (20mg) 10. Prochlorperazine Maleate 10 MG Oral Tablet; TAKE 1 TABLET EVERY 6 11. Toprol XL 50 MG Oral Tablet Extended Release 24 Hour (Metoprolol 12. Vitamin D3 1000 UNIT Oral Capsule; TAKE 5 CAPSULES BY MOUTH DAILY; 13. Zofran 8 MG Oral Tablet (Ondansetron HCl); TAKE 1 TABLET Every 8 hours Allergies 1. Azithromycin TABS 2. Codeine Derivatives 3. iodine 4. Simvastatin TABS 5. TraMADol HCl TABS Review of Systems Constitutional: reports: malaise, weakness Eyes: reports: no symptoms ENT: reports: no symptoms Cardiovascular: reports: no symptoms Respiratory: reports: as stated in HPI Gastrointestinal: reports: no symptoms Genitourinary - Female: reports: no symptoms Musculoskeletal: reports: myalgias Integumentary: reports: no symptoms Neurologic: reports: headache Psychiatric: reports: no symptoms Endocrine: no symptoms Hematologic / Lymphatic: no symptoms Allergic / Immunologic: no symptoms Past Medical History Past Medical History: Please refer to HPI Past Surgical History: Please refer to HPI Family History Cancer Diabetes mellitus Gallbladder disease Heart disease MOTHER ([place] in 70s) Hypertension Kidney disease Kidney stones Lung disease Seizures Please refer to HPI Social History Please refer to HPI Hx Tobacco Use In Past Year?: No Smoking Status: Former Smoker Marital status: Housing status: lives with significant other Occupational Status: unemployed Allergies Coded Allergies: Azithromycin (Verified Allergy, Intermediate, RASH, 02/10/17) Iodinated Diagnostic Agents (Verified Allergy, Intermediate, Chills/Hives/ Vomiting, 02/10/17) Tramadol (Verified Allergy, Intermediate, RASH, 02/10/17) Codeine (Verified Adverse Reaction, Intermediate, Hallucinations, 02/10/17 ) Simvastatin (Verified Adverse Reaction, Intermediate, rash, 02/10/17) Current Medications Reported Home Medications Medications Dose Route/Sig Max Daily Dose Days Date Category Dose Instructions Combivent Respimat (Ipratropium-Albuterol) 1 Aer Aer 1 Puffs INH DAILY 04/04/17 Reported Ipratropium [place] 0.5 Mg/2.5 Ml Nebu 0.5 Mg INH QID PRN 04/04/17 Reported Levalbuterol Hcl 1.25 Mg/3 Ml Neb 1.25 Mg INH Q6H PRN 04/04/17 Reported Plaquenil (Hydroxychloroquine Sulfate) 200 Mg Tab 200 Mg PO HS 04/04/17 Reported Flonase Allergy Relief (Fluticasone Propionate (Nasal)) 50 Mcg/Act Spr 2 Sprays KELVIN DAILY 04/04/17 Reported Ventolin Hfa (Albuterol) 200 Puffs/57782 Mcg Aers 2 Puffs INH Q4H PRN 04/04/17 Reported Prednisone 20 Mg Tab 20 Mg PO UD 28 03/14/17 Rx prednisone 60 mg daily x 2 days 40 mg daily x 2 days 30 mg daily x 2 days 20 mg daily x 2 days 10mg continuously Tessalon Perles (Benzonatate) 100 Mg Cap 100 Mg PO TID PRN 02/09/17 Reported Folvite (Folic Acid) 1 Mg Tab 1 Mg PO DAILY 02/09/17 Reported Fosamax+D 70MG/2800 Iu (Alendronate Sodium/Vitamin D3) 70 Mg Tab 1 Tablet PO WK 09/14/16 Reported WEDNESDAY Lasix (Furosemide) 40 Mg Tab 40 Mg PO DAILY 03/18/16 Reported Vitamin D3 (Cholecalciferol) 1,000 Unit Tab 5,000 Units PO DAILY 01/21/16 Reported Calcium + D (Calcium Carbonate-Vitamin D) 1 Tab Tab 2 Tabs PO DAILY 01/21/16 Reported [place] 5MG/325MG (Acetaminophen/Hydrocodone Bitart) Tab 1 Tablet PO TID PRN 01/21/16 Reported PRN PAIN Lipitor (Atorvastatin Calcium) 10 Mg Tab 10 Mg PO HS 06/20/15 Reported Aspirin 81 (Aspirin) 81 Mg Tab 81 Mg PO QAM 11/06/13 Reported Toprol Xl (Metoprolol Succinate) 50 Mg Tabcr 50 Mg PO QAM 11/06/13 Reported Physical Physical Exam Vital Signs: Date Time Temp Pulse Resp B/P (MAP) Pulse Ox O2 Delivery O2 Flow Rate FiO2 04/04/17 13:08 85 18 97 Nasal Cannula 5.0 04/04/17 12:00 Oxymask 8.0 04/04/17 12:00 36.8 91 18 115/74 (88) 96 04/04/17 10:51 36.9 99 35 115/74 (88) 96 Oxymask 15.0 04/04/17 09:58 96 30 101/63 93 04/04/17 09:08 95 Mask 5.0 04/04/17 08:33 107 30 97/61 95 Oxymask 5.0 04/04/17 07:38 112 30 123/69 92 Oxymask 5.0 04/04/17 06:56 116 32 142/99 98 Oxymask 6.0 04/04/17 06:53 100 Oxymask 6.0 04/04/17 06:05 115 04/04/17 05:57 93 Nasal Cannula 4.0 04/04/17 05:57 37.2 111 30 160/88 92 Nasal Cannula 4.0 04/04/17 05:57 92 Nasal Cannula 4.0 04/04/17 05:56 86 Nasal Cannula 4.0 General Appearance: severe distress Head: NORMOCEPHALIC, ATRAUMATIC Eyes: PERRLA, NO DISCHARGE, EOMI, SCLERAE NORMAL ENT: NORMAL EAR EXAM, NORMAL NASAL EXAM, NORMAL MOUTH EXAM, NORMAL THROAT EXAM Neck: NORMAL RANGE OF MOTION, NO TENDERNESS, TRACHEA MIDLINE, NO STRIDOR Respiratory: other (Decreased breath sounds with some inspiratory Velcro rales and expiratory wheezing appreciated) Cardiovasular: REGULAR RATE/RHYTHM, NORMAL S1S2, NO M/G/R Abdomen: NON TENDER, NORMAL BOWEL SOUNDS, NO REBOUND, NO MASSES, NO GUARDING Genitourinary - Female: EXTERNAL GENITALIA NORMAL Back: NORMAL INSPECTION, NO MIDLINE TENDERNESS, NO CVA TENDERNESS, NO PARAVERTEBRAL TTP Upper Extremities: other (Right hand with notable fourth through fifth digit with subluxation) Lower Extremities: edema Edema: Bilateral LE (1+) Pulses: carotid (R) (1+), carotid (L) (1+), posterior tibial (R), posterior tibial (L) (2+) Neuro: ALERT, ORIENTED x 3, NORMAL MOTOR EXAM, NORMAL SENSATION Reflexes: biceps (R) (2+), bicpes (L) (2+), achilles (R) (2+), achilles (L) (2+ ) Babinski Testing: right (downgoing), left (downgoing) Psychiatric: NORMAL AFFECT, NO SUICIDAL IDEATION Diagnostics Labs Results Past 24 Hours Test 04/04/17 06:10 04/04/17 06:31 04/04/17 07:41 04/04/17 10:56 Range/Units White Blood Count 14.81 4.8-10.8 K/uL Red Blood Count 3.98 4.2-5.4 M/uL Hemoglobin 10.9 12.0-16.0 g/dL Hematocrit 34.7 37-47 % Mean Corpuscular Volume 87.2 80-100 fL Mean Corpuscular Hemoglobin 27.4 25-34 pg Mean Corpuscular Hemoglobin Concent 31.4 32-36 g/dl Platelet Count 234 130-400 K/uL Mean Platelet Volume 9.7 7.4-10.4 fL RDW Standard Deviation 52.5 36.4-46.3 fL RDW Coefficient of Variation 16.5 11.5-14.5 % Neutrophils % (Manual) 79.8 % Lymphocytes % (Manual) 9.6 % Monocytes % (Manual) 5.3 % Eosinophils % (Manual) 4.4 % Basophils % (Manual) 0.9 % Neutrophils # (Manual) 11.82 1.4-6.5 K/uL Total Absolute Neutrophils 11.82 1.4-6.5 K/uL Lymphocytes # (Manual) 1.42 1.2-3.4 K/uL Total Absolute Lymphocytes 1.42 1.2-3.4 K/uL Monocytes # (Manual) 0.78 0.11-0.59 K/uL Eosinophils # (Manual) 0.65 0-0.5 K/uL Basophils # (Manual) 0.13 0-0.2 K/uL Stomatocytes 1+ Prothrombin Time 9.8 9.0-12.0 SECONDS Prothromb Time International Ratio 0.9 0.9-1.1 Activated Partial Thromboplast Time 22.2 21.0-31.0 SECONDS Partial Thromboplastin Ratio 0.9 Sodium Level 139 136-145 mmol/L Potassium Level 3.2 3.5-5.1 mmol/L Chloride Level 98 98-107 mmol/L Carbon Dioxide Level 34 21-32 mmol/L Anion Gap 7.0 3-11 mmol/L Blood Urea Nitrogen 8 7-18 mg/dl Creatinine 0.74 0.60-1.20 mg/dl Est Creatinine Clear Calc Drug Dose 72.9 ml/min Estimated GFR () 97.8 Estimated GFR (Non- 84.4 BUN/Creatinine Ratio 11.1 10-20 Random Glucose 113 70-99 mg/dl Calcium Level 9.6 8.5-10.1 mg/dl Magnesium Level 1.9 1.8-2.4 mg/dl Total Creatine Kinase 42 26-192 U/L Creatine Kinase MB 0.8 0.5-3.6 ng/ml Creatine Kinase MB Ratio 1.9 0-3.0 Troponin I 0.040 0-0.045 ng/ml Procalcitonin 0.06 0-0.5 ng/ml Bedside Glucose 103 70-90 mg/dl Bedside Lactic Acid Venous 1.72 0.90-1.70 mmol/L Influenza Type A Antigen Neg for Influ A NEG Influenza Type B Antigen POS for Influ B NEG Microbiology Results 04/04/17 Blood Culture, Received Pending 04/04/17 Blood Culture, Received Pending 04/04/17 MRSA DNA Surveillance Screen - Final, Complete Specimen Negative for MRSA by DNA Probe Diagnostic Radiology Please refer to HPI EKG Please refer to HPI Impression Assessment and Plan 67-year-old female with acute on chronic respiratory insufficiency and positive influenza B antigen: 1. Acute hypoxemia: The patient's acute hypoxemia is most likely secondary to influenza and she is currently being treated with Tamiflu and oxygen supplementation. If the patient becomes more hypoxic I suggest we move forward to a high flow oxygen system. There is a small possibility the patient could have a secondary bacterial pneumonia as her pro-calcitonin is minimally elevated. I will switch the patient over to levofloxacin 750 mg for better atypical coverage and continue with the vancomycin does meet standards for hospital associated pneumonia. I would discontinue the vancomycin if her nasal swab for MRSA is negative. I also believe continuing her current steroid dosing is appropriate. 2. ILD: There is no definitive diagnosis for the patient's underlying ILD. There are multiple possible etiologies such as rheumatoid arthritis, augustine based therapy for lung cancer, methotrexate, and even UIP. At this time we will increase the patient's steroids and continue oxygen supplementation. It would be helpful to have the pathologic reports from the [facility] to help better define the patient's ILD status. If she does have UIP then further workup with pulmonary function studies to determine her DLCO level and if greater than 35% she would be a candidate for a tyrosine kinase inhibitor. 3. Lung cancer: Patient had a poorly differentiated adenocarcinoma stage IIb status post resection and chemotherapy. At this time the patient is too sick for any type of evaluation but as an outpatient she will need to follow either the ACCP or NCCN guidelines for chronic monitoring.
[2017-04-04] MEDS: ENOXAPARIN 40 MG/0.4 ML SYR SC SCH (16:24)
[2017-04-04] MEDS: METHYLPREDNISOLONE IV 60 MG in SYRINGE 0 ML IV SCH (16:24)
[2017-04-04] MEDS: ATORVASTATIN 10 MG TAB PO SCH (21:18)
[2017-04-04] MEDS: PANTOprazole INJ 40 MG in SYRINGE 0 ML IV SCH (21:18)
[2017-04-04] MEDS: HYDROXYCHLOROQUINE SULFATE 200 MG TAB PO SCH (21:19)
[2017-04-04] MEDS: OSELTAMIVIR PHOSPHATE 75 MG CAP PO SCH (21:19)
[2017-04-04] MEDS: HYDROCODONE/ACETAMIN 5/325MG TAB PO PRN (21:34)
[2017-04-05] VITALS (12 sets, daily range): BP systolic 109–133; BP diastolic 55–77; PULSE 82–98; TEMP 36.4–36.8; O2SAT 93–100
[2017-04-05] MEDS: METHYLPREDNISOLONE IV 60 MG in SYRINGE 0 ML IV SCH ×2 (00:30→07:52)
[2017-04-05] MEDS: LEVALBUTEROL 0.63MG/3 ML NEB INH SCH ×4 (01:49→19:11)
[2017-04-05] MEDS: IPRATROPIUM BROMIDE NEB SOLN 0.02% 2.5 ML VIAL INH SCH ×4 (01:49→19:11)
[2017-04-05] MEDS ORDERED: VANCOMYCIN INJ 1,000 MG in SODIUM CHLORIDE 0.9% 250ML 250 ML IV SCH (03:00)
[2017-04-05 05:58] LABS: CREATININE 0.79 mg/dl (0.60-1.20)
[2017-04-05] MEDS: FLUTICASONE PROPIONATE NA SPR 16 GM BTL NAE SCH (07:52)
[2017-04-05] MEDS: LEVOFLOXACIN / D5W 750 MG in PREMIXED IN D5W 150 ML IV SCH (07:52)
[2017-04-05] MEDS: OSELTAMIVIR PHOSPHATE 75 MG CAP PO SCH ×2 (07:53→21:16)
[2017-04-05] MEDS: ASPIRIN 81 MG ECTAB PO SCH (07:53)
[2017-04-05] MEDS: FUROSEMIDE 40 MG TAB PO SCH (07:53)
[2017-04-05] MEDS: METOPROLOL SUCC 50MG EXT REL TAB PO SCH (07:53)
--- NOTE | 2017-04-05 08:59 | Clinical Documentation Query ---
CLINICAL DOCUMENTATION QUERY A 67 year old female with an extensive pulmonary history which includes severe COPD/emphysema, interstitial lung disease/pulmonary fibrosis, hx. 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 In your clinical opinion is this patient being managed for: ( ) Chronic obstructive pulmonary disease with acute exacerbation (X ) Not Agree ( ) Other explanation of clinical findings (Please Explain) ( ) Unable to determine (Please Define) ( ) Need to Discuss The medical record reflects the following clinical findings, treatment, and risk factors. Clinical Indicators: As above Treatment: O2, Solu-Medrol IV, Atrovent/Albuterol HHN, Pulmonary consult Risk Factors: Influenza, pneumonia, lung cancer Please clarify and document your clinical opinion in the progress notes and discharge summary. Terms such as "probable", "suspected", "likely", "questionable", "possible", or "still to be ruled out" are acceptable. IF IN AGREEMENT, YOU MUST DOCUMENT ABOVE DIAGNOSTIC STATEMENT IN DAILY PROGRESS NOTES AND DISCHARGE SUMMARY. This document is not part of the patient's record. Thank You, Mary Liu RN [phone]
[2017-04-05] MEDS: PANTOprazole INJ 40 MG in SYRINGE 0 ML IV SCH (11:05)
--- NOTE | 2017-04-05 11:18 | Progress Note ---
Subjective Date of Service: Apr 05, 2017. Subjective Pt evaluation today including: conversation w/ patient, physical exam, lab review, review of studies, review of inpatient medication list Saw/examined the patient in room 203 Problem List Medical Problems: (1) Acute electrocardiogram changes Status: Acute (2) COPD exacerbation Status: Acute (3) Cough Status: Acute (4) Emphysema of lung Status: Acute (5) Fall Status: Acute (6) Head contusion Status: Acute (7) History of COPD Status: Acute (8) History of lung cancer Status: Acute (9) Hypoxia Status: Acute (10) Hypoxia Status: Acute (11) Nosebleed Status: Acute (12) PNA (pneumonia) Status: Acute (13) Pneumonia Status: Acute (14) Pneumonia involving right lung Status: Acute (15) Pulmonary fibrosis Status: Acute (16) Respiratory distress Status: Acute Social History Problems: (1) Metabolic syndrome Status: Chronic Review of Systems Constitutional: + weakness, No fever, No chills Respiratory: + cough, + shortness of breath, + dyspnea on exertion, + dyspnea at rest, No sputum, No wheezing, No hemoptysis Cardiac: No chest pain, No edema, No palpitations Abdomen: No pain, No nausea, No vomiting, No diarrhea Medications Current Inpatient Medications Medications (Trade) Dose Ordered Sig/Silvia Route Start Time Stop Time Status Last Admin Dose Admin Enoxaparin Sodium (Lovenox Inj) 40 mg Q24H SC 04/04/17 18:00 05/04/17 17:59 04/04/17 16:24 40 MG Acetaminophen (Tylenol Tab) 650 mg Q4H PRN PO 04/04/17 09:15 05/04/17 09:14 Ondansetron HCl (Zofran Inj) 4 mg Q6H PRN IV 04/04/17 09:15 05/04/17 09:14 Miscellaneous Information (Consult) 1 ea UD PRN N/A 04/04/17 09:15 05/04/17 09:14 Methylprednisolone Sodium Succinate 60 mg/Syringe 0.96 ml @ 1.5 mls/min Q8H IV 04/04/17 16:00 05/04/17 15:59 04/05/17 07:52 1.5 MLS/MIN Morphine Sulfate (MoRPHine SULFATE INJ) 1 mg Q4 PRN IV 04/04/17 09:15 04/18/17 09:14 Aspirin (Ecotrin Tab) 81 mg QAM PO 04/05/17 09:00 05/05/17 08:59 04/05/17 07:53 81 MG Atorvastatin Calcium (Lipitor Tab) 10 mg HS PO 04/04/17 21:00 05/04/17 20:59 04/04/17 21:18 10 MG Benzonatate (Tessalon Perles Cap) 100 mg TID PRN PO 04/04/17 09:15 05/04/17 09:14 Fluticasone Propionate (Flonase Nasal [place]) 2 sprays DAILY KELVIN 04/05/17 09:00 05/05/17 08:59 Folic Acid (Folvite Tab) 1 mg DAILY PO 04/05/17 09:00 05/05/17 08:59 04/05/17 07:53 1 MG Furosemide (Lasix Tab) 40 mg DAILY PO 04/05/17 09:00 05/05/17 08:59 04/05/17 07:53 40 MG Acetaminophen/ Hydrocodone Bitart ([place] 5/325 Tab) 1 tab TID PRN PO 04/04/17 09:15 04/18/17 09:14 04/04/17 21:34 1 TAB Hydroxychloroquine Sulfate (Plaquenil Tab) 200 mg HS PO 04/04/17 21:00 05/04/17 20:59 04/04/17 21:19 200 MG Ipratropium [place] (Atrovent 0.02% 0.5MG/2.5ML Neb) 0.5 mg QID PRN INH 04/04/17 09:15 05/04/17 09:14 Levalbuterol (Xopenex 1.25MG/ 3ML Neb) 1.25 mg Q6H PRN INH 04/04/17 09:15 05/04/17 09:14 Metoprolol Succinate (Toprol Xl Tab) 50 mg QAM PO 04/05/17 09:00 05/05/17 08:59 04/05/17 07:53 50 MG Pantoprazole Sodium 40 mg/ Syringe 10 ml @ 5 mls/min DAILY@11 IV 04/04/17 21:00 05/04/17 20:59 04/04/17 21:18 5 MLS/MIN Vancomycin HCl 1000 mg/Sodium Chloride 270 ml @ 125 mls/hr Q14H IV 04/05/17 03:00 04/12/17 02:59 04/05/17 02:52 125 MLS/HR Ipratropium [place] (Atrovent 0.02% 0.5MG/2.5ML Neb) 0.5 mg Q6R INH 04/04/17 15:00 05/04/17 14:59 04/05/17 06:56 0.5 MG Levalbuterol (Xopenex 0.63 Mg/ 3 Ml Neb) 0.63 mg Q6R INH 04/04/17 15:00 05/04/17 14:59 04/05/17 06:56 0.63 MG Oseltamivir Phosphate (Tamiflu Cap) 75 mg BID PO 04/04/17 21:00 04/08/17 21:01 04/05/17 07:53 75 MG Levofloxacin 750 mg/Prmx 150 ml @ 100 mls/hr QAM IV 04/05/17 09:00 04/11/17 08:59 04/05/17 07:52 100 MLS/HR Objective Vital Signs Date Time Temp Pulse Resp B/P (MAP) Pulse Ox O2 Delivery O2 Flow Rate FiO2 04/05/17 08:06 36.5 91 19 116/77 (90) 98 04/05/17 06:56 89 18 100 Nasal Cannula 5.0 04/05/17 04:01 94 Nasal Cannula 5.0 04/05/17 04:00 94 Nasal Cannula 5.0 04/05/17 02:51 36.4 98 26 133/76 (95) 95 Nasal Cannula 5.0 04/05/17 01:50 83 18 99 Nasal Cannula 5.0 04/04/17 23:59 94 Nasal Cannula 5.0 04/04/17 23:11 36.8 92 18 98/62 (74) 98 Nasal Cannula 5.0 04/04/17 20:00 Nasal Cannula 5.0 04/04/17 19:35 36.7 96 21 96/65 (75) 95 Nasal Cannula 5.0 04/04/17 19:01 84 18 96 Nasal Cannula 5.0 04/04/17 16:00 Nasal Cannula 6.0 Oxymask 04/04/17 14:50 36.6 92 22 103/66 (78) 96 Nasal Cannula 7.0 04/04/17 14:37 87 18 96 Nasal Cannula 5.0 04/04/17 13:08 85 18 97 Nasal Cannula 5.0 04/04/17 12:00 Oxymask 8.0 04/04/17 12:00 36.8 91 18 115/74 (88) 96 Physical Exam General Appearance: + moderate distress (moderate respiratory distress; cannot complete full sentences without getting short of breath) Respiratory/Chest: + respiratory distress, + decreased breath sounds, + accessory muscle use, + pertinent finding (no wheezing, no rhonchi) Cardiovascular: regular rate, rhythm, no edema, no murmur Extremities: normal inspection, no pedal edema Neurologic/Psychiatric: no motor/sensory deficits, alert, normal mood/affect Laboratory Results Last 24 Hours Test 04/04/17 10:56 04/05/17 04:47 Influenza Type A Antigen Neg for Influ A Influenza Type B Antigen POS for Influ B Creatinine 0.79 mg/dl Est Creatinine Clear Calc Drug Dose 67.3 ml/min Estimated GFR () 90.4 Estimated GFR (Non- 78.0 Assessment and Plan This is a 67 year old female with an extensive pulmonary history which includes severe COPD/emphysema, interstitial lung disease/pulmonary fibrosis, hx. 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 Acute on Chronic Hypoxic Respiratory Failure 04/05 Patient continues to be significantly short of breath currently on 5L O2 via NC at rest, but continues to have air hunger, using accessory muscles, cannot complete full sentences requiring oxymask with any type of exertion 04/04 patient uses 4L of O2 at rest and 6L of O2 with exertion at all times she presented with significant air hunger, dyspnea, hypoxia on 4L of O2 via NC currently switched to an oxymask which is working better to keep her O2 sats >90 % secondary to multiple factors: pneumonia, COPD, interstitial lung disease she would prefer to avoid bipap if possible she is a DNI and does not want to be intubated/mechanically ventilated Sepsis secondary to HCAP 04/05 appreciate pulmonology input changing Cefepime + Vancomcyin to just Levaquin to cover atypical organisms will do Levaquin x5 days total 04/04 patient has multiple risk factors for pneumonia immunosuppression from previous methotrexate use, which was just stopped in late February 2017 hx. of chemo, hx. of lung cancer patient was just discharged in late February 2017 with a pneumonia, presents back with R sided pneumonia denies any choking episodes or difficulty swallowing will need broad spectrum antibiotics due to multiple recent admission will start Cefepime + Vancomycin for now blood cultures pending meets sepsis criteria - tachycardia, elevated respiratory rate, leukocytosis Influenza B positive patient on Tamiflu; will require 5 days total Combined COPD and Interstitial Lung Disease 04/05 currently on high dose of IV solu-medrol 60mg q8 add Protonix continue nebulizers adding Magnesium 04/04 due to significant dyspnea, will start IV Solu-medrol 60mg q8 adding Protonix for GI prophylaxis she can get nebulizers (Xopenex-Ipratropium) as needed consulted pulmonology for further input to note: she states she uses Combivent, but only uses one puff in the AM; would benefit from QID dosing Rheumatoid Arthritis methotrexate stopped last month would continue prednisone 10mg daily (once tapered as above) and Plaquenil 200mg HS outpatient rheumatology follow-up HTN blood pressure is labile, due to infection monitor and adjust meds accordingly DVT ppx Lovenox DNR ADDENDUM: Patient's rapid flu came back positive for Influenza B started on Tamiflu spoke with pulmonology - changed Cefepime to Levaquin can d/c Vanco if MRSA swab negative
[2017-04-05] MEDS ORDERED: MAGNESIUM SULFATE 1GM / D5W 1 GM in PREMIXED IN D5W 100 ML IV ONE (11:30)
[2017-04-05] MEDS ORDERED: FUROSEMIDE INJ 20 MG in SYRINGE 0 ML IV ONE (11:30)
[2017-04-05] MEDS ORDERED: POTASSIUM CHLORIDE 20 MEQ TABCR PO ONE (11:45)
[2017-04-05 12:14] LABS: HEMATOCRIT 30.9 % (37-47); HEMOGLOBIN 9.8 g/dL (12.0-16.0); MEAN CELL VOLUME 86.8 fL (80-100); MEAN CORPUSCULAR HEMOGLOBIN 27.5 pg (25-34); MEAN CORPUSCULAR HGB CONC 31.7 g/dl (32-36); MEAN PLATELET VOLUME 9.7 fL (7.4-10.4); PLATELET COUNT 255 K/uL (130-400); RED CELL DISTRIBUTION WIDTH CV 16.3 % (11.5-14.5); RED CELL DISTRIBUTION WIDTH SD 51.9 fL (36.4-46.3); WHITE BLOOD COUNT 17.09 K/uL (4.8-10.8)
[2017-04-05 12:56] LABS: CALCIUM 9.6 mg/dl (8.5-10.1); CREATININE 0.82 mg/dl (0.60-1.20); POTASSIUM 3.8 mmol/L (3.5-5.1)
--- NOTE | 2017-04-05 13:25 | DIAGNOSTIC IMAGING REPORT ---
CHEST ONE VIEW PORTABLE CLINICAL HISTORY: Chronic respiratory failure. Evaluate for pneumonia. COMPARISON STUDY: Chest CT T the 2017 and chest radiograph April 04, 2017. FINDINGS: Postoperative findings within the right hemithorax are noted. Diffuse interstitial thickening is chronic. Right upper lung airspace opacity shown on prior exam is less conspicuous on this study. No pneumothorax or pleural effusion is noted. Cardiomegaly is unchanged. IMPRESSION: Interval decrease in conspicuity of the right upper lung airspace opacity since prior exam. Persistent interstitial thickening which suggests interstitial lung disease with pulmonary fibrosis. Electronically signed by: Nicolas Garcia M.D. 04/05/2017 1:24 PM Dictated Date/Time: 04/05/2017 1:21 PM
--- NOTE | 2017-04-05 15:27 | Pulmonology Progress Note ---
Pulmonary Progress Note Date of Service Apr 05, 2017. Attending Dr. Royal Subjective The patient continued to have shortness of breath, no chest pain was reported, cough has been occasional. The patient using oxygen at 5 L nasal cannula per minute. No events occurred overnight. Objective In review of her records, the patient had a CAT scan of the chest which revealed UIP with honeycombing in the dorsum of the lower lobe. Findings are consistent with pulmonary fibrosis rather than just COPD. Which explains the need for higher level of oxygenation. On 04/05/2017, physical exam revealed vital signs are stable with O2 sat 92% at rest. Bilateral diffuse crackles. Heart examination S1-S2 regular rate and rhythm. No edema. Assessment & Plan #1 UIP. In exacerbation. #2 chronic hypoxic respiratory failure secondary to #1. #3 history of lung CA status post right lower and right middle lobe lobectomy. #4 influenza bronchitis. 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 #6 history of latent tuberculosis treated with INH and resulted in transaminitis. Not currently treated. Plan: #1 discontinue vancomycin. #2 continue with Levaquin. #3 agree with prednisone twice a day and taper to a maintenance dose. #4 the patient would benefit from kinase inhibitors versus anti-fibroblast therapy. This can be arranged as an outpatient. #5 current bronchodilators. Discussed with the staff on rounds and details. Thank you, will follow. Data Medications: Current Inpatient Medications Medications (Trade) Dose Ordered Sig/Silvia Route Start Time Stop Time Status Last Admin Dose Admin Enoxaparin Sodium (Lovenox Inj) 40 mg Q24H SC 04/04/17 18:00 05/04/17 17:59 04/04/17 16:24 40 MG Acetaminophen (Tylenol Tab) 650 mg Q4H PRN PO 04/04/17 09:15 05/04/17 09:14 Ondansetron HCl (Zofran Inj) 4 mg Q6H PRN IV 04/04/17 09:15 05/04/17 09:14 Methylprednisolone Sodium Succinate 60 mg/Syringe 0.96 ml @ 1.5 mls/min Q8H IV 04/04/17 16:00 05/04/17 15:59 04/05/17 07:52 1.5 MLS/MIN Morphine Sulfate (MoRPHine SULFATE INJ) 1 mg Q4 PRN IV 04/04/17 09:15 3/4/18 09:14 Aspirin (Ecotrin Tab) 81 mg QAM PO 04/05/17 09:00 05/05/17 08:59 04/05/17 07:53 81 MG Atorvastatin Calcium (Lipitor Tab) 10 mg HS PO 04/04/17 21:00 05/04/17 20:59 04/04/17 21:18 10 MG Benzonatate (Tessalon Perles Cap) 100 mg TID PRN PO 04/04/17 09:15 05/04/17 09:14 Fluticasone Propionate (Flonase Nasal [place]) 2 sprays DAILY KELVIN 04/05/17 09:00 05/05/17 08:59 Folic Acid (Folvite Tab) 1 mg DAILY PO 04/05/17 09:00 05/05/17 08:59 04/05/17 07:53 1 MG Furosemide (Lasix Tab) 40 mg DAILY PO 04/05/17 09:00 05/05/17 08:59 04/05/17 07:53 40 MG Acetaminophen/ Hydrocodone Bitart ([place] 5/325 Tab) 1 tab TID PRN PO 04/04/17 09:15 04/18/17 09:14 04/04/17 21:34 1 TAB Hydroxychloroquine Sulfate (Plaquenil Tab) 200 mg HS PO 04/04/17 21:00 05/04/17 20:59 04/04/17 21:19 200 MG Ipratropium [place] (Atrovent 0.02% 0.5MG/2.5ML Neb) 0.5 mg QID PRN INH 04/04/17 09:15 05/04/17 09:14 Levalbuterol (Xopenex 1.25MG/ 3ML Neb) 1.25 mg Q6H PRN INH 04/04/17 09:15 05/04/17 09:14 Metoprolol Succinate (Toprol Xl Tab) 50 mg QAM PO 04/05/17 09:00 05/05/17 08:59 04/05/17 07:53 50 MG Pantoprazole Sodium 40 mg/ Syringe 10 ml @ 5 mls/min DAILY@11 IV 04/04/17 21:00 05/04/17 20:59 04/05/17 11:05 5 MLS/MIN Ipratropium [place] (Atrovent 0.02% 0.5MG/2.5ML Neb) 0.5 mg Q6R INH 04/04/17 15:00 05/04/17 14:59 04/05/17 14:23 0.5 MG Levalbuterol (Xopenex 0.63 Mg/ 3 Ml Neb) 0.63 mg Q6R INH 04/04/17 15:00 05/04/17 14:59 04/05/17 14:23 0.63 MG Oseltamivir Phosphate (Tamiflu Cap) 75 mg BID PO 04/04/17 21:00 04/08/17 21:01 04/05/17 07:53 75 MG Levofloxacin 750 mg/Prmx 150 ml @ 100 mls/hr QAM IV 04/05/17 09:00 04/11/17 08:59 04/05/17 07:52 100 MLS/HR I & O: 24-Hour Column 04/06/17 08:00 Intake Total 1034 ml Output Total 975 ml Balance 59 ml Vital Signs: Date Time Temp Pulse Resp B/P (MAP) Pulse Ox O2 Delivery O2 Flow Rate FiO2 04/05/17 14:23 82 18 97 Nasal Cannula 5.0 04/05/17 12:00 Nasal Cannula 5.0 04/05/17 11:38 36.6 88 20 127/66 (86) 93 Nasal Cannula 5.0 04/05/17 08:06 36.5 91 19 116/77 (90) 98 04/05/17 08:00 Nasal Cannula 5.0 04/05/17 06:56 89 18 100 Nasal Cannula 5.0 04/05/17 04:01 94 Nasal Cannula 5.0 04/05/17 04:00 94 Nasal Cannula 5.0 04/05/17 02:51 36.4 98 26 133/76 (95) 95 Nasal Cannula 5.0 04/05/17 01:50 83 18 99 Nasal Cannula 5.0 04/04/17 23:59 94 Nasal Cannula 5.0 04/04/17 23:11 36.8 92 18 98/62 (74) 98 Nasal Cannula 5.0 04/04/17 20:00 Nasal Cannula 5.0 04/04/17 19:35 36.7 96 21 96/65 (75) 95 Nasal Cannula 5.0 04/04/17 19:01 84 18 96 Nasal Cannula 5.0 04/04/17 16:00 Nasal Cannula 6.0 Oxymask Laboratory Results: Last 24 Hours Test 04/05/17 04:47 04/05/17 11:34 Creatinine 0.79 mg/dl 0.82 mg/dl Est Creatinine Clear Calc Drug Dose 67.3 ml/min 65.1 ml/min Estimated GFR () 90.4 86.4 Estimated GFR (Non- 78.0 74.6 White Blood Count 17.09 K/uL Red Blood Count 3.56 M/uL Hemoglobin 9.8 g/dL Hematocrit 30.9 % Mean Corpuscular Volume 86.8 fL Mean Corpuscular Hemoglobin 27.5 pg Mean Corpuscular Hemoglobin Concent 31.7 g/dl RDW Standard Deviation 51.9 fL RDW Coefficient of Variation 16.3 % Platelet Count 255 K/uL Mean Platelet Volume 9.7 fL Sodium Level 137 mmol/L Potassium Level 3.8 mmol/L Chloride Level 100 mmol/L Carbon Dioxide Level 30 mmol/L Anion Gap 7.0 mmol/L Blood Urea Nitrogen 13 mg/dl BUN/Creatinine Ratio 15.7 Random Glucose 99 mg/dl Calcium Level 9.6 mg/dl Magnesium Level 2.3 mg/dl
[2017-04-05] MEDS: ENOXAPARIN 40 MG/0.4 ML SYR SC SCH (17:27)
[2017-04-05] MEDS: HYDROCODONE/ACETAMIN 5/325MG TAB PO PRN (21:14)
[2017-04-05] MEDS: HYDROXYCHLOROQUINE SULFATE 200 MG TAB PO SCH (21:16)
[2017-04-05] MEDS: ATORVASTATIN 10 MG TAB PO SCH (21:16)
[2017-04-06] VITALS (10 sets, daily range): BP systolic 109–115; BP diastolic 49–76; PULSE 74–99; TEMP 36.4–37; O2SAT 95–100
[2017-04-06] MEDS: IPRATROPIUM BROMIDE NEB SOLN 0.02% 2.5 ML VIAL INH SCH ×4 (01:59→19:20)
[2017-04-06] MEDS: LEVALBUTEROL 0.63MG/3 ML NEB INH SCH ×4 (01:59→19:20)
[2017-04-06] MEDS ORDERED: LORAZEPAM 0.5 MG TAB ONE (02:16)
[2017-04-06] MEDS ORDERED: LORAZEPAM 0.5 MG TAB PO STA ×2 (02:24→20:54)
[2017-04-06] MEDS ORDERED: VANCOMYCIN TROUGH ONE (06:30)
[2017-04-06 07:16] LABS: CREATININE 0.93 mg/dl (0.60-1.20)
[2017-04-06] MEDS: FLUTICASONE PROPIONATE NA SPR 16 GM BTL NAE SCH (08:29)
[2017-04-06] MEDS: OSELTAMIVIR PHOSPHATE 75 MG CAP PO SCH ×2 (08:29→21:23)
[2017-04-06] MEDS: ASPIRIN 81 MG ECTAB PO SCH (08:29)
[2017-04-06] MEDS: FUROSEMIDE 40 MG TAB PO SCH (08:29)
[2017-04-06] MEDS: METOPROLOL SUCC 50MG EXT REL TAB PO SCH (08:29)
[2017-04-06] MEDS: LEVOFLOXACIN / D5W 750 MG in PREMIXED IN D5W 150 ML IV SCH (08:29)
[2017-04-06] MEDS ORDERED: NURSING VERBAL MED ORDER ONE (08:30)
[2017-04-06] MEDS: PANTOprazole SOD 40 MG TAB PO SCH (09:48)
--- NOTE | 2017-04-06 16:50 | Pulmonology Progress Note ---
Pulmonary Progress Note Date of Service Apr 06, 2017. Attending Dr. Royal Subjective The patient feels better, she denies any increased shortness of breath, no cough and no sputum production. She was and bleeding from the bed to the chair. She did not have any chest pain no events overnight. She tolerated bridging her to oral steroids. Objective In review of her records, the patient had a CAT scan of the chest which revealed UIP with honeycombing in the dorsum of the lower lobe. Findings are consistent with pulmonary fibrosis rather than just COPD. Which explains the need for higher level of oxygenation. On 04/05/2017, physical exam revealed vital signs are stable with O2 sat 92% at rest. Bilateral diffuse crackles. Heart examination S1-S2 regular rate and rhythm. No edema. On 04/06/2017, the patient physical exam revealed stable vital signs, her O2 saturation remains at 94% on 4 L, diffuse scattered Velcro-type crackles, heart examination S1 and S2, no edema. Her labs also were reviewed. Assessment & Plan #1 UIP. In exacerbation. #2 chronic hypoxic respiratory failure secondary to #1. #3 history of lung CA status post right lower and right middle lobe lobectomy. #4 influenza bronchitis. 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 #6 history of latent tuberculosis treated with INH and resulted in transaminitis. Not currently treated. Plan: #1 discontinue vancomycin. #2 continue with Levaquin. Continue with therapy for 7 days total. #3 agree with prednisone twice a day and taper to a maintenance dose. I will taper her steroids for a prolonged period of time until she reaches her maintenance dose and I will drop it by 10 mg every third day per dose. #4 the patient would benefit from kinase inhibitors versus anti-fibroblast therapy. 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 This can be arranged as an outpatient. #5 current bronchodilators. Thank you, will follow. Data Medications: Current Inpatient Medications Medications (Trade) Dose Ordered Sig/Silvia Route Start Time Stop Time Status Last Admin Dose Admin Enoxaparin Sodium (Lovenox Inj) 40 mg Q24H SC 04/04/17 18:00 05/04/17 17:59 04/05/17 17:27 40 MG Acetaminophen (Tylenol Tab) 650 mg Q4H PRN PO 04/04/17 09:15 3/20/18 09:14 Ondansetron HCl (Zofran Inj) 4 mg Q6H PRN IV 04/04/17 09:15 05/04/17 09:14 Morphine Sulfate (MoRPHine SULFATE INJ) 1 mg Q4 PRN IV 04/04/17 09:15 04/18/17 09:14 Aspirin (Ecotrin Tab) 81 mg QAM PO 04/05/17 09:00 05/05/17 08:59 04/06/17 08:29 81 MG Atorvastatin Calcium (Lipitor Tab) 10 mg HS PO 04/04/17 21:00 05/04/17 20:59 04/05/17 21:16 10 MG Benzonatate (Tessalon Perles Cap) 100 mg TID PRN PO 04/04/17 09:15 05/04/17 09:14 Fluticasone Propionate (Flonase Nasal [place]) 2 sprays DAILY KELVIN 04/05/17 09:00 05/05/17 08:59 Folic Acid (Folvite Tab) 1 mg DAILY PO 04/05/17 09:00 05/05/17 08:59 04/06/17 08:29 1 MG Furosemide (Lasix Tab) 40 mg DAILY PO 04/05/17 09:00 05/05/17 08:59 04/06/17 08:29 40 MG Acetaminophen/ Hydrocodone Bitart ([place] 5/325 Tab) 1 tab TID PRN PO 04/04/17 09:15 04/18/17 09:14 04/05/17 21:14 1 TAB Hydroxychloroquine Sulfate (Plaquenil Tab) 200 mg HS PO 04/04/17 21:00 05/04/17 20:59 04/05/17 21:16 200 MG Ipratropium [place] (Atrovent 0.02% 0.5MG/2.5ML Neb) 0.5 mg QID PRN INH 04/04/17 09:15 05/04/17 09:14 Levalbuterol (Xopenex 1.25MG/ 3ML Neb) 1.25 mg Q6H PRN INH 04/04/17 09:15 05/04/17 09:14 Metoprolol Succinate (Toprol Xl Tab) 50 mg QAM PO 04/05/17 09:00 05/05/17 08:59 04/06/17 08:29 50 MG Ipratropium [place] (Atrovent 0.02% 0.5MG/2.5ML Neb) 0.5 mg Q6R INH 04/04/17 15:00 05/04/17 14:59 04/06/17 14:15 0.5 MG Levalbuterol (Xopenex 0.63 Mg/ 3 Ml Neb) 0.63 mg Q6R INH 04/04/17 15:00 05/04/17 14:59 04/06/17 14:15 0.63 MG Oseltamivir Phosphate (Tamiflu Cap) 75 mg BID PO 04/04/17 21:00 04/08/17 21:01 04/06/17 08:29 75 MG Levofloxacin 750 mg/Prmx 150 ml @ 100 mls/hr QAM IV 04/05/17 09:00 04/11/17 08:59 04/06/17 08:29 100 MLS/HR Prednisone (PredniSONE TAB) 40 mg BID PO 04/05/17 21:00 05/05/17 20:59 04/06/17 08:30 40 MG Pantoprazole Sodium (Protonix Tab) 40 mg QAM PO 04/06/17 09:00 05/06/17 08:59 04/06/17 09:48 40 MG I & O: 24-Hour Column 04/07/17 07:59 Intake Total 1050 ml Balance 1050 ml Vital Signs: Date Time Temp Pulse Resp B/P (MAP) Pulse Ox O2 Delivery O2 Flow Rate FiO2 04/06/17 15:35 36.7 86 19 115/63 (80) 95 Nasal Cannula 4.0 04/06/17 14:15 74 16 98 Nasal Cannula 4.0 04/06/17 12:00 Nasal Cannula 4.0 04/06/17 11:31 36.4 89 20 109/68 (82) 95 Nasal Cannula 4.0 04/06/17 08:00 Nasal Cannula 4.0 04/06/17 07:18 36.8 88 22 110/71 (84) 97 Nasal Cannula 4.0 04/06/17 07:07 86 18 96 Nasal Cannula 4.0 04/06/17 04:00 Nasal Cannula 5.0 Oxymask 04/06/17 03:33 36.7 87 16 112/59 (76) 100 Nasal Cannula 4.0 04/06/17 02:01 99 20 98 Nasal Cannula 4.0 04/06/17 00:01 Nasal Cannula 5.0 Oxymask 04/05/17 23:31 36.6 93 18 109/58 (75) 98 Nasal Cannula 4.0 04/05/17 20:31 36.8 89 16 112/70 (84) 95 Nasal Cannula 4.0 04/05/17 20:00 Nasal Cannula 5.0 Oxymask 04/05/17 19:13 86 18 97 Nasal Cannula 4.0 Laboratory Results: Last 24 Hours Test 04/06/17 06:02 Creatinine 0.93 mg/dl Est Creatinine Clear Calc Drug Dose 57.1 ml/min Estimated GFR () 74.2 Estimated GFR (Non- 64.0
[2017-04-06] MEDS: ENOXAPARIN 40 MG/0.4 ML SYR SC SCH (18:23)
--- NOTE | 2017-04-06 18:55 | Progress Note ---
Internal Med Progress Note Date of Service: Apr 06, 2017. Provider Documentation: SUBJECTIVE: sitting on the chair comfortably says sob and cough better afebrile no nausea eating ok denies any complaints OBJECTIVE: Vital Signs-as noted below Exam: General-alert and oriented. Not in distress ENT-normal hearing Neck-no neck masses Lungs-cta b/l no wheezing or crackles Heart-s1 and s2 heard regular rate and rhythm no murmurs Abdomen-soft bowel sounds present non tender no distension Extremities-trace pedal edema no erythema Neuro-alert and awake moves extremities Lab data as noted below. ASSESSMENT & PLAN: This is a 67 year old female with an extensive pulmonary history which includes severe COPD/emphysema, interstitial lung disease/pulmonary fibrosis, hx. 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 Acute on Chronic Hypoxic Respiratory Failure patient uses 4L of O2 at rest and 6L of O2 with exertion at all times ILD flare influenza positive possible pneumonia on Tamiflu and Levaquin pulmonary on board and appreciate inputs Sepsis secondary to HCAP initially received Cefepime + Vancomcyin to just Levaquin to cover atypical organisms will do Levaquin x7 days total Influenza B positive patient on Tamiflu; will require 5 days total Combined COPD and Interstitial Lung Disease received high dose of IV solu-medrol 60mg q8 currently on prednisone 40mg bid, nebs and inhalers long taper to home dose as per pulmonary currently seems stable continue to monitor Rheumatoid Arthritis methotrexate stopped last month would continue prednisone 10mg daily (once tapered as above) and Plaquenil 200mg HS outpatient rheumatology follow-up HTN on Lopressor will monitor. DVT ppx Lovenox DNR disposition monitor in tele' to be determined Vital Signs: Date Time Temp Pulse Resp B/P (MAP) Pulse Ox O2 Delivery O2 Flow Rate FiO2 04/06/17 16:00 Nasal Cannula 4.0 04/06/17 15:35 36.7 86 19 115/63 (80) 95 Nasal Cannula 4.0 04/06/17 14:15 74 16 98 Nasal Cannula 4.0 04/06/17 12:00 Nasal Cannula 4.0 04/06/17 11:31 36.4 89 20 109/68 (82) 95 Nasal Cannula 4.0 04/06/17 08:00 Nasal Cannula 4.0 04/06/17 07:18 36.8 88 22 110/71 (84) 97 Nasal Cannula 4.0 04/06/17 07:07 86 18 96 Nasal Cannula 4.0 04/06/17 04:00 Nasal Cannula 5.0 Oxymask 04/06/17 03:33 36.7 87 16 112/59 (76) 100 Nasal Cannula 4.0 04/06/17 02:01 99 20 98 Nasal Cannula 4.0 04/06/17 00:01 Nasal Cannula 5.0 Oxymask 04/05/17 23:31 36.6 93 18 109/58 (75) 98 Nasal Cannula 4.0 04/05/17 20:31 36.8 89 16 112/70 (84) 95 Nasal Cannula 4.0 04/05/17 20:00 Nasal Cannula 5.0 Oxymask 04/05/17 19:13 86 18 97 Nasal Cannula 4.0 Lab Results: Results Past 24 Hours Test 04/06/17 06:02 Range/Units Creatinine 0.93 0.60-1.20 mg/dl Est Creatinine Clear Calc Drug Dose 57.1 ml/min Estimated GFR () 74.2 Estimated GFR (Non- 64.0
[2017-04-06] MEDS: HYDROXYCHLOROQUINE SULFATE 200 MG TAB PO SCH (21:23)
[2017-04-06] MEDS: ATORVASTATIN 10 MG TAB PO SCH (21:24)
[2017-04-07] VITALS (11 sets, daily range): BP systolic 106–138; BP diastolic 63–76; PULSE 68–98; TEMP 36.5–37; O2SAT 92–98
[2017-04-07] MEDS: LEVALBUTEROL 0.63MG/3 ML NEB INH SCH ×4 (01:40→19:45)
[2017-04-07] MEDS: IPRATROPIUM BROMIDE NEB SOLN 0.02% 2.5 ML VIAL INH SCH ×4 (01:40→19:45)
[2017-04-07 08:13] LABS: HEMATOCRIT 31.3 % (37-47); MEAN CELL VOLUME 86.2 fL (80-100); MEAN CORPUSCULAR HEMOGLOBIN 27.5 pg (25-34); MEAN CORPUSCULAR HGB CONC 31.9 g/dl (32-36); MEAN PLATELET VOLUME 9.9 fL (7.4-10.4); PLATELET COUNT 291 K/uL (130-400); RED CELL DISTRIBUTION WIDTH CV 16.4 % (11.5-14.5); RED CELL DISTRIBUTION WIDTH SD 52.1 fL (36.4-46.3); WHITE BLOOD COUNT 12.56 K/uL (4.8-10.8)
[2017-04-07] MEDS: FUROSEMIDE 40 MG TAB PO SCH (08:42)
[2017-04-07] MEDS: PANTOprazole SOD 40 MG TAB PO SCH (08:42)
[2017-04-07] MEDS: OSELTAMIVIR PHOSPHATE 75 MG CAP PO SCH ×2 (08:42→20:18)
[2017-04-07] MEDS: ASPIRIN 81 MG ECTAB PO SCH (08:42)
[2017-04-07] MEDS: FLUTICASONE PROPIONATE NA SPR 16 GM BTL NAE SCH (08:43)
[2017-04-07] MEDS: METOPROLOL SUCC 50MG EXT REL TAB PO SCH (08:43)
[2017-04-07] MEDS: LEVOFLOXACIN / D5W 750 MG in PREMIXED IN D5W 150 ML IV SCH (08:43)
[2017-04-07 08:47] LABS: CREATININE 0.89 mg/dl (0.60-1.20)
--- NOTE | 2017-04-07 13:59 | Pulmonology Progress Note ---
Pulmonary Progress Note Date of Service Apr 07, 2017. Attending Dr. Royal Subjective The patient clinically is improving, her shortness of breath is less, she is tolerating moderate exercise walking around the bed, no chest pain was reported no increased swelling in her lower extremity is. No events overnight. Objective In review of her records, the patient had a CAT scan of the chest which revealed UIP with honeycombing in the dorsum of the lower lobe. Findings are consistent with pulmonary fibrosis rather than just COPD. Which explains the need for higher level of oxygenation. On 04/05/2017, physical exam revealed vital signs are stable with O2 sat 92% at rest. Bilateral diffuse crackles. Heart examination S1-S2 regular rate and rhythm. No edema. On 04/06/2017, the patient physical exam revealed stable vital signs, her O2 saturation remains at 94% on 4 L, diffuse scattered Velcro-type crackles, heart examination S1 and S2, no edema. Her labs also were reviewed. On 04/07/2017, the patient physical exam revealed stable vital signs, O2 saturation is 95% on 4 L, at rest only, Velcro type crackles left greater than right, S1-S2 regular rate and rhythm, data has been reviewed and other notes has been reviewed personally. Assessment & Plan #1 UIP. In exacerbation. #2 chronic hypoxic respiratory failure secondary to #1. #3 history of lung CA status post right lower and right middle lobe lobectomy. #4 influenza bronchitis. 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 #6 history of latent tuberculosis treated with INH and resulted in transaminitis. Not currently treated. Plan: #1 discontinue vancomycin. #2 continue with Levaquin for 7 days. #3 agree with prednisone twice a day and taper to a maintenance dose. I will taper her steroids for a prolonged period of time until she reaches her maintenance dose and I will drop it by 10 mg every third day per dose. #4 the patient would benefit from kinase inhibitors versus anti-fibroblast therapy. 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 This can be arranged as an outpatient. #5 current bronchodilators. #6 no further recommendations from primary standpoint. #7 the patient does have physical therapy at home. She is not interested in inpatient pulmonary. #8 at this point will follow the patient on when necessary basis. Thank you for your kind referral. Thank you, will follow. Data Medications: Current Inpatient Medications Medications (Trade) Dose Ordered Sig/Silvia Route Start Time Stop Time Status Last Admin Dose Admin Enoxaparin Sodium (Lovenox Inj) 40 mg Q24H SC 04/04/17 18:00 05/04/17 17:59 04/06/17 18:23 40 MG Acetaminophen (Tylenol Tab) 650 mg Q4H PRN PO 04/04/17 09:15 05/04/17 09:14 Ondansetron HCl (Zofran Inj) 4 mg Q6H PRN IV 04/04/17 09:15 05/04/17 09:14 Morphine Sulfate (MoRPHine SULFATE INJ) 1 mg Q4 PRN IV 04/04/17 09:15 04/18/17 09:14 Aspirin (Ecotrin Tab) 81 mg QAM PO 04/05/17 09:00 05/05/17 08:59 04/07/17 08:42 81 MG Atorvastatin Calcium (Lipitor Tab) 10 mg HS PO 04/04/17 21:00 05/04/17 20:59 04/06/17 21:24 10 MG Benzonatate (Tessalon Perles Cap) 100 mg TID PRN PO 04/04/17 09:15 05/04/17 09:14 04/06/17 21:24 100 MG Fluticasone Propionate (Flonase Nasal [place]) 2 sprays DAILY KELVIN 04/05/17 09:00 05/05/17 08:59 04/07/17 08:43 2 SPRAYS Folic Acid (Folvite Tab) 1 mg DAILY PO 04/05/17 09:00 05/05/17 08:59 04/07/17 08:42 1 MG Furosemide (Lasix Tab) 40 mg DAILY PO 04/05/17 09:00 05/05/17 08:59 04/07/17 08:42 40 MG Acetaminophen/ Hydrocodone Bitart ([place] 5/325 Tab) 1 tab TID PRN PO 04/04/17 09:15 04/18/17 09:14 04/05/17 21:14 1 TAB Hydroxychloroquine Sulfate (Plaquenil Tab) 200 mg HS PO 04/04/17 21:00 05/04/17 20:59 04/06/17 21:23 200 MG Ipratropium [place] (Atrovent 0.02% 0.5MG/2.5ML Neb) 0.5 mg QID PRN INH 04/04/17 09:15 05/04/17 09:14 Levalbuterol (Xopenex 1.25MG/ 3ML Neb) 1.25 mg Q6H PRN INH 04/04/17 09:15 05/04/17 09:14 Metoprolol Succinate (Toprol Xl Tab) 50 mg QAM PO 04/05/17 09:00 05/05/17 08:59 04/07/17 08:43 50 MG Ipratropium [place] (Atrovent 0.02% 0.5MG/2.5ML Neb) 0.5 mg Q6R INH 04/04/17 15:00 05/04/17 14:59 04/07/17 06:58 0.5 MG Levalbuterol (Xopenex 0.63 Mg/ 3 Ml Neb) 0.63 mg Q6R INH 04/04/17 15:00 05/04/17 14:59 04/07/17 06:58 0.63 MG Oseltamivir Phosphate (Tamiflu Cap) 75 mg BID PO 04/04/17 21:00 04/08/17 21:01 04/07/17 08:42 75 MG Levofloxacin 750 mg/Prmx 150 ml @ 100 mls/hr QAM IV 04/05/17 09:00 04/11/17 08:59 04/07/17 08:43 100 MLS/HR Prednisone (PredniSONE TAB) 40 mg BID PO 04/05/17 21:00 05/05/17 20:59 04/07/17 08:43 40 MG Pantoprazole Sodium (Protonix Tab) 40 mg QAM PO 04/06/17 09:00 05/06/17 08:59 04/07/17 08:42 40 MG Vital Signs: Date Time Temp Pulse Resp B/P (MAP) Pulse Ox O2 Delivery O2 Flow Rate FiO2 04/07/17 12:00 93 Nasal Cannula 1.0 04/07/17 11:39 36.8 95 16 130/71 (90) 95 04/07/17 08:00 Nasal Cannula 4.0 04/07/17 07:49 37.0 68 16 138/76 (96) 95 04/07/17 07:02 84 16 95 Nasal Cannula 4.0 04/07/17 04:00 Nasal Cannula 4.0 04/07/17 03:21 36.9 84 18 122/63 (82) 98 Nasal Cannula 4.0 04/07/17 01:40 93 16 98 Nasal Cannula 4.0 04/07/17 00:00 Nasal Cannula 4.0 04/06/17 23:36 37.0 90 18 112/49 (70) 97 Nasal Cannula 4.0 04/06/17 20:18 36.7 79 20 113/76 (88) 97 Nasal Cannula 4.0 04/06/17 20:00 Nasal Cannula 4.0 04/06/17 19:20 79 16 97 Nasal Cannula 4.0 04/06/17 16:00 Nasal Cannula 4.0 04/06/17 15:35 36.7 86 19 115/63 (80) 95 Nasal Cannula 4.0 04/06/17 14:15 74 16 98 Nasal Cannula 4.0 Laboratory Results: Last 24 Hours Test 04/07/17 07:36 White Blood Count 12.56 K/uL Red Blood Count 3.63 M/uL Hemoglobin 10.0 g/dL Hematocrit 31.3 % Mean Corpuscular Volume 86.2 fL Mean Corpuscular Hemoglobin 27.5 pg Mean Corpuscular Hemoglobin Concent 31.9 g/dl RDW Standard Deviation 52.1 fL RDW Coefficient of Variation 16.4 % Platelet Count 291 K/uL Mean Platelet Volume 9.9 fL Creatinine 0.89 mg/dl Est Creatinine Clear Calc Drug Dose 59.7 ml/min Estimated GFR () 78.3 Estimated GFR (Non- 67.5
[2017-04-07] MEDS: ENOXAPARIN 40 MG/0.4 ML SYR SC SCH (17:26)
--- NOTE | 2017-04-07 19:39 | Progress Note ---
Internal Med Progress Note Date of Service: Apr 07, 2017. Provider Documentation: SUBJECTIVE: resting comfortably says sob and cough improving afebrile denies any nausea no chest pain no other complaints OBJECTIVE: Vital Signs-as noted below Exam: General-alert and oriented. Not in distress ENT-normal hearing Neck-no neck masses Lungs-cta b/l no wheezing or crackles Heart-s1 and s2 heard regular rate and rhythm no murmurs Abdomen-soft bowel sounds present non tender no distension Extremities-trace pedal edema no erythema Neuro-alert and awake moves extremities Lab data as noted below. ASSESSMENT & PLAN: This is a 67 year old female with an extensive pulmonary history which includes severe COPD/emphysema, interstitial lung disease/pulmonary fibrosis, hx. 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 Acute on Chronic Hypoxic Respiratory Failure patient uses 4L of O2 at rest and 6L of O2 with exertion at all times ILD flare influenza positive possible pneumonia on Tamiflu and Levaquin pulmonary on board and appreciate inputs improving did ok in pt/ot Sepsis secondary to HCAP initially received Cefepime + Vancomcyin to just Levaquin to cover atypical organisms will do Levaquin x7 days total Influenza B positive patient on Tamiflu; will require 5 days total Combined COPD and Interstitial Lung Disease received high dose of IV solu-medrol 60mg q8 currently on prednisone 40mg bid, nebs and inhalers long taper to home dose as per pulmonary currently seems stable continue to monitor doing ok in pt/ot Rheumatoid Arthritis methotrexate stopped last month would continue prednisone 10mg daily (once tapered as above) and Plaquenil 200mg HS outpatient rheumatology follow-up HTN on Lopressor will monitor. DVT ppx Lovenox DNR disposition monitor in tele' possible d/c in 1-2 days Vital Signs: Date Time Temp Pulse Resp B/P (MAP) Pulse Ox O2 Delivery O2 Flow Rate FiO2 04/07/17 18:56 36.6 78 20 106/71 (83) 97 Nasal Cannula 4.0 04/07/17 16:00 Nasal Cannula 1.0 04/07/17 15:04 36.5 83 20 131/73 (92) 97 Nasal Cannula 4.0 04/07/17 14:07 93 16 96 Nasal Cannula 4.0 04/07/17 13:35 98 92 04/07/17 12:00 93 Nasal Cannula 1.0 04/07/17 11:39 36.8 95 16 130/71 (90) 95 04/07/17 08:00 Nasal Cannula 4.0 04/07/17 07:49 37.0 68 16 138/76 (96) 95 04/07/17 07:02 84 16 95 Nasal Cannula 4.0 04/07/17 04:00 Nasal Cannula 4.0 04/07/17 03:21 36.9 84 18 122/63 (82) 98 Nasal Cannula 4.0 04/07/17 01:40 93 16 98 Nasal Cannula 4.0 04/07/17 00:00 Nasal Cannula 4.0 04/06/17 23:36 37.0 90 18 112/49 (70) 97 Nasal Cannula 4.0 04/06/17 20:18 36.7 79 20 113/76 (88) 97 Nasal Cannula 4.0 04/06/17 20:00 Nasal Cannula 4.0 Lab Results: Results Past 24 Hours Test 04/07/17 07:36 Range/Units White Blood Count 12.56 4.8-10.8 K/uL Red Blood Count 3.63 4.2-5.4 M/uL Hemoglobin 10.0 12.0-16.0 g/dL Hematocrit 31.3 37-47 % Mean Corpuscular Volume 86.2 80-100 fL Mean Corpuscular Hemoglobin 27.5 25-34 pg Mean Corpuscular Hemoglobin Concent 31.9 32-36 g/dl RDW Standard Deviation 52.1 36.4-46.3 fL RDW Coefficient of Variation 16.4 11.5-14.5 % Platelet Count 291 130-400 K/uL Mean Platelet Volume 9.9 7.4-10.4 fL Creatinine 0.89 0.60-1.20 mg/dl Est Creatinine Clear Calc Drug Dose 59.7 ml/min Estimated GFR () 78.3 Estimated GFR (Non- 67.5
[2017-04-07] MEDS: HYDROXYCHLOROQUINE SULFATE 200 MG TAB PO SCH (20:19)
[2017-04-07] MEDS: ATORVASTATIN 10 MG TAB PO SCH (20:19)
[2017-04-07] MEDS ORDERED: LORAZEPAM 0.5 MG TAB PO PRN (21:00)
[2017-04-07] MEDS: HYDROCODONE/ACETAMIN 5/325MG TAB PO PRN (21:19)
[2017-04-08] MEDS: LEVALBUTEROL 0.63MG/3 ML NEB INH SCH ×2 (02:00→07:07)
[2017-04-08] MEDS: IPRATROPIUM BROMIDE NEB SOLN 0.02% 2.5 ML VIAL INH SCH ×2 (02:00→07:07)
[2017-04-08 02:02] VITALS: PULSE 83; O2SAT 97
[2017-04-08 03:33] VITALS: BP 125/70; PULSE 82; TEMP 36.6; O2SAT 97
[2017-04-08 07:07] VITALS: PULSE 90; O2SAT 96
[2017-04-08 07:44] VITALS: BP 130/81; PULSE 87; TEMP 36.6; O2SAT 97
[2017-04-08] MEDS: FLUTICASONE PROPIONATE NA SPR 16 GM BTL NAE SCH (08:12)
[2017-04-08] MEDS: PANTOprazole SOD 40 MG TAB PO SCH (08:14)
[2017-04-08] MEDS: METOPROLOL SUCC 50MG EXT REL TAB PO SCH (08:14)
[2017-04-08] MEDS: LEVOFLOXACIN / D5W 750 MG in PREMIXED IN D5W 150 ML IV SCH (08:14)
[2017-04-08] MEDS: FUROSEMIDE 40 MG TAB PO SCH (08:15)
[2017-04-08] MEDS: ASPIRIN 81 MG ECTAB PO SCH (08:16)
[2017-04-08] MEDS: OSELTAMIVIR PHOSPHATE 75 MG CAP PO SCH (08:16)
[2017-04-08 10:16] VITALS: BP 130/81; PULSE 87; TEMP 36.6; O2SAT 97
[2017-04-08] MEDS ORDERED: LEVO-18 PO (10:24)
[2017-04-08] MEDS ORDERED: TMF75 PO (10:24)
[2017-04-08] MEDS ORDERED: PRED10TA PO (10:24)
--- NOTE | 2017-04-08 10:27 | Discharge Instructions ---
Discharge Instructions Date of Service Apr 08, 2017. Admission Reason for Admission: Chronic Respiratory Failure W/Hypoxia,Copd,Hcap Discharge Discharge Diagnosis / Problem: ACUTE ON CHRONIC RESP FAILURE, INFLUENZA, PNEUMONIA, UIP FLARE Discharge Goals Goal(s): Decrease discomfort, Improve function Activity Recommendations Activity Limitations: resume your previous activity . Instructions / Follow-Up Instructions / Follow-Up FOLLOWUP WITH FAMILY DOCTOR ON Mar AT 2:25PM FOLLOWUP WITH PULMONARY IN 2-3 WEEKS. MAY BENEFIT FROM kinase inhibitors versus anti-fibroblast therapy PER PULMONARY. TO DISCUSS WITH PULMONARY OUT PATIENT Current Hospital Diet Patient's current hospital diet: Regular Diet Discharge Diet Recommended Diet: Regular Diet Pending Studies Studies pending at discharge: no Medical Emergencies . Who to Call and When: Medical Emergencies: If at any time you feel your situation is an emergency, please call 911 immediately. . Non-Emergent Contact Non-Emergency issues call your: Primary Care Provider . . "Provider Documentation" section prepared by Shaq Engel. . VTE Core Measure Inpt VTE Proph given/why not?: Enoxaparin (Lovenox)SQ
--- NOTE | 2017-04-08 13:05 | Progress Note ---
Internal Med Progress Note Date of Service: Apr 08, 2017. Provider Documentation: SUBJECTIVE: AMBULATING OK AT BASELINE SOB AND COUGH AT BASELINE NO CHEST PAIN EATING OK AFEBRILE OK TO GO HOME OBJECTIVE: Vital Signs-as noted below Exam: General-alert and oriented. Not in distress ENT-normal hearing Neck-no neck masses Lungs-cta b/l no wheezing or crackles Heart-s1 and s2 heard regular rate and rhythm no murmurs Abdomen-soft bowel sounds present non tender no distension Extremities-trace pedal edema no erythema Neuro-alert and awake moves extremities Lab data as noted below. ASSESSMENT & PLAN: This is a 67 year old female with an extensive pulmonary history which includes severe COPD/emphysema, interstitial lung disease/pulmonary fibrosis, hx. 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 Acute on Chronic Hypoxic Respiratory Failure patient uses 4L of O2 at rest and 6L of O2 with exertion at all times ILD flare influenza positive possible pneumonia on Tamiflu and Levaquin pulmonary on board and appreciate inputs improving did ok in pt/ot stable to d/c on Tamiflu and Levaquin to complete the course and long prednisone course to maintenance dose Sepsis secondary to HCAP initially received Cefepime + Vancomcyin to just Levaquin to cover atypical organisms will do Levaquin x7 days total Influenza B positive patient on Tamiflu; will require 5 days total Combined COPD and UIP flare received high dose of IV solu-medrol 60mg q8 currently on prednisone 40mg bid, nebs and inhalers long taper to home dose as per pulmonary may benefit from kinase inhibitors versus anti-fibroblast therapy as per pulmonary/ f/u as out patient continue to monitor doing ok in pt/ot f/u with pulmoary Rheumatoid Arthritis methotrexate stopped last month would continue prednisone 10mg daily (once tapered as above) and Plaquenil 200mg HS outpatient rheumatology follow-up HTN on Lopressor will monitor. discharged home Vital Signs: Date Time Temp Pulse Resp B/P (MAP) Pulse Ox O2 Delivery O2 Flow Rate FiO2 04/08/17 10:16 36.6 87 18 97 Room Air 2/22/18 08:00 Nasal Cannula 4.0 04/08/17 07:44 36.6 87 18 130/81 (97) 97 Nasal Cannula 4.0 04/08/17 07:07 90 16 96 Nasal Cannula 4.0 04/08/17 04:00 Nasal Cannula 4.0 04/08/17 03:33 36.6 82 18 125/70 (88) 97 Nasal Cannula 3.0 04/08/17 02:02 83 16 97 Nasal Cannula 4.0 04/07/17 23:59 Nasal Cannula 4.0 04/07/17 20:00 Nasal Cannula 4.0 04/07/17 19:47 74 16 98 Nasal Cannula 4.0 04/07/17 18:56 36.6 78 20 106/71 (83) 97 Nasal Cannula 4.0 04/07/17 16:00 Nasal Cannula 1.0 04/07/17 15:04 36.5 83 20 131/73 (92) 97 Nasal Cannula 4.0 04/07/17 14:07 93 16 96 Nasal Cannula 4.0 04/07/17 13:35 98 92
--- NOTE | 2017-04-08 13:07 | Discharge Summary ---
Discharge Summary Date of Service Apr 08, 2017. 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 CXR: Mild right upper lung airspace opacity which may reflect pneumonia or asymmetric edema superimposed upon interstitial lung disease. Consultations: PULMONARY Medication Reconciliation New Medications: Levofloxacin (Levaquin) 750 Mg Tab 750 MG PO DAILY, #2 TAB Prednisone (Prednisone) 10 Mg Tab 60 MG PO UD, #60 TAB 1 Refill PREDNISONE 60MG PO DAILY X 3 DAYS THEN PREDNISONE 50MG PO DAILY X 3 DAYS THEN PREDNISONE 40MG PO DAILY X 3 DAYS THEN PREDNISONE 30MG PO DAILY X 3 DAYS THEN PREDNISONE 20MG PO DAILY X 3 DAYS THEN PREDNISONE 10MG PO DAILY TO CONTINUE HOME MAINTWENANCE DOSE UNTIL SEEN BY PULMONARY Oseltamivir Phosphate (Tamiflu) 75 Mg Cap 75 MG PO BID, #2 CAP Continued Medications: Albuterol Hfa (Ventolin Hfa) 200 Puffs/83262 Mcg Aers 2 PUFFS INH Q4H PRN for SOB/Wheezing Alendronate/Cholecalciferol (Fosamax+D 70MG/2800 Iu) 70 Mg Tab 1 TABLET PO WK WEDNESDAY Aspirin (Aspirin 81) 81 Mg Tab 81 MG PO QAM Atorvastatin (Lipitor) 10 Mg Tab 10 MG PO HS Benzonatate (Tessalon Perles) 100 Mg Cap 100 MG PO TID PRN for Cough Calcium Carbonate-Vitamin D (Calcium + D) 1 Tab Tab 2 TABS PO DAILY Cholecalciferol (Vitamin D3) 1,000 Unit Tab 5000 UNITS PO DAILY Fluticasone Propionate (Nasal) (Flonase Allergy Relief) 50 Mcg/Act Spr 2 SPRAYS KELVIN DAILY Folic Acid (Folvite) 1 Mg Tab 1 MG PO DAILY Furosemide (Lasix) 40 Mg Tab 40 MG PO DAILY, TAB Hydrocodone/Acetaminophen 5MG/325MG (Ethel 5MG/325MG) Tab 1 TABLET PO TID PRN for Pain, TAB PRN PAIN Hydroxychloroquine Sulfate (Plaquenil) 200 Mg Tab 200 MG PO HS, TAB Ipratropium Roscoe (Ipratropium Roscoe) 0.5 Mg/2.5 Ml Nebu 0.5 MG INH QID PRN for Wheezing Ipratropium-Albuterol (Combivent Respimat) 1 Aer Aer 1 PUFFS INH DAILY, INH Levalbuterol Hcl (Levalbuterol Hcl) 1.25 Mg/3 Ml Neb 1.25 MG INH Q6H PRN for Wheezing Metoprolol Succinate (Toprol Xl) 50 Mg Tabcr 50 MG PO QAM Discontinued Medications: Prednisone (Prednisone) 20 Mg Tab 20 MG PO UD for 28 Days, #21 TABS prednisone 60 mg daily x 2 days 40 mg daily x 2 days 30 mg daily x 2 days 20 mg daily x 2 days 10mg continuously Admission Information HPI (per Admitting provider): This is a 67 year old female with an extensive pulmonary history which includes severe COPD/emphysema, interstitial lung disease/pulmonary fibrosis, hx. 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 She was recently discharged from [facility] on March 14, 2017; also with a pneumonia and worsening COPD. She was doing better at home, was seen by primary care physician at post-hospital discharge appointment and did well. Tapered prednisone back down to her usual 10mg daily dose. Her methotrexate was stopped at previous discharge and she was started on Plaquenil by her corporate relations manager. Yesterday, she felt worse and her son tells me that she seemed worse for about 2 days prior to arrival. She became significantly short of breath and had to come to the ED. In the ED, a CXR was performed and it showed what looked like a superimposed pneumonia on the R side. She was placed on an oxymask with some improvement of her O2 saturations. She was given antibiotics and solu-medrol in the ED. As per ED staff, they noted a possible L sided facial droop. During exam, they noted possibly R sided weakness in the lower extremities. Head CT was then performed but was negative. During my exam, most of her strength had returned equally on all extremities. Physical Exam (per Admitting): General Appearance: + moderate distress, + severe distress (in moderate to severe distress secondary to breathing), + pertinent finding (cannot complete full sentences without getting short of breath, cannot lay flat, turns to find comfortable respiratory position) Head: normocephalic, atraumatic Eyes: normal inspection ENT: hearing grossly normal Neck: supple Respiratory/Chest: no respiratory distress, no accessory muscle use, + decreased breath sounds, + pertinent finding (no wheezing, rhonchi, rales appreciated) Cardiovascular: no edema, no murmur, normal peripheral pulses, + tachycardia Abdomen/GI: normal bowel sounds, non tender, soft Extremities/Musculoskelatal: normal inspection, no calf tenderness, normal capillary refill, no pedal edema, normal range of motion Neurologic/Psych: printed circuit 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 Acute on Chronic Hypoxic Respiratory Failure patient uses 4L of O2 at rest and 6L of O2 with exertion at all times ILD flare influenza positive possible pneumonia on Tamiflu and Levaquin pulmonary on board and appreciate inputs improving did ok in pt/ot stable to d/c on Tamiflu and Levaquin to complete the course and long prednisone course to maintenance dose Sepsis secondary to HCAP initially received Cefepime + Vancomcyin to just Levaquin to cover atypical organisms will do Levaquin x7 days total Influenza B positive patient on Tamiflu; will require 5 days total Combined COPD and UIP flare received high dose of IV solu-medrol 60mg q8 currently on prednisone 40mg bid, nebs and inhalers long taper to home dose as per pulmonary may benefit from kinase inhibitors versus anti-fibroblast therapy as per pulmonary/ f/u as out patient continue to monitor doing ok in pt/ot f/u with pulmoary Rheumatoid Arthritis methotrexate stopped last month would continue prednisone 10mg daily (once tapered as above) and Plaquenil 200mg HS outpatient rheumatology follow-up HTN on Lopressor will monitor. discharged home Total time spent on discharge = 35MINUTES This includes examination of the patient, discharge planning, medication reconciliation, and communication with other providers. Discharge Instructions Discharge Instructions Date of Service Apr 08, 2017. Admission Reason for Admission: Chronic Respiratory Failure W/Hypoxia,Copd,Hcap Discharge Discharge Diagnosis / Problem: ACUTE ON CHRONIC RESP FAILURE, INFLUENZA, PNEUMONIA, UIP FLARE Discharge Goals Goal(s): Decrease discomfort, Improve function Activity Recommendations Activity Limitations: resume your previous activity . Instructions / Follow-Up Instructions / Follow-Up FOLLOWUP WITH FAMILY DOCTOR ON Mar AT 2:25PM FOLLOWUP WITH PULMONARY IN 2-3 WEEKS. MAY BENEFIT FROM kinase inhibitors versus anti-fibroblast therapy PER PULMONARY. TO DISCUSS WITH PULMONARY OUT PATIENT Current Hospital Diet Patient's current hospital diet: Regular Diet Discharge Diet Recommended Diet: Regular Diet Pending Studies Studies pending at discharge: no Medical Emergencies . Who to Call and When: Medical Emergencies: If at any time you feel your situation is an emergency, please call 911 immediately. . Non-Emergent Contact Non-Emergency issues call your: Primary Care Provider . . "Provider Documentation" section prepared by Shaq Engel. . VTE Core Measure Inpt VTE Proph given/why not?: Enoxaparin (Lovenox)SQ
== END 2017-04-08 12:03 | disposition home health service (06) | DRG 871 ==
LOC: EDBD 05:53 → C.EDA 05:54 → C.2E 09:18 → ENRESERV 09:32
PROVIDERS: ADMIT Family Medicine; ATTEND Internal Medicine
DX: A41.9 Sepsis, unspecified organism (principal); J96.21 Acute and chronic respiratory failure with hypoxia; J18.9 Pneumonia, unspecified organism; J10.00 Influenza due to other identified influenza virus with unspecified type of pneumonia; J44.0 Chronic obstructive pulmonary disease with (acute) lower respiratory infection; E78.5 Hyperlipidemia, unspecified; D50.9 Iron deficiency anemia, unspecified; M06.9 Rheumatoid arthritis, unspecified; I10 Essential (primary) hypertension; Z66 Do not resuscitate; Z79.82 Long term (current) use of aspirin; Z79.899 Other long term (current) drug therapy; Z87.891 Personal history of nicotine dependence; Z88.1 Allergy status to other antibiotic agents; Z88.5 Allergy status to narcotic agent; Z91.041 Radiographic dye allergy status; Z99.81 Dependence on supplemental oxygen; Z85.118 Personal history of other malignant neoplasm of bronchus and lung

== ENCOUNTER 2017-04-27 16:04 | Inpatient (IN) | payer OTHER ==
[~2017-04-27] VITALS: Ht 157.5 cm; Wt 76.0 kg
[~2017-04-27 16:04] MED LIST changes: -BENZ100C84 PO; +FLUT0.15 NAE; -FRS/40 PO; +HYDR200T5 PO; +IPRA1AER2 INH; +LEVA1.258 NEB; -PRD20 PO; +PRED10TA PO; +TMF75 PO; -XPNINS1255 INH
[2017-04-27] MEDS ORDERED: CALC-452 PO (17:16)
[2017-04-27] MEDS ORDERED: OXGN (17:16)
[2017-04-27] MEDS ORDERED: ATRINSX NEB (17:16)
[2017-04-27] MEDS ORDERED: ALEN70TA4 PO (17:16)
[2017-04-27] MEDS ORDERED: PRED10TA PO (17:18)
--- NOTE | 2017-04-27 17:30 | DIAGNOSTIC IMAGING REPORT ---
CHEST ONE VIEW PORTABLE CLINICAL HISTORY: Dyspnea. Cough. Evaluate for pneumonia. COMPARISON STUDY: Chest CT March 11, 2017 and chest radiograph April 05, 2017. FINDINGS: There is no pneumothorax or pleural effusion. Elevation of the right hemidiaphragm is unchanged. Diffuse interstitial thickening is unchanged. Moderate cardiomegaly is noted. No superimposed consolidation is identified. IMPRESSION: No acute cardiopulmonary findings. Diffuse interstitial thickening which suggests interstitial lung disease/emphysema. No superimposed consolidation. Electronically signed by: Nicolas Garcia M.D. 04/27/2017 5:28 PM Dictated Date/Time: 04/27/2017 5:26 PM
[2017-04-27] MEDS ORDERED: ALBUT/IPRATROP 3MG/0.5MG NEB 3 ML VIAL INH STA ×2 (17:44→19:17)
[2017-04-27 17:47] LABS: BASO % 0.2 %; BASO ABS # 0.03 K/uL (0-0.2); EOS % 0.6 %; EOS ABS # 0.07 K/uL (0-0.5); HEMATOCRIT 36.6 % (37-47); HEMOGLOBIN 11.3 g/dL (12.0-16.0); IG# 0.49 K/uL (0.00-0.02); LYMPH % 12.8 %; LYMPH ABS # 1.62 K/uL (1.2-3.4); MEAN CELL VOLUME 87.8 fL (80-100); MEAN CORPUSCULAR HEMOGLOBIN 27.1 pg (25-34); MEAN CORPUSCULAR HGB CONC 30.9 g/dl (32-36); MEAN PLATELET VOLUME 10.1 fL (7.4-10.4); MONO % 5.3 %; MONO ABS # 0.67 K/uL (0.11-0.59); NEUT % 77.2 %; NEUT ABS # 9.78 K/uL (1.4-6.5); PLATELET COUNT 257 K/uL (130-400); RED CELL DISTRIBUTION WIDTH CV 17.1 % (11.5-14.5); RED CELL DISTRIBUTION WIDTH SD 55.3 fL (36.4-46.3); WHITE BLOOD COUNT 12.66 K/uL (4.8-10.8)
[2017-04-27 18:00] LABS: CALCIUM 9.3 mg/dl (8.5-10.1); CREATININE 0.93 mg/dl (0.60-1.20); POTASSIUM 3.6 mmol/L (3.5-5.1)
[2017-04-27 18:05] LABS: INR 0.9 (0.9-1.1); PTT PATIENT 22.7 SECONDS (21.0-31.0)
--- NOTE | 2017-04-27 19:08 | DIAGNOSTIC IMAGING REPORT ---
BILATERAL LOWER EXTREMITY VENOUS DOPPLER HISTORY: Lower extremity swelling. COMPARISON STUDY: None. FINDINGS: There is normal compressibility, flow, and augmentation within the bilateral lower extremity deep venous systems. IMPRESSION: No DVT within the right or left lower extremity. Electronically signed by: Timmy Li M.D. 04/27/2017 7:07 PM Dictated Date/Time: 04/27/2017 7:07 PM
[2017-04-27] MEDS ORDERED: METHYLPREDNISOLONE 125 MG VIAL IV STA (19:21)
[2017-04-27] MEDS ORDERED: BENZ100C84 PO (19:41)
[2017-04-27] MEDS ORDERED: FRS/40 PO (20:20)
[2017-04-27] MEDS ORDERED: DOXYCYCLINE IV 100 MG in DEXTROSE 5% 100ML 100 ML IV ONE (20:30)
--- NOTE | 2017-04-27 20:33 | EMERGENCY ROOM VISIT NOTE ---
History Report prepared by Adelita: Rocco Villalpando Under the Supervision of: Dr. Abrahan Lazo M.D. First contact with patient: 16:43 Chief Complaint: SHORTNESS OF BREATH Stated Complaint: HARD TIME BREATHING Nursing Triage Summary: Patient ambulatory to triage with the use of a walker, states "I am having a hard time breathing. The home health nurse came. I gained 6 pounds since the . I have some discomfort in the right side of my back. I am coughing and bringing up some clear mucous." Patient reports increasing symptoms x 2 days. History of Present Illness The patient is a 67 year old female who presents to the Emergency Room with complaints of worsening shortness of breath over the past 2 days. She states that she is coughing some stuff up but it is mostly clear. The patient notes that she is having some discomfort in her chest when she coughs, but it is not painful. She adds that she has been having some pain on the right upper part of back, but she does get pain there sometimes ever since she had 2/3rds of her right lung removed for lung cancer. She states she has a lot of scar tissue there. Per the patient's , there was some concern because the patient has gained about 6 pounds over the past few days. The patient denies any fevers or leg swelling. She thought she had some bruising to the foreman in the right leg earlier but it seems to have gone away. She denies any leg pain. She states that she is on 81 mg Aspirin but no other blood thinners. She says that she has never had a clot in her lung. Source of History: patient, spouse/significant other Onset: 2 days ago Position: other (global) Quality: other (shortness of breath) Timing: worsening Associated Symptoms: + cough, + chest pain (only discomfort when she coughs) , + back pain (right upper), No fevers Note: Associated symptoms: Gained 6 pounds last few days. Some cramping in legs. Denies leg swelling. Review of Systems See HPI for pertinent positives & negatives. A total of 10 systems reviewed and were otherwise negative. Past Medical & Surgical Medical Problems: (1) Chronic Obstructive Pulmonary Disease, Unspecified (2) COPD (chronic obstructive pulmonary disease) (3) HCAP (healthcare-associated pneumonia) (4) Hyperlipidemia (5) Hypertension (6) Iron deficiency anemia (7) Malignant neoplasm of lower lobe of right lung (8) Myalgia and myositis (9) Osteoporosis (10) Peripheral neuropathy due to chemotherapy (11) Rheumatoid Arthritis (12) Rheumatoid arthritis (13) SOB (shortness of breath) (14) Tobacco Use Disorder Surgical Problems: (1) History of cholecystectomy (2) History of hysterectomy (3) History of salpingo-oophorectomy (4) S/p A-port insertion (5) S/P bronchoscopy (6) S/P lobectomy of lung Social History Problems: (1) Metabolic syndrome (2) Respiratory failure, [id number] Family History Cancer Diabetes mellitus Gallbladder disease Heart disease MOTHER ([place] in 70s) Hypertension Kidney disease Kidney stones Lung disease Seizures Social History Smoking Status: Former Smoker Alcohol Use: none Drug Use: none Marital Status: Housing Status: lives with significant other Occupation Status: unemployed Current/Historical Medications Scheduled Alendronate Sodium (Fosamax), 70 MG PO WK Aspirin (Aspirin 81), 81 MG PO QAM Atorvastatin (Lipitor), 10 MG PO HS Calcium Carbonate-Cholecalcife (Calcium 600 + D 600-200 mg-Unit), 2 TABS PO DAILY Cholecalciferol (Vitamin D3), 5,000 INTER.UNIT PO DAILY Fluticasone Propionate (Nasal) (Flonase Allergy Relief), 2 SPRAYS KELVIN DAILY Folic Acid (Folvite), 1 MG PO DAILY Furosemide (Lasix), 40 MG PO DAILY Home O2 Therapy (Oxygen), 2-6 LITER NA UD Hydroxychloroquine Sulfate (Plaquenil), 200 MG PO HS Ipratropium-Albuterol (Combivent Respimat), 1 PUFFS INH DAILY Metoprolol Succinate (Toprol Xl), 50 MG PO QAM Prednisone (Prednisone), 60 MG PO UD Prednisone Tab (Prednisone), 10 MG PO UD Scheduled PRN Albuterol Hfa (Ventolin Hfa), 2 PUFFS INH Q4H PRN for Cough/SOB/Wheezing Benzonatate (Tessalon Perles), 100 MG PO TID PRN for Cough Hydrocodone/Acetaminophen 5MG/325MG ([place] 5MG/325MG), 1 TABLET PO Q8 PRN for Severe Pain Ipratropium [place] (Atrovent 0.02% Soln), 500 MCG NEB Q6H PRN for Wheezing Levalbuterol Hcl (Levalbuterol Hcl), 1.25 MG NEB Q6H PRN for Wheezing Allergies Coded Allergies: Azithromycin (Verified Allergy, Intermediate, RASH, 04/27/17) Iodinated Diagnostic Agents (Verified Allergy, Intermediate, Chills/Hives/ Vomiting, 04/27/17) Tramadol (Verified Allergy, Intermediate, RASH, 04/27/17) Codeine (Verified Adverse Reaction, Intermediate, Hallucinations, 04/27/17) Simvastatin (Verified Adverse Reaction, Intermediate, rash, 04/27/17) Physical Exam Vital Signs Date Time Temp Pulse Resp B/P (MAP) Pulse Ox O2 Delivery O2 Flow Rate FiO2 04/27/17 19:11 88 20 128/77 94 Nasal Cannula 4.0 04/27/17 18:00 81 18 119/69 94 Nasal Cannula 3.0 04/27/17 17:37 85 04/27/17 17:23 95 Nasal Cannula 3.0 04/27/17 17:23 95 Nasal Cannula 3.0 04/27/17 16:16 95 Nasal Cannula 6.0 04/27/17 16:12 36.5 93 24 120/76 95 Nasal Cannula 6.0 Physical Exam Constitutional: Vital signs reviewed. Eyes: Pupils are equal round reactive to light. Conjunctiva are noninjected. ENT: Pharynx is clear without erythema or exudate. Mucous membranes are moist. Neck supple without meningeal signs. Respiratory: Diffuse expiratory wheezing bilaterally. Breath sounds are equal bilaterally. Cardiovascular: Regular rate and rhythm. No rubs or gallops. GI: Soft, nondistended and nontender. Bowel sounds are present. Musculoskeletal: No peripheral edema. No lower extremity tenderness. Integumentary: No cyanosis. Neurological: The patient is awake and alert. No focal deficits. Psychiatric: Normal affect. Medical Decision & Procedures ER Provider Diagnostic Interpretation: Radiology results as stated below per my review and the radiologist's interpretation: CHEST ONE VIEW PORTABLE CLINICAL HISTORY: Dyspnea. Cough. Evaluate for pneumonia. COMPARISON STUDY: Chest CT March 11, 2017 and chest radiograph April 05, 2017. FINDINGS: There is no pneumothorax or pleural effusion. Elevation of the right hemidiaphragm is unchanged. Diffuse interstitial thickening is unchanged. Moderate cardiomegaly is noted. No superimposed consolidation is identified. IMPRESSION: No acute cardiopulmonary findings. Diffuse interstitial thickening which suggests interstitial lung disease/emphysema. No superimposed consolidation. Electronically signed by: Nicolas Garcia M.D. 04/27/2017 5:28 PM Dictated Date/Time: 04/27/2017 5:26 PM BILATERAL LOWER EXTREMITY VENOUS DOPPLER HISTORY: Lower extremity swelling. COMPARISON STUDY: None. FINDINGS: There is normal compressibility, flow, and augmentation within the bilateral lower extremity deep venous systems. IMPRESSION: No DVT within the right or left lower extremity. Electronically signed by: Timmy Li M.D. 04/27/2017 7:07 PM Dictated Date/Time: 04/27/2017 7:07 PM Laboratory Results 04/27/17 17:30 Red Blood Count 4.17, Mean Corpuscular Volume 87.8, Mean Corpuscular Hemoglobin 27.1, Mean Corpuscular Hemoglobin Concent 30.9, Mean Platelet Volume 10.1, Neutrophils (%) (Auto) 77.2, Lymphocytes (%) (Auto) 12.8, Monocytes (%) (Auto) 5.3, Eosinophils (%) (Auto) 0.6, Basophils (%) (Auto) 0.2, Neutrophils # (Auto) 9.78, Lymphocytes # (Auto) 1.62, Monocytes # (Auto) 0.67, Eosinophils # (Auto) 0.07, Basophils # (Auto) 0.03 04/27/17 17:30 Test 04/27/17 17:30 04/27/17 17:37 04/27/17 20:08 White Blood Count 12.66 K/uL (4.8-10.8) Red Blood Count 4.17 M/uL (4.2-5.4) Hemoglobin 11.3 g/dL (12.0-16.0) Hematocrit 36.6 % (37-47) Mean Corpuscular Volume 87.8 fL (80-100) Mean Corpuscular Hemoglobin 27.1 pg (25-34) Mean Corpuscular Hemoglobin Concent 30.9 g/dl (32-36) Platelet Count 257 K/uL (130-400) Mean Platelet Volume 10.1 fL (7.4-10.4) Neutrophils (%) (Auto) 77.2 % Lymphocytes (%) (Auto) 12.8 % Monocytes (%) (Auto) 5.3 % Eosinophils (%) (Auto) 0.6 % Basophils (%) (Auto) 0.2 % Neutrophils # (Auto) 9.78 K/uL (1.4-6.5) Lymphocytes # (Auto) 1.62 K/uL (1.2-3.4) Monocytes # (Auto) 0.67 K/uL (0.11-0.59) Eosinophils # (Auto) 0.07 K/uL (0-0.5) Basophils # (Auto) 0.03 K/uL (0-0.2) RDW Standard Deviation 55.3 fL (36.4-46.3) RDW Coefficient of Variation 17.1 % (11.5-14.5) Immature Granulocyte % (Auto) 3.9 % Immature Granulocyte # (Auto) 0.49 K/uL (0.00-0.02) Prothrombin Time 9.6 SECONDS (9.0-12.0) Prothromb Time International Ratio 0.9 (0.9-1.1) Activated Partial Thromboplast Time 22.7 SECONDS (21.0-31.0) Partial Thromboplastin Ratio 0.9 Anion Gap 8.0 mmol/L (3-11) Est Creatinine Clear Calc Drug Dose 56.8 ml/min Estimated GFR () 74.2 Estimated GFR (Non- 64.0 BUN/Creatinine Ratio 27.4 (10-20) Calcium Level 9.3 mg/dl (8.5-10.1) Bedside Troponin I < 0.030 ng/ml (0-0.045) Laboratory results as reviewed by me. Medications Administered Medications (Trade) Dose Ordered Sig/Silvia Route Start Time Stop Time Status Last Admin Dose Admin Albuterol/ Ipratropium (Duoneb) 3 ml NOW STAT INH 04/27/17 17:44 04/27/17 17:45 DC 04/27/17 17:56 3 ML Albuterol/ Ipratropium (Duoneb) 3 ml NOW STAT INH 04/27/17 19:17 04/27/17 19:18 DC 04/27/17 19:31 3 ML Methylprednisolone Sodium Succinate (Solu-Medrol IV) 125 mg NOW STAT IV 04/27/17 19:21 04/27/17 19:22 DC 04/27/17 19:31 125 MG ECG Per My Interpretation Indication: SOB/dyspnea Rate (beats per minute): 84 Rhythm: normal sinus Findings: T-wave inversion (Septal), other (no ST elevations) Change: no significant change (from March 11 2017) ED Course 164: The patient was evaluated in room B9. A complete history and physical exam was performed. 1743: DuoNeb 3 ml INH. 1816: I reevaluated the patient and she is feeling much better but is still wheezing on exam, but it is diminished from initial exam. The nurse was unable to get an 18-gauge IV. We will obtain Dopplers of her legs. 1914: I reevaluated the patient and she is increasingly short of breath now with increased wheezing. Her oxygen saturation is 93% on 4 liters. She expressed understanding and agreement of the treatment plan. She will evaluated for further treatment. 1920: Solu-Medrol IV 125 mg. 1921: I spoke with Dr. Gonzalez of [facility] internal medicine. We discussed the patient and her results. The patient will be further evaluated by Dr. Gonzalez. Medical Decision This is a 67-year-old female who presents with shortness of breath and cough. Differential diagnosis includes COPD exacerbation, respiratory failure, pneumonia, influenza, pulmonary edema. I did perform a limited focused review of portions of the patient's old chart on the electronic medical record. The patient was admitted April 04 for acute on chronic respiratory failure, influenza, and pneumonia. She was discharged on 7 days of Levaquin. I did evaluate the patient as noted above. IV access was established. The patient was placed on a continuous classroom monitor. She does have expiratory wheezing. She was treated with a DuoNeb. I did order and personally review the patient's 12-lead EKG and chest x-ray as described above. Chest x-ray does not demonstrate any signs of pneumonia. I did order and review the patient's blood work as noted in the electronic medical record. Troponin is negative. Her white count is elevated but she has been on prednisone. I did reassess patient. Her wheezing is diminished. She states she feels much better. She denies having any chest pain. She states that the pain in her right back feels like her scar tissue pain. I did order Doppler ultrasounds of the lower extremities. I did review the images myself as well as the radiology report as described above. There is no evidence of DVT. I did reassess the patient. Her wheezing has increased and she seems more short of breath. She states she no longer feels any better. She has trouble speaking in full sentences. She was given another DuoNeb and Solu-Medrol IV. I did recommend hospitalization. I did discuss case with the hospitalist and caseworker protective services. Medication Reconcilliation Current Medication List: was personally reviewed by me Blood Pressure Screening Patient's blood pressure: Normal blood pressure Consults Time Called: 1917 Consulting Physician: Dr. Gonzalez - [facility] movie machine operator Returned Call: [address] Gonzalez of [facility] internal medicine. We discussed the patient and her results. The patient will be further evaluated by Dr. Gonzalez. Impression Primary Impression: COPD exacerbation Additional Impressions: Acute chest pain Right-sided back pain Scribe Attestation The scribe's documentation has been prepared under my direct and personally reviewed by me in its entirety. I confirm that the note above accurately reflects all work, treatment, procedures, and medical decision making performed by me. Departure Information Dispostion Being Evaluated By Hospitalist Referrals Sharonda Sheikh D.O. (PCP) Patient Instructions My [facility] Problem Qualifiers Additional Impressions: Right-sided back pain Back pain location: back pain in unspecified location Chronicity: acute Qualified Codes: M54.9 - Dorsalgia, unspecified
[2017-04-27] MEDS ORDERED: FUROSEMIDE INJ 40 MG in SYRINGE 0 ML IV STA (21:15)
[2017-04-27] MEDS ORDERED: PROCHLORPERAZINE INJ 5 MG in SYRINGE 4 ML IV PRN (21:30)
[2017-04-27] MEDS ORDERED: MoRPHine SULFATE 4 MG/ML 1 ML CARP\\VIAL IV PRN (21:30)
[2017-04-27] MEDS ORDERED: ACETAMINOPHEN 325 MG TAB PO PRN (21:30)
[2017-04-27] MEDS ORDERED: ALBUT/IPRATROP 3MG/0.5MG NEB 3 ML VIAL INH PRN (21:30)
[2017-04-27] MEDS ORDERED: BENZONATATE 100MG CAP PO PRN (21:30)
[2017-04-27] MEDS ORDERED: FUROSEMIDE 40 MG/4 ML VIAL ONE (21:36)
[2017-04-27 22:15] VITALS: BP 160/93; PULSE 108; TEMP 36.6; O2SAT 92; Ht 157.5 cm; Wt 76.0 kg
[2017-04-27] MEDS: ENOXAPARIN 40 MG/0.4 ML SYR SC SCH (23:42)
[2017-04-27 23:50] VITALS: BP 125/80; PULSE 100; TEMP 36.8; O2SAT 98
[2017-04-28] VITALS (15 sets, daily range): BP systolic 120–142; BP diastolic 69–89; PULSE 81–101; TEMP 36.4–37; O2SAT 93–99
--- NOTE | 2017-04-28 01:00 | HISTORY & PHYSICAL EXAMINATION ---
DATE OF ADMISSION: 04/27/2017 CHIEF COMPLAINT: Shortness of breath. HISTORY OF PRESENT ILLNESS: History obtained from patient and records. Medical history significant for chronic respiratory failureCOPD/RA-ILD on chronic steroid therapy, chronic diastolic heart failure, EF of 55-59%, past tobacco abuse, lung cancer status post surgery, chemotherapy, chronic anemia (baseline hemoglobin of 9-10). Recent confinement last month for respiratory failure, UIP flare, influenza. Few days history of nasal congestion followed by cough productive of white yellow sputum. No recent shortness of breath. Denies aspiration. Patient complaining of achy back discomfort with coughing. Patient thinks she may have gained 6 pounds. Denies leg swelling. At the Emergency Room, the patient received Solu-Medrol, breathing treatment for possible COPD exacerbation. MEDICAL HISTORY: As above. A 2D echo from October 2016 showed EF of 55-59%, concentric LVH, LV diastolic dysfunction, normal right atrial pressure of 3 mmHg. SURGERIES: She has had lung lobectomy, total abdominal hysterectomy, salpingectomy-oophorectomy, cholecystectomy, A-port placement. HOME MEDICATIONS: Include Vicodin, Ativan, Combivent, levalbuterol, Topral XL, prednisone , Ventolin, Fosamax, aspirin, Lipitor, vitamin D3. ALLERGIES: CODEINE, SIMVASTATIN, AZITHROMYCIN, TRAMADOL, DYE. FAMILY HISTORY: Heart disease, diabetes. PERSONAL SOCIAL HISTORY: Positive tobacco. No chronic intake of alcoholic beverages. 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 REVIEW OF SYSTEMS: As per HPI, all 10 systems reviewed. All other ROS negative. PHYSICAL EXAMINATION: VITAL SIGNS: Blood pressure was noted to be 128/77, pulse rate 88, RR 22, temperature 36.5, sats 95 on 6 liters. GENERAL: Noted to be in minimal respiratory distress, obese, cushingoid. SKIN: Pallor, warm. HEENT: Pale palpebral conjunctiva. No ptosis. Dry mucosa. Nasal cannula in place. NECK: Supple, short. CHEST: Decreased breath, occasional wheeze. HEART: Regular rate and rhythm, no murmur. ABDOMEN: Some distention, nontender. EXTREMITIES: No edema noted. No gross deformity. no tenderness NEUROLOGIC: Coherent. No gross focality. LABORATORY DATA: Hemoglobin was noted to be 11.3, hematocrit 36.6, white blood cell count is 12.6, platelets noted to be 257. Sodium noted to be 138, potassium 3.6, chloride 99, CO2 31, BUN 26, creatinine 0.9, glucose was noted to be 122. BNP was normal. Chest x-ray: Diffuse interstitial thickening, COPD, no consolidation. EKG as per my interpretation, rate 85 NSR, LVH, some T-wave inversion on the septal leads. ASSESSMENT: 1. Acute on chronic hypoxemic respiratory failure secondary to chronic obstructive pulmonary disease/interstitial lung disease exacerbation secondary to complicated bronchitis steroid dependent disease possible sepsis. Possible element of fluid retention as per patient history. (Weight gain of 6 pounds at home not corroborated by recorded inpatient weights - documented weight from last confinement 76.8 kg, current weight 75.9 kg) 2. Chronic diastolic heart failure Equivocal volume status 3. HTN, stable 4. hx lung CA status post surgery, chemotherapy 5. past tobacco abuse. 6. Anemia of chronic anemia, hemoglobin baseline PLAN: PCU baseline ABG. CS, check lactic acid Doxycycline, nebs, steroids Pulmonary consult RE respiratory failure (Patient known to Dr. Finn.) extra IV Lasix now. Continue home diuretic therapy. DVT prophylaxis Lovenox subQ. Full code. MTDD
[2017-04-28 01:08] LABS: ALBUMIN 3.2 gm/dl (3.4-5.0); ALKALINE PHOSPHATASE 54 U/L (45-117); ALT/SGPT 36 U/L (12-78); AST/SGOT 22 U/L (15-37); TOTAL PROTEIN 7.3 gm/dl (6.4-8.2)
[2017-04-28] MEDS: LEVALBUTEROL 1.25MG/0.5ML NEB INH SCH ×4 (02:01→18:48)
[2017-04-28] MEDS: IPRATROPIUM BROMIDE NEB SOLN 0.02% 2.5 ML VIAL INH SCH ×4 (02:01→18:48)
[2017-04-28] MEDS ORDERED: LEVALBUTEROL/IPRATROPIUM NEB INH SCH (03:00)
[2017-04-28 05:46] LABS: BASO % 0.3 %; BASO ABS # 0.03 K/uL (0-0.2); EOS % 0.1 %; EOS ABS # 0.01 K/uL (0-0.5); HEMATOCRIT 35.7 % (37-47); HEMOGLOBIN 11.3 g/dL (12.0-16.0); IG# 0.39 K/uL (0.00-0.02); LYMPH % 9.4 %; MEAN CELL VOLUME 86.9 fL (80-100); MEAN CORPUSCULAR HEMOGLOBIN 27.5 pg (25-34); MEAN CORPUSCULAR HGB CONC 31.7 g/dl (32-36); MONO % 2.5 %; MONO ABS # 0.27 K/uL (0.11-0.59); NEUT % 84.1 %; NEUT ABS # 8.99 K/uL (1.4-6.5); PLATELET COUNT 255 K/uL (130-400); RED CELL DISTRIBUTION WIDTH SD 53.9 fL (36.4-46.3); WHITE BLOOD COUNT 10.69 K/uL (4.8-10.8)
[2017-04-28 06:16] LABS: CALCIUM 9.6 mg/dl (8.5-10.1); CREATININE 0.92 mg/dl (0.60-1.20); POTASSIUM 3.3 mmol/L (3.5-5.1)
[2017-04-28] MEDS ORDERED: POTASSIUM CHLORIDE 10 MEQ TABCR PO ONE (07:45)
[2017-04-28] MEDS: FUROSEMIDE 40 MG TAB PO SCH (08:35)
[2017-04-28] MEDS: ASPIRIN 81 MG ECTAB PO SCH (08:35)
[2017-04-28] MEDS: METOPROLOL SUCC 50MG EXT REL TAB PO SCH (08:35)
[2017-04-28] MEDS ORDERED: DOXYCYCLINE HYCLATE 100 MG CAP PO SCH (09:00)
--- NOTE | 2017-04-28 09:41 | Clinical Documentation Query ---
ROSE Jacobs : CLINICAL DOCUMENTATION QUERIES QUERY 1 OF 2 Clinical documentation includes a diagnosis of: Acute Respiratory Failure. Due to stringent requirements by our coding department, multiple clinical indicators associated with this diagnosis must be present in order for this to be coded/captured within the medical record. If appropriate, please document 2 or more of the following clinical indicators in daily progress notes and the discharge summary. If you feel the diagnosis of acute respiratory failure was made in error, or do not agree with it, simply discontinue documentation thereof. H&P documentation included "noted to be in no acute distress". Acute Respiratory Failure indicators include: * Respirations >28 * Air hunger * Use of accessory muscles of respiration * Inability to speak in full sentences * Cyanosis * Pulse ox <90% RA or <95% on O2 *pH <7.35 or >7.45 * pO2 < 60 mm Hg (or 10mm below COPD patient's baseline) * pCO2 >50mm Hg (or 10mm above COPD patient's baseline) * mechanical ventilation * Increased work of breathing * Tachypnea QUERY 2 OF 2 Documentation includes "chronic respiratory failure secondary to steroid dependence". If this is believed to have been an error, with intent otherwise, please clarify as clinically appropriate. Thank you. In your clinical opinion is this patient being managed for: ( ) Chronic respiratory failure, an adverse effect of prednisone ( ) Prednisone therapy as a treatment modality for chronic respiratory failure and COPD ( ) Not Agree ( ) Other explanation of clinical findings (Please Explain) ( ) Unable to determine (Please Define) ( ) Need to Discuss Please clarify and document your clinical opinion in the progress notes and discharge summary. Terms such as "probable", "suspected", "likely", "questionable", "possible", or "still to be ruled out" are acceptable. IF IN AGREEMENT, YOU MUST DOCUMENT ABOVE DIAGNOSTIC STATEMENT IN DAILY PROGRESS NOTES AND DISCHARGE SUMMARY. This document is not part of the patient's record. Thank You, Justice Schwartz, LAVELLE [phone]
--- NOTE | 2017-04-28 10:41 | Pulmonary Consultation ---
History General Date of Service: Apr 28, 2017. Stated Complaint: Respiratory Failure HPI The patient is a 67 year old female who presents to [facility] with complaints of Respiratory Failure. The patient's primary care provider is Sharonda Sheikh D.O.. 67-year-old female admitted with acute on chronic respiratory insufficiency/ dyspnea. The patient has a past medical history significant for ILD of unknown etiology, latent tuberculosis previously treated with INH and subsequent hepatitis, squamous cell carcinoma of the lung stage IIB status post right lower right middle lobe resection and chemotherapy with cisplatin and gemcitabine, along with rheumatoid arthritis previously treated with methotrexate, prednisone, Enbrel currently with prednisone and Plaquenil and possibly even UIP and chronic right apical back pain since her lobectomy. Patient has already had 2 previous admissions this year 1 in February 2017 for acute on chronic exacerbation of her underlying pulmonary dysfunction as well as in March 2017 for influenza B. She once again presents with a 2 day progression of her underlying shortness of breath with acute on chronic signs and symptoms. The patient has been noting a 2-3 day progression of sinusitis, postnasal drip, fatigue and possible productive sputum with some mild yellow tinge. She denies: Fever, chills, classic cardiac chest pain or unintentional weight loss. Current workup WBC: 13K VB.44/49 corrected to 7.48/41 ALB: 3.2 Microbiology: Blood cultures x2 pending CXR: No acute changes, chronic diffuse interstitial thickening DVT study: No signs of DVT in the right or left lower extremities Previous workup Spirometry 03/04/2017 Pre post %Dye FEV1/FVC 86 FEV1 0.95/43% 0.94 0 FVC 1.10/40% 1.09 0 Echocardiogram 11/04/2016 EF= 55-59% Concentric LVH, left ventricular diastolic dysfunction PmHx: 1. History of respiratory failure with associated hypoxemia 2. Allergic rhinitis/pollen 3. Rheumatoid arthritis (treated: Methotrexate, Enbrel, Plaquenil) 4. History chest pain 5. Drug-induced hepatitis 6. Hyperlipidemia 7. History of insomnia 8. Right lower lobe malignancy 9. Myalgias/myositis 10. Nonspecific reaction to tuberculin skin test without active tuberculosis 11. Oxygen supplementation 4-6 L 12. Osteoporosis 13. Palpitations 14. Peripheral neuropathy secondary to chemotherapy note 15. Supraventricular tachycardia 16. Vitamin-D deficiency 17. Interstitial lung disease/10 mg prednisone daily 18. SVT 19. Moderately differentiated Squamous cell carcinoma of the lung (T2b,N1,M0) IIB RLL/RML lobectomy 04/19/15 Chemotherapy-cisplatin/gemcitabine 20. History latent tuberculosis treated for 1mon INH secondary to hepatitis 21. Influenza B 04/04/2017 22. Pulmonary hypertension/cor pulmonale PsHx: 1. Hysterectomy 2. Port-A-Cath placement 3. Cholecystectomy 4. Bronchoscopy 5. Lobectomy RML/RLL 04/19/2015 Medications 1. ProAir HFA 2 puffs every 4 hours p.r.n. 2. Fosamax 70 mg once weekly 3. Aspirin 81 mg daily 4. Lipitor 10 mg daily 5. Tessalon Perles 100 mg 1 capsule t.i.d. 6. Calcium/vitamin-D supplementations 7. Flonase nasal spray 2 sprays each nostril daily 8. Folic acid 1 milligram 9. Lasix 40 mg daily 10. Hydrocodone/acetaminophen 5/325 Q 8 hours p.r.n. 11. Plaquenil 200 mg q.h.s. 12. Atrovent 0.2 % nebulizer solution p.r.n. 13. Xopenex 1.25 nebulized p.r.n. 14. Metoprolol XL 50 mg q.day 15. 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 [employer] Tobacco history: Former smoker 2 ppd/43 years/quit 04/15/2015 Alcohol: Patient denies use Family history Diabetes, heart disease/OK, hypertension, kidney disease, kidney stones, lung disease, seizures, cancer Allergies Codeine, IV dye, simvastatin, tramadol, Zithromax/azithromycin Historian: patient, EMS Review of Systems Constitutional: reports: malaise, weakness Eyes: reports: no symptoms ENT: reports: as stated in HPI Cardiovascular: reports: no symptoms Respiratory: reports: as stated in HPI Gastrointestinal: reports: no symptoms Genitourinary - Female: reports: no symptoms Musculoskeletal: reports: as stated in HPI Integumentary: reports: no symptoms Neurologic: reports: no symptoms Psychiatric: reports: anxiety Endocrine: no symptoms Hematologic / Lymphatic: no symptoms Allergic / Immunologic: no symptoms Past Medical History Past Medical History: Please refer to HPI Past Surgical History: Please refer to HPI Family History Cancer Diabetes mellitus Gallbladder disease Heart disease MOTHER (OK in 70s) Hypertension Kidney disease Kidney stones Lung disease Seizures Please refer to HPI Social History Please refer to HPI Hx Tobacco Use In Past Year?: No Smoking Status: Former Smoker Marital status: Housing status: lives with significant other Occupational Status: unemployed Allergies Coded Allergies: Azithromycin (Verified Allergy, Intermediate, RASH, 04/27/17) Iodinated Diagnostic Agents (Verified Allergy, Intermediate, Chills/Hives/ Vomiting, 04/27/17) Tramadol (Verified Allergy, Intermediate, RASH, 04/27/17) Codeine (Verified Adverse Reaction, Intermediate, Hallucinations, 04/27/17) Simvastatin (Verified Adverse Reaction, Intermediate, rash, 04/27/17) Current Medications Reported Home Medications Medications Dose Route/Sig Max Daily Dose Days Date Category Dose Instructions Prednisone 10 Mg Tab 10 Mg PO UD 04/27/17 Reported BEGIN TAKING DAILY MAINTENANCE DOSE OF 10 MG ONCE DAILY WHEN FINISH WITH TAPER DOWNN DOSING Oxygen Gas 2-6 Liter NA UD 04/27/17 Reported Atrovent 0.02% Soln (Ipratropium Howard) 2.5 Ml Nebu 500 Mcg NEB Q6H PRN 04/27/17 Reported Fosamax (Alendronate Sodium) 70 Mg Tab 70 Mg PO WK 04/27/17 Reported TAKE THIS MEDICATION EVERY WEDNESDAY Calcium 600 + D 600-200 mg-Unit (Calcium Carbonate-Cholecalcife) 1 Tab Tab 2 Tabs PO DAILY 04/27/17 Reported Prednisone 10 Mg Tab 60 Mg PO UD 04/08/17 Rx PREDNISONE 60MG PO DAILY X 3 DAYS THEN PREDNISONE 50MG PO DAILY X 3 DAYS THEN PREDNISONE 40MG PO DAILY X 3 DAYS THEN PREDNISONE 30MG PO DAILY X 3 DAYS THEN PREDNISONE 20MG PO DAILY X 3 DAYS THEN PREDNISONE 10MG PO DAILY TO CONTINUE HOME MAINTWENANCE DOSE UNTIL SEEN BY PULMONARY Combivent Respimat (Ipratropium-Albuterol) 1 Aer Aer 1 Puffs INH DAILY 04/04/17 Reported Levalbuterol Hcl 1.25 Mg/3 Ml Neb 1.25 Mg NEB Q6H PRN 04/04/17 Reported Plaquenil (Hydroxychloroquine Sulfate) 200 Mg Tab 200 Mg PO HS 04/04/17 Reported Flonase Allergy Relief (Fluticasone Propionate (Nasal)) 50 Mcg/Act Spr 2 Sprays KELVIN DAILY 04/04/17 Reported Ventolin Hfa (Albuterol) 200 Puffs/12276 Mcg Aers 2 Puffs INH Q4H PRN 04/04/17 Reported Tessalon Perles (Benzonatate) 100 Mg Cap 100 Mg PO TID PRN 02/09/17 Reported Folvite (Folic Acid) 1 Mg Tab 1 Mg PO DAILY 02/09/17 Reported Lasix (Furosemide) 40 Mg Tab 40 Mg PO DAILY 03/18/16 Reported Vitamin D3 (Cholecalciferol) 1,000 Unit Tab 5,000 Inter.unit PO DAILY 01/21/16 Reported [place] 5MG/325MG (Acetaminophen/Hydrocodone Bitart) Tab 1 Tablet PO Q8 PRN 01/21/16 Reported Lipitor (Atorvastatin Calcium) 10 Mg Tab 10 Mg PO HS 06/20/15 Reported Aspirin 81 (Aspirin) 81 Mg Tab 81 Mg PO QAM 11/06/13 Reported Toprol Xl (Metoprolol Succinate) 50 Mg Tabcr 50 Mg PO QAM 11/06/13 Reported Physical Physical Exam Vital Signs: Date Time Temp Pulse Resp B/P (MAP) Pulse Ox O2 Delivery O2 Flow Rate FiO2 04/28/17 08:10 37.0 81 18 120/74 (89) 95 04/28/17 07:01 88 18 99 Nasal Cannula 6.0 04/28/17 04:44 36.4 91 23 128/80 (96) 99 Nasal Cannula 5.0 04/28/17 04:00 Nasal Cannula 6.0 04/28/17 02:01 93 18 98 Nasal Cannula 6.0 04/27/17 23:59 Nasal Cannula 6.0 04/27/17 23:50 36.8 100 24 125/80 (95) 98 Room Air 04/27/17 22:15 36.6 108 160/93 92 Nasal Cannula 6.0 04/27/17 21:46 98 22 114/75 95 Nasal Cannula 4.0 04/27/17 20:31 119/104 04/27/17 20:15 95 96 4.0 04/27/17 20:01 147/92 04/27/17 19:45 93 95 4.0 04/27/17 19:31 149/108 04/27/17 19:15 89 94 4.0 04/27/17 19:11 88 20 128/77 94 Nasal Cannula 4.0 04/27/17 18:00 81 18 119/69 94 Nasal Cannula 3.0 04/27/17 17:37 85 04/27/17 17:23 95 Nasal Cannula 3.0 04/27/17 17:23 95 Nasal Cannula 3.0 04/27/17 16:16 95 Nasal Cannula 6.0 04/27/17 16:12 36.5 93 24 120/76 95 Nasal Cannula 6.0 General Appearance: other (Anxious but no apparent distress, patient is sitting up in bed showing no signs of respiratory insufficiency) Head: NORMOCEPHALIC, ATRAUMATIC Eyes: PERRLA, NO DISCHARGE, EOMI ENT: NORMAL EAR EXAM, NORMAL NASAL EXAM, NORMAL MOUTH EXAM, NORMAL THROAT EXAM Neck: NORMAL RANGE OF MOTION, NO TENDERNESS, TRACHEA MIDLINE, NO STRIDOR Respiratory: other (Some inspiratory Velcro rales along the right hemithorax upper and lower subsegments and minimal along the left hemithorax) Cardiovasular: REGULAR RATE/RHYTHM, NORMAL S1S2, NO M/G/R, NO MURMUR Abdomen: NON TENDER, NORMAL BOWEL SOUNDS, NO REBOUND, NO MASSES, NO GUARDING Genitourinary - Female: EXTERNAL GENITALIA NORMAL Back: NORMAL INSPECTION, NO MIDLINE TENDERNESS, NO CVA TENDERNESS, NO PARAVERTEBRAL TTP Upper Extremities: NO EDEMA, NO DEFORMITY, NORMAL ROM Lower Extremities: NO EDEMA, NO DEFORMITY, NORMAL ROM Pulses: carotid (R) (2+), carotid (L) (2+), dorsalis pedis (R) (2+), dorsalis pedis (L) (2+) Neuro: ALERT, ORIENTED x 3, NORMAL MOTOR EXAM, NORMAL SENSATION, NORMAL CEREBELLAR EXAM Reflexes: biceps (R) (2+), bicpes (L) (2+), achilles (R) (2+), achilles (L) (2+ ) Babinski Testing: right (downgoing), left (downgoing) Psychiatric: anxious Diagnostics Labs Results Past 24 Hours Test 04/27/17 17:30 04/27/17 17:37 04/27/17 20:08 04/28/17 05:16 Range/Units White Blood Count 12.66 10.69 4.8-10.8 K/uL Red Blood Count 4.17 4.11 4.2-5.4 M/uL Hemoglobin 11.3 11.3 12.0-16.0 g/dL Hematocrit 36.6 35.7 37-47 % Mean Corpuscular Volume 87.8 86.9 80-100 fL Mean Corpuscular Hemoglobin 27.1 27.5 25-34 pg Mean Corpuscular Hemoglobin Concent 30.9 31.7 32-36 g/dl Platelet Count 257 255 130-400 K/uL Mean Platelet Volume 10.1 10.0 7.4-10.4 fL Neutrophils (%) (Auto) 77.2 84.1 % Lymphocytes (%) (Auto) 12.8 9.4 % Monocytes (%) (Auto) 5.3 2.5 % Eosinophils (%) (Auto) 0.6 0.1 % Basophils (%) (Auto) 0.2 0.3 % Neutrophils # (Auto) 9.78 8.99 1.4-6.5 K/uL Lymphocytes # (Auto) 1.62 1.00 1.2-3.4 K/uL Monocytes # (Auto) 0.67 0.27 0.11-0.59 K/uL Eosinophils # (Auto) 0.07 0.01 0-0.5 K/uL Basophils # (Auto) 0.03 0.03 0-0.2 K/uL RDW Standard Deviation 55.3 53.9 36.4-46.3 fL RDW Coefficient of Variation 17.1 17.0 11.5-14.5 % Immature Granulocyte % (Auto) 3.9 3.6 % Immature Granulocyte # (Auto) 0.49 0.39 0.00-0.02 K/uL Prothrombin Time 9.6 9.0-12.0 SECONDS Prothromb Time International Ratio 0.9 0.9-1.1 Activated Partial Thromboplast Time 22.7 21.0-31.0 SECONDS Partial Thromboplastin Ratio 0.9 Sodium Level 138 140 136-145 mmol/L Potassium Level 3.6 3.3 3.5-5.1 mmol/L Chloride Level 99 100 98-107 mmol/L Carbon Dioxide Level 31 32 21-32 mmol/L Anion Gap 8.0 8.0 3-11 mmol/L Blood Urea Nitrogen 26 29 7-18 mg/dl Creatinine 0.93 0.92 0.60-1.20 mg/dl Est Creatinine Clear Calc Drug Dose 56.8 57.0 ml/min Estimated GFR () 74.2 75.2 Estimated GFR (Non- 64.0 64.9 BUN/Creatinine Ratio 27.4 32.1 10-20 Random Glucose 122 182 70-99 mg/dl Calcium Level 9.3 9.6 8.5-10.1 mg/dl Magnesium Level 2.3 1.8-2.4 mg/dl Total Bilirubin 0.2 0.2-1 mg/dl Direct Bilirubin < 0.1 0-0.2 mg/dl Aspartate Amino Transf (AST/SGOT) 22 15-37 U/L Alanine Aminotransferase (ALT/SGPT) 36 12-78 U/L Alkaline Phosphatase 54 45-117 U/L Pro-B-Type Natriuretic Peptide 185 0-900 pg/ml Total Protein 7.3 6.4-8.2 gm/dl Albumin 3.2 3.4-5.0 gm/dl Hepatitis C Antibody Screen NEG NEG Bedside Troponin I < 0.030 0-0.045 ng/ml Venous Blood pH 7.44 7.36-7.41 Venous Blood Partial Pressure CO2 49 38.0-50.0 mmHg Venous Blood Partial Pressure O2 41 mmHg Venous Blood HCO3 33 mmol/L Venous Blood Oxygen Saturation 73.7 % Venous Blood Base Excess 7.6 mEq/L Lactic Acid Level 1.0 0.4-2.0 mmol/L Microbiology Results 04/27/17 Blood Culture, Received Pending 04/27/17 Blood Culture, Received Pending Diagnostic Radiology Please refer to HPI EKG Normal sinus rhythm rate of 88 mild T-wave flattening but no signs of acute infarction Impression Assessment and Plan 67-year-old female admitted with acute on chronic respiratory insufficiency: 1. Shortness of breath: This time the patient appears to be back to her baseline as her oxygen supplementation as an outpatient can range from 4-6 L and she is saturating between 95-99% on anywhere from 3-6 L. #2 Pneumonia: Patient is not showing signs or symptoms consistent with classic pneumonia but she is chronically on immunosuppressive such as prednisone 10 mg daily which could clinically suppress a normal reaction. I should also note that her chest x-ray does not show signs of notable pneumonia but she does have diffuse interstitial scarring which could once again easily hide pneumonia and/ or bronchitis. The patient has had multiple recent admissions I will change her to a HCAP regimen and then obtain pro-calcitonin. The pro-calcitonin is within normal limits we can most likely discontinue her antibiotics at that time. 3. ILD: Patient has a history of rheumatoid arthritis as spirometry and CT imaging of the chest consistent with an interstitial lung process/disease. There is no specific pattern to this particular high-resolution CAT scan as there is notable diffuse haziness/inflammatory component as well as signs of subpleural fibrosis. This is not fit any particular pattern of ILD and the patient has been treated with chronic prednisone. The patient could be having an ILD flare so I do believe this 40 mg of prednisone at this time is appropriate. And we can slowly taper over the next 4-6 weeks. 4. COPD: This patient's spirometry and high-resolution CAT scans do not suggest COPD. I do not believe this patient is having a COPD exacerbation as well as she is not retaining any CO2 at this time.
[2017-04-28] MEDS ORDERED: VANCOMYCIN CONSULT ACTIVE PRN (10:45)
[2017-04-28] MEDS ORDERED: LEVAQUIN 750MG / 150ML D5W IV ONE (10:45)
[2017-04-28] MEDS: LEVOFLOXACIN 750MG / D5W IV ONE ×2 (11:04→11:15)
[2017-04-28] MEDS ORDERED: VANCOMYCIN IV 1,750 MG in SODIUM CHLORIDE 0.9% 500ML 500 ML IV ONE (11:30)
--- NOTE | 2017-04-28 15:05 | Progress Note ---
Internal Med Progress Note Date of Service: Apr 28, 2017. Provider Documentation: SUBJECTIVE: says sob improved now has some cough afebrile denies chest pain currently back to her maintenance prednisone dose saturating ok now OBJECTIVE: Vital Signs-as noted below Exam: General-alert and oriented. Not in distress ENT-Normal hearing Neck-no neck masses Lungs-cta b/l no wheezing or crackles Heart-S1 and S2 heard regular rate and rhythm no murmurs Abdomen-Soft bowel sounds present non tender no distension Extremities-no edema no erythema Neuro-alert and awake moves extremities Lab data as noted below. ASSESSMENT & PLAN: 1. Acute on chronic hypoxemic respiratory failure secondary to chronic obstructive pulmonary disease/interstitial lung disease exacerbation.steroid dependent disease flare secondary to complicated bronchitis? HCAP? started on iv vanco and levaquin by pulmonary on increased prednisone to 40mg daily and plan for slow taper nebs seems at baseline currently continue to monitor 2. Chronic diastolic heart failure Equivocal volume status .on Lasix 40mg daily. stable. 3. HTN, stable on Toprol xl. 4. hx lung CA status post surgery, chemotherapy 5. past tobacco abuse. 6. Anemia of chronic anemia, hemoglobin baseline. hb 11.3 DVT PROPHYLAXIS Lovenox DISPOSITION monitor in tele Vital Signs: Date Time Temp Pulse Resp B/P (MAP) Pulse Ox O2 Delivery O2 Flow Rate FiO2 04/28/17 14:18 101 18 93 Nasal Cannula 6.0 04/28/17 12:08 36.9 84 18 131/69 (89) 97 04/28/17 12:01 99 Nasal Cannula 6.0 04/28/17 08:10 37.0 81 18 120/74 (89) 95 04/28/17 08:01 99 Nasal Cannula 6.0 04/28/17 07:01 88 18 99 Nasal Cannula 6.0 04/28/17 04:44 36.4 91 23 128/80 (96) 99 Nasal Cannula 5.0 04/28/17 04:00 Nasal Cannula 6.0 04/28/17 02:01 93 18 98 Nasal Cannula 6.0 04/27/17 23:59 Nasal Cannula 6.0 04/27/17 23:50 36.8 100 24 125/80 (95) 98 Room Air 04/27/17 22:15 36.6 108 160/93 92 Nasal Cannula 6.0 04/27/17 21:46 98 22 114/75 95 Nasal Cannula 4.0 04/27/17 20:31 119/104 04/27/17 20:15 95 96 4.0 04/27/17 20:01 147/92 04/27/17 19:45 93 95 4.0 04/27/17 19:31 149/108 04/27/17 19:15 89 94 4.0 04/27/17 19:11 88 20 128/77 94 Nasal Cannula 4.0 04/27/17 18:00 81 18 119/69 94 Nasal Cannula 3.0 04/27/17 17:37 85 04/27/17 17:23 95 Nasal Cannula 3.0 04/27/17 17:23 95 Nasal Cannula 3.0 04/27/17 16:16 95 Nasal Cannula 6.0 04/27/17 16:12 36.5 93 24 120/76 95 Nasal Cannula 6.0 Lab Results: Results Past 24 Hours Test 04/27/17 17:30 04/27/17 17:37 04/27/17 20:08 04/28/17 05:16 Range/Units White Blood Count 12.66 10.69 4.8-10.8 K/uL Red Blood Count 4.17 4.11 4.2-5.4 M/uL Hemoglobin 11.3 11.3 12.0-16.0 g/dL Hematocrit 36.6 35.7 37-47 % Mean Corpuscular Volume 87.8 86.9 80-100 fL Mean Corpuscular Hemoglobin 27.1 27.5 25-34 pg Mean Corpuscular Hemoglobin Concent 30.9 31.7 32-36 g/dl Platelet Count 257 255 130-400 K/uL Mean Platelet Volume 10.1 10.0 7.4-10.4 fL Neutrophils (%) (Auto) 77.2 84.1 % Lymphocytes (%) (Auto) 12.8 9.4 % Monocytes (%) (Auto) 5.3 2.5 % Eosinophils (%) (Auto) 0.6 0.1 % Basophils (%) (Auto) 0.2 0.3 % Neutrophils # (Auto) 9.78 8.99 1.4-6.5 K/uL Lymphocytes # (Auto) 1.62 1.00 1.2-3.4 K/uL Monocytes # (Auto) 0.67 0.27 0.11-0.59 K/uL Eosinophils # (Auto) 0.07 0.01 0-0.5 K/uL Basophils # (Auto) 0.03 0.03 0-0.2 K/uL RDW Standard Deviation 55.3 53.9 36.4-46.3 fL RDW Coefficient of Variation 17.1 17.0 11.5-14.5 % Immature Granulocyte % (Auto) 3.9 3.6 % Immature Granulocyte # (Auto) 0.49 0.39 0.00-0.02 K/uL Prothrombin Time 9.6 9.0-12.0 SECONDS Prothromb Time International Ratio 0.9 0.9-1.1 Activated Partial Thromboplast Time 22.7 21.0-31.0 SECONDS Partial Thromboplastin Ratio 0.9 Sodium Level 138 140 136-145 mmol/L Potassium Level 3.6 3.3 3.5-5.1 mmol/L Chloride Level 99 100 98-107 mmol/L Carbon Dioxide Level 31 32 21-32 mmol/L Anion Gap 8.0 8.0 3-11 mmol/L Blood Urea Nitrogen 26 29 7-18 mg/dl Creatinine 0.93 0.92 0.60-1.20 mg/dl Est Creatinine Clear Calc Drug Dose 56.8 57.0 ml/min Estimated GFR () 74.2 75.2 Estimated GFR (Non- 64.0 64.9 BUN/Creatinine Ratio 27.4 32.1 10-20 Random Glucose 122 182 70-99 mg/dl Calcium Level 9.3 9.6 8.5-10.1 mg/dl Magnesium Level 2.3 1.8-2.4 mg/dl Total Bilirubin 0.2 0.2-1 mg/dl Direct Bilirubin < 0.1 0-0.2 mg/dl Aspartate Amino Transf (AST/SGOT) 22 15-37 U/L Alanine Aminotransferase (ALT/SGPT) 36 12-78 U/L Alkaline Phosphatase 54 45-117 U/L Pro-B-Type Natriuretic Peptide 185 0-900 pg/ml Total Protein 7.3 6.4-8.2 gm/dl Albumin 3.2 3.4-5.0 gm/dl Hepatitis C Antibody Screen NEG NEG Bedside Troponin I < 0.030 0-0.045 ng/ml Venous Blood pH 7.44 7.36-7.41 Venous Blood Partial Pressure CO2 49 38.0-50.0 mmHg Venous Blood Partial Pressure O2 41 mmHg Venous Blood HCO3 33 mmol/L Venous Blood Oxygen Saturation 73.7 % Venous Blood Base Excess 7.6 mEq/L Lactic Acid Level 1.0 0.4-2.0 mmol/L Test 04/28/17 11:17 Range/Units Procalcitonin < 0.05 0-0.5 ng/ml Microbiology Results 04/27/17 Blood Culture, Received Pending 04/27/17 Blood Culture, Received Pending
--- NOTE | 2017-04-28 15:41 | Pharmacy Progress Note ---
Pharmacy Antibiotic Consult Date of Service: Apr 28, 2017. Pharmacy Dosing Scope Pharmacy is consulted to initiate vancomycin IV dosing therapy, order appropriate labs and adjust drug dose/frequency. Subjective The patient is a 67 year old female admitted on Apr 27, 2017 at 20:59 with respiratory failure. History of COPD, lung cancer, chemotherapy, rheumatoid arthritis. Objective Height (Feet): 5 Height (Inches): 2.00 Weight (Kilograms): 74.900 Lab Results (24hrs): Test 04/27/17 17:30 04/27/17 17:37 04/27/17 20:08 04/28/17 05:16 White Blood Count 12.66 K/uL (4.8-10.8) 10.69 K/uL (4.8-10.8) Red Blood Count 4.17 M/uL (4.2-5.4) 4.11 M/uL (4.2-5.4) Hemoglobin 11.3 g/dL (12.0-16.0) 11.3 g/dL (12.0-16.0) Hematocrit 36.6 % (37-47) 35.7 % (37-47) Mean Corpuscular Volume 87.8 fL (80-100) 86.9 fL (80-100) Mean Corpuscular Hemoglobin 27.1 pg (25-34) 27.5 pg (25-34) Mean Corpuscular Hemoglobin Concent 30.9 g/dl (32-36) 31.7 g/dl (32-36) Platelet Count 257 K/uL (130-400) 255 K/uL (130-400) Mean Platelet Volume 10.1 fL (7.4-10.4) 10.0 fL (7.4-10.4) Neutrophils (%) (Auto) 77.2 % 84.1 % Lymphocytes (%) (Auto) 12.8 % 9.4 % Monocytes (%) (Auto) 5.3 % 2.5 % Eosinophils (%) (Auto) 0.6 % 0.1 % Basophils (%) (Auto) 0.2 % 0.3 % Neutrophils # (Auto) 9.78 K/uL (1.4-6.5) 8.99 K/uL (1.4-6.5) Lymphocytes # (Auto) 1.62 K/uL (1.2-3.4) 1.00 K/uL (1.2-3.4) Monocytes # (Auto) 0.67 K/uL (0.11-0.59) 0.27 K/uL (0.11-0.59) Eosinophils # (Auto) 0.07 K/uL (0-0.5) 0.01 K/uL (0-0.5) Basophils # (Auto) 0.03 K/uL (0-0.2) 0.03 K/uL (0-0.2) RDW Standard Deviation 55.3 fL (36.4-46.3) 53.9 fL (36.4-46.3) RDW Coefficient of Variation 17.1 % (11.5-14.5) 17.0 % (11.5-14.5) Immature Granulocyte % (Auto) 3.9 % 3.6 % Immature Granulocyte # (Auto) 0.49 K/uL (0.00-0.02) 0.39 K/uL (0.00-0.02) Prothrombin Time 9.6 SECONDS (9.0-12.0) Prothromb Time International Ratio 0.9 (0.9-1.1) Activated Partial Thromboplast Time 22.7 SECONDS (21.0-31.0) Partial Thromboplastin Ratio 0.9 Sodium Level 138 mmol/L (136-145) 140 mmol/L (136-145) Potassium Level 3.6 mmol/L (3.5-5.1) 3.3 mmol/L (3.5-5.1) Chloride Level 99 mmol/L (98-107) 100 mmol/L (98-107) Carbon Dioxide Level 31 mmol/L (21-32) 32 mmol/L (21-32) Anion Gap 8.0 mmol/L (3-11) 8.0 mmol/L (3-11) Blood Urea Nitrogen 26 mg/dl (7-18) 29 mg/dl (7-18) Creatinine 0.93 mg/dl (0.60-1.20) 0.92 mg/dl (0.60-1.20) Est Creatinine Clear Calc Drug Dose 56.8 ml/min 57.0 ml/min Estimated GFR () 74.2 75.2 Estimated GFR (Non- 64.0 64.9 BUN/Creatinine Ratio 27.4 (10-20) 32.1 (10-20) Random Glucose 122 mg/dl (70-99) 182 mg/dl (70-99) Calcium Level 9.3 mg/dl (8.5-10.1) 9.6 mg/dl (8.5-10.1) Magnesium Level 2.3 mg/dl (1.8-2.4) Total Bilirubin 0.2 mg/dl (0.2-1) Direct Bilirubin < 0.1 mg/dl (0-0.2) Aspartate Amino Transf (AST/SGOT) 22 U/L (15-37) Alanine Aminotransferase (ALT/SGPT) 36 U/L (12-78) Alkaline Phosphatase 54 U/L (45-117) Pro-B-Type Natriuretic Peptide 185 pg/ml (0-900) Total Protein 7.3 gm/dl (6.4-8.2) Albumin 3.2 gm/dl (3.4-5.0) Hepatitis C Antibody Screen NEG (NEG) Bedside Troponin I < 0.030 ng/ml (0-0.045) Venous Blood pH 7.44 (7.36-7.41) Venous Blood Partial Pressure CO2 49 mmHg (38.0-50.0) Venous Blood Partial Pressure O2 41 mmHg Venous Blood HCO3 33 mmol/L Venous Blood Oxygen Saturation 73.7 % Venous Blood Base Excess 7.6 mEq/L Lactic Acid Level 1.0 mmol/L (0.4-2.0) Test 04/28/17 11:17 Procalcitonin < 0.05 ng/ml (0-0.5) Micro Results: 04/28 blood x2 pending Recent Pertinent Medications Item Value Date Time Vancomycin HCl 270 ml @ 125 mls/hr 04/29/17 0200 1000 mg/Sodium Q16H/IV Chloride Vancomycin HCl 535 ml @ 200 mls/hr 04/28/17 1130 1750 mg/Sodium 1130 ONCE/IV 04/28/17 1310 Chloride Levofloxacin 750 150 ml @ 100 mls/hr 04/28/17 1100 mg/Prmx 1100 ONCE/IV 04/28/17 1115 Doxycycline 110 ml @ 50 mls/hr 04/27/17 2030 Hyclate 100 mg/ ONE ONCE/IV 04/27/170 Dextrose Assessment & Plan Loading dose: vancomycin 1750 mg IV X 1 dose then: vancomycin 1000 mg IV every 16 hours. Goal peak level estimate: between 25-40 mcg/mL. Goal trough level estimate: between 15-20 mcg/mL. Trough has been ordered for: 04/30/17 before 1000 dose. Pharmacy will continue to follow and will adjust dose/frequency as necessary. Thank you
[2017-04-28] MEDS: HYDROXYCHLOROQUINE SULFATE 200 MG TAB PO SCH (21:11)
[2017-04-28] MEDS: HYDROCODONE/ACETAMIN 5/325MG TAB PO PRN (21:15)
[2017-04-28] MEDS: ATORVASTATIN 10 MG TAB PO SCH (21:56)
[2017-04-28] MEDS: ENOXAPARIN 40 MG/0.4 ML SYR SC SCH (23:27)
[2017-04-29] VITALS (14 sets, daily range): BP systolic 108–137; BP diastolic 73–82; PULSE 86–101; TEMP 36.6–36.9; O2SAT 93–100
[2017-04-29] MEDS: IPRATROPIUM BROMIDE NEB SOLN 0.02% 2.5 ML VIAL INH SCH ×4 (01:55→19:04)
[2017-04-29] MEDS: LEVALBUTEROL 1.25MG/0.5ML NEB INH SCH ×4 (01:55→19:05)
[2017-04-29] MEDS: VANCOMYCIN IV 1,000 MG in SODIUM CHLORIDE 0.9% 250ML 250 ML IV SCH ×2 (02:13→17:33)
[2017-04-29 06:01] LABS: CREATININE 0.87 mg/dl (0.60-1.20)
[2017-04-29] MEDS: FUROSEMIDE 40 MG TAB PO SCH (09:17)
[2017-04-29] MEDS: METOPROLOL SUCC 50MG EXT REL TAB PO SCH (09:18)
[2017-04-29] MEDS: ASPIRIN 81 MG ECTAB PO SCH (09:18)
--- NOTE | 2017-04-29 10:15 | Progress Note ---
Internal Med Progress Note Date of Service: Apr 29, 2017. Provider Documentation: SUBJECTIVE: says having sob anxious on breathing treatment denies pain has some chest tightness afebrile no nausea sats are ok OBJECTIVE: Vital Signs-as noted below Exam: General-alert and oriented. Not in distress ENT-Normal hearing Neck-no neck masses Lungs-cta b/l no wheezing b/l coarse crackles present Heart-S1 and S2 heard regular rate and rhythm no murmurs Abdomen-Soft bowel sounds present non tender no distension Extremities-no edema no erythema Neuro-alert and awake moves extremities Lab data as noted below. ASSESSMENT & PLAN: 1. Acute on chronic hypoxemic respiratory failure secondary to chronic obstructive pulmonary disease/interstitial lung disease exacerbation.steroid dependent disease flare secondary to complicated bronchitis? HCAP? started on iv vanco by pulmonary on increased prednisone to 40mg daily and plan for slow taper nebs sob again today-anxious/ will f/u cxr and abg 2. Chronic diastolic heart failure Equivocal volume status .on Lasix 40mg daily. f/u cxr 3. HTN, stable on Toprol xl. 4. hx lung CA status post surgery, chemotherapy 5. past tobacco abuse. 6. Anemia of chronic anemia, hemoglobin baseline. hb 11.3 DVT PROPHYLAXIS Lovenox DISPOSITION monitor in tele Vital Signs: Date Time Temp Pulse Resp B/P (MAP) Pulse Ox O2 Delivery O2 Flow Rate FiO2 04/29/17 09:30 99 22 97 Nasal Cannula 6.0 04/29/17 08:45 36.6 93 20 137/82 (100) 93 Nasal Cannula 6.0 04/29/17 07:09 101 20 98 Nasal Cannula 6.0 04/29/17 04:00 95 Nasal Cannula 6.0 04/29/17 03:43 36.9 92 24 109/73 (85) 98 Nasal Cannula 6.0 04/29/17 01:57 92 20 98 Nasal Cannula 6.0 04/28/17 23:59 95 Nasal Cannula 6.0 04/28/17 23:35 36.6 83 25 120/75 (90) 99 Nasal Cannula 6.0 04/28/17 20:26 36.6 94 22 142/89 (106) 98 Nasal Cannula 6.0 04/28/17 20:00 95 Nasal Cannula 6.0 04/28/17 18:48 85 24 95 Nasal Cannula 6.0 04/28/17 16:27 99 Nasal Cannula 6.0 04/28/17 16:01 36.7 91 24 133/85 (101) 99 Nasal Cannula 6.0 04/28/17 14:18 101 18 93 Nasal Cannula 6.0 04/28/17 12:08 36.9 84 18 131/69 (89) 97 04/28/17 12:01 99 Nasal Cannula 6.0 Lab Results: Results Past 24 Hours Test 04/28/17 11:17 04/29/17 05:07 04/29/17 09:53 Range/Units Procalcitonin < 0.05 0-0.5 ng/ml Creatinine 0.87 0.60-1.20 mg/dl Est Creatinine Clear Calc Drug Dose 60.3 ml/min Estimated GFR () 80.5 Estimated GFR (Non- 69.4 Arterial Blood pH 7.48 7.35-7.45 Arterial Blood Partial Pressure CO2 41 35-46 mmHg Arterial Blood Partial Pressure O2 78 80-95 mm/Hg Arterial Blood HCO3 30 19-24 mmol/L Arterial Blood Oxygen Saturation 95.7 90-95 % Arterial Blood Base Excess 5.8 -9-1.8 mEq/L Arterial Blood Gas Delivery 4 L Vicente Test POS POS Microbiology Results 04/28/17 MRSA DNA Surveillance Screen - Final, Complete Specimen Negative for MRSA by DNA Probe
--- NOTE | 2017-04-29 10:39 | DIAGNOSTIC IMAGING REPORT ---
CHEST ONE VIEW PORTABLE CLINICAL HISTORY: Shortness of breath. COMPARISON STUDY: Chest radiograph April 27, 2017. FINDINGS: Right hemithorax loss is again noted. This is unchanged. Diffuse interstitial thickening is unchanged. No superimposed consolidation is identified. No pneumothorax or pleural effusion is noted. Cardiomegaly is unchanged. IMPRESSION: No change in appearance the chest. Diffuse interstitial thickening which suggests interstitial lung disease/emphysema. No consolidation identified. Electronically signed by: Nicolas Garcia M.D. 04/29/2017 10:37 AM Dictated Date/Time: 04/29/2017 10:35 AM
[2017-04-29] MEDS: HYDROCODONE/ACETAMIN 5/325MG TAB PO PRN (21:06)
[2017-04-29] MEDS: ATORVASTATIN 10 MG TAB PO SCH (21:07)
[2017-04-29] MEDS: HYDROXYCHLOROQUINE SULFATE 200 MG TAB PO SCH (21:07)
[2017-04-29] MEDS: ENOXAPARIN 40 MG/0.4 ML SYR SC SCH (22:28)
[2017-04-29] MEDS: LORAZEPAM 2 MG/ML 1 ML VIAL IV PRN (22:42)
[2017-04-30] VITALS (10 sets, daily range): BP systolic 108–116; BP diastolic 72–76; PULSE 74–86; TEMP 36.6–36.8; O2SAT 96–100
[2017-04-30] MEDS: IPRATROPIUM BROMIDE NEB SOLN 0.02% 2.5 ML VIAL INH SCH ×4 (01:35→19:14)
[2017-04-30] MEDS: LEVALBUTEROL 1.25MG/0.5ML NEB INH SCH ×4 (01:35→19:15)
[2017-04-30 06:05] LABS: CALCIUM 9.6 mg/dl (8.5-10.1); CREATININE 0.73 mg/dl (0.60-1.20); POTASSIUM 3.3 mmol/L (3.5-5.1)
[2017-04-30] MEDS: CALCIUM CARBONATE 500 MG CHEWABLE PO PRN (06:34)
[2017-04-30] MEDS: FUROSEMIDE 40 MG TAB PO SCH (08:09)
[2017-04-30] MEDS: METOPROLOL SUCC 50MG EXT REL TAB PO SCH (08:09)
[2017-04-30] MEDS: ASPIRIN 81 MG ECTAB PO SCH (08:10)
[2017-04-30] MEDS ORDERED: VANCOMYCIN TROUGH ONE (09:30)
[2017-04-30] MEDS ORDERED: POTASSIUM CHLORIDE 10 MEQ TABCR PO STA (12:05)
--- NOTE | 2017-04-30 19:31 | Progress Note ---
Internal Med Progress Note Date of Service: Apr 30, 2017. Provider Documentation: SUBJECTIVE: feeling better today sob better afebrile no chest pain no nausea resting comfortably OBJECTIVE: Vital Signs-as noted below Exam: General-alert and oriented. Not in distress ENT-Normal hearing Neck-no neck masses Lungs-cta b/l no wheezing b/l coarse crackles present Heart-S1 and S2 heard regular rate and rhythm no murmurs Abdomen-Soft bowel sounds present non tender no distension Extremities-no edema no erythema Neuro-alert and awake moves extremities Lab data as noted below. ASSESSMENT & PLAN: 1. Acute on chronic hypoxemic respiratory failure secondary to chronic obstructive pulmonary disease/interstitial lung disease exacerbation.steroid dependent disease flare secondary to complicated bronchitis? HCAP? started on iv vanco by pulmonary but stopped as pro calcitonin negative on increased prednisone to 40mg daily and plan for slow taper nebs better today continue same 2. Chronic diastolic heart failure Equivocal volume status .on Lasix 40mg daily.stable. 3. HTN, stable on Toprol xl. 4. hx lung CA status post surgery, chemotherapy 5. past tobacco abuse. 6. Anemia of chronic anemia, hemoglobin baseline. hb 11.3 DVT PROPHYLAXIS Lovenox DISPOSITION monitor in tele pt/ot to be determined Vital Signs: Date Time Temp Pulse Resp B/P (MAP) Pulse Ox O2 Delivery O2 Flow Rate FiO2 04/30/17 19:17 78 16 98 Nasal Cannula 5.0 04/30/17 16:57 36.7 76 22 110/74 (86) 99 Nasal Cannula 4.0 04/30/17 14:19 74 16 99 Nasal Cannula 5.0 04/30/17 12:00 36.6 75 26 116/74 (88) 96 Nasal Cannula 5.0 Humidified Oxygen 04/30/17 12:00 Nasal Cannula 5.0 04/30/17 08:10 36.6 84 26 110/72 (85) 98 Nasal Cannula 5.0 Humidified Oxygen 04/30/17 08:00 Nasal Cannula 5.0 04/30/17 07:11 85 18 98 Nasal Cannula 5.0 04/30/17 04:00 Nasal Cannula 5.0 04/30/17 03:53 36.6 84 22 108/72 (84) 97 Nasal Cannula 5.0 04/30/17 01:35 86 20 99 Nasal Cannula 5.0 04/30/17 00:00 Nasal Cannula 4.0 04/29/17 23:54 36.7 86 23 116/77 (90) 100 Nasal Cannula 5.0 04/29/17 20:00 Nasal Cannula 4.0 04/29/17 19:36 36.6 88 20 122/81 (95) 93 Nasal Cannula 4.0 Lab Results: Results Past 24 Hours Test 04/30/17 05:11 04/30/17 09:43 Range/Units Sodium Level 142 136-145 mmol/L Potassium Level 3.3 3.5-5.1 mmol/L Chloride Level 105 98-107 mmol/L Carbon Dioxide Level 34 21-32 mmol/L Anion Gap 3.0 3-11 mmol/L Blood Urea Nitrogen 29 7-18 mg/dl Creatinine 0.73 0.60-1.20 mg/dl Est Creatinine Clear Calc Drug Dose 72.4 ml/min Estimated GFR () 99.5 Estimated GFR (Non- 85.8 BUN/Creatinine Ratio 39.5 10-20 Random Glucose 94 70-99 mg/dl Calcium Level 9.6 8.5-10.1 mg/dl Magnesium Level 2.3 1.8-2.4 mg/dl Vancomycin Level Trough 15.4 SEE COMMENT mcg/ml
[2017-04-30] MEDS: HYDROXYCHLOROQUINE SULFATE 200 MG TAB PO SCH (22:16)
[2017-04-30] MEDS: ATORVASTATIN 10 MG TAB PO SCH (22:16)
[2017-04-30] MEDS: LORAZEPAM 2 MG/ML 1 ML VIAL IV PRN (22:19)
[2017-04-30] MEDS: ENOXAPARIN 40 MG/0.4 ML SYR SC SCH (22:19)
[2017-05-01] VITALS (10 sets, daily range): BP systolic 99–134; BP diastolic 66–84; PULSE 73–92; TEMP 36.4–36.7; O2SAT 95–100
[2017-05-01] MEDS: IPRATROPIUM BROMIDE NEB SOLN 0.02% 2.5 ML VIAL INH SCH ×4 (01:51→19:32)
[2017-05-01] MEDS: LEVALBUTEROL 1.25MG/0.5ML NEB INH SCH ×4 (01:51→19:32)
[2017-05-01 05:49] LABS: HEMOGLOBIN 10.5 g/dL (12.0-16.0); MEAN CELL VOLUME 88.7 fL (80-100); MEAN CORPUSCULAR HEMOGLOBIN 28.2 pg (25-34); MEAN CORPUSCULAR HGB CONC 31.8 g/dl (32-36); MEAN PLATELET VOLUME 9.5 fL (7.4-10.4); PLATELET COUNT 212 K/uL (130-400); RED CELL DISTRIBUTION WIDTH CV 17.2 % (11.5-14.5); RED CELL DISTRIBUTION WIDTH SD 56.2 fL (36.4-46.3); WHITE BLOOD COUNT 10.91 K/uL (4.8-10.8)
[2017-05-01 06:27] LABS: CALCIUM 9.8 mg/dl (8.5-10.1); CREATININE 0.86 mg/dl (0.60-1.20); POTASSIUM 3.7 mmol/L (3.5-5.1)
[2017-05-01 06:40] LABS: BASO % 0.4 %; BASO ABS # 0.04 K/uL (0-0.2); EOS % 4.2 %; EOS ABS # 0.46 K/uL (0-0.5); IG# 0.56 K/uL (0.00-0.02); LYMPH % 26.6 %; MONO % 10.4 %; MONO ABS # 1.13 K/uL (0.11-0.59); NEUT % 53.3 %; NEUT ABS # 5.82 K/uL (1.4-6.5)
[2017-05-01] MEDS: METOPROLOL SUCC 50MG EXT REL TAB PO SCH (08:40)
[2017-05-01] MEDS: ASPIRIN 81 MG ECTAB PO SCH (08:40)
[2017-05-01] MEDS: FUROSEMIDE 40 MG TAB PO SCH (08:41)
--- NOTE | 2017-05-01 17:07 | Progress Note ---
Internal Med Progress Note Date of Service: May 01, 2017. Provider Documentation: SUBJECTIVE: feeling better slept ok ambulating in room ok cough better eating ok no pain afebrile OBJECTIVE: Vital Signs-as noted below Exam: General-alert and oriented. Not in distress ENT-Normal hearing Neck-no neck masses Lungs-cta b/l no wheezing b/l coarse crackles present Heart-S1 and S2 heard regular rate and rhythm no murmurs Abdomen-Soft bowel sounds present non tender no distension Extremities-no edema no erythema Neuro-alert and awake moves extremities Lab data as noted below. ASSESSMENT & PLAN: 1. Acute on chronic hypoxemic respiratory failure secondary to chronic obstructive pulmonary disease/interstitial lung disease exacerbation.steroid dependent disease flare secondary to complicated bronchitis? HCAP? started on iv vanco by pulmonary but stopped as pro calcitonin negative on increased prednisone to 40mg daily and plan for slow taper nebs better today will start tapering steroids from tomorrow 2. Chronic diastolic heart failure Equivocal volume status .on Lasix 40mg daily.stable. stable conditions: 3. HTN, stable on Toprol xl. 4. hx lung CA status post surgery, chemotherapy 5. past tobacco abuse. 6. Anemia of chronic anemia, hemoglobin baseline. hb 11.3 DVT PROPHYLAXIS Lovenox DISPOSITION monitor in tele pt/ot to be determined Vital Signs: Date Time Temp Pulse Resp B/P (MAP) Pulse Ox O2 Delivery O2 Flow Rate FiO2 05/01/17 16:00 Nasal Cannula 4.0 05/01/17 15:13 36.6 87 16 112/77 (89) 95 Nasal Cannula 4.0 05/01/17 14:26 73 16 99 Nasal Cannula 4.0 05/01/17 12:00 Nasal Cannula 4.0 05/01/17 10:33 36.4 76 22 117/84 (95) 99 Nasal Cannula 3.0 05/01/17 08:09 36.7 75 18 134/72 (92) 96 05/01/17 08:00 Nasal Cannula 4.0 05/01/17 07:15 79 16 98 Nasal Cannula 4.0 05/01/17 04:00 Nasal Cannula 4.0 05/01/17 03:45 36.4 77 23 110/71 (84) 100 Nasal Cannula 4.0 05/01/17 01:53 77 16 99 Nasal Cannula 4.0 05/01/17 00:00 Nasal Cannula 4.0 04/30/17 23:40 36.6 76 17 116/76 (89) 100 Nasal Cannula 4.0 04/30/17 20:35 36.8 77 22 113/75 (88) 100 Nasal Cannula 4.0 04/30/17 20:00 Nasal Cannula 04/30/17 19:17 78 16 98 Nasal Cannula 5.0 Lab Results: Results Past 24 Hours Test 05/01/17 05:24 Range/Units White Blood Count 10.91 4.8-10.8 K/uL Red Blood Count 3.72 4.2-5.4 M/uL Hemoglobin 10.5 12.0-16.0 g/dL Hematocrit 33.0 37-47 % Mean Corpuscular Volume 88.7 80-100 fL Mean Corpuscular Hemoglobin 28.2 25-34 pg Mean Corpuscular Hemoglobin Concent 31.8 32-36 g/dl Platelet Count 212 130-400 K/uL Mean Platelet Volume 9.5 7.4-10.4 fL Neutrophils (%) (Auto) 53.3 % Lymphocytes (%) (Auto) 26.6 % Monocytes (%) (Auto) 10.4 % Eosinophils (%) (Auto) 4.2 % Basophils (%) (Auto) 0.4 % Neutrophils # (Auto) 5.82 1.4-6.5 K/uL Lymphocytes # (Auto) 2.90 1.2-3.4 K/uL Monocytes # (Auto) 1.13 0.11-0.59 K/uL Eosinophils # (Auto) 0.46 0-0.5 K/uL Basophils # (Auto) 0.04 0-0.2 K/uL RDW Standard Deviation 56.2 36.4-46.3 fL RDW Coefficient of Variation 17.2 11.5-14.5 % Immature Granulocyte % (Auto) 5.1 % Immature Granulocyte # (Auto) 0.56 0.00-0.02 K/uL Red Blood Cell Morphology Unremarkable Sodium Level 141 136-145 mmol/L Potassium Level 3.7 3.5-5.1 mmol/L Chloride Level 102 98-107 mmol/L Carbon Dioxide Level 35 21-32 mmol/L Anion Gap 4.0 3-11 mmol/L Blood Urea Nitrogen 28 7-18 mg/dl Creatinine 0.86 0.60-1.20 mg/dl Est Creatinine Clear Calc Drug Dose 58.7 ml/min Estimated GFR () 81.6 Estimated GFR (Non- 70.4 BUN/Creatinine Ratio 32.6 10-20 Random Glucose 101 70-99 mg/dl Calcium Level 9.8 8.5-10.1 mg/dl Magnesium Level 2.3 1.8-2.4 mg/dl
[2017-05-01] MEDS: ATORVASTATIN 10 MG TAB PO SCH (20:24)
[2017-05-01] MEDS: HYDROXYCHLOROQUINE SULFATE 200 MG TAB PO SCH (20:24)
[2017-05-01] MEDS: LORAZEPAM 2 MG/ML 1 ML VIAL IV PRN (22:26)
[2017-05-01] MEDS: ENOXAPARIN 40 MG/0.4 ML SYR SC SCH (22:30)
[2017-05-02] VITALS (11 sets, daily range): BP systolic 107–135; BP diastolic 70–85; PULSE 72–96; TEMP 36.5–36.7; O2SAT 90–99
[2017-05-02] MEDS: IPRATROPIUM BROMIDE NEB SOLN 0.02% 2.5 ML VIAL INH SCH ×4 (01:55→19:34)
[2017-05-02] MEDS: LEVALBUTEROL 1.25MG/0.5ML NEB INH SCH ×4 (01:56→19:36)
[2017-05-02] MEDS: CALCIUM CARBONATE 500 MG CHEWABLE PO PRN (03:09)
[2017-05-02] MEDS ORDERED: NITROGLYCERIN 0.4 MG SL PER TAB CHARGE SL STA (03:11)
[2017-05-02 03:26] LABS: HEMATOCRIT 34.1 % (37-47); HEMOGLOBIN 10.9 g/dL (12.0-16.0); MEAN CORPUSCULAR HEMOGLOBIN 27.8 pg (25-34); MEAN PLATELET VOLUME 9.4 fL (7.4-10.4); PLATELET COUNT 213 K/uL (130-400); RED CELL DISTRIBUTION WIDTH CV 16.9 % (11.5-14.5); RED CELL DISTRIBUTION WIDTH SD 53.7 fL (36.4-46.3); WHITE BLOOD COUNT 12.99 K/uL (4.8-10.8)
[2017-05-02 03:35] LABS: PTT PATIENT 23.6 SECONDS (21.0-31.0)
[2017-05-02 03:43] LABS: ALBUMIN 2.9 gm/dl (3.4-5.0); ALT/SGPT 25 U/L (12-78); AST/SGOT 12 U/L (15-37); BLOOD UREA NITROGEN 30 mg/dl (7-18); CALCIUM 10.5 mg/dl (8.5-10.1); CARBON DIOXIDE 37 mmol/L (21-32); CREATININE 0.81 mg/dl (0.60-1.20); GLUCOSE 100 mg/dl (70-99); LIPASE 88 U/L (73-393); POTASSIUM 3.6 mmol/L (3.5-5.1); SODIUM 139 mmol/L (136-145)
[2017-05-02 03:49] LABS: ALKALINE PHOSPHATASE 45 U/L (45-117); TOTAL PROTEIN 6.5 gm/dl (6.4-8.2)
[2017-05-02 03:50] LABS: BASO % 0.2 %; BASO ABS # 0.03 K/uL (0-0.2); EOS % 1.3 %; EOS ABS # 0.17 K/uL (0-0.5); IG# 0.71 K/uL (0.00-0.02); LYMPH % 23.7 %; LYMPH ABS # 3.08 K/uL (1.2-3.4); MONO % 9.2 %; MONO ABS # 1.19 K/uL (0.11-0.59); NEUT % 60.1 %; NEUT ABS # 7.81 K/uL (1.4-6.5)
[2017-05-02] MEDS: ASPIRIN 81 MG ECTAB PO SCH (08:20)
[2017-05-02] MEDS: METOPROLOL SUCC 50MG EXT REL TAB PO SCH (08:20)
[2017-05-02] MEDS: HYDROCODONE/ACETAMIN 5/325MG TAB PO PRN (08:20)
[2017-05-02] MEDS: FUROSEMIDE 40 MG TAB PO SCH (08:21)
--- NOTE | 2017-05-02 09:41 | DIAGNOSTIC IMAGING REPORT ---
CHEST ONE VIEW PORTABLE HISTORY: 67 years-old Female sob/chest pain acute shortness of breath with atypical chest pain COMPARISON: Chest radiograph 04/29/2017 and CTA chest 03/11/2017 TECHNIQUE: Portable AP view of the chest FINDINGS: Cardiac silhouette is again mildly enlarged. Atherosclerosis of the aorta. Surgical clips project over the right hilum, unchanged. Right hemidiaphragmatic elevation is stable. Chronic interstitial coarsening redemonstrated. Emphysematous changes are noted. There is mildly improved aeration of the lung bases with persistent hazy bibasilar opacities. The bones of the chest appear grossly intact. IMPRESSION: No acute process. The above report was generated using voice recognition software. It may contain grammatical, syntax or spelling errors. Electronically signed by: Alejandro Zamarripa M.D. 05/02/2017 9:40 AM Dictated Date/Time: 05/02/2017 9:35 AM
--- NOTE | 2017-05-02 18:18 | Progress Note ---
Internal Med Progress Note Date of Service: May 02, 2017. Provider Documentation: SUBJECTIVE: resting comfortably had chest pain in am but resolved now feeling better now no cough eating ok wants to go home OBJECTIVE: Vital Signs-as noted below Exam: General-alert and oriented. Not in distress ENT-Normal hearing Neck-no neck masses Lungs-cta b/l no wheezing b/l coarse crackles present Heart-S1 and S2 heard regular rate and rhythm no murmurs Abdomen-Soft bowel sounds present non tender no distension Extremities-no edema no erythema Neuro-alert and awake moves extremities Lab data as noted below. ASSESSMENT & PLAN: 1. Acute on chronic hypoxemic respiratory failure secondary to chronic obstructive pulmonary disease/interstitial lung disease exacerbation.steroid dependent disease flare secondary to complicated bronchitis? HCAP? started on iv vanco by pulmonary but stopped as pro calcitonin negative on increased prednisone to 40mg daily and plan for slow taper nebs better today will start tapering steroids from tomorrow cxr better pt/ot 2. Chronic diastolic heart failure Equivocal volume status .on Lasix 40mg daily.stable. stable conditions: 3. HTN, stable on Toprol xl. 4. hx lung CA status post surgery, chemotherapy 5. past tobacco abuse. 6. Anemia of chronic anemia, hemoglobin baseline. hb 11.3 DVT PROPHYLAXIS Lovenox DISPOSITION monitor in tele pt/ot possible d/c in am if stable Vital Signs: Date Time Temp Pulse Resp B/P (MAP) Pulse Ox O2 Delivery O2 Flow Rate FiO2 05/02/17 16:00 Nasal Cannula 4.0 05/02/17 15:35 36.5 96 24 135/85 (102) 90 Nasal Cannula 4.0 05/02/17 14:26 87 16 95 Nasal Cannula 4.0 05/02/17 12:00 Nasal Cannula 4.0 05/02/17 11:44 36.5 79 20 134/85 (101) 96 Nasal Cannula 4.0 05/02/17 08:00 Nasal Cannula 4.0 05/02/17 07:39 36.6 78 20 124/82 (96) 99 Nasal Cannula 2.0 05/02/17 07:10 78 16 99 Nasal Cannula 4.0 05/02/17 04:00 Nasal Cannula 4.0 05/02/17 03:45 36.7 91 24 120/80 (93) 98 Nasal Cannula 4.0 05/02/17 03:15 86 122/73 (89) 97 Nasal Cannula 4.0 05/02/17 01:56 84 16 97 Nasal Cannula 4.0 05/02/17 00:00 Nasal Cannula 4.0 05/01/17 23:45 36.7 92 20 99/66 (77) 99 Nasal Cannula 4.0 05/01/17 20:00 Nasal Cannula 4.0 05/01/17 19:32 88 18 99 Nasal Cannula 4.0 05/01/17 19:16 36.7 80 20 117/81 (93) 99 Nasal Cannula 6.0 Humidified Oxygen Lab Results: Results Past 24 Hours Test 05/02/17 03:18 05/02/17 09:43 Range/Units White Blood Count 12.99 4.8-10.8 K/uL Red Blood Count 3.92 4.2-5.4 M/uL Hemoglobin 10.9 12.0-16.0 g/dL Hematocrit 34.1 37-47 % Mean Corpuscular Volume 87.0 80-100 fL Mean Corpuscular Hemoglobin 27.8 25-34 pg Mean Corpuscular Hemoglobin Concent 32.0 32-36 g/dl Platelet Count 213 130-400 K/uL Mean Platelet Volume 9.4 7.4-10.4 fL Neutrophils (%) (Auto) 60.1 % Lymphocytes (%) (Auto) 23.7 % Monocytes (%) (Auto) 9.2 % Eosinophils (%) (Auto) 1.3 % Basophils (%) (Auto) 0.2 % Neutrophils # (Auto) 7.81 1.4-6.5 K/uL Lymphocytes # (Auto) 3.08 1.2-3.4 K/uL Monocytes # (Auto) 1.19 0.11-0.59 K/uL Eosinophils # (Auto) 0.17 0-0.5 K/uL Basophils # (Auto) 0.03 0-0.2 K/uL RDW Standard Deviation 53.7 36.4-46.3 fL RDW Coefficient of Variation 16.9 11.5-14.5 % Immature Granulocyte % (Auto) 5.5 % Immature Granulocyte # (Auto) 0.71 0.00-0.02 K/uL Activated Partial Thromboplast Time 23.6 21.0-31.0 SECONDS Partial Thromboplastin Ratio 0.9 Sodium Level 139 136-145 mmol/L Potassium Level 3.6 3.5-5.1 mmol/L Chloride Level 100 98-107 mmol/L Carbon Dioxide Level 37 21-32 mmol/L Anion Gap 2.0 3-11 mmol/L Blood Urea Nitrogen 30 7-18 mg/dl Creatinine 0.81 0.60-1.20 mg/dl Est Creatinine Clear Calc Drug Dose 62.4 ml/min Estimated GFR () 87.7 Estimated GFR (Non- 75.7 BUN/Creatinine Ratio 36.8 10-20 Random Glucose 100 70-99 mg/dl Calcium Level 10.5 8.5-10.1 mg/dl Magnesium Level 2.4 1.8-2.4 mg/dl Total Bilirubin 0.3 0.2-1 mg/dl Aspartate Amino Transf (AST/SGOT) 12 15-37 U/L Alanine Aminotransferase (ALT/SGPT) 25 12-78 U/L Alkaline Phosphatase 45 45-117 U/L Troponin I < 0.015 < 0.015 0-0.045 ng/ml Total Protein 6.5 6.4-8.2 gm/dl Albumin 2.9 3.4-5.0 gm/dl Globulin 3.6 2.5-4.0 gm/dl Albumin/Globulin Ratio 0.8 0.9-2 Lipase 88 73-393 U/L
[2017-05-02] MEDS: HYDROXYCHLOROQUINE SULFATE 200 MG TAB PO SCH (20:43)
[2017-05-02] MEDS: ATORVASTATIN 10 MG TAB PO SCH (20:43)
[2017-05-02] MEDS: LORAZEPAM 2 MG/ML 1 ML VIAL IV PRN (22:35)
[2017-05-02] MEDS: ENOXAPARIN 40 MG/0.4 ML SYR SC SCH (22:35)
[2017-05-03 01:06] VITALS: PULSE 84; O2SAT 95
[2017-05-03] MEDS: LEVALBUTEROL 1.25MG/0.5ML NEB INH SCH ×2 (01:06→07:07)
[2017-05-03] MEDS: IPRATROPIUM BROMIDE NEB SOLN 0.02% 2.5 ML VIAL INH SCH ×2 (01:06→07:07)
[2017-05-03 03:45] VITALS: BP 102/67; PULSE 82; TEMP 36.7; O2SAT 100
[2017-05-03 07:07] VITALS: PULSE 90; O2SAT 90
--- NOTE | 2017-05-03 07:07 | Progress Note ---
Internal Med Progress Note Date of Service: May 03, 2017. Provider Documentation: Patient requesting for CODE STATUS to be changed to DNR, Vital Signs: Date Time Temp Pulse Resp B/P (MAP) Pulse Ox O2 Delivery O2 Flow Rate FiO2 05/03/17 12:00 Nasal Cannula 4.0 05/03/17 10:13 36.6 83 20 98 Nasal Cannula 05/03/17 08:00 Nasal Cannula 4.0 05/03/17 07:10 36.6 83 20 111/70 (84) 98 Nasal Cannula 4.0 Humidified Oxygen 05/03/17 07:07 90 16 90 Nasal Cannula 4.0 05/03/17 04:00 Nasal Cannula 4.0 05/03/17 03:45 36.7 82 20 102/67 (79) 100 Nasal Cannula 4.0 05/03/17 01:06 84 16 95 Nasal Cannula 4.0 05/03/17 00:00 Nasal Cannula 4.0 05/02/17 23:50 36.7 90 23 107/70 (82) 98 Nasal Cannula 4.0 05/02/17 20:00 Nasal Cannula 4.0 05/02/17 19:36 80 16 90 Nasal Cannula 4.0 05/02/17 19:09 36.5 72 22 123/82 (96) 96 Nasal Cannula 4.0 05/02/17 16:00 Nasal Cannula 4.0 05/02/17 15:35 36.5 96 24 135/85 (102) 90 Nasal Cannula 4.0 05/02/17 14:26 87 16 95 Nasal Cannula 4.0 Lab Results:
[2017-05-03 07:10] VITALS: BP 111/70; PULSE 83; TEMP 36.6; O2SAT 98
[2017-05-03] MEDS: METOPROLOL SUCC 50MG EXT REL TAB PO SCH (08:42)
[2017-05-03] MEDS: ASPIRIN 81 MG ECTAB PO SCH (08:44)
[2017-05-03] MEDS ORDERED: FUROSEMIDE 10 MG/ML 60ML BOTTLE PO SCH (09:00)
[2017-05-03] MEDS ORDERED: FUROSEMIDE 40 MG TAB PO SCH (10:00)
[2017-05-03 10:13] VITALS: BP 111/70; PULSE 83; TEMP 36.6; O2SAT 98
[2017-05-03] MEDS ORDERED: PRED-301 PO ×2 (12:49→13:05)
--- NOTE | 2017-05-03 12:55 | Discharge Instructions ---
Discharge Instructions Date of Service May 03, 2017. Admission Reason for Admission: Respiratory Failure Discharge Discharge Diagnosis / Problem: ACUTE ON CHRONIC RESP FAILURE, COPD/ILD FLARE Discharge Goals Goal(s): Decrease discomfort, Improve function Activity Recommendations Activity Limitations: resume your previous activity . Instructions / Follow-Up Instructions / Follow-Up FOLLOWUP WITH FAMILY DOCTOR ON April AT 1PM FOLLOWUP WITH PULMONARY IN 2-3 WEEKS. PREDNISONE SLOW TAPER: PREDNISONE 35MG PO DAILY X ONE WEEK THEN PREDNISONE 30MG PO DAILY X ONE WEEK THEN PREDNISONE 25MG PO DAILY X ONE WEEK THEN PREDNISONE 20MG PO DAILY X ONE WEEK THEN PREDNISONE 15MG PO DAILY X ONE WEEK THEN PREDNISONE 10MG PO DAILY MAINTENANCE DOSE PER PULMONARY. Current Hospital Diet Patient's current hospital diet: AHA Diet (Heart Healthy) Discharge Diet Recommended Diet: AHA Diet (Heart Healthy) Pending Studies Studies pending at discharge: no Medical Emergencies . Who to Call and When: Medical Emergencies: If at any time you feel your situation is an emergency, please call 911 immediately. . Non-Emergent Contact Non-Emergency issues call your: Primary Care Provider . . "Provider Documentation" section prepared by Shaq Engel. .
--- NOTE | 2017-05-03 19:10 | Progress Note ---
Internal Med Progress Note Date of Service: May 03, 2017. Provider Documentation: SUBJECTIVE: resting comfortably feeling better denies sob or chest pain no cough want to go home says she is safe at home and have no issues lives with her says her daughter lives close by OBJECTIVE: Vital Signs-as noted below Exam: General-alert and oriented. Not in distress ENT-Normal hearing Neck-no neck masses Lungs-cta b/l no wheezing b/l coarse crackles present Heart-S1 and S2 heard regular rate and rhythm no murmurs Abdomen-Soft bowel sounds present non tender no distension Extremities-no edema no erythema Neuro-alert and awake moves extremities Lab data as noted below. ASSESSMENT & PLAN: 1. Acute on chronic hypoxemic respiratory failure secondary to chronic obstructive pulmonary disease/interstitial lung disease exacerbation.steroid dependent disease flare secondary to complicated bronchitis? HCAP? started on iv vanco by pulmonary but stopped as pro calcitonin negative on increased prednisone to 40mg daily and plan for slow taper nebs better today tapering steroids slowly to maintenance dose 10mg daily cxr better stable f/u with pulmonary- has appointment 2. Chronic diastolic heart failure Equivocal volume status .on Lasix 40mg daily.stable. 3. HTN, stable on Toprol xl. 4. hx lung CA status post surgery, chemotherapy 5. past tobacco abuse. 6. Anemia of chronic anemia, hemoglobin baseline. hb 10.3 discharged home Vital Signs: Date Time Temp Pulse Resp B/P (MAP) Pulse Ox O2 Delivery O2 Flow Rate FiO2 05/03/17 12:00 Nasal Cannula 4.0 05/03/17 10:13 36.6 83 20 98 Nasal Cannula 05/03/17 08:00 Nasal Cannula 4.0 05/03/17 07:10 36.6 83 20 111/70 (84) 98 Nasal Cannula 4.0 Humidified Oxygen 05/03/17 07:07 90 16 90 Nasal Cannula 4.0 05/03/17 04:00 Nasal Cannula 4.0 05/03/17 03:45 36.7 82 20 102/67 (79) 100 Nasal Cannula 4.0 05/03/17 01:06 84 16 95 Nasal Cannula 4.0 05/03/17 00:00 Nasal Cannula 4.0 05/02/17 23:50 36.7 90 23 107/70 (82) 98 Nasal Cannula 4.0 05/02/17 20:00 Nasal Cannula 4.0 05/02/17 19:36 80 16 90 Nasal Cannula 4.0 05/02/17 19:09 36.5 72 22 123/82 (96) 96 Nasal Cannula 4.0
--- NOTE | 2017-05-03 19:35 | Discharge Summary ---
Discharge Summary Date of Service May 03, 2017. Discharge Summary Admission Date: Apr 27, 2017 at 20:59 Discharge Date: May 03, 2017 Discharge Disposition: Home Principal Diagnosis: acute on chronic respiratory failure copd/ILD flare Secondary Diagnoses/Problems: chronic respiratory failureCOPD/RA-ILD on chronic steroid therapy, chronic diastolic heart failure, EF of 55-59%, past tobacco abuse, lung cancer status post surgery, chemotherapy, chronic anemia (baseline hemoglobin of 9-10). Procedures: CXR: No acute cardiopulmonary findings. Diffuse interstitial thickening which suggests interstitial lung disease/emphysema. No superimposed consolidation. VENOUS DOPPLER: No DVT within the right or left lower extremity. Consultations: PULMONARY Medication Reconciliation New Medications: Prednisone (Prednisone) 5 Mg Tab 35 MG PO UD, #180 TAB PREDNISONE 35MG PO DAILY X ONE WEEK THEN TAPER BY 5MG WEEKLY UNTIL MAINTENANCE DOSE OF 10MG DAILY. Continued Medications: Albuterol Hfa (Ventolin Hfa) 200 Puffs/63887 Mcg Aers 2 PUFFS INH Q4H PRN for Cough/SOB/Wheezing Alendronate Sodium (Fosamax) 70 Mg Tab 70 MG PO WK, TAB TAKE THIS MEDICATION EVERY WEDNESDAY Aspirin (Aspirin 81) 81 Mg Tab 81 MG PO QAM Atorvastatin (Lipitor) 10 Mg Tab 10 MG PO HS Benzonatate (Tessalon Perles) 100 Mg Cap 100 MG PO TID PRN for Cough Calcium Carbonate-Cholecalcife (Calcium 600 + D 600-200 mg-Unit) 1 Tab Tab 2 TABS PO DAILY Cholecalciferol (Vitamin D3) 1,000 Unit Tab 5000 INTER.UNIT PO DAILY Fluticasone Propionate (Nasal) (Flonase Allergy Relief) 50 Mcg/Act Spr 2 SPRAYS KELVIN DAILY Folic Acid (Folvite) 1 Mg Tab 1 MG PO DAILY Furosemide (Lasix) 40 Mg Tab 40 MG PO DAILY, TAB Home O2 Therapy (Oxygen) Gas 2-6 LITER NA UD, BTL Hydrocodone/Acetaminophen 5MG/325MG ([place] 5MG/325MG) Tab 1 TABLET PO Q8 PRN for Severe Pain, TAB Hydroxychloroquine Sulfate (Plaquenil) 200 Mg Tab 200 MG PO HS, TAB Ipratropium [place] (Atrovent 0.02% Soln) 2.5 Ml Nebu 500 MCG NEB Q6H PRN for Wheezing Ipratropium-Albuterol (Combivent Respimat) 1 Aer Aer 1 PUFFS INH DAILY, INH Levalbuterol Hcl (Levalbuterol Hcl) 1.25 Mg/3 Ml Neb 1.25 MG NEB Q6H PRN for Wheezing Metoprolol Succinate (Toprol Xl) 50 Mg Tabcr 50 MG PO QAM Prednisone Tab (Prednisone) 10 Mg Tab 10 MG PO UD, TAB BEGIN TAKING DAILY MAINTENANCE DOSE OF 10 MG ONCE DAILY WHEN FINISH WITH TAPER DOWNN DOSING Discontinued Medications: Prednisone (Prednisone) 10 Mg Tab 60 MG PO UD, #60 TAB 1 Refill PREDNISONE 60MG PO DAILY X 3 DAYS THEN PREDNISONE 50MG PO DAILY X 3 DAYS THEN PREDNISONE 40MG PO DAILY X 3 DAYS THEN PREDNISONE 30MG PO DAILY X 3 DAYS THEN PREDNISONE 20MG PO DAILY X 3 DAYS THEN PREDNISONE 10MG PO DAILY TO CONTINUE HOME MAINTWENANCE DOSE UNTIL SEEN BY PULMONARY Admission Information HPI (per Admitting provider): History obtained from patient and records. Medical history significant for chronic respiratory failureCOPD/RA-ILD on chronic steroid therapy, chronic diastolic heart failure, EF of 55-59%, past tobacco abuse, lung cancer status post surgery, chemotherapy, chronic anemia (baseline hemoglobin of 9-10). Recent confinement last month for respiratory failure, UIP flare, influenza. Few days history of nasal congestion followed by cough productive of white yellow sputum. No recent shortness of breath. Denies aspiration. Patient complaining of achy back discomfort with coughing. Patient thinks she may have gained 6 pounds. Denies leg swelling. At the Emergency Room, the patient received Solu-Medrol, breathing treatment for possible COPD exacerbation. Physical Exam (per Admitting): VITAL SIGNS: Blood pressure was noted to be 128/77, pulse rate 88, RR 22, temperature 36.5, sats 95 on 6 liters. GENERAL: Noted to be in minimal respiratory distress, obese, cushingoid. SKIN: Pallor, warm. HEENT: Pale palpebral conjunctiva. No ptosis. Dry mucosa. Nasal cannula in place. NECK: Supple, short. CHEST: Decreased breath, occasional wheeze. HEART: Regular rate and rhythm, no murmur. ABDOMEN: Some distention, nontender. EXTREMITIES: No edema noted. No gross deformity. no tenderness NEUROLOGIC: Coherent. No gross focality Hospital Course 1. Acute on chronic hypoxemic respiratory failure secondary to chronic obstructive pulmonary disease/interstitial lung disease exacerbation.steroid dependent disease flare secondary to complicated bronchitis? HCAP? started on iv vanco by pulmonary but stopped as pro calcitonin negative on increased prednisone to 40mg daily and plan for slow taper nebs better today tapering steroids slowly to maintenance dose 10mg daily cxr better stable f/u with pulmonary- has appointment 2. Chronic diastolic heart failure Equivocal volume status .on Lasix 40mg daily.stable. 3. HTN, stable on Toprol xl. 4. hx lung CA status post surgery, chemotherapy 5. past tobacco abuse. 6. Anemia of chronic anemia, hemoglobin baseline. hb 10.3 discharged home Total time spent on discharge = 35MINUTES This includes examination of the patient, discharge planning, medication reconciliation, and communication with other providers. Discharge Instructions Discharge Instructions Date of Service May 03, 2017. Admission Reason for Admission: Respiratory Failure Discharge Discharge Diagnosis / Problem: ACUTE ON CHRONIC RESP FAILURE, COPD/ILD FLARE Discharge Goals Goal(s): Decrease discomfort, Improve function Activity Recommendations Activity Limitations: resume your previous activity . Instructions / Follow-Up Instructions / Follow-Up FOLLOWUP WITH FAMILY DOCTOR ON April AT 1PM FOLLOWUP WITH PULMONARY IN 2-3 WEEKS. PREDNISONE SLOW TAPER: PREDNISONE 35MG PO DAILY X ONE WEEK THEN PREDNISONE 30MG PO DAILY X ONE WEEK THEN PREDNISONE 25MG PO DAILY X ONE WEEK THEN PREDNISONE 20MG PO DAILY X ONE WEEK THEN PREDNISONE 15MG PO DAILY X ONE WEEK THEN PREDNISONE 10MG PO DAILY MAINTENANCE DOSE PER PULMONARY. Current Hospital Diet Patient's current hospital diet: AHA Diet (Heart Healthy) Discharge Diet Recommended Diet: AHA Diet (Heart Healthy) Pending Studies Studies pending at discharge: no Medical Emergencies . Who to Call and When: Medical Emergencies: If at any time you feel your situation is an emergency, please call 911 immediately. . Non-Emergent Contact Non-Emergency issues call your: Primary Care Provider . .
== END 2017-05-03 13:17 | disposition home or self-care (01) | DRG 190 ==
LOC: C.EDB 16:08 → C.2T 20:59 → ENRESERV 21:29
PROVIDERS: ADMIT Internal Medicine; ATTEND Internal Medicine
DX: J44.1 Chronic obstructive pulmonary disease with (acute) exacerbation (principal); J96.21 Acute and chronic respiratory failure with hypoxia; I50.32 Chronic diastolic (congestive) heart failure; J84.9 Interstitial pulmonary disease, unspecified; M54.9 Dorsalgia, unspecified; I10 Essential (primary) hypertension; D64.9 Anemia, unspecified; Z85.118 Personal history of other malignant neoplasm of bronchus and lung; Z79.82 Long term (current) use of aspirin; Z82.49 Family history of ischemic heart disease and other diseases of the circulatory system; Z87.891 Personal history of nicotine dependence; Z99.81 Dependence on supplemental oxygen; Z79.52 Long term (current) use of systemic steroids; Z88.1 Allergy status to other antibiotic agents; Z88.5 Allergy status to narcotic agent; Z88.8 Allergy status to other drugs, medicaments and biological substances

== ENCOUNTER → 2017-05-06 | Outpatient (CLI) | payer OTHER ==
[~2017-05-06] MED LIST changes: +ALEN70TA4 PO; -ATRINS INH; +ATRINSX NEB; +BENZ100C84 PO; +CALC-452 PO; -CALC600T9 PO; +FRS/40 PO; -FSMD/70 PO; +OXGN; +PRED-301 PO; -TMF75 PO
--- NOTE | 2017-05-06 11:31 | DIAGNOSTIC IMAGING REPORT ---
CHEST 2 VIEWS ROUTINE CLINICAL HISTORY: 67 years-old Female presenting with R06.02 Shortness of [id number]. TECHNIQUE: PA and lateral views of the chest were obtained. COMPARISON: Chest x-ray from 05/02/[address] from 03/11/2017. FINDINGS: Atherosclerosis of the aortic arch. Cardiac silhouette normal in size. Mediastinal surgical clips noted. Elevation of the right hemidiaphragm with small right pleural fluid or pleural thickening, unchanged. Low lung volumes unchanged. Diffuse reticular opacities with a mid to basilar predominance. Elevation of the right hemidiaphragm unchanged. No superimposed focal opacity. No pneumothorax. Osseous structures normal. Upper abdomen normal. IMPRESSION: 1. Chronic low lung volumes with evidence of pulmonary fibrosis. No new superimposed infiltrate. Electronically signed by: Manny Lambert M.D. 05/06/2017 11:30 AM Dictated Date/Time: 05/06/2017 11:25 AM
[2017-05-06 12:57] LABS: ALBUMIN 3.2 gm/dl (3.4-5.0); ALT/SGPT 30 U/L (12-78); BLOOD UREA NITROGEN 24 mg/dl (7-18); CALCIUM 9.7 mg/dl (8.5-10.1); CARBON DIOXIDE 37 mmol/L (21-32); CREATININE 0.94 mg/dl (0.60-1.20); GLUCOSE 154 mg/dl (70-99); POTASSIUM 3.5 mmol/L (3.5-5.1); SODIUM 137 mmol/L (136-145)
[2017-05-06 13:02] LABS: ALKALINE PHOSPHATASE 51 U/L (45-117); AST/SGOT 16 U/L (15-37); TOTAL PROTEIN 6.8 gm/dl (6.4-8.2)
== END | disposition home or self-care (01) ==
LOC: C.RAD1850 10:46
PROVIDERS: ATTEND Physician Assistant
DX: J84.9 Interstitial pulmonary disease, unspecified (principal); R06.02 Shortness of breath; C34.90 Malignant neoplasm of unspecified part of unspecified bronchus or lung

== ENCOUNTER → 2017-06-16 | Outpatient (CLI) | payer OTHER ==
--- NOTE | 2017-06-16 12:22 | DIAGNOSTIC IMAGING REPORT ---
PET/CT SKULL-THIGH HISTORY: Lung carcinoma LUNG CANCER TECHNIQUE: PET/CT was performed from the base of the skull through the pelvis following the intravenous administration of 15.4 mCi of [id number]. Non-contrast CT imaging was performed over the same range without breath-hold for attenuation correction of PET images and anatomic correlation, but not for primary interpretation as it is not of standard diagnostic quality. CT DOSE: COMPARISON: 04/03/2015 and outside institution FINDINGS: HEAD AND NECK: Small focus of increased metabolic activity posterior right parotid gland. HISTORY: Be characteristics of 2.7. This is similar compared to the prior study. Minimal salivary gland activity unchanged. No significant cervical adenopathy. Moderate degenerative activity of the right shoulder. Nonspecific muscular activity lateral to the right scapula with no evidence for CT correlate. CHEST: Postoperative changes right hemithorax. No metabolically active hilar or mediastinal christian pathology. Interval resection and removal of the metabolically active mass right lower lobe. Metabolically active right hilar node in the prior study is not identified currently. ABDOMEN/PELVIS: Below the diaphragm, tracer is distributed physiologically in the gastrointestinal and genitourinary tracts. There is no significant lymphadenopathy and no FDG-avid disease. MUSCULOSKELETAL: There is no FDG-avid or destructive bone lesion. IMPRESSION: 1. Considerable improvement compared to the prior study. 2. Interval resolution and/or resection of the metabolically active mass right lower lobe as well as the metabolically active right hilar node. 3. Increased muscular activity about the right scapula with no CT correlate in reference to potential mass. This most likely secondary to muscular activity during the scan although close monitoring at follow-up studies is suggested. 4. No current evidence for significant activity of a pathologic nature within the chest abdomen or pelvis. 5. Increased activity posterior aspect right parotid gland unchanged from the prior study. 6. Progressive interstitial change throughout both hemithoraces possibly secondary to interval treatment change and/or medication reaction. The above report was generated using voice recognition software. It may contain grammatical, syntax or spelling errors. Electronically signed by: Anton Glynn M.D. 06/16/2017 12:21 PM Dictated Date/Time: 06/16/2017 11:58 AM
== END | disposition home or self-care (01) ==
LOC: C.PET 08:34
PROVIDERS: ATTEND Internal Medicine Pulmonary Disease
DX: C34.90 Malignant neoplasm of unspecified part of unspecified bronchus or lung (principal); J84.9 Interstitial pulmonary disease, unspecified